=== PATIENT | male | born 1940 | race Caucasian/White ===

== ENCOUNTER 2020-09-29 15:48 | Day surgery (SDC) | payer MEDICARE, SELFPAY ==
[2020-09-29 16:05] VITALS: BP 157/89; PULSE 91; RESP 16; TEMP 36.7; O2SAT 95; BMI 28.5
--- NOTE | 2020-09-29 16:13 | HMH.GSHP ---
HPI HPI: Patient is an 79-year-old male with prior history of reflux. He was in his usual state of health until approximately 11:30 AM this morning he was eating meat and felt like it became lodged. He has subsequently been unable to swallow his secretions. He presented to his primary care provider, Dr. Jake Quintero, in [facility]. Given the clinical diagnosis of esophageal obstruction secondary to food bolus impaction surgery was contacted at [facility] and the patient was transported for EGD. [facility] History I have reviewed the patient's past medical history: Yes Medical History: Reports:: Hypertension *Have you ever received a pneumonia vaccine?: Yes *Have you received a flu vaccine this season?: Yes Other Surgeries: Yes: Hernia Repair - *Social History Smoking Status: Never smoker *Occupational Status:: other *Travel in the last 8 weeks: None Family Hx:: Non-contributory Review of Systems - Review of Systems Review of systems:: pertinent systems reviewed and negative unless documented below Meds Home Medications Medication Instructions Recorded Confirmed Type Omeprazole [Omeprazole 20mg 20 mg PO DAILY 09/29/20 09/29/20 History Capsule] Pravastatin Sodium [Pravachol 20mg 20 mg PO HS 09/29/20 09/29/20 History Tablet] lisinopriL [Lisinopril] 20 mg PO DAILY 09/29/20 09/29/20 History Allergies Allergy/AdvReac Type Severity Reaction Status Date / Time No Known Allergies Allergy Verified 09/29/20 16:02 Exam - *Routine HEENT Exam Head: Present: normocephalic Eye: Present: EOMI, PERRL ENT: Present: mucous membranes moist - *Routine Neck Exam Present: supple. Absent: lymphadenopathy - *Routine Respiratory Exam Present: CTA bilaterally - *Routine Cardiovascular Exam Present: RRR - *Routine Abdominal Exam Present: soft, normoactive bowel sounds. Absent: tenderness - *Routine Extremities Exam Absent: cyanosis, clubbing, edema - *Routine Skin Exam Present: warm. Absent: rash - *Routine Neurological Exam Present: alert, oriented X3 Assessment and Plan - Assessment and plan all Dx Assessment and Plan for all problems:: Plan for urgent EGD for food impaction
[2020-09-29 17:25] VITALS: BP 118/71; PULSE 79; RESP 16; TEMP 36.4; O2SAT 92
--- NOTE | 2020-09-29 17:30 | HMH.SCOPE ---
- Procedure: Date: 09/29/20 Patient Date of :: 1940 Procedure Performed:: Esophagogastroduodenoscopy with retrieval of food bolus and relief of esophageal obstruction Indications:: Patient is an 79-year-old male with prior history of reflux. He was in his usual state of health until approximately 11:30 AM this morning he was eating meat and felt like it became lodged. He has subsequently been unable to swallow his secretions. He presented to his primary care provider, Dr. Jake Quintero, in [facility]. Given the clinical diagnosis of esophageal obstruction secondary to food bolus impaction surgery was contacted at [facility] and the patient was transported for EGD. Performing Provider:: Eloy Javed MD Referring Provider:: Jake Quintero MD Sedation:: MAC sedation Procedure:: Patient was taken to endoscopy procedure room. He was positioned in the lateral decubitus position. Adequate intravenous sedation was achieved with anesthesia titration of propofol. Olympus endoscope was inserted via the oropharynx. In the posterior pharynx, proximal esophagus, large food bolus was encountered. This was only at approximately 15 to 20 cm from the incisors. Attempt was made to grasp this with the Caesar grasping forceps. Only a small portion of this could be retrieved. Endoscope was withdrawn and reinserted numerous times using both the Caesar grasping forcep and Jauregui net with retrieval of small amounts of the food bolus as it was in the proximal esophagus. Ultimately several decent sized pieces were removed. Then the endoscope was reinserted and Jauregui net was able to grasp a very large food bolus. The endoscope was then reinserted and able to be advanced through the remainder of the esophagus. Gastroesophageal junction was encountered at approximately 40 cm from the incisors. Stomach was cannulated and insufflated. Retroflexion revealed likely a tiny hiatal hernia. Pylorus was identified and the endoscope was advanced into the duodenal bulb. Endoscope was then withdrawn as the stomach was desufflated. Findings:: Esophageal food impaction/bolus at approximately 15 to 20 cm from the incisors Recommendations:: Recommend clear liquid diet for at least 24 hours, until the morning of 10/01/2020. Then may partake in a soft diet. I will see him in the office in a couple of weeks. Likely will plan for modified barium swallow given the nature of this food impaction in the proximal esophagus. Complications:: None immediately apparent Estimated blood obtained (mL): 5
[2020-09-29 17:33] LABS: Coronavirus 19 IgG Antibody Positive (Negative)
[2020-09-29 17:35] VITALS: BP 122/71; PULSE 75; RESP 16; O2SAT 97
[2020-09-29 17:39] LABS: Coronavirus 19 IgM Antibody Positive (Negative)
[2020-09-29 17:45] VITALS: BP 138/79; PULSE 75; RESP 16; O2SAT 99
--- NOTE | 2020-09-29 17:52 | P.PN_ITS ---
[facility] Anesthesia Checklist - Structural Data Admitted From: Home Planned Operative Procedure/s: removal esoph foreign body Consent for Planned Operative Procedure(s) Verified: Yes - Airway Assessment C-Spine Mobility Assessed: Yes TMJ Mobility Assessed: Yes Dentition: Dentures-good fit - Neurological Assessment Level of Consciousness: Awake, Alert, Appropriate - Anesthesia Plan Anesthesia Risk discussed: Yes Anesthesia Plan: Verified ASA Class: II Anesthesia Type: MAC [facility] History I have reviewed the patient's past medical history: Yes Medical History: Reports:: Hyperlipidemia, Hypertension Denies:: Cancer, Diabetes Mellitus Type 1, Diabetes Mellitus Type 2, Internal Pacemaker, Seizures *Have you ever received a pneumonia vaccine?: Yes *Have you received a flu vaccine this season?: Yes Anesthesia experience/problems:: none Other Surgeries: Yes: Hernia Repair. No: Pacemaker Amputation: No Fractures: No - *Social History Last grade of school completed: High school graduate Smoking Status: Never smoker Alcohol Intake: never Substance Use Type: denies use *Occupational Status:: other Housing: house Household Members: none *Travel in the last 8 weeks: None Family Hx:: Non-contributory
[2020-09-29 17:55] VITALS: BP 128/68; PULSE 77; RESP 16; O2SAT 97
== END 2020-09-29 17:58 | disposition home or self-care (01) ==
PROVIDERS: PCP Family Medicine; Visit Provider Surgery
PROC: 0DJ08ZZ Inspection of Upper Intestinal Tract, Via Natural or Artificial Opening Endoscopic (ICD-10-PCS; CPT 43235; principal; 2020-09-29 16:00)
DX: T18.128A Food in esophagus causing other injury, initial encounter; K21.9 Gastro-esophageal reflux disease without esophagitis; I10 Essential (primary) hypertension; E78.5 Hyperlipidemia, unspecified; Z79.899 Other long term (current) drug therapy
CPT/HCPCS: 43247; 86328

== ENCOUNTER → 2020-11-04 12:39 | Outpatient (CLI) | payer MEDICARE, SELFPAY ==
--- NOTE | 2020-11-04 12:39 | FL_ITS ---
PROCEDURE: FL BARIUM SWALLOW MODIFIED CLINICAL INDICATION: difficult swallowing Dysphagia COMPARISON: No exams were available for comparison TECHNIQUE: Patient administered varying consistencies of barium contrast, while viewed in lateral position under real-time fluoroscopy with cine recording. FLUOROSCOPY TIME:1 minutes 25 seconds The study was performed in conjunction with speech pathologist. Please see that report & recommendations. FINDINGS: Patient was given varying consistencies of barium. No aspiration or penetration evident.. IMPRESSION: Unremarkable modified barium swallow. Please see speech pathologist report and recommendations. Dictated by: Hamlet Barry MD 11/04/2020 16:41 Hamlet Barry MD in [place] 11/04/2020 16:41
--- NOTE | 2020-11-04 13:56 | HMH.SLMBS2 ---
Speech & Language Evaluation Speech/Language Mod Barium Swallow Start: 11/04/20 13:45 Freq: once Status: Complete Protocol: Document 11/04/20 13:45 JOSE (Rec: 11/04/20 13:56 JOSE [id number]) General Information General Current Food Consistancy Regular,Thin Liquids Dentition Good Dentition Oxygen Status Room Air Facial Symmetry Symmetrical Patient Orientation Person,Place,Time,Situation Ability to Follow Directions Excellent Communication Ability No Impairment MBS Recommendations Diet Dietary Recommendations Regular,Thin Liquids Referrals/Other Recommended Referrals GI Consult Mod Barium Swallow Impressions Summary and Impressions Oral Phase Impression No Impairment (WFL) Oral Phase Summary Mr. Lozano was given the following consistencies: thins via straw and open cup, pudding, regular, pill with thin wash, and mixed. No impairments noted in the oral phase of swallowing. Pharyngeal Phase Impression Minimal Impairment Pharyngeal Phase Summary Flash penetration was noted with large volumes of thin liquids. When advised to take smaller sips, no impairments noted. Speech/Language MBS Assessment/Goals/Plan Assessment Date of Evaluation: 11/04/20 Evaluation Type Initial Certification Assessment/Problems Dysphagia Does Patient Qualify for Service No Plan Pt/Guardian verbally ack understanding Yes of dx/prognosis/goals G -code Required No Education Pt/Caregiver able to recall information Able to recall/restate Mod Barium Swallow Setup Exam Setup Radiologist Hamlet Barry Level of Consciousness Awake,Alert,Appropriate, Follows Commands Position (degrees) 90 Mod Barium Swallow-Lat View Textures Lateral View Food Presentation Thin Liquid via Cup,Thin Liquid via Straw,Barium Tablet ,Regular Food,Pudding,Mixed Oral Phase Labial Closure No Impairment (WFL) Bolus Formation Pooling L/R No Impairment (WFL) Bolus Formation under Tongue No Impairment (WFL) Bolus Formation Scattered Loss No Impairment (WFL) Mastication Rotary Chew No Impairment (WFL) Mastication Munching No Impairment (WFL) Mastication Lateralization No Impairment (WFL) A/P Lingual Propulsion Spills No Impairment (WFL) Lingual Movement No Impairment (WFL) Residue Clearing No I
== END ==
PROVIDERS: PCP Family Medicine; Visit Provider Surgery
DX: R13.10 Dysphagia, unspecified (principal)
CPT/HCPCS: 70371; 92611

== ENCOUNTER → 2020-12-06 07:09 | Outpatient (CLI) | payer MEDICARE, SELFPAY | PROVIDERS: Visit Provider Internal Medicine Gastroenterology | DX: Z01.812 Encounter for preprocedural laboratory examination (principal); Z20.822 Contact with and (suspected) exposure to COVID-19; Z12.11 Encounter for screening for malignant neoplasm of colon | CPT/HCPCS: U0003 ==

== ENCOUNTER 2020-12-08 12:26 | Day surgery (SDC) | payer MEDICARE, SELFPAY ==
[2020-12-01 15:48] VITALS: BMI 28.5
[2020-12-08 13:11] VITALS: BP 148/84; PULSE 71; RESP 18; TEMP 36.7; O2SAT 93
[2020-12-08 14:02] VITALS: O2SAT 97
--- NOTE | 2020-12-08 14:18 | P.PN_ITS ---
[facility] Anesthesia Checklist - Patient Identification Patient Identification: Arm Band - Structural Data Admitted From: Home Planned Operative Procedure/s: egd Consent for Planned Operative Procedure(s) Verified: Yes Verified Documents: Surgical Consent, History and Physical - NPO Status Verified Time NPO: 00:00 - Additional verifications Anesthesia Reactions: No - Airway Assessment C-Spine Mobility Assessed: Yes (mp2) TMJ Mobility Assessed: Yes Dentition: Dentures-good fit - Neurological Assessment Level of Consciousness: Awake, Alert - Anesthesia Plan Anesthesia Risk discussed: Yes Anesthesia Plan: Verified ASA Class: II Anesthesia Type: MAC [facility] History I have reviewed the patient's past medical history: Yes Medical History: Reports:: Asthma, Hyperlipidemia, Hypertension Denies:: Cancer, Diabetes Mellitus Type 1, Diabetes Mellitus Type 2, Internal Pacemaker, MRSA, Seizures *Have you ever received a pneumonia vaccine?: Yes *Have you received a flu vaccine this season?: Yes Anesthesia experience/problems:: nac Other Surgeries: Yes: EGD, Hernia Repair. No: Pacemaker Amputation: No Fractures: No - *Social History Smoking Status: Never smoker Alcohol Intake: never Substance Use Type: denies use *Occupational Status:: other Housing: house Household Members: none *Travel in the last 8 weeks: None Family Hx:: Non-contributory
[2020-12-08 14:24] VITALS: BP 163/80; PULSE 61; RESP 12; TEMP 36.2; O2SAT 95
--- NOTE | 2020-12-08 14:24 | P.PCN_ITS ---
[facility] Procedure Note Procedure Note:: Upper Endoscopy Procedure Report: Esophagogastroduodenoscopy with cold biopsies and TTS balloon dilation Endoscopost: Jayme Cruz II, MD Referring Physician: Artur Quintero MD Date of Procedure: December 08, 2020 Equipment: Olympus GIF 190 standard upper endoscope Sedation: MAC sedation Indications: Mr. Lozano is an 80-year-old gentleman with dysphagia. He did have a food impaction about a month ago and came to the emergency department at [facility]. The food was dislodged and removed (Dr. Eloy Javed). He reports no heartburn, reflux, bloating or belching. He is on omeprazole 20 mg by mouth daily. Procedure: Prior to the procedure, a history and physical exam was performed, and patient's medications and allergies were reviewed. The risks, benefits and alternatives of the sedation and procedure were discussed with the patient. All questions were answered and informed consent was obtained. The patient was brought to the procedure room. Patient identification and proposed procedure were verified by the physician and the nurse. The patient was placed in a left lateral decubitus position and the scope was passed under direct vision. Throughout the procedure, the patient's blood pressure, pulse, and oxygen saturations were monitored continuously. The upper GI endoscopy was accomplished without difficulty. The patient tolerated the procedure well. Findings: The scope was passed directly into the upper esophagus and advanced to the third portion of the duodenum. The post bulbar duodenum and duodenal bulb were normal with normal mucosa and conniventes. The scope was withdrawn through a normal duodenal bulb and pylorus into the stomach. There was bile reflux with linear reactive gastropathy of the antrum and body of the stomach. The remainder of the fundus of the stomach was grossly normal. Upon retroflexion there was a very small sliding 1 to 2 cm hiatal hernia. 2 biopsies were taken in the antrum and along the lesser curvature for histology to rule out gastritis and/or H pylori. The scope was then withdrawn into the esophagus. There was a distal Schatzki's ring that was originally 14 to 15 mm and dilated up to 20 mm with a TTS hydrostatic balloon. There was some mild esophageal dysmotility. The remainder of the esophageal mucosa was normal. Impression: 1. Schatzki's ring status post dilation to 20 mm 2. Nonerosive GERD with mild esophageal dysmotility and very small 1 to 2 cm hiatal hernia 3. Bile reflux with mild linear reactive gastropathy Plan: I will recommend that the patient increase omeprazole to 40 mg p.o. daily for 3 months. I will follow-up the biopsies. I will discussed the findings with patient and family.
[2020-12-08 14:34] VITALS: BP 144/73; PULSE 62; RESP 12; O2SAT 94
[2020-12-08 14:44] VITALS: BP 138/78; PULSE 68; RESP 16; O2SAT 96
[2020-12-08 14:54] VITALS: BP 128/88; PULSE 68; RESP 16; TEMP 36.2; O2SAT 96
== END 2020-12-08 14:57 | disposition home or self-care (01) ==
LOC: OUTP 12:27
PROVIDERS: PCP Family Medicine; Visit Provider Internal Medicine Gastroenterology
PROC: 0DJ08ZZ Inspection of Upper Intestinal Tract, Via Natural or Artificial Opening Endoscopic (ICD-10-PCS; CPT 43235; principal; 2020-12-08 13:30)
DX: K22.2 Esophageal obstruction (principal); K22.4 Dyskinesia of esophagus; K21.9 Gastro-esophageal reflux disease without esophagitis; K31.9 Disease of stomach and duodenum, unspecified; K44.9 Diaphragmatic hernia without obstruction or gangrene; J45.909 Unspecified asthma, uncomplicated; E78.5 Hyperlipidemia, unspecified; I10 Essential (primary) hypertension
CPT/HCPCS: 43239; 43249; 88305; C1726

== ENCOUNTER → 2022-04-19 12:17 | Outpatient (CLI) | payer MEDICARE, SELFPAY | PROVIDERS: PCP Family Medicine; Visit Provider Ophthalmology | DX: U07.1 COVID-19 (principal) | CPT/HCPCS: C9803; U0003; U0005 ==

== ENCOUNTER 2022-05-18 07:54 | Day surgery (SDC) | payer MEDICARE, SELFPAY ==
[2022-05-13 14:32] VITALS: BMI 27.8
[2022-05-18] VITALS (8 sets, daily range): BP systolic 121–145; BP diastolic 62–75; PULSE 61–84; RESP 16–18; TEMP 36.3–36.6; O2SAT 96–99
== END 2022-05-18 10:48 | disposition home or self-care (01) ==
LOC: OR 08:00
PROVIDERS: PCP Family Medicine; Visit Provider Ophthalmology
DX: H25.813 Combined forms of age-related cataract, bilateral (principal); Z79.899 Other long term (current) drug therapy
CPT/HCPCS: 66982; V2632

== ENCOUNTER 2022-06-01 07:57 | Day surgery (SDC) | payer MEDICARE, SELFPAY ==
[2022-06-01] VITALS (8 sets, daily range): BP systolic 129–147; BP diastolic 62–78; PULSE 53–61; RESP 16–18; TEMP 36.1–36.6; O2SAT 96–100; BMI 27.8
== END 2022-06-01 09:48 | disposition home or self-care (01) ==
PROVIDERS: PCP Family Medicine; Visit Provider Ophthalmology
DX: H25.813 Combined forms of age-related cataract, bilateral (principal)
CPT/HCPCS: 66982; V2632

== ENCOUNTER 2022-09-25 13:39 | Emergency (ER) | payer MEDICARE, SELFPAY ==
[2022-09-25 13:50] VITALS: BP 99/54; PULSE 84; RESP 18; TEMP 36.7; O2SAT 95; BMI 28.5
--- NOTE | 2022-09-25 14:02 | XR_ITS ---
PROCEDURE INFORMATION: Exam: XR Left Hand Exam date and time: 09/25/2022 2:10 PM Age: 81 years old Clinical indication: Pain; Finger(s); Left; Additional info: Left middle finger injury TECHNIQUE: Imaging protocol: Radiologic exam of the left hand. Views: 3 or more views. COMPARISON: No relevant prior studies available. FINDINGS: Bones/joints: Nondisplaced 3rd proximal middle phalangeal fracture. No dislocation. Soft tissues: Normal. IMPRESSION: Third middle phalangeal fracture.
--- NOTE | 2022-09-25 14:13 | EXP.UTC ---
Discharge Plan Disposition Patient Disposition: Home, Self-Care Condition: Good Prescriptions Prescriptions: No Action lisinopril 20 MG tablet 20 mg PO DAILY omeprazole 20 MG capsule,delayed release(DR/EC) 20 mg PO DAILY pravastatin 20 MG tablet 20 mg PO HS tamsulosin 0.4 mg Capsule 0.4 mg PO DAILY montelukast 10 mg Tablet 10 mg PO DAILY finasteride 5 mg Tablet 5 mg PO DAILY Referrals Follow up/Referrals: Artur Quintero [Primary Care Provider] - See instructions Activity Restrictions/Add. Instructions Additional Instructions/Restrictions: leave smiley tape on rest Ice with cold pack for 20 minutes remove may repeat for comfort every hour splint for support and swelling no less in the shower. Be sure not too tight but not to lose either Elevate with hand above your heart as much as possible to help reduce swelling and therefore pain Ibuprofen every 6 hours as needed for pain or inflammation. If needs something more you can take Tylenol every 4 hours as needed as long as her primary care has told he was okayed for you to take both. Follow-up immediately if new or worsening symptoms or no noticeable improvement over the next 3-5 days. call ortho on tuesday for appointment with dr brian ashley or andreea Clinical Impressions Clinical Impression: Fracture of finger of left hand Instructions Patient Instructions: DI for Finger Fracture Discharge ED Provider: Le ([facility] [facility] [place] General Stated complaint: LT hand middle finger pain Mode of Arrival: Ambulatory Source of Information: Patient Limitations: No Limitations Time Seen by Provider: 09/25/22 14:14 Description of Symptoms (Recalled from Triage Doc. by RN): PATIENT STATES HE WAS LOADING A CHAINSAW IN THE BACK OF A TRUCK TODAY AND BENT HIS LEFT MIDDLE FINGER SIDEWAYS AND IT STAYED THAT WAY HEENT Symptoms (Recalled from RN notes): No Resp Symptoms (Recalled from RN notes): No Skin Symptoms (Recalled from RN notes): No MS Symptoms (Recalled from RN notes): Yes Functional Status (Recalled from RN notes): WNL History of Present Illness Provider Complaint: 81 yr old male presents for left hand pain. pt states he was loading a chain saw when he hit his 3 finger now having pain Related Data Home Medications Medication Instructions Recorded Confirmed lisinopril 20 mg tablet 20 mg PO DAILY High blood pressure 09/29/20 05/18/22 omeprazole 20 mg capsule,delayed 20 mg PO DAILY GERD 09/29/20 05/18/22 release pravastatin 20 mg tablet 20 mg PO HS Cholesterol 09/29/20 05/18/22 finasteride 5 mg tablet 5 mg PO DAILY PROSTATE 05/18/22 05/18/22 montelukast 10 mg tablet 10 mg PO DAILY ALLERGIES 05/18/22 05/18/22 tamsulosin 0.4 mg capsule 0.4 mg PO DAILY PROSTATE 05/18/22 05/18/22 Allergies Allergy/AdvReac Type Severity Reaction Status Date / Time No Known Allergies Allergy Verified 04/19/22 08:49 Worker's Comp Is this a Worker's Comp case?: No [facility] Disclaimer: The information contained in this section may have been updated after the patient was seen, as this information can be updated by other users. Medical History , [employer]) Allergies Arthritis Deviated septum Family history of prostate problems History of cataract Hyperlipidemia Hypertension Surgical History , [employer]) History of hernia surgery Family History , [employer]) Heart attack Father Social History , [employer]) Smoking Status: Former smoker second hand exposure: No alcohol intake: never substance use type: denies use current occupational status: retired and other Travel in the last 8 weeks: None household members: none housing: house current occupational exposures/hazards: No caffeine: Yes ROS Obtained: Yes All systems r
[2022-09-25 14:51] VITALS: BP 99/54; PULSE 84; RESP 18; TEMP 36.7; O2SAT 95
== END 2022-09-25 14:56 | disposition home or self-care (01) ==
PROVIDERS: Emergency Provider Nurse Practitioner Family; PCP Family Medicine
DX: S62.653A Nondisplaced fracture of middle phalanx of left middle finger, initial encounter for closed fracture; W29.8XXA Contact with other powered hand tools and household machinery, initial encounter
CPT/HCPCS: 73130; 99212; 99213; G0463

== ENCOUNTER → 2022-10-12 12:26 | Outpatient (CLI) | payer MEDICARE, SELFPAY ==
--- NOTE | 2022-10-12 12:42 | XR_ITS ---
FINAL REPORT CLINICAL HISTORY: fracture COMPARISON: September 25, 2022 FINDINGS: 3 views of the left hand were obtained. There are multiple small metallic foreign body is in the distal 4th digit in lateral 2nd digit. There is a mildly displaced comminuted fracture through the base of the 3rd middle phalanx. IMPRESSION: Redemonstration of 3rd middle phalanx fracture with multiple small metallic foreign bodies. Reviewed, Interpreted and Dictated by Jasvir Sheffield MD Transcribed by Magan Peterson Authenticated and [facility]
== END ==
PROVIDERS: PCP Family Medicine; Visit Provider Orthopaedic Surgery
DX: S62.602A Fracture of unspecified phalanx of right middle finger, initial encounter for closed fracture (principal)
CPT/HCPCS: 73130

== ENCOUNTER → 2023-05-10 07:34 | Outpatient (CLI) | payer MEDICARE, SELFPAY ==
--- NOTE | 2023-05-10 07:40 | US_ITS ---
FINAL REPORT CLINICAL HISTORY: DISTENTION PAIN COMPARISON: None FINDINGS: Sonographic images of the abdomen were obtained. The liver has an unremarkable appearance with normal echogenicity. Gallstones are present in the gallbladder. There is no evidence of biliary ductal dilatation. The common hepatic duct measures 4 mm, which is within normal limits. The pancreas is obscured by overlying bowel gas. The spleen size is normal. The right kidney measures 11.2 in length. The left kidney measures 9.8 in length. There is normal renal echogenicity. There is no evidence of hydronephrosis. The aorta has an unremarkable appearance. Limited images of the inferior vena cava are unremarkable. IMPRESSION: Gallstones are present in the gallbladder. Reviewed, Interpreted and Dictated by Eloy Shafer III, MD Transcribed by Mary Huitron Authenticated and [facility]
== END ==
PROVIDERS: PCP Family Medicine; Visit Provider Family Medicine
DX: R14.0 Abdominal distension (gaseous) (principal); R10.9 Unspecified abdominal pain
CPT/HCPCS: 76700

== ENCOUNTER → 2023-06-07 12:49 | Outpatient (CLI) | payer MEDICARE, SELFPAY ==
--- NOTE | 2023-06-07 12:53 | CT_ITS ---
FINAL REPORT TECHNIQUE: Axial images through the abdomen and pelvis were performed without contrast. This study was performed with techniques to keep radiation doses as low as reasonably achievable, (ALARA). Individualized dose reduction techniques using automated exposure control or adjustment of mA and/or kV according to the patient's size were employed. CLINICAL HISTORY: ABD PAIN,BLOATING COMPARISON: None FINDINGS: Abdomen: The lung bases are clear. Massive pneumoperitoneum is present, without a definite site of origin. There is stranding in the mesentery, oblique inflammatory. The liver parenchyma is homogeneous. The gallbladder is present with gallstones. The spleen, pancreas, adrenals and kidneys are unremarkable. Pelvis: A moderate amount of free fluid is present in the pelvis. This has been attenuation of 20 Hounsfield units. The urinary bladder is unremarkable. The appendix is not visualized. There is no pelvic mass or inflammation. IMPRESSION: Massive pneumoperitoneum, with moderate free fluid present in the pelvis. These results were called to Dr. Artur Quintero and given to his nurse, Pebbles Sanderson at 2:30 PM on 06/07/2023. Reviewed, Interpreted and Dictated by Jasvir Sheffield MD Transcribed by Mary Huitron Authenticated and [facility]
== END ==
PROVIDERS: PCP Family Medicine; Visit Provider Family Medicine
DX: R10.9 Unspecified abdominal pain (principal); R14.0 Abdominal distension (gaseous)
CPT/HCPCS: 74176

== ENCOUNTER 2023-06-10 08:15 | Emergency (ER) | payer MEDICARE, SELFPAY ==
[2023-06-10 08:17] VITALS: BP 131/86; PULSE 85; RESP 18; TEMP 36.6; O2SAT 96; BMI 27.9
--- NOTE | 2023-06-10 08:43 | PC.NURSE ---
Dr. Hendrix at bedside
--- NOTE | 2023-06-10 09:14 | PC.NURSE ---
DR KEEN SPEAKING WITH DR FENTON
[2023-06-10 09:15] LABS: Basophils % 0.1 % (0.1-2.0); Eosinophils # 0.1 K/mm3 (0.0-0.4); Eosinophils % 1.6 % (0.1-12.0); Hematocrit 43.9 % (42.0-52.0); Hemoglobin 14.6 g/dL (14.1-18.0); Lymphocytes # 0.8 K/mm3 (0.7-4.5); Lymphocytes % 15.5 % (10-50); Mean Corpuscular HGB Conc 33.3 g/dL (31.8-35.4); Mean Corpuscular Hemoglobin 33.1 pg (27.0-31.2); Mean Corpuscular Volume 99.4 fl (80-94); Mean Platelet Volume 8.2 fl (7.4-10.4); Monocytes # 0.4 K/mm3 (0.1-1.0); Monocytes % 7.2 % (1.7-9.3); Neutrophils % 75.6 % (37.0-80.0); Platelet Count 194 K/mm3 (142-424); Red Blood Count 4.41 M/mm3 (4.60-6.20); Red Cell Distribution Width 13.6 % (11.5-17.5); White Blood Count 5.3 K/mm3 (4.8-10.8)
[2023-06-10 09:22] LABS: Alanine Aminotransferase 24 U/L (12-78); Albumin Level 3.7 g/dl (3.5-5.0); Albumin/Globulin Ratio 1.3 (1.1-1.8); Alkaline Phosphatase 125 U/L (38-126); Aspartate Amino Transferase 31 U/L (17-59); Bilirubin,Total 0.5 mg/dl (0.2-1.3); Blood Urea Nitrogen 13 mg/dl (9-20); Calcium 8.6 mg/dl (8.4-10.2); Carbon Dioxide 27 mmol/L (22.0-30.0); Chloride 104 mmol/L (98-107); Creatinine Clearance Estimated 69 mL/min (50-200); Estimated Glomerular Filt Rate 107 ml/min (>60); GFR (African American) 130 ML/MIN (>60); Globulin 2.8 g/dL (1.3-3.2); Glucose 122 mg/dl (74-100); Lipase 54 U/L (23-300); Sodium 138 mmol/L (136-145); Total Protein,Serum 6.5 g/dl (6.3-8.2)
[2023-06-10 09:27] LABS: C-Reactive Protein 2.5 mg/L (0-4)
[2023-06-10 09:36] LABS: Lactic Acid 0.9 mmol/L (0.7-2.1)
[2023-06-10 09:47] VITALS: BP 126/81; PULSE 85; RESP 17; TEMP 36.6; O2SAT 96
--- NOTE | 2023-06-10 09:50 | HMH.EDGENADL ---
Discharge Plan Disposition Patient Disposition: Home, Self-Care Prescriptions Prescriptions: No Action lisinopril 20 MG tablet 20 mg PO DAILY omeprazole 20 MG capsule,delayed release(DR/EC) 20 mg PO DAILY pravastatin 20 MG tablet 20 mg PO HS tamsulosin 0.4 mg Capsule 0.4 mg PO DAILY montelukast 10 mg Tablet 10 mg PO DAILY finasteride 5 mg Tablet 5 mg PO DAILY Referrals Follow up/Referrals: Artur Quintero [Primary Care Provider] - See instructions Lopez Perez MD [Staff Physician] - See instructions Activity Restrictions/Add. Instructions Additional Instructions/Restrictions: Please walk directly to Dr. Perez's clinic as discussed. Clinical Impressions Clinical Impression: Pneumoperitoneum, Intra-abdominal fluid Discharge ED Provider: Kiesha Hendrix General Adult HPI General Chief complaint: Recheck/Abnormal Lab/Rx Stated complaint: Physician referral, stomach issue Time Seen by Provider: 06/10/23 08:43 Mode of Arrival: Ambulatory Source of Information: Patient Limitations: No Limitations Description of Symptoms (Recalled from ER Triage Doc. by RN): Patient states he had a scan on Tuesday and his family doctor called and told him he had a perforated organ and to come to the er to be evaluated. Patient denies pain or nausea at this time. History of Present Illness HPI narrative: Patient is an 82-year-old male presenting to the emergency department with pneumoperitoneum and intra-abdominal fluid collection on an outpatient CT scan that was performed 2 days ago. Patient states that he is began having some abdominal discomfort in November. States he has pain every few weeks but has not had any pain significantly as of late. Denies any pain or any abdominal discomfort or any other symptoms including fevers chills nausea vomiting or feeling ill at all states he feels very good at the moment. Had an outpatient CT scan that was done on Tuesday his primary care doctor told him to come directly to the emergency department which is why he is here today. Related Data Home Medications Medication Instructions Recorded Confirmed lisinopril 20 mg tablet 20 mg PO DAILY High blood pressure 09/29/20 06/10/23 omeprazole 20 mg capsule,delayed 20 mg PO DAILY GERD 09/29/20 06/10/23 release pravastatin 20 mg tablet 20 mg PO HS Cholesterol 09/29/20 06/10/23 finasteride 5 mg tablet 5 mg PO DAILY PROSTATE 05/18/22 06/10/23 montelukast 10 mg tablet 10 mg PO DAILY ALLERGIES 05/18/22 06/10/23 tamsulosin 0.4 mg capsule 0.4 mg PO DAILY PROSTATE 05/18/22 06/10/23 Allergies Allergy/AdvReac Type Severity Reaction Status Date / Time No Known Allergies Allergy Verified 10/12/22 13:57 [facility] Disclaimer: The information contained in this section may have been updated after the patient was seen, as this information can be updated by other users. Medical History Allergies Arthritis Deviated septum Family history of prostate problems History of cataract Hyperlipidemia Hypertension Surgical History History of hernia surgery Family History Father Heart attack Social History Smoking Status: Never smoker second hand exposure: No alcohol intake: never substance use type: denies use current occupational status: retired and other Travel in the last 8 weeks: None household members: spouse housing: house current occupational exposures/hazards: Yes caffeine: No ROS Obtained: Yes All systems reviewed & no additional complaints except as documented Physical Exam General General appearance: alert Respiratory Respiratory exam: Present normal lung sounds bilaterally Cardiovascular Cardiovascular exam: Present regular rate Abdominal Exam Abdominal exam: P
[2023-06-10 11:58] LABS: Erythrocyte Sedimentation Rate 6 mm/hr (0-20)
== END 2023-06-10 09:54 | disposition home or self-care (01) ==
PROVIDERS: Emergency Provider Student in an Organized Health Care Education/Training Program; PCP Family Medicine
DX: K66.8 Other specified disorders of peritoneum (principal); R18.8 Other ascites; I10 Essential (primary) hypertension; E78.5 Hyperlipidemia, unspecified
CPT/HCPCS: 80053; 83605; 83690; 85025; 85651; 86140; 99283

== ENCOUNTER → 2023-07-01 07:51 | Outpatient (CLI) | payer MEDICARE, SELFPAY ==
--- NOTE | 2023-07-01 07:51 | FL_ITS ---
FINAL REPORT CLINICAL HISTORY: ASYMPTOMATIC FREE AIR FLUORO TIME - 5:57 MIN 225.60mGy FINDINGS: UPPER GI WITH SBFT HISTORY: Abdominal distention and discomfort. Asymptomatic pneumoperitoneum. PROCEDURE: The patient ingested Gastrografin. Spot and overhead films were obtained. Additional Gastrografin was administered for a SBFT. Number of images: 50 Fluoro time: 5 minutes 57 seconds Radiation exposure in Reference air Kerma: 225.60 mGy. FINDINGS: Preliminary clerk film demonstrates diffuse gaseous distention of small bowel. In addition, there is persistent known pneumoperitoneum. No esophageal stricture is identified. There is an unusual rotation to the stomach. The stomach empties appropriately. 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 No small bowel obstruction is identified. Upon completion of the exam, contrast is seen to the rectum. No obvious extravasation of contrast was seen. IMPRESSION: Persistent known pneumoperitoneum. Large duodenal diverticulum. No small bowel obstruction. No obvious extravasation of contrast. Films reviewed , interpreted and dictated by Dr. Shafer. Transcribed by Phill Lim PA-C. Reviewed, Interpreted and Dictated by Eloy Shafer III, MD Transcribed by DONELL Hargrove Authenticated and . [facility]
== END ==
LOC: RAD 07:51
PROVIDERS: PCP Family Medicine; Visit Provider Surgery
DX: K66.8 Other specified disorders of peritoneum (principal)
CPT/HCPCS: 74246; 74248

== ENCOUNTER 2024-02-13 09:08 | Emergency (ER) | payer MEDICARE, SELFPAY ==
[2024-02-13 09:18] VITALS: BP 139/73; PULSE 93; RESP 20; TEMP 36.6; O2SAT 96; BMI 26.1
--- NOTE | 2024-02-13 09:21 | PC.NURSE ---
DR. Salinas at BS for pt eval
[2024-02-13 09:31] VITALS: BP 117/82; PULSE 71; O2SAT 95
--- NOTE | 2024-02-13 09:32 | XR_ITS ---
FINAL REPORT CLINICAL HISTORY: pain L hip, limited ROM FINDINGS: Left femur TWO VIEW FINDINGS: Two views show no evidence of an acute, displaced fracture or dislocation of the visualized bony architecture. Mild degenerative joint disease is present. IMPRESSION: Degenerative changes. No acute bony abnormality. Authenticated and ERN
--- NOTE | 2024-02-13 09:32 | XR_ITS ---
FINAL REPORT CLINICAL HISTORY: pain L hip, limited ROM FINDINGS: Left hip THREE VIEW FINDINGS: Three views show no evidence of an acute, displaced fracture or dislocation of the visualized bony architecture. Mild degenerative joint disease is present. IMPRESSION: Degenerative changes. No acute bony abnormality . Should symptoms persist, CT or MRI may be considered. Authenticated and ERN
--- NOTE | 2024-02-13 09:32 | XR_ITS ---
FINAL REPORT CLINICAL HISTORY: pain L hip, limited ROM FINDINGS: LEFT HIP THREE VIEW FINDINGS: Three views show no evidence of an acute, displaced fracture or dislocation of the visualized bony architecture. Mild degenerative joint disease is present. IMPRESSION: Degenerative changes. No acute bony abnormality . Should symptoms persist, CT or MRI may be considered. Authenticated and ERN
[2024-02-13] MEDS: KETOROLAC 30MG/ML VIAL 30 MG IM (09:46)
[2024-02-13] MEDS: ACETAMINOPHEN 500MG TAB 1000 MG PO (09:46)
[2024-02-13] MEDS: LIDOCAINE 5% TRANSDERMAL PATCH 1 EACH TP (09:47)
[2024-02-13] MEDS: METHOCARBAMOL 500MG TABLET 500 MG PO (09:47)
[2024-02-13 09:53] VITALS: BP 117/82; PULSE 78; O2SAT 97
--- NOTE | 2024-02-13 09:57 | PC.NURSE ---
pt out of room with Rad for x-ray
--- NOTE | 2024-02-13 10:08 | HMH.EDGENADL ---
Discharge Plan Disposition Patient Disposition: Home, Self-Care Condition: Good Prescriptions Prescriptions: New lidocaine [Lidoderm] 5 % adhesive patch,medicated 1 patch topical DAILY Qty: 15 0RF Rx Instructions: leave on most painful area for up to 12 hrs methocarbamol 500 mg tablet 500 mg PO Q8H PRN (Reason: pain) Qty: 20 0RF No Action omeprazole 40 mg capsule,delayed release(DR/EC) 40 mg PO DAILY Qty: 30 2RF lisinopril 20 MG tablet 20 mg PO DAILY omeprazole 20 MG capsule,delayed release(DR/EC) 20 mg PO DAILY pravastatin 20 MG tablet 20 mg PO HS tamsulosin 0.4 mg Capsule 0.4 mg PO DAILY montelukast 10 mg Tablet 10 mg PO DAILY finasteride 5 mg Tablet 5 mg PO DAILY Referrals Follow up/Referrals: Greg Workman DO [Staff Physician] - See instructions Artur Quintero [Primary Care Provider] - See instructions Activity Restrictions/Add. Instructions Additional Instructions/Restrictions: You were evaluated in the emergency department today. Please follow-up outpatient with orthopedics, Dr. Workman, if your pain persists. Please call his office to schedule an appointment. Follow-up closely with the surgeon who performed your procedure. Return to the emergency department for new or worsening symptoms. Clinical Impressions Clinical Impression: Acute pain of left hip Instructions Patient Instructions: DI for Acute Pain -- Adult Discharge ED Provider: Ana Salinas General Adult HPI General Chief complaint: PAIN Stated complaint: Left hip pain no accident Time Seen by Provider: 02/13/24 09:15 Mode of Arrival: Ambulatory Source of Information: Patient Limitations: No Limitations Description of Symptoms (Recalled from ER Triage Doc. by RN): pt to ed c/o left hip pain. pt states he had a prodedure last tuesday that required him to lay on his left side for an extended period of time and since then he has had pain. pt reports he is able to ambulate, but any twisting of his hip is painful. History of Present Illness HPI narrative: This patient is an 83-year-old male with a history of recent prostate biopsy 02/07/2024 presented to emergency department with concern for left hip pain. Patient reports that during the procedure, he had to lay on his left side for an extended period of time in an uncomfortable position, and sometimes had pain with twisting his left hip as well as with an range of motion of his left hip. No falls or injuries. He still ambulatory and able to bear weight. No skin color changes, bruising, numbness, tingling, or other concerns. He states he is doing fine as far as the biopsy goes, as his bleeding has resolved, he has had no abdominal pain, nausea, urinary symptoms, or changes in bowel movements. Related Data Home Medications Medication Instructions Recorded Confirmed lisinopril 20 mg tablet 20 mg PO DAILY High blood pressure 09/29/20 07/06/23 omeprazole 20 mg capsule,delayed 20 mg PO DAILY GERD 09/29/20 07/06/23 release pravastatin 20 mg tablet 20 mg PO HS Cholesterol 09/29/20 07/06/23 finasteride 5 mg tablet 5 mg PO DAILY PROSTATE 05/18/22 07/06/23 montelukast 10 mg tablet 10 mg PO DAILY ALLERGIES 05/18/22 07/06/23 tamsulosin 0.4 mg capsule 0.4 mg PO DAILY PROSTATE 05/18/22 07/06/23 Previous Rx's Medication Instructions Recorded omeprazole 40 mg capsule,delayed 40 mg PO DAILY #30 caps 06/10/23 release lidocaine 5 % topical patch 1 patch topical DAILY #15 ea 02/13/24 (Lidoderm) methocarbamol 500 mg tablet 500 mg PO Q8H PRN pain #20 tabs 02/13/24 Allergies Allergy/AdvReac Type Severity Reaction Status Date / Time No Known Allergies Allergy Verified 07/06/23 09:00 [facility] Disclaimer: The information contained in this section may have been updated after the patient was seen, as this information can be updated by other users. Medical History Family history of prostate problems Arthritis Allergies Deviated septum History of cataract Hyperlipidemia Hypertension Surgical History History of colonoscopy History of hernia surgery Family History Father Heart attack Social History Smoking Status: Former smoker tobacco type: pipe second hand exposure: No alcohol intake: never substance use type: denies use current occupational status: retired and other Travel in the last 8 weeks: None household members: spouse housing: house current occupational exposures/hazards: Yes caffeine: No ROS Obtained: Yes All systems reviewed & no additional complaints except as documented Physical Exam General General appearance: alert and in no apparent distress Head Head exam: atraumatic and normocephalic Eye Eye exam: Present normal appearance, PERRL and EOMI ENT ENT exam: Present normal exam, normal oropharynx, mucous membranes moist and normal external ear exam Neck Neck exam: Present normal inspection, full ROM and trachea midline; Absent tenderness Chest Chest inspection: Present normal inspection and symmetric chest wall rise; Absent tenderness Respiratory Respiratory exam: Present normal lung sounds bilaterally; Absent respiratory distress, wheezes, stridor or accessory muscle use Cardiovascular Cardiovascular exam: Present regular rate and normal rhythm Abdominal Exam Abdominal exam: Present soft; Absent distention, tenderness or guarding Extremities Exam Extremities exam: Present normal capillary refill and other (All compartments soft. Neurovascularly intact distally.); Absent full ROM (Limited ROM of L hip in end range 2/2 pain), tenderness ( tenderness to palpation over the lateral left hip joint and the left upper gluteal region. ), edema or calf tenderness Back Exam Back exam: Present normal inspection and full ROM; Absent tenderness Neurological Exam Neurological exam: Present alert, oriented X3, CN II-XII intact and normal gait; Absent motor sensory deficit Psychiatric Psychiatric exam: Present normal affect and normal mood Skin Skin exam: Present warm and dry Medical Decision Making Medical Records Medical records reviewed: Yes I reviewed the patient's medical records. Remi Inquiry Pt receiving controlled substance: No Vital Signs: 02/13/24 09:18 02/13/24 09:31 02/13/24 09:53 Temperature 97.8 F Temperature Source Oral Pulse Rate 71 78 Pulse Rate [Left Radial] 93 H Respiratory Rate 20 Blood Pressure 117/82 117/82 Blood Pressure [Right Arm] 139/73 Blood Pressure Mean 93 Blood Pressure Mean [Right Arm] 95 02 Sat by Pulse Oximetry 96 95 97 Oxygen Delivery Method Room Air Room Air Room Air 02/13/24 12:01 Temperature 97.8 F Temperature Source Oral Pulse Rate 74 Pulse Rate [Left Radial] Respiratory Rate 20 Blood Pressure 180/74 H Blood Pressure [Right Arm] Blood Pressure Mean Blood Pressure Mean [Right Arm] 02 Sat by Pulse Oximetry Oxygen Delivery Method Room Air Lab Data Lab results reviewed: Yes I reviewed the patient's lab results. Orders (Tests/Meds): ED MEDICATIONS Discontinued Medications Generic Name Dose Route Start Last Admin Trade Name Missael PRN Reason Stop Dose Admin Acetaminophen 1,000 mg 02/13/24 09:32 02/13/24 09:46 Acetaminophen 500mg Tab PO 02/13/24 09:33 1,000 mg ONCE ONE Administration Ketorolac Tromethamine 30 mg 02/13/24 09:32 02/13/24 09:46 Ketorolac 30mg/Ml Vial IM 02/13/24 09:33 30 mg ONCE ONE Administration Lidocaine 1 each 02/13/24 09:32 02/13/24 09:47 Lidocaine 5% Transdermal Patch TP 02/13/24 09:33 1 each ONCE ONE Administration Methocarbamol 500 mg 02/13/24 09:32 02/13/24 09:47 Methocarbamol 500mg Tablet PO 02/13/24 09:33 500 mg ONCE ONE Administration ORDERS Category Date Time Status XR femur LT 2V Stat Exams 02/13/24 09:32 Taken XR hip LT 2-3V w/pelvis Stat Exams 02/13/24 09:32 Completed XR knee LT 3V Stat Exams 02/13/24 09:32 Completed Medical Decision Narrative: In summary, this patient is a 83-year-old male presenting to the Emergency Department for evaluation of left hip pain. Differential diagnoses considered include but are not limited to musculoskeletal strain/sprain, occult fracture, sciatica, lumbar radiculopathy, tendinitis. Ruling out the most morbid conditions drove assessment. On exam, the patient is resting comfortably in bed in no acute distress. He is very well-appearing. He has what appears to be musculoskeletal pain, as it is reproducible with movement an palpation. No concern for septic joint based on exam, as he does have preserved range of motion and is ambulatory. He is also neurovascularly intact. Workup included x-rays of the left hip, pelvis, femur, and knee. He was given IM Toradol, oral Tylenol, oral Robaxin, and a topical Lidoderm patch for symptomatic improvement of pain. I independently interpreted x-rays prior to the radiologist read and noted no obvious acute bony abnormality. Please see their read for final interpretation. On reassessment, patient had good improvement after administration of medications. He is still ambulatory without difficulty. At this time, I feel that we have ruled out life-threatening pathology and the patient is appropriate for discharge home with close outpatient follow-up. I feel he likely has musculoskeletal strain/sprain. He was given strict return precautions. He was discharged with prescriptions for Robaxin and Lidoderm patch. Critical Care Critical Care Time Critical Care Time: No
--- NOTE | 2024-02-13 10:14 | PC.NURSE ---
pt back in room
[2024-02-13 12:01] VITALS: BP 180/74; PULSE 74; RESP 20; TEMP 36.6; O2SAT 97
== END 2024-02-13 12:03 | disposition home or self-care (01) ==
PROVIDERS: Emergency Provider Emergency Medicine; PCP Family Medicine
DX: M25.552 Pain in left hip (principal)
CPT/HCPCS: 73502; 73552; 73562; 96372; 99284; J1885

== ENCOUNTER 2024-05-05 16:04 | Inpatient (IN) | payer MEDICARE, SELFPAY ==
[2024-05-05] VITALS (9 sets, daily range): BP systolic 100–134; BP diastolic 66–93; PULSE 104–152; RESP 14–23; TEMP 36.6–37.2; O2SAT 92–98; BMI 24.8; BMI 21.7
--- NOTE | 2024-05-05 16:11 | ECG_ITS ---
APPROVED REPORT Exam: Resting ECG HR:142 bpm ECG Measurements Heart Rate 142 AXES QRSd 89 QRS 48 QT 272 T 35 QTc 354 Conclusion A-fib with RVR Electronically signed by : KYLE ERNANDEZ, 05/05/2024 22:50:16
--- NOTE | 2024-05-05 16:36 | XR_ITS ---
PROCEDURE INFORMATION: Exam: XR Chest Exam date and time: 05/05/2024 5:41 PM Age: 83 years old Clinical indication: Cough and shortness of breath; Additional info: SOA, cough TECHNIQUE: Imaging protocol: Radiologic exam of the chest. Views: 1 view. Total images: 1 COMPARISON: CR XR CHEST PORTABLE 05/05/2024 5:41 PM FINDINGS: Lungs: No overt pulmonary vascular congestion. Left greater than right basilar atelectasis. Pleural spaces: Bilateral pleural effusions, left greater than right. No pneumothorax. Heart/Mediastinum: Moderate cardiomegaly with known pericardial effusion by recent CT. Vasculature: Atherosclerotic aortic arch. Dilated azygos vein. Bones/joints: Stable osseous structures. IMPRESSION: 1. Moderate cardiomegaly with known pericardial effusion by recent CT. 2. Bilateral pleural effusions and bibasilar atelectasis, left greater than right. 3. No overt pulmonary vascular congestion. 4. Dilated azygos vein.
--- NOTE | 2024-05-05 16:42 | ED_ITS ---
Discharge Plan Disposition Patient Disposition: Admitted Condition: Good Chief Complaint: Shortness of Breath/Dyspnea Clinical Impressions Clinical Impression: Congestive heart failure (CHF), CHF exacerbation, Acute hypoxemic respiratory failure, Atrial fibrillation with RVR, Acute hyponatremia, Acute pericardial effusion, Pleural effusion Discharge ED Provider: Lee Calloway HPI General Chief Complaint: Shortness of Breath/Dyspnea Stated Complaint: SOA Time Seen by Provider: 05/05/24 16:17 Mode of Arrival: Ambulatory Source of Information: Patient Limitations: No Limitations Description of Symptoms (Recalled from ER Triage Doc. by RN): Patient reports starting Xtandi 2 months ago and then starting having increased shortness of breath, congetion, and back aches. Patient states he thinks that it is a reaction to Xtandi and stopped taking it 2 days ago with no relief of his symptoms. Reports to the ER stating that his breathing has gotten worse in the past days that he has noticed finding it hard to breath unless he is sitting straight up. History of Present Illness HPI narrative: Please note that above description of symptoms, in this electronic medical record under categorization of recalled from ER triage doctor by RN are reflective of an initial nursing assessment, however, is not reflective of my full history and physical exam that was personally taken and clarified. Consequentially, this preceding description of symptoms, which may include the patient's categorized chief complaint in the EMR, do not reflect my personal clinical impression, and the ultimate description of history of present illness and patient stated complaints should be deferred to this section of the note. Unless stated otherwise or congruent with this section of the note, additional signs, symptoms, or incongruence should be interpreted as inaccurate with my clinical impression. Related Data Home Medications ?Medication ?Instructions ?Recorded ?Confirmed lisinopril 20 mg tablet 20 mg PO DAILY High blood pressure 09/29/20 07/06/23 omeprazole 20 mg capsule,delayed 20 mg PO DAILY GERD 09/29/20 07/06/23 release pravastatin 20 mg tablet 20 mg PO HS Cholesterol 09/29/20 07/06/23 finasteride 5 mg tablet 5 mg PO DAILY PROSTATE 05/18/22 07/06/23 montelukast 10 mg tablet 10 mg PO DAILY ALLERGIES 05/18/22 07/06/23 tamsulosin 0.4 mg capsule 0.4 mg PO DAILY PROSTATE 05/18/22 07/06/23 Previous Rx's ?Medication ?Instructions ?Recorded omeprazole 40 mg capsule,delayed 40 mg PO DAILY #30 caps 06/10/23 release lidocaine 5 % topical patch 1 patch topical DAILY #15 ea 02/13/24 (Lidoderm) methocarbamol 500 mg tablet 500 mg PO Q8H PRN pain #20 tabs 02/13/24 Allergies Allergy/AdvReac Type Severity Reaction Status Date / Time No Known Allergies Allergy Verified 07/06/23 09:00 [facility] Disclaimer: The information contained in this section may have been updated after the patient was seen, as this information can be updated by other users. Medical History Family history of prostate problems Arthritis Allergies Deviated septum History of cataract Hyperlipidemia Hypertension Surgical History History of colonoscopy History of hernia surgery Family History Father Heart attack Social History Smoking Status: Unknown if ever smoked second hand exposure: No alcohol intake: never substance use type: denies use current occupational status: retired and other Travel in the last 8 weeks: None household members: spouse housing: house current occupational exposures/hazards: Yes caffeine: No Other Medical History Have you received the Flu Vaccine for this season: Yes Have you received the Pneumonia Vaccine: No ROS Obtained: Yes All systems reviewed & no additional complaints except as documented Physical Exam General General appearance: alert and in no apparent distress Neck Neck exam: Present trachea midline Chest Chest inspection: Present normal inspection and symmetric chest wall rise Respiratory Respiratory exam: Present wheezes (Posteriorly, inferiorly on inspiration); Absent respiratory distress, stridor, accessory muscle use or prolonged expiratory phase Cardiovascular Cardiovascular exam: Present tachycardia, irregular rhythm and other (Pulses equal and symmetric in upper and lower extremities) Extremities Exam Extremities exam: Present edema (1+ pitting) Neurological Exam Neurological exam: Present alert, oriented X3, CN II-XII intact and normal gait; Absent motor sensory deficit Skin Skin exam: Present warm and dry; Absent cyanosis, diaphoresis or pallor HEART Score HEART Score HEART Score assessment performed?: Yes History (anamnesis): Moderately suspicious ECG: Non-specific disturbance Age: >65 years Risk factors: 3 or more risk factors Troponin: </= normal limit HEART Score: 6 Procedures Limited Ultrasound Indication:: Limited cardiac ultrasound Indication: Shortness of breath Identified cardiac views: -Cardiac parasternal long axis -Cardiac parasternal short axis Findings: -Cardiac activity present -Gross wall motion abnormal, posterior LV hyperdynamic -Pericardial effusion present, less than 0.5 cm -Right heart strain absent -EPSS 15, estimated EF around 40 Impression: -Overall hypodynamic heart with focal hyperdynamic motion posterior LV. Small pericardial effusion, evidence of CHF Images were saved to permanent archive The study was technically adequate CPT: 37697 This study was performed by me, and I personally interpreted all images/videos. Based on my clinical judgement, these images were adequate and did not necessitate further imaging Critical Care Critical Care Time Critical Care Time: Yes (Cardiovascular) Attestation: On 05/05/24, the high probability of a clinically significant, sudden or life threatening deterioration of the following system(s) required my full and direct attention, intervention and personal management. The time I documented below is in addition to time spent performing reported procedures but includes the following listed in this critical care notation. Total Time Total Critical Care Time: 45 Medical Decision Making Medical Records Medical records reviewed: Yes I reviewed the patient's medical records. Remi Inquiry Pt receiving controlled substance: No Remi was queried for this patient: No Vital Signs Vital Signs: 05/05/24 16:06 05/05/24 16:31 05/05/24 17:00 Temperature 97.9 F Temperature Source Oral Pulse Rate 139 H Pulse Rate [Radial] 152 H Respiratory Rate 22 20 Blood Pressure 110/79 113/87 Blood Pressure [Right Arm] 134/93 H Blood Pressure Mean 89 95 Blood Pressure Mean [Right Arm] 106 Blood Pressure Source [Right Arm] Automatic Cuff Blood Pressure Position [Right Arm] Sitting 02 Sat by Pulse Oximetry 96 93 L Oxygen Delivery Method Room Air Oxygen Flow Rate (LPM) 05/05/24 17:30 05/05/24 18:00 Temperature Temperature Source Pulse Rate 116 H 146 H Pulse Rate [Radial] Respiratory Rate 22 23 Blood Pressure 111/74 124/75 Blood Pressure [Right Arm] Blood Pressure Mean 85 Blood Pressure Mean [Right Arm] Blood Pressure Source [Right Arm] Blood Pressure Position [Right Arm] 02 Sat by Pulse Oximetry 97 98 Oxygen Delivery Method Nasal Cannula Oxygen Flow Rate (LPM) 2 Lab Data Labs: Lab Results 05/05/24 16:17: WBC 6.6, RBC 4.51 L, Hgb 14.2, Hct 43.6, MCV 96.9 H, MCH 31.6 H, MCHC 32.6, RDW 13.7, Plt Count 250, MPV 8.6, Neut % (Auto) 77.9, Lymph % (Auto) 11.5, [place] % (Auto) 8.7, Eos % (Auto) 0.9, Baso % (Auto) 0.9, Neut # (Auto) 5.2, Lymph # (Auto) 0.8, [place] # (Auto) 0.6, Eos # (Auto) 0.1, Baso # (Auto) 0.1, PT 12.7 H, INR 1.15 H, APTT 31.6 H, D-Dimer 1.79 H, Sodium 126 L, Potassium 4.2, C hloride 89 L, Carbon Dioxide 35 H, Anion Gap 6.2, BUN 26 H, Creatinine 0.70, Estimated Creat Clear 60, Estimated GFR 107, Est GFR ( Amer) 130, Glucose 108 H, Calcium 8.9, Magnesium 1.8, Total Bilirubin 1.5 H, AST 79 H, ALT 62, A lkaline Phosphatase 202 H, Troponin I 0.02, NT-Pro-B Natriuret Pep 3710 H, Total Protein 7.2, Albumin 3.9, Globulin 3.3 H, Albumin/Globulin Ratio 1.2, Procalcitonin 0.146, TSH 1.44, Thyroxine (T4) 10.5 05/05/24 16:38: VBG pH 7.44 H, VBG pCO2 46.1, VBG pO2 33.9, VBG HCO3 30.7 H, VBG Total CO2 32.2 H, VBG O2 Saturation 64.0, VBG Base Excess 6.6 H, VBG Lactic Acid 1.8 05/05/24 16:17 05/05/24 16:17 Response Orders (Tests/Meds): ED MEDICATIONS Generic Name Dose Route Start Last Admin Trade Name Freq PRN Reason Stop Dose Admin Enoxaparin Sodium 80 mg 05/05/24 18:15 Enoxaparin 100mg/Ml Syringe 1 mg/kg (80 mg) 06/04/24 18:14 SQ Q12H JENIFFER Furosemide 40 mg 05/06/24 09:00 Furosemide 40mg/4ml Vial IV 06/05/24 08:59 BIDL JENIFFER Metoprolol Tartrate 25 mg 05/05/24 21:00 Metoprolol Tartrate 50mg Tablet PO 06/04/24 20:59 BID JENIFFER Discontinued Medications Generic Name Dose Route Start Last Admin Trade Name Freq PRN Reason Stop Dose Admin Diltiazem HCl 20 mg 05/05/24 16:44 05/05/24 16:56 Diltiazem 25mg/5ml Vial IV 05/05/24 16:45 20 mg ONCE ONE Administration Furosemide 60 mg 05/05/24 17:37 05/05/24 17:54 Furosemide 40mg/4ml Vial IV 05/05/24 17:38 60 mg ONCE ONE Administration Iopamidol 70 ml 05/05/24 17:41 05/05/24 17:44 Iopamidol-370 (76%);100ml Bottle IV 05/05/24 17:42 70 ml ONCE ONE Administration Sodium Chloride 50 ml 05/05/24 17:41 05/05/24 17:44 0.9 % Sodium Chloride 50 Ml Vial IV 05/05/24 17:42 50 ml ONCE ONE Administration Sodium Chloride 10 ml 05/05/24 17:41 05/05/24 17:44 Sodium Chloride 0.9% 10ml Syr (Rad Only) IV 05/05/24 17:42 10 ml ONCE ONE Administration ORDERS Category Date Time Status CT angio chest PE protocol Stat Cat Scan 05/05/24 17:19 Taken POCUS Point of Care (ER Only) Stat Exams 05/05/24 17:51 Ordered XR chest portable Stat Exams 05/05/24 16:36 Taken Basic Metabolic Panel Routine Lab 05/05/24 22:00 Ordered Complete Blood Count Auto Diff AMLAB Lab 05/06/24 06:00 Ordered Complete Blood Count Auto Diff Stat Lab 05/05/24 16:17 Completed Comprehensive Metabolic Panel AMLAB Lab 05/06/24 06:00 Ordered Comprehensive Metabolic Panel Stat Lab 05/05/24 16:17 Completed D-Dimer Stat Lab 05/05/24 16:17 Completed HIV (1&2) Antibody Rapid Stat Lab 05/05/24 16:17 Received Hep C Ab with Reflex to RNA Stat Lab 05/05/24 16:17 Received Lipid Panel AMLAB Lab 05/06/24 06:00 Ordered Magnesium AMLAB Lab 05/06/24 06:00 Ordered Magnesium Stat Lab 05/05/24 16:17 Completed NT Pro Brain Natriuretic Pep. Stat Lab 05/05/24 16:17 Completed PT INR [Prothrombin Time INR] Stat Lab 05/05/24 16:17 Completed PTT [Activated Partial Thrombo Time] Stat Lab 05/05/24 16:17 Completed Procalcitonin Stat Lab 05/05/24 16:17 Completed T4 (Thyroxine) Stat Lab 05/05/24 16:17 Completed TSH [Thyroid Stimulating Hormone] Stat Lab 05/05/24 16:17 Completed Troponin I Q3H Lab 05/05/24 19:45 Ordered Troponin I Q3H Lab 05/05/24 22:45 Ordered Troponin I Stat Lab 05/05/24 16:17 Completed Venous Blood Gas Stat RT 05/05/24 16:38 Completed CA echo doppler complete Routine Y 05/05/24 18:06 Ordered MDM Narrative Medical Decision Narrative: This is an 83-year-old male history of prostate cancer currently on Xtandi, hypertension, hyperlipidemia, GERD, atrial fibrillation not on anticoagulation by choice presenting with shortness of breath. Patient states that ever since he started new prostate cancer medication approximately 2 months prior to this, patient has been progressively short of breath. States that he has also had worsening lower extremity edema. The reason he came in today was because he has been sleeping worse at night over the past couple of days. Last night, 05/04 into 05/05, patient states that he could not sleep almost at all because every time he laid flat, he felt like he was choking and cannot catch his breath. Has had associated cough throughout the day, mostly dry, but intermittently producing clear sputum. No chest pain, nausea, vomiting, notable weight gain or weight loss, night sweats, abdominal pain, or any other concerns.. History was obtained via conversation with patient and family. On arrival, patient hemodynamically stable, alert, oriented x4, appropriate, GCS 15, moving all extremities spontaneously, pupils equal and reactive to light. Full physical exam performed and significant for well-appearing male who is in no acute distress. He is tachycardic with irregular rhythm about 130 bpm.No murmurs gallops or rubs. Patient does have inspiratory wheezes in inferior/posterior lung handy. No increased work of breathing or accessory muscle usage. Saturating appropriately on room air. Lower extremities with 1+ pitting edema. Pulses equal and symmetric in upper and lower extremities. Appears well overall. Differential includes metabolic abnormality, endocrinologic abnormality such as thyroid derangement, CHF, ACS, [place], pneumothorax, pneumonia, PE, among others. Patient was given 20 mg diltiazem IV for symptomatic management and correction of underlying abnormalities. Patient placed on continuous cardiac monitoring and continuous pulse ox with initial blood pressure 134/93, heart rate 152, saturation 93% on room air. This was shortly after ambulating to the bed. Shortly thereafter, patient resting comfortably in bed with repeat blood pressure 110/79, heart rate 139, oxygen saturation 93%. Independent interpretation of EKG shows atrial fibrillation with RVR. No acute ischemic change. QRS 89, QTc 354. [place] normal. 20 mg IV diltiazem was given. Workup independently interpreted and significant for nonactionable CBC. Chemistry with mild hypokalemia 126, normal kidney function. LFTs elevated, likely congestive hepatopathy. Troponin negative, BNP 3700. No baseline with which to compare. Patient's thyroid studies and procalcitonin normal. Coags nonactionable. Dimer elevated at 1.8. Independent interpretation of imaging demonstrates cardiomegaly and pulmonary venous congestion. Independent interpretation of CT angiogram of the chest with no evidence of dissection or PE, but patient does have pericardial effusion, bilateral pleural effusions. See radiology read for full review of final results. Heart score 6. Bedside [id number] ultrasound with EPSS about 15, estimated ejection fraction right around 40. Small pericardial effusion less than 1/2 cm. Globally decreased function with wall motion abnormality and hypodynamic posterior LV. Patient was given 60 mg IV Lasix, hospital medicine was consulted. On reevaluation, patient states that diltiazem that was given caused patient to feel significantly more short of breath, patient intermittently having saturations 85-88, placed on 2 L nasal cannula. because patient high risk for clinical decompensation, deemed appropriate for inpatient admission. Results were relayed to patient who voiced understanding and patient was agreeable to inpatient admission and management. Patient was admitted to the hospital for further definitive management for new onset heart failure, hypoxemic respiratory failure. Credit Analysis Manager disclaimer Much of this encounter note is an electronic rice field worker spoken language to printed text. Electronic rice field worker of the spoken language may permit errors. Although I have reviewed the note, some errors may still exist.
[2024-05-05 16:45] LABS: Lactate Venous 1.8 mmol/L (0.4-2.0); VBG Base Excess 6.6 mmol/L (-2.4-2.3); VBG HCO3 30.7 mmol/L (23-30); VBG PCO2 46.1 mmol/L (35-51); VBG PH 7.44 mmol/L (7.31-7.41); VBG PO2 33.9 mmol/L (28-40); VBG Total CO2 32.2 mmol/L (23-27)
[2024-05-05 16:46] LABS: Basophils # 0.1 K/mm3 (0-0.2); Basophils % 0.9 % (0.1-2.0); Eosinophils # 0.1 K/mm3 (0.0-0.4); Eosinophils % 0.9 % (0.1-12.0); Hematocrit 43.6 % (42.0-52.0); Hemoglobin 14.2 g/dL (14.1-18.0); Lymphocytes # 0.8 K/mm3 (0.7-4.5); Lymphocytes % 11.5 % (10-50); Mean Corpuscular HGB Conc 32.6 g/dL (31.8-35.4); Mean Corpuscular Hemoglobin 31.6 pg (27.0-31.2); Mean Corpuscular Volume 96.9 fl (80-94); Mean Platelet Volume 8.6 fl (7.4-10.4); Monocytes # 0.6 K/mm3 (0.1-1.0); Monocytes % 8.7 % (1.7-9.3); Neutrophils # 5.2 K/mm3 (1.8-7.8); Neutrophils % 77.9 % (37.0-80.0); Platelet Count 250 K/mm3 (142-424); Red Blood Count 4.51 M/mm3 (4.60-6.20); Red Cell Distribution Width 13.7 % (11.5-17.5); White Blood Count 6.6 K/mm3 (4.8-10.8)
[2024-05-05 16:50] LABS: Creatinine Clearance Estimated 60 mL/min (50-200)
[2024-05-05 16:53] LABS: Activated Partial Thrombo Time 31.6 seconds (22.8-30.6); INR 1.15 (0.9-1.1); Prothrombin Time 12.7 seconds (10.1-12.5)
[2024-05-05] MEDS: dilTIAZem 25MG/5ML VIAL 20 MG IV (16:56)
[2024-05-05 17:01] LABS: NT Pro Brain Natriuretic Pep. 3710 pg/mL (0-450)
[2024-05-05 17:04] LABS: Troponin I 0.02 ng/ml (0.00-0.034)
[2024-05-05 17:08] LABS: T4 (Thyroxine) 10.5 ug/dl (5.53-11.0)
[2024-05-05 17:09] LABS: Alanine Aminotransferase 62 U/L (12-78); Albumin Level 3.9 g/dl (3.5-5.0); Albumin/Globulin Ratio 1.2 (1.1-1.8); Alkaline Phosphatase 202 U/L (38-126); Anion Gap 6.2 mEq/L (5-15); Aspartate Amino Transferase 79 U/L (17-59); Bilirubin,Total 1.5 mg/dl (0.2-1.3); Blood Urea Nitrogen 26 mg/dl (9-20); Calcium 8.9 mg/dl (8.4-10.2); Carbon Dioxide 35 mmol/L (22.0-30.0); Chloride 89 mmol/L (98-107); D-Dimer 1.79 ug/mL (0.0-0.5); Estimated Glomerular Filt Rate 107 ml/min (>60); GFR (African American) 130 ML/MIN (>60); Globulin 3.3 g/dL (1.3-3.2); Glucose 108 mg/dl (74-100); Magnesium 1.8 mg/dl (1.6-2.3); Potassium 4.2 mmoL/L (3.5-5.1); Sodium 126 mmol/L (136-145); Total Protein,Serum 7.2 g/dl (6.3-8.2)
--- NOTE | 2024-05-05 17:19 | CT_ITS ---
PROCEDURE INFORMATION: Exam: CTA Chest With Contrast Exam date and time: 05/05/2024 5:44 PM Age: 83 years old Clinical indication: Abnormal findings; Abnormal diagnostic tests; Elevated d-dimer; Shortness of breath; Additional info: Dimer, a fib rvr TECHNIQUE: Imaging protocol: Computed tomographic angiography of the chest with contrast. Exam focused on the arteries. 3D rendering (Not supervised by radiologist): MIP and/or 3D reconstructed images were created by the technologist. Total images: 881 Radiation optimization: All CT scans at this facility use at least one of these dose optimization techniques: automated exposure control; mA and/or kV adjustment per patient size (includes targeted exams where dose is matched to clinical indication); or iterative reconstruction. Contrast material: ISO 370; Contrast volume: 80 ml; Contrast route: INTRAVENOUS (IV); COMPARISON: CR XR CHEST PORTABLE 05/05/2024 5:41 PM FINDINGS: Pulmonary arteries: Adequate contrast opacification of the pulmonary arteries. The main pulmonary artery is normal in caliber. No acute pulmonary emboli. Aorta: Mildly atherosclerotic thoracic aorta without aneurysm or dissection. Veins: Contrast reflux into the hepatic veins. Thyroid: Heterogeneous nonenlarged thyroid gland. No discrete nodule or mass. Lungs: The trachea and main bronchi are patent. Nodularity along the wall the trachea likely reflects adherent mucus. Biapical scarring. Scattered mild upper lobe centrilobular emphysema. Lingular atelectasis. Diffuse bronchial wall thickening. Moderate left greater than right lower lobe atelectasis. Calcified pulmonary granuloma. Pleural spaces: Moderate bilateral pleural effusions, left greater than right. Heart: Moderate cardiomegaly with 4 chamber dilatation. Moderate circumferential pericardial effusion. Coronary arteries: No significant coronary artery calcifications. Lymph nodes: Mildly prominent scattered mediastinal lymph nodes. Enlarged subcarinal lymph node. Calcified left hilar lymph nodes. Kidneys: Subcentimeter upper pole right renal cortical hypodensity, too small to characterize but likely a cyst. No strict follow-up required. Intestine: Mild gaseous bowel distension without overt dilatation. Bones/joints: Osseous demineralization. 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 Mild multilevel consecutive vertebral body compression deformities with remote appearance. Soft tissues: Unremarkable. IMPRESSION: 1. No acute pulmonary emboli. 2. Moderate pericardial effusion. 3. [id number] cardiomegaly. 4. Moderate bilateral pleural effusions, left greater than right 5. Lingular and left greater than right lower lobe atelectasis. 6. Scattered mild upper lobe centrilobular emphysema 7. Bronchial wall thickening with narrowed bronchial lumens likely reflecting peribronchial cuffing/edema. COMMENTS: Consistent with the [employer]'s Incidental Findings Committee white paper (J Am Corry Radiol 2018): Any incidental renal lesion less than 1 cm or classified as too small to characterize, or any incidental cystic renal lesion characterized as simple-appearing, is likely benign. No follow-up imaging is recommended for these lesions per consensus recommendations based on imaging criteria.
[2024-05-05 17:22] LABS: Thyroid Stimulating Hormone 1.44 uIU/mL (0.465-4.68)
--- NOTE | 2024-05-05 17:23 | PC.NURSE ---
applied 2L O2 via NC as pt's sats were dropping to 88-89%.
[2024-05-05 17:30] LABS: Procalcitonin 0.146 ng/mL (0.0-2.0)
[2024-05-05] MEDS: IOPAMIDOL-370 (76%);100ML BOTTLE 70 ML IV (17:44)
[2024-05-05] MEDS: SODIUM CHLORIDE 0.9% 10ML SYR (RAD ONLY) 10 ML IV (17:44)
[2024-05-05] MEDS: 0.9 % SODIUM CHLORIDE 50 ML VIAL IV (17:44)
[2024-05-05] MEDS: FUROSEMIDE 40MG/4ML VIAL 60 MG IV (17:54)
--- NOTE | 2024-05-05 18:21 | PC.NURSE ---
Report given to BOGDAN Solis on Med Surg.
[2024-05-05] MEDS: ENOXAPARIN 100MG/ML SYRINGE 80 MG SQ (18:59)
--- NOTE | 2024-05-05 19:08 | EXP.HP ---
History of Present Illness *Admission Date: 05/05/24 *Reason for visit:: Short of breath *History of present illness: 83 old male history of prostate cancer, BPH, and A-fib who presented to the ER for worsening shortness of breath and swelling in his legs. Mr. Lozano reports that he was started on Xtandi 2 months ago for prostate cancer. Since starting it he has not felt well. He has been having some back pain and some increased shortness of breath. He is also noted decreased exercise/activity tolerance. States he stopped taking it 2 days ago due to his symptoms and was hoping for some relief which she has not received as of yet. Denies any fever, nausea, vomiting, chest pain. Also having some increased swelling in his legs. Workup in the ER concerning for volume overload with pleural and pericardial effusions. Elevated BNP. Sodium low. Patient has history of A-fib but no known history of heart failure. Findings suggestive of acute heart failure. Medicine consulted for admission and further management. On arrival to the floor, patient is accompanied by his daughter. He is independently ambulatory. Stable on room air. States he needs to go to the bathroom. Having good response to dose of Lasix administered in the ER. [facility] Disclaimer: The information contained in this section may have been updated after the patient was seen, as this information can be updated by other users. Medical History Family history of prostate problems Arthritis Allergies Deviated septum History of cataract Hyperlipidemia Hypertension Surgical History History of colonoscopy History of hernia surgery Family History Heart attack Father Social History (Updated 05/05/24 @ 19:14 by Ashlee Guzman RN) Smoking Status: Unknown if ever smoked second hand exposure: No alcohol intake: never substance use type: denies use current occupational status: retired and other Travel in the last 8 weeks: None household members: spouse housing: house current occupational exposures/hazards: Yes caffeine: No Other Medical History Have you received the Flu Vaccine for this season: Yes Have you received the Pneumonia Vaccine: No Review of Systems Review of Systems Review of systems (narrative): 14 point review of systems performed, pertinent positives and negatives as per HPI Meds Home Medications and Allergies Home Medications ?Medication ?Instructions ?Recorded ?Confirmed ?Type pravastatin 20 mg tablet 20 mg PO HS Cholesterol 09/29/20 05/05/24 History montelukast 10 mg tablet 10 mg PO DAILY ALLERGIES 05/18/22 05/05/24 History tamsulosin 0.4 mg capsule 0.4 mg PO DAILY PROSTATE 05/18/22 05/05/24 History enzalutamide 40 mg capsule (Xtandi) 40 mg PO DAILY 05/05/24 05/05/24 History New Prescriptions to Start Prescriptions: Allergies Allergy/AdvReac Type Severity Reaction Status Date / Time No Known Allergies Allergy Verified 07/06/23 09:00 Exam Data for Last 24 hours Vital signs and Labs for Last 24 Hours: Temp Pulse Resp BP Pulse Ox O2 Del Method O2 Flow Rate 99.0 F 149 H 17 131/88 94 L Room Air 2 05/05/24 18:57 05/05/24 18:57 05/05/24 18:57 05/05/24 18:57 05/05/24 18:57 05/05/24 18:57 05/05/24 18:32 Laboratory Results - last 24 hr 05/05/24 16:17: WBC 6.6, RBC 4.51 L, Hgb 14.2, Hct 43.6, MCV 96.9 H, MCH 31.6 H, MCHC 32.6, RDW 13.7, Plt Count 250, MPV 8.6, Neut % (Auto) 77.9, Lymph % (Auto) 11.5, [place] % (Auto) 8.7, Eos % (Auto) 0.9, Baso % (Auto) 0.9, Neut # (Auto) 5.2, Lymph # (Auto) 0.8, [place] # (Auto) 0.6, Eos # (Auto) 0.1, Baso # (Auto) 0.1, PT 12.7 H, INR 1.15 H, APTT 31.6 H, D-Dimer 1.79 H, Sodium 126 L, Potassium 4.2, Chloride 89 L, Carbon Dioxide 35 H, Anion Gap 6.2, BUN 26 H, Creatinine 0.70, Estimated Creat Clear 60, Estimated GFR 107, Est GFR ( Amer) 130, Glucose 108 H, Calcium 8.9, Magnesium 1.8, Total Bilirubin 1.5 H, AST 79 H, ALT 62, Alkaline Phosphatase 202 H, Troponin I 0.02, NT-Pro-B Natriuret Pep 3710 H, Total Protein 7.2, Albumin 3.9, Globulin 3.3 H, Albumin/Globulin Ratio 1.2, Procalcitonin 0.146, TSH 1.44, Thyroxine (T4) 10.5 05/05/24 16:38: VBG pH 7.44 H, VBG pCO2 46.1, VBG pO2 33.9, VBG HCO3 30.7 H, VBG Total CO2 32.2 H, VBG O2 Saturation 64.0, VBG Base Excess 6.6 H, VBG Lactic Acid 1.8 I & O for Last 24 hours: Intake & Output 05/02/24 05/03/24 05/04/24 05/05/24 23:59 23:59 23:59 23:59 Weight 68.629 kg Constitutional Constitutional: no acute distress, average body habitus and cooperative *Routine HEENT Exam Head: Present normocephalic Eye: Present EOMI and PERRL ENT: Present mucous membranes moist *Routine Neck Exam Neck: Present supple; Absent lymphadenopathy Routine Chest/Breast/Axilla Exam Chest wall: Absent tenderness *Routine Respiratory Exam Respiratory: Present CTA bilaterally and crackles (Bases bilaterally, left worse than right); Absent rhonchi or wheezes *Routine Cardiovascular Exam Cardiovascular: Present tachycardia and irregularly irregular *Routine Abdominal Exam Abdominal: Present soft and normoactive bowel sounds; Absent tenderness *Routine Rectal Exam Rectal:: deferred *Routine Genitalia Exam Genitalia:: deferred *Routine Extremities Exam Extremities: Present edema (1+ to thighs); Absent cyanosis or clubbing *Routine Skin Exam Skin: Present intact and warm; Absent rash *Routine Neurological Exam Neurological: Present alert, oriented X3 and moving all extremities; Absent altered mental status Assessment and Plan *Assessment and plan (1) CHF exacerbation: Status: Acute Category: Medical Code(s): I50.9 - Heart failure, unspecified (2) Acute hyponatremia: Status: Acute Category: Medical Code(s): E87.1 - Hypo-osmolality and hyponatremia (3) Atrial fibrillation with RVR: Status: Acute Category: Medical Code(s): I48.91 - Unspecified atrial fibrillation (4) Pleural effusion: Status: Acute Category: Medical Code(s): J90 - Pleural effusion, not elsewhere classified (5) Acute pericardial effusion: Status: Acute Category: Medical Code(s): I30.9 - Acute pericarditis, unspecified (6) Prostate cancer: Status: Acute Category: Medical Code(s): C61 - Malignant neoplasm of prostate Plan 83-year-old male with increased shortness of breath. Workup in the ER concerning for CHF and hyponatremia. Discussed case with ER physician, request admission for diuresis, further workup of CHF, and treatment of hyponatremia. I agreed to admit for further management. Received Lasix in the ER. Will administer therapeutic Lovenox and initiate metoprolol to address A-fib. Necessitating inpatient management. Monitoring on telemetry. Problems addressed as follows: CHF exacerbation, undetermined, acute A-fib with RVR -Clinical presentation consistent with acute CHF exacerbation. BNP of 3700, kathleen volume overload with pleural and pericardial effusions. -Initiated on Lasix 60 mg once in the ER. Will continue 40 mg IV twice daily starting in the morning. -Slight elevation in liver enzymes with bilirubin 1.5, AST 79, ALT 62, alk phos 202. Suspect congestive hepatopathy from CHF. -Echocardiogram ordered pending., Monitor on telemetry. -Close monitoring of electrolytes during diuresis, repeat BMP ordered for this evening. Potassium 4.2, magnesium 1.8, calcium 8.9. Replace as needed. -Patient with A-fib with RVR, A-fib longstanding per his report. Not on any rate controlling medications. Concerned this could be underlying his heart failure. Will address rate control with metoprolol tartrate 25 mg twice daily. Titrate for goal rate less than 90. -Initiate Lovenox 1 mg/kg twice daily for anticoagulation -Will consult cardiology on Tuesday -TSH normal at 1.44, INR normal at 1.15 -Initial Trope within normal range 0.02. Repeat ordered and pending BPH: Continue tamsulosin 0.4 mg nightly History of prostate cancer: Hold Xtandi at this time concern for side effects from medication exacerbating current condition. Hyponatremia: Sodium 126, chloride 89. Suspect hypervolemic hyponatremia. Monitor for improvement with diuresis. Repeat CMP, CBC, magnesium ordered for the morning. -Corrected rate from 8 to 10 mEq/day. Full code Cardiac diet Lovenox 1 mg/kg twice daily
[2024-05-05 20:09] LABS: HIV (1&2) Antibody Rapid NONREACTIVE (NONREACTIVE)
[2024-05-05] MEDS: TAMSULOSIN 0.4MG CAPSULE 0.4 MG PO (20:16)
[2024-05-05] MEDS: METOPROLOL TARTRATE 50MG TABLET 25 MG PO (20:17)
[2024-05-05 21:00] LABS: Troponin I 0.02 ng/ml (0.00-0.034)
[2024-05-05] MEDS: ACETAMINOPHEN 500MG TAB 1000 MG PO (21:32)
[2024-05-05 23:26] LABS: Chloride 90 mmol/L (98-107); Sodium 127 mmol/L (136-145)
[2024-05-05 23:27] LABS: Potassium 3.6 mmoL/L (3.5-5.1)
[2024-05-05 23:29] LABS: Blood Urea Nitrogen 26 mg/dl (9-20); Creatinine Clearance Estimated 52 mL/min (50-200); Estimated Glomerular Filt Rate 92 ml/min (>60); GFR (African American) 111 ML/MIN (>60)
[2024-05-05 23:30] LABS: Anion Gap 8.6 mEq/L (5-15); Calcium 8.3 mg/dl (8.4-10.2); Carbon Dioxide 32 mmol/L (22.0-30.0); Glucose 136 mg/dl (74-100)
[2024-05-05 23:41] LABS: Troponin I 0.02 ng/ml (0.00-0.034)
[2024-05-06] VITALS (9 sets, daily range): BP systolic 93–134; BP diastolic 52–79; PULSE 78–144; RESP 13–20; TEMP 36.6–36.9; O2SAT 91–95; BMI 24.3
[2024-05-06] MEDS: MAGNESIUM SULFATE IN WATER 2 GM/50 ML PIGGYBACK IV (00:20)
--- NOTE | 2024-05-06 05:35 | PC.NURSE ---
Alert and oriented. Tolerating room air, O2 sat >90%. Remains in afib on tele, HR controlled at this time. Patient complained of chronic back pain 1 time this shift, treated per mar. Patient has not rested very much this shift. Stands at bedside to use urinal, output charted. Received magnesium due to electrolyte protocol being placed. Patient has been continent, wears pull up. No skin issues noted. 2+ pitting edema noted to BLE. Lung sounds coarse crackles noted. Bed alarm on, call light in reach.
[2024-05-06] MEDS: ENOXAPARIN 100MG/ML SYRINGE 80 MG SQ (06:23)
[2024-05-06 08:35] LABS: Basophils % 0.4 % (0.1-2.0); Eosinophils # 0.1 K/mm3 (0.0-0.4); Eosinophils % 1.6 % (0.1-12.0); Hematocrit 37.7 % (42.0-52.0); Hemoglobin 12.8 g/dL (14.1-18.0); Lymphocytes # 0.5 K/mm3 (0.7-4.5); Lymphocytes % 11.2 % (10-50); Mean Corpuscular HGB Conc 33.9 g/dL (31.8-35.4); Mean Corpuscular Hemoglobin 31.6 pg (27.0-31.2); Mean Corpuscular Volume 93.3 fl (80-94); Mean Platelet Volume 8.6 fl (7.4-10.4); Monocytes # 0.5 K/mm3 (0.1-1.0); Monocytes % 10.9 % (1.7-9.3); Neutrophils # 3.6 K/mm3 (1.8-7.8); Platelet Count 257 K/mm3 (142-424); Red Blood Count 4.04 M/mm3 (4.60-6.20); Red Cell Distribution Width 13.9 % (11.5-17.5); White Blood Count 4.7 K/mm3 (4.8-10.8)
[2024-05-06 08:37] LABS: Albumin Level 3.2 g/dl (3.5-5.0); Chloride 91 mmol/L (98-107); Potassium 3.8 mmoL/L (3.5-5.1); Sodium 130 mmol/L (136-145)
[2024-05-06 08:39] LABS: Blood Urea Nitrogen 25 mg/dl (9-20)
[2024-05-06 08:40] LABS: Alanine Aminotransferase 50 U/L (12-78); Albumin/Globulin Ratio 1.1 (1.1-1.8); Alkaline Phosphatase 172 U/L (38-126); Anion Gap 5.8 mEq/L (5-15); Aspartate Amino Transferase 54 U/L (17-59); Bilirubin,Total 1.2 mg/dl (0.2-1.3); Calcium 8.5 mg/dl (8.4-10.2); Carbon Dioxide 37 mmol/L (22.0-30.0); Cholesterol 79 mg/dl (140-200); Creatinine Clearance Estimated 59 mL/min (50-200); Estimated Glomerular Filt Rate 107 ml/min (>60); GFR (African American) 130 ML/MIN (>60); Glucose 141 mg/dl (74-100); Magnesium 2.2 mg/dl (1.6-2.3); Total Protein,Serum 6.2 g/dl (6.3-8.2); Triglycerides 59 mg/dl (30-150); VLDL Cholesterol 12 mg/dL (0-40)
[2024-05-06 08:41] LABS: Chol/HDL Ratio 4.9 (1-3.5); HDL Cholesterol 16 mg/dl (40-60)
--- NOTE | 2024-05-06 08:49 | P.PN_ITS ---
Subjective *Date: 05/06/24 *Time: 14:57 Interval history: States he is feeling better today. Denies any chest pain. No nausea or vomiting. Ambulating to bathroom. Voiding well. Down 1.4 L since admission. Afebrile overnight. Improving dyspnea. Medical Exam Vital signs and Labs for Last 24 Hours: Vital Signs Temp Pulse Pulse Resp BP BP Pulse Ox 05/06/24 06:58 05/06/24 06:00 97 H 17 134/78 94 L 05/06/24 04:57 05/06/24 04:00 100 H 05/06/24 04:00 05/06/24 04:00 98.4 F 96 H 13 106/71 L 94 L 05/06/24 03:00 05/06/24 02:00 83 20 101/60 L 95 05/06/24 01:00 05/06/24 00:00 92 H 05/06/24 00:00 98.5 F 98 H 18 102/79 L 91 L 05/05/24 22:36 05/05/24 22:00 108 H 14 118/66 94 L 05/05/24 20:52 05/05/24 20:00 145 H 05/05/24 20:00 05/05/24 20:00 125 H 16 100/74 L 92 L 05/05/24 19:00 05/05/24 18:57 99.0 F 149 H 17 131/88 94 L 05/05/24 18:32 98.0 F 104 H 20 124/75 05/05/24 18:00 146 H 23 124/75 98 05/05/24 17:30 116 H 22 111/74 97 05/05/24 17:00 113/87 05/05/24 16:31 139 H 20 110/79 93 L 05/05/24 16:06 97.9 F 152 H 22 134/93 H 96 O2 Del Method O2 Flow Rate 05/06/24 06:58 Room Air 05/06/24 06:00 Room Air 05/06/24 04:57 Room Air 05/06/24 04:00 05/06/24 04:00 Room Air 05/06/24 04:00 Room Air 05/06/24 03:00 Room Air 05/06/24 02:00 Room Air 05/06/24 01:00 Room Air 05/06/24 00:00 05/06/24 00:00 Room Air 05/05/24 22:36 Room Air 05/05/24 22:00 Room Air 05/05/24 20:52 Room Air 05/05/24 20:00 05/05/24 20:00 Room Air 05/05/24 20:00 Room Air 05/05/24 19:00 Room Air 05/05/24 18:57 Room Air 05/05/24 18:32 Nasal Cannula 2 05/05/24 18:00 Nasal Cannula 2 05/05/24 17:30 05/05/24 17:00 05/05/24 16:31 05/05/24 16:06 Room Air Intake and Output 05/05/24 05/06/24 05/06/24 23:59 07:59 15:59 Intake Total 180 / 180 Output Total 225 / 475 1375 / 1375 Balance -225 / -295 -1195 / -1195 Intake: Intake, Oral Amount 180 / 180 Output: Output, Urine Amount 225 / 475 1375 / 1375 Other: Weight 68.629 kg 76.884 kg Patient Weight 05/06/24 23:59 Weight 76.884 kg Laboratory Results - last 24 hr 05/05/24 16:17: WBC 6.6, RBC 4.51 L, Hgb 14.2, Hct 43.6, MCV 96.9 H, MCH 31.6 H, MCHC 32.6, RDW 13.7, Plt Count 250, MPV 8.6, Neut % (Auto) 77.9, Lymph % (Auto) 11.5, [place] % (Auto) 8.7, Eos % (Auto) 0.9, Baso % (Auto) 0.9, Neut # (Auto) 5.2, Lymph # (Auto) 0.8, [place] # (Auto) 0.6, Eos # (Auto) 0.1, Baso # (Auto) 0.1, PT 12.7 H, INR 1.15 H, APTT 31.6 H, D-Dimer 1.79 H, Sodium 126 L, Potassium 4.2, Chloride 89 L, Carbon Dioxide 35 H, Anion Gap 6.2, BUN 26 H, Creatinine 0.70, Estimated Creat Clear 60, Estimated GFR 107, Est GFR ( Amer) 130, Glucose 108 H, Calcium 8.9, Magnesium 1.8, Total Bilirubin 1.5 H, AST 79 H, ALT 62, Alkaline Phosphatase 202 H, Troponin I 0.02, NT-Pro-B Natriuret Pep 3710 H, Total Protein 7.2, Albumin 3.9, Globulin 3.3 H, Albumin/Globulin Ratio 1.2, Procalcitonin 0.146, TSH 1.44, Thyroxine (T4) 10.5, HIV 1&2 Antibody Rapid Nonreactive 05/05/24 16:38: VBG pH 7.44 H, VBG pCO2 46.1, VBG pO2 33.9, VBG HCO3 30.7 H, VBG Total CO2 32.2 H, VBG O2 Saturation 64.0, VBG Base Excess 6.6 H, VBG Lactic Acid 1.8 05/05/24 20:10: Troponin I 0.02 05/05/24 23:05: Sodium 127 L, Potassium 3.6, Chloride 90 L, Carbon Dioxide 32 H, Anion Gap 8.6, BUN 26 H, Creatinine 0.80, Estimated Creat Clear 52, Estimated GFR 92, Est GFR ( Amer) 111, Glucose 136 H D, Calcium 8.3 L, Troponin I 0.02 05/06/24 08:17: WBC 4.7 L D, RBC 4.04 L, Hgb 12.8 L, Hct 37.7 L, MCV 93.3, MCH 31.6 H, MCHC 33.9, RDW 13.9, Plt Count 257, MPV 8.6, Neut % (Auto) 76.0, Lymph % (Auto) 11.2, [place] % (Auto) 10.9 H, Eos % (Auto) 1.6, Baso % (Auto) 0.4, Neut # (Auto) 3.6, Lymph # (Auto) 0.5 L, [place] # (Auto) 0.5, Eos # (Auto) 0.1, Baso # (Auto) 0.0, Sodium 130 L, Potassium 3.8, Chloride 91 L, Carbon Dioxide 37 H, Anion Gap 5.8, BUN 25 H, Creatinine 0.70, Estimated Creat Clear 59, Estimated GFR 107, Est GFR ( Amer) 130, Glucose 141 H, Calcium 8.5, Magnesium 2.2 D, Total Bilirubin 1.2, AST 54 D, ALT 50, Alkaline Phosphatase 172 H, Total Protein 6.2 L, Albumin 3.2 L D, Globulin 3.0, Albumin/Globulin Ratio 1.1, Triglycerides 59, Cholesterol 79 L, VLDL Cholesterol 12, HDL Cholesterol 16 L, Cholesterol/HDL Ratio 4.9 H I & O for Labs for Last 24 Hours: Intake & Output 05/03/24 05/04/24 05/05/24 05/06/24 23:59 23:59 23:59 23:59 Intake Total 180 / 180 Output Total 225 / 475 1375 / 1375 Balance -225 / -295 -1195 / -1195 Weight 68.629 kg 76.884 kg Constitutional: Present no acute distress, average body habitus, chronically ill appearing and cooperative Head: Present atraumatic and normocephalic ENT: Present normal exam Neck: Present normal inspection Respiratory: Present crackles (Fine in the bases, improved from yesterday) and normal respiratory effort; Absent rhonchi or wheezes Cardiac: Present Regular Rate Comment:: Irregularly irregular GI: Present soft and normal bowel sounds; Absent distention or tenderness Extremities: Present normal inspection, full ROM and edema (Improving, 2+ at ankles) Skin: Present intact; Absent erythema Neuro: Present Grossly Intact and moves all extremities Assessment and Plan *Assessment and plan (1) CHF exacerbation: Status: Acute Category: Medical Code(s): I50.9 - Heart failure, unspecified (2) Acute hyponatremia: Status: Acute Category: Medical Code(s): E87.1 - Hypo-osmolality and hyponatremia (3) Atrial fibrillation with RVR: Status: Acute Category: Medical Code(s): I48.91 - Unspecified atrial fibrillation (4) Pleural effusion: Status: Acute Category: Medical Code(s): J90 - Pleural effusion, not elsewhere classified (5) Acute pericardial effusion: Status: Acute Category: Medical Code(s): I30.9 - Acute pericarditis, unspecified (6) Prostate cancer: Status: Acute Category: Medical Code(s): C61 - Malignant neoplasm of prostate Plan 83-year-old male with increased shortness of breath. Workup in the ER concerning for CHF and hyponatremia. Discussed case with ER physician, request admission for diuresis, further workup of CHF, and treatment of hyponatremia. I agreed to admit for further management. Received Lasix in the ER. Will administer therapeutic Lovenox and initiate metoprolol to address A-fib. Ne cessitating inpatient management. Showing improvement clinically this morning. Needing further evaluation and diuresis in the morning. Monitoring on telemetry. Problems addressed as follows: CHF exacerbation, undetermined, acute A-fib with RVR -Clinical presentation consistent with acute CHF exacerbation. BNP of 3700, kathleen volume overload with pleural and pericardial effusions. -Initiated on Lasix 40 mg IV twice daily -Echocardiogram ordered pending., Monitor on telemetry. -Close monitoring of electrolytes during diuresis -Patient with A-fib with RVR, A-fib longstanding per his report. Not on any rate controlling medications. Concerned this could be underlying his heart failure - rate improved with metoprolol. Increase metoprolol tartrate to 50 mg twice daily. -Continue Lovenox 1 mg/kg twice daily for anticoagulation -Cardiology consulted, will evaluate patient in the morning -Serial troponins 0.02 BPH: Continue tamsulosin 0.4 mg nightly History of prostate cancer: Hold Xtandi at this time concern for side effects from medication exacerbating current condition. Hyponatremia: - Sodium 126, chloride 89 on admission. Improving with sodium 130, chloride 91 on labs this morning. Potassium 3.8, magnesium 2.2. Repeat CMP, CBC, magnesium ordered for the morning. -Correction rate from 8 to 10 mEq/day. Full code Cardiac diet Lovenox 1 mg/kg twice daily
[2024-05-06 08:53] LABS: Direct LDL Cholesterol 44.18 mg/dL (100-129)
--- NOTE | 2024-05-06 09:01 | HMH.PHAINT1 ---
Pharmacy Intervention Comments: MEDICATION RECONCILIATION COMPLETED ON PATIENT USING EXTERNAL FILL HISTORY FROM PHARMACY. -SAUL PEREZ, CESARD
[2024-05-06] MEDS: METOPROLOL TARTRATE 25MG TABLET 25 MG PO (09:26)
[2024-05-06] MEDS: FUROSEMIDE 40MG/4ML VIAL 40 MG IV ×2 (09:26→15:44)
--- NOTE | 2024-05-06 17:38 | PC.NURSE ---
PT IS RESTING IN BED. ALERT AND ORIENTED X4. EATING AND DRINKING WELL. AMBULATES TO THE BATHROOM. AFIB ON TELEMETRY. LUNG SOUNDS DIMINISHED WITH BILATERAL CRACKLES (BASES). ABDOMEN SOFT/NON TENDER WITH ACTIVE BOWEL SOUNDS. EDEMA NOTED TO BLE. WILL CONTINUE TO MONITOR.
[2024-05-06] MEDS: ENOXAPARIN 80MG/0.8ML SYRINGE 75 MG SQ (18:12)
[2024-05-06] MEDS: METOPROLOL TARTRATE 25MG TABLET 50 MG PO (18:13)
[2024-05-06] MEDS: MONTELUKAST SODIUM 10MG TAB 10 MG PO (18:13)
[2024-05-06] MEDS: ACETAMINOPHEN 500MG TAB 1000 MG PO (20:08)
[2024-05-06] MEDS: TAMSULOSIN 0.4MG CAPSULE 0.4 MG PO (20:08)
[2024-05-07] VITALS (21 sets, daily range): BP systolic 82–121; BP diastolic 50–75; PULSE 51–124; RESP 16–20; TEMP 36.4–37.2; O2SAT 93–99; BMI 24.3; BMI 24.2
--- NOTE | 2024-05-07 05:07 | PC.NURSE ---
Patient is alert and oriented x4. Patient was observed to have eyes closed, respirations even and unlabored on room air, and no apparent distress throughout the night. Patient has been self-turning in bed. Vital signs have remained stable with soft blood pressures (MAP > 65) and a controlled heart rate below 100 bpm this shift. Patient has been running afib on telemetry. Patient has not had any complaints of shortness of breath, dizziness, or chest pain. Upon auscultation, patient had scattered fine crackles in his lung bases and diminished lung sounds throughout. Heart rhythm sounded irregular and bowel sounds were active. Patient had trace edema in his lower extremities. Patient has received his scheduled medications per SEP. He did complain of back and neck pain once this shift; Tylenol 1000 mg was given per SEP, and patient reported relief after receiving. A cup of ice was requested at bedtime. At this time, patient is resting on his right side in bed. Cane for ambulation assistance is at bedside. Patient does not have any further complaints. No acute changes noted thus far. Call light within reach.
[2024-05-07] MEDS: ENOXAPARIN 80MG/0.8ML SYRINGE 75 MG SQ ×2 (05:42→17:53)
[2024-05-07 06:53] LABS: Albumin Level 3.1 g/dl (3.5-5.0); Chloride 92 mmol/L (98-107); Potassium 3.5 mmoL/L (3.5-5.1); Sodium 130 mmol/L (136-145)
[2024-05-07 06:55] LABS: Blood Urea Nitrogen 26 mg/dl (9-20); Creatinine Clearance Estimated 59 mL/min (50-200); Estimated Glomerular Filt Rate 92 ml/min (>60); GFR (African American) 111 ML/MIN (>60)
[2024-05-07 06:56] LABS: Alanine Aminotransferase 61 U/L (12-78); Albumin/Globulin Ratio 1.1 (1.1-1.8); Alkaline Phosphatase 187 U/L (38-126); Anion Gap 6.5 mEq/L (5-15); Aspartate Amino Transferase 67 U/L (17-59); Basophils % 0.7 % (0.1-2.0); Bilirubin,Total 1.1 mg/dl (0.2-1.3); Calcium 8.2 mg/dl (8.4-10.2); Carbon Dioxide 35 mmol/L (22.0-30.0); Eosinophils # 0.1 K/mm3 (0.0-0.4); Eosinophils % 2.9 % (0.1-12.0); Globulin 2.7 g/dL (1.3-3.2); Glucose 93 mg/dl (74-100); Hematocrit 33.9 % (42.0-52.0); Hemoglobin 12.4 g/dL (14.1-18.0); Lymphocytes # 0.8 K/mm3 (0.7-4.5); Lymphocytes % 17.6 % (10-50); Mean Corpuscular HGB Conc 36.6 g/dL (31.8-35.4); Mean Corpuscular Hemoglobin 35.2 pg (27.0-31.2); Mean Corpuscular Volume 96.2 fl (80-94); Mean Platelet Volume 8.3 fl (7.4-10.4); Monocytes # 0.6 K/mm3 (0.1-1.0); Monocytes % 14.3 % (1.7-9.3); Neutrophils # 2.8 K/mm3 (1.8-7.8); Neutrophils % 64.4 % (37.0-80.0); Platelet Count 242 K/mm3 (142-424); Red Blood Count 3.52 M/mm3 (4.60-6.20); Red Cell Distribution Width 13.9 % (11.5-17.5); Total Protein,Serum 5.8 g/dl (6.3-8.2); White Blood Count 4.4 K/mm3 (4.8-10.8)
[2024-05-07] MEDS: FUROSEMIDE 40MG/4ML VIAL 40 MG IV ×2 (08:16→16:25)
[2024-05-07] MEDS: METOPROLOL TARTRATE 50MG TABLET 50 MG PO ×2 (08:16→20:15)
--- NOTE | 2024-05-07 11:29 | P.CONCA_ITS ---
History of Present Illness History of Present Illness Consult date: 05/07/24 Requesting physician: Heath Webb Consult reason: shortness of breath Chief complaint: SOA History of present illness: This is an 83-year-old white gentleman who presented to the emergency department with complaints of shortness of breath. Patient has a past medical history of prostate cancer and atrial fibrillation. He states that he has been having shortness of breath and swelling in his legs for approximately 1 week. The patient states that he started Xtandi for his prostate cancer 2 months ago and has noticed that he has not really felt well since starting that medication. He states that initially started with back pain and increased shortness of breath but over the last week his shortness of breath significantly worsened. He has noticed a decrease in his activity with significant increase in his lower extremity edema. He reports that he has had the edema in his legs for approximately a year or more but it significantly worsened over the last week and especially the last 2 days. He states that his shortness of breath was severe and it was improving with rest but not completely resolving. He denied any chest pain or pressure. He denied any fever, chills, nausea, vomiting or diarrhea. He did have associated orthopnea with his shortness of breath. In the emergency department the patient was found to have bilateral pleural effusions and at least a moderate pericardial effusion. His BNP was elevated and his sodium was low. The patient was found to be in atrial fibrillation as well. The patient states that he was recently diagnosed with atrial fibrillation but opted to have no treatment for this with his primary care provider. [facility] Disclaimer: The information contained in this section may have been updated after the patient was seen, as this information can be updated by other users. Medical History (Updated 05/07/24 @ 11:34 by Selene Mcdonnell APRN) Family history of prostate problems Arthritis Allergies Deviated septum History of cataract Hyperlipidemia Hypertension Surgical History History of colonoscopy History of hernia surgery Family History Heart attack Father Social History (Updated 05/05/24 @ 19:14 by Ashlee Guzman RN) Smoking Status: Unknown if ever smoked second hand exposure: No alcohol intake: never substance use type: denies use current occupational status: retired and other Travel in the last 8 weeks: None household members: spouse housing: house current occupational exposures/hazards: Yes caffeine: No Review of Systems Review of Systems Review of systems:: pertinent systems reviewed and negative unless documented below Constitutional Constitutional: Reports system reviewed and no additional complaints, except as documented, Reports fatigue and Reports lethargy Eyes Eyes: Reports system reviewed and no additional complaints, except as documented ENT Ears, Nose, Mouth, and Throat: Reports system reviewed and no additional complaints, except as documented *Cardiovascular Cardiovascular: Reports system reviewed and no additional complaints, except as documented, Reports dyspnea, Reports dyspnea on exertion, Reports leg edema and Reports orthopnea *Respiratory Respiratory: Reports system reviewed and no additional complaints, except as documented, Reports dyspnea and Reports dyspnea on exertion *Gastrointestinal Gastrointestinal: Reports system reviewed and no additional complaints, except as documented *Genitourinary Genitourinary: Reports system reviewed and no additional complaints, except as documented *Musculoskeletal Musculoskeletal: Reports system reviewed and no additional complaints, except as documented and Reports back pain Integumentary/Breasts Skin/Breast: Reports system reviewed and no additional complaints, except as documented *Neurologic Neurologic: Reports system reviewed and no additional complaints, except as documented Psychiatric Psychiatric: Reports system reviewed and no additional complaints, except as documented Endocrine Endocrine: Reports system reviewed and no additional complaints, except as documented and Reports fatigue Hematologic/Lymphatic Hematologic/Lymphatic: Reports system reviewed and no additional complaints, except as documented Allergic/Immunologic Allergic/Immunologic: Reports system reviewed and no additional complaints, except as documented Exam Data for Last 24 hours Vital signs and Labs for Last 24 Hours: Temp Pulse Resp BP Pulse Ox O2 Del Method O2 Flow Rate 97.6 F 124 H 20 121/75 97 Room Air 2 05/07/24 07:54 05/07/24 08:00 05/07/24 07:54 05/07/24 07:54 05/07/24 07:54 05/07/24 11:00 05/05/24 18:32 Laboratory Results - last 24 hr 05/07/24 05:53: WBC 4.4 L, RBC 3.52 L, Hgb 12.4 L, Hct 33.9 L, MCV 96.2 H, MCH 35.2 H, MCHC 36.6 H, RDW 13.9, Plt Count 242, MPV 8.3, Neut % (Auto) 64.4, Lymph % (Auto) 17.6, Gillespie % (Auto) 14.3 H, Eos % (Auto) 2.9, Baso % (Auto) 0.7, Neut # (Auto) 2.8, Lymph # (Auto) 0.8, Gillespie # (Auto) 0.6, Eos # (Auto) 0.1, Baso # (Auto) 0.0, Sodium 130 L, Potassium 3.5, Chloride 92 L, Carbon Dioxide 35 H, Anion Gap 6.5, BUN 26 H, Creatinine 0.80, Estimated Creat Clear 59, Estimated GFR 92, Est GFR ( Amer) 111, Glucose 93 D, Calcium 8.2 L, Magnesium 2.0, Total Bilirubin 1.1, AST 67 H, ALT 61, Alkaline Phosphatase 187 H, Total Protein 5.8 L, Albumin 3.1 L, Globulin 2.7, Albumin/Globulin Ratio 1.1 I & O for Last 24 hours: Intake & Output 05/04/24 05/05/24 05/06/24 05/07/24 23:59 23:59 23:59 23:59 Intake Total 1230 / 1430 600 / 600 Output Total 225 / 475 1725 / 1725 1500 / 1500 Balance -225 / -295 -495 / -295 -900 / -900 Weight 151 lb 4.8 oz 169 lb 8 oz 169 lb 5.04 oz Constitutional Constitutional: no acute distress and average body habitus *Routine HEENT Exam Head: Present normocephalic and atraumatic ENT: Present mucous membranes moist *Routine Neck Exam Neck: Present supple, full ROM and normal carotid upstroke; Absent JVD, carotid bruit or lymphadenopathy *Routine Respiratory Exam Respiratory: Present CTA bilaterally, normal respiratory effort, able to speak in complete sentences and symmetric chest movement *Routine Cardiovascular Exam Cardiovascular: Present Normal S1, Normal S2 and irregularly irregular; Absent murmur or gallop *Routine Abdominal Exam Abdominal: Present soft and normoactive bowel sounds; Absent tenderness, distended or organomegaly *Routine Extremities Exam Extremities: Present edema, full ROM, pulses intact and normal capillary refill; Absent cyanosis or clubbing *Routine Skin Exam Skin: Present intact and warm; Absent erythema *Routine Neurological Exam Neurological: Present alert, oriented X3 and CN II-XII intact; Absent sensory deficit or motor deficit Routine Psychiatric Exam Psychiatric: Present normal affect Meds Home Medications and Allergies Home Medications ?Medication ?Instructions ?Recorded ?Confirmed ?Type pravastatin 20 mg tablet 20 mg PO HS Cholesterol 09/29/20 05/05/24 History montelukast 10 mg tablet 10 mg PO PM 05/18/22 05/06/24 History tamsulosin 0.4 mg capsule 0.4 mg PO HS 05/18/22 05/06/24 History enzalutamide 40 mg capsule (Xtandi) 160 mg PO DAILY 05/05/24 05/06/24 History hydrocodone 5 mg-acetaminophen 325 1 tab PO TIDP PRN Severe Pain 05/06/24 05/06/24 History mg tablet (Scale Score 7-10) New Prescriptions to Start Prescriptions: Allergies Allergy/AdvReac Type Severity Reaction Status Date / Time No Known Allergies Allergy Verified 07/06/23 09:00 Assessment and Plan *Assessment and plan (1) Atrial fibrillation with RVR: Status: Acute Category: Medical Code(s): I48.91 - Unspecified atrial fibrillation (2) Acute pericardial effusion: Status: Acute Category: Medical Code(s): I30.9 - Acute pericarditis, unspecified (3) Hypertension: Status: Acute Qualifiers: Hypertension type: primary hypertension Qualified Code(s): I10 - Essential (primary) hypertension Category: Medical Code(s): I10 - Essential (primary) hypertension (4) Hyperlipidemia: Status: Acute Qualifiers: Hyperlipidemia type: mixed hyperlipidemia Qualified Code(s): E78.2 - Mixed hyperlipidemia Category: Medical Code(s): E78.5 - Hyperlipidemia, unspecified (5) Prostate cancer: Status: Acute Category: Medical Code(s): C61 - Malignant neoplasm of prostate (6) Acute hyponatremia: Status: Acute Category: Medical Code(s): E87.1 - Hypo-osmolality and hyponatremia Plan Plan: 1. Patient was admitted to the hospital with an acute congestive heart failure and atrial fibrillation with RVR. He is now rate controlled. The patient reports that he was told when he was diagnosed with prostate cancer that he also has atrial fibrillation. He was evaluated by his primary care provider and is taking metoprolol for rate control. But he opted for no anticoagulation because his blood pressure already runs on the low side. I have had a long discussion with the patient about anticoagulation and it does not lower blood pressure. We discussed the risks and benefits of anticoagulation and we will continue Lovenox at this time for anticoagulation and then switch the patient over to an oral NOAC prior to discharge home. The patient verbalized understanding. 2. The patient does have an elevated BNP and a moderate pericardial effusion on CTA of the chest as well as moderate bilateral pleural effusions. The patient is being diuresed with IV Lasix. He did have a negative fluid balance overnight last night. Will continue with IV Lasix at this time. 3. Will obtain an echocardiogram to evaluate his LV function. 4. His blood pressure is well-controlled. 5. His LDL goal is less than 100. His LDL is 44. He is on a statin. 6. The patient has new onset cardiomyopathy and HFrEF. We do recommend proceeding with left cardiac catheterization today to evaluate for coronary artery disease to make sure this is not ischemically mediated. 7. The patient has been educated the risk and benefits of proceeding with left cardiac catheterization. The patient verbalizes understanding and is agreeable in proceeding with the procedure. 8. The patient will be n.p.o. in preparation for left cardiac catheterization. 9. The patient was hyponatremic on admission with a sodium of 126. It is up to 130. 10. Start Entresto 24/26 mg p.o. twice daily and spironolactone 25 mg p.o. daily for HFrEF. 11. Consider Jardiance once the patient is euvolemic. 12 Further recommendations were made pending the patient's response to treatment and the results of his echocardiogram today. Thank you for the opportunity to help participate in the care of this patient. All recommendations and orders are per Dr. Bettencourt.
--- NOTE | 2024-05-07 12:37 | IR_ITS ---
APPROVED REPORT Patient Location: Inpatient Staff Nurse [facility] Resource Team: GENARO Escobar RT (R) PROCEDURES Selective coronary angiogram INDICATION Unstable angina, Atrial fibrillation Informed consent was obtained prior to the procedure. COMPLICATIONS None Estimated Blood Loss: Less than 10 mls TECHNIQUE One percent lidocaine used to anesthetize the right anterior aspect of the wrist. The right radial artery was accessed via the Seldinger technique. A 6 Icelandic sheath was placed in the right radial artery. 2.5 mg of Verapamil, 800 mcg of nitroglycerin, 1mg Lidocaine and 5000 U Heparin were given through the arterial sheath. The papa catheter was also used to perform selective coronary angiogram. At the end of the procedure the sheath was removed good hemostasis was achieved using Traclet band, patient was transferred to the postop holding area in stable condition. ANGIOGRAPHIC RESULTS The left main artery Normal The left anterior descending artery Proximally normal with a mid vessel concentric smooth 30 to 40% stenosis The circumflex artery Normal The right coronary artery Normal The SNYDER ventriculogram reveals Not performed The left ventricular end-diastolic pressure Not measured IMPRESSION Mild nonflow limiting coronary disease above the mid LAD PLAN 1. Nonischemic workup for atrial fibrillation 2. Risk factor modification 3. Anticoagulation and rate control Electronically signed by : Leon Zhou MD 05/07/2024 14:05:42
[2024-05-07] MEDS: SACUBITRIL/VALSARTAN 24-26MG TABLET 1 EACH PO ×2 (12:48→20:14)
[2024-05-07] MEDS: SPIRONOLACTONE 25MG TABLET 25 MG PO (12:48)
--- NOTE | 2024-05-07 13:09 | EXP.ACUTE.PN ---
Subjective *Date: 05/07/24 *Time: 21:50 Interval history: Did well overnight. Continuing to make good urine. No chest pain or shortness of breath. No nausea or vomiting. Heart rate improved on morning Vitals 86. Stable on room air Medical Exam Vital signs and Labs for Last 24 Hours: Vital Signs Temp Pulse Pulse Resp BP Pulse Ox O2 Del Method 05/07/24 12:00 110 H 18 103/57 L 96 Room Air 05/07/24 12:00 90 05/07/24 11:00 Room Air 05/07/24 09:00 Room Air 05/07/24 08:00 110 H 05/07/24 08:00 124 H Room Air 05/07/24 07:54 97.6 F 124 H 20 121/75 97 Room Air 05/07/24 06:40 Room Air 05/07/24 05:00 Room Air 05/07/24 04:00 73 05/07/24 04:00 98.1 F 86 17 100/51 L 95 Room Air 05/07/24 03:00 Room Air 05/07/24 01:00 Room Air 05/07/24 00:00 76 05/07/24 00:00 98.2 F 74 16 102/61 L 95 Room Air 05/06/24 23:00 Room Air 05/06/24 21:00 Room Air 05/06/24 20:00 91 H 16 95 Room Air 05/06/24 20:00 91 H 05/06/24 20:00 98.2 F 78 16 93/52 L 95 Room Air 05/06/24 18:28 Room Air 05/06/24 16:56 Room Air 05/06/24 16:00 97.9 F 144 H 16 101/63 L 95 Room Air 05/06/24 15:00 Room Air Intake and Output 05/06/24 05/07/24 05/07/24 23:59 07:59 15:59 Intake Total 250 / 1430 200 / 600 400 / 600 Output Total 350 / 1725 700 / 1800 1100 / 1800 Balance -100 / -295 -500 / -1200 -700 / -1200 Intake: Intake, Oral Amount 250 / 1430 200 / 600 400 / 600 Output: Output, Urine Amount 350 / 1725 700 / 1800 1100 / 1800 Other: Number of Unmeasured Voids 0 0 Weight 76.884 kg 76.8 kg Patient Weight 05/07/24 23:59 Weight 76.8 kg Laboratory Results - last 24 hr 05/07/24 05:53: WBC 4.4 L, RBC 3.52 L, Hgb 12.4 L, Hct 33.9 L, MCV 96.2 H, MCH 35.2 H, MCHC 36.6 H, RDW 13.9, Plt Count 242, MPV 8.3, Neut % (Auto) 64.4, Lymph % (Auto) 17.6, Rawlins % (Auto) 14.3 H, Eos % (Auto) 2.9, Baso % (Auto) 0.7, Neut # (Auto) 2.8, Lymph # (Auto) 0.8, Rawlins # (Auto) 0.6, Eos # (Auto) 0.1, Baso # (Auto) 0.0, Sodium 130 L, Potassium 3.5, Chloride 92 L, Carbon Dioxide 35 H, Anion Gap 6.5, BUN 26 H, Creatinine 0.80, Estimated Creat Clear 59, Estimated GFR 92, Est GFR ( Amer) 111, Glucose 93 D, Calcium 8.2 L, Magnesium 2.0, Total Bilirubin 1.1, AST 67 H, ALT 61, Alkaline Phosphatase 187 H, Total Protein 5.8 L, Albumin 3.1 L, Globulin 2.7, Albumin/Globulin Ratio 1.1 I & O for Labs for Last 24 Hours: Intake & Output 05/04/24 05/05/24 05/06/24 05/07/24 23:59 23:59 23:59 23:59 Intake Total 1230 / 1430 600 / 600 Output Total 225 / 475 1725 / 1725 1800 / 1800 Balance -225 / -295 -495 / -295 -1200 / -1200 Weight 68.629 kg 76.884 kg 76.8 kg Constitutional: Present no acute distress, average body habitus, chronically ill appearing and cooperative Head: Present atraumatic and normocephalic ENT: Present normal exam Neck: Present normal inspection Respiratory: Present crackles (Fine in the bases, improved from yesterday) and normal respiratory effort; Absent rhonchi or wheezes Cardiac: Present Regular Rate Comment:: Irregularly irregular GI: Present soft and normal bowel sounds; Absent distention or tenderness Extremities: Present normal inspection, full ROM and edema (Improving, 1+ at ankles) Skin: Present intact; Absent erythema Neuro: Present Grossly Intact and moves all extremities Assessment and Plan *Assessment and plan (1) CHF exacerbation: Status: Acute Qualifiers: Heart failure type: systolic Qualified Code(s): I50.23 - Acute on chronic systolic (congestive) heart failure Category: Medical Code(s): I50.9 - Heart failure, unspecified (2) Acute hyponatremia: Status: Acute Category: Medical Code(s): E87.1 - Hypo-osmolality and hyponatremia (3) Atrial fibrillation with RVR: Status: Acute Category: Medical Code(s): I48.91 - Unspecified atrial fibrillation (4) Pleural effusion: Status: Acute Category: Medical Code(s): J90 - Pleural effusion, not elsewhere classified (5) Acute pericardial effusion: Status: Acute Category: Medical Code(s): I30.9 - Acute pericarditis, unspecified (6) Prostate cancer: Status: Acute Category: Medical Code(s): C61 - Malignant neoplasm of prostate Plan 83-year-old male with increased shortness of breath. Workup in the ER concerning for CHF and hyponatremia. Discussed case with ER physician, request admission for diuresis, further workup of CHF, and treatment of hyponatremia. I agreed to admit for further management. Received Lasix in the ER. Will administer therapeutic Lovenox and initiate metoprolol to address A-fib. Necessitating inpatient management. Showing improvement clinically this morning. Needing further evaluation and diuresis in the morning. Monitoring on telemetry. Cardiology evaluating today. Will go for left heart cath. Problems addressed as follows: CHF exacerbation, undetermined, acute A-fib with RVR - Seen by cardiology today. Plan to take him for left heart cath. - Discussed case with cardiology, recommend transitioning to NOAC after heart cath and prior to discharge home. Continue IV Lasix at this time. - Recommend initiating Entresto 24/26 mg twice daily and spironolactone 25 mg daily for heart failure with reduced ejection fraction. - Echo obtained, new diagnosis of cardiomyopathy and heart failure with reduced ejection fraction. Formal read still pending. -Close monitoring of electrolytes with diuresis. Sodium 130, potassium 3.5, magnesium 2.0. Creatinine 0.8 with BUN 26. -Continue metoprolol tartrate to 50 mg twice daily. -Continue Lovenox 1 mg/kg twice daily for anticoagulation -Repeat CBC, CMP, magnesium ordered for the morning BPH: Continue tamsulosin 0.4 mg nightly History of prostate cancer: Hold Xtandi at this time concern for side effects from medication exacerbating current condition. Hyponatremia: - Sodium 126, chloride 89 on admission. Improving with sodium 130, chloride 92 on labs this morning. Potassium 3.5 magnesium 2.0. -Correction rate from 8 to 10 mEq/day. Full code Cardiac diet Lovenox 1 mg/kg twice daily
[2024-05-07] MEDS: diphenhydrAMINE 50MG/ML VIAL 50 MG IV ×2 (13:50→14:03)
[2024-05-07] MEDS: HEPARIN 1,000 UNITS/ML 10ML VIAL (CATH LAB) 10000 UNIT IV (14:03)
[2024-05-07] MEDS: LIDOCAINE 1% 10ML MDV 20 ML IJ (14:03)
[2024-05-07] MEDS: VERAPAMIL 2.5MG/ML 2ML VIAL 2.5 MG IV (14:04)
[2024-05-07] MEDS: FENTANYL 100MCG/2ML VIAL 50 MCG IV (14:04)
[2024-05-07] MEDS: MIDAZOLAM HCL 1MG/1ML 5ML VIAL 1 MG IV (14:04)
[2024-05-07] MEDS: NITROGLYCERIN 800MCG/8ML SYR (CATH LAB) 800 MCG IA (14:05)
[2024-05-07] MEDS: IOPAMIDOL-370 (76%);100ML BOTTLE 50 ML IV (14:27)
--- NOTE | 2024-05-07 15:20 | PC.NURSE ---
patient went down to the geochemical laboratory technician earlier this shift. HR still remains elevated, and is currently on RA. BPs have been slightly hypotensive but the patient states that is his baseline. he is currently lying in bed and is tolerating ice chips. vitals have been WDL since arriving back to the floor from the geochemical laboratory technician. call light within reach, family at bedside.
[2024-05-07] MEDS: MONTELUKAST SODIUM 10MG TAB 10 MG PO (17:54)
--- NOTE | 2024-05-07 18:06 | CA_ITS ---
APPROVED REPORT EXAM: Comprehensive 2D, Doppler, and color-flow Echocardiogram Welt Sole Layer: Kelly Early CRT Ht: 5 ft 10 in Wt: 173lbs BSA: 1.96 BP: 124/75 mmHg Indications: Congestive Heart Failure, Shortness of Breath, Atrial Fibrillation, Peripheral Edema, Hyperlipidemia, Hypertension/HDD, prostate cancer 2D Dimensions LA Volume 118.30 mL LA Volume Index 58.90 mL/m2 (M/F) 16-34 M-Mode Dimensions RVDd 3.19 cm (0.9-2.6) LA Diam 5.58 cm (1.9-4.0) LVDd 5.23 cm (3.5-5.7) LVDs 4.04 cm (3.5-5.7) IVSd 1.70 cm (0.6-1.1) PWd 0.72 cm (0.6-1.1) EF (Teich) 45.40% FS 22.80% EDV (Teich) 131.20 mL ESV (Teich) 71.70 mL LV Diastology E Decel Time 150 (160-240 msec) E/A Ratio 2.06 MED A' 7.70 cm/s LAT A' 2.30 cm/s Aortic Valve AI PHT 633.00 ms AO Peak GR. 7.40 mmHg Mitral Valve MV E Max Wei. 123.0 (40-130 cm/s) MV A Velocity 60.0 (40-130 cm/s) E/A Ratio 2.06 MV PHT 44.0 ms Pulmonary Valve PV Peak Velocity 158.0 (50-150 cm/s) Tricuspid Valve TR P. Velocity 245.00 cm/s RAP Estimate 10.00 mmHg RVSP 34.10 mmHg Left Ventricle The left ventricle is normal size. Left ventricular systolic function is moderate to severely decreased. There is normal left ventricular wall thickness. There is moderate to severe global hypokinesis present. Grade 1 diastolic dysfunction is present. LVEF is 30%. Right Ventricle Right ventricle is mildly dilated. Right ventricle is mildly hypokinetic. There is a mobile echodensity noted in the RA cavity. This may represent the eustachian valve, but thrombus cannot be entirely ruled out. Correlation with findings from recent CTA chest is suggested. Atria Left atrium is severely dilated. Right atrium is severely dilated. There is no Doppler evidence of interatrial shunt. Aortic Valve The aortic valve is mildly thickened. There is no aortic valvular stenosis. Mild aortic regurgitation. Mitral Valve The mitral valve leaflets are mildly thickened. No evidence of mitral valve stenosis. Mild mitral regurgitation. Tricuspid Valve The tricuspid valve leaflets are thin and pliable. Mild tricuspid regurgitation. RVSP is 25-30 mmHg. Pulmonic Valve The pulmonary valve is normal in structure. Trace pulmonic regurgitation. Great Vessels The aortic root is normal in size. The ascending aorta is not well-visualized. The IVC is not well-visualized. Pericardium Small, circumferential pericardial effusion is present. The largest pocket is noted posteriorly and measures 0.8 cm in diastole. No clear echo indications of tamponade. Other Information Study Quality: Fair Conclusion Moderate to severe reduction in LV systolic function (LVEF 30%). Mild RV dilation with mild reduction in RV function. Severe biatrial dilation. Mild AI, mild MR, mild TR. Small, circumferential pericardial effusion is present. The largest pocket is noted posteriorly and measures 0.8 cm in diastole. No clear echo indications of tamponade. Mobile echodensity noted in the RA cavity. This may represent the eustachian valve, but thrombus cannot be entirely ruled out. Correlation with findings from recent CTA chest is suggested. In the setting of presence of circumferential pericardial effusion, serial TTE evaluations are suggested. Electronically signed by : Chasity Bettencourt MD 05/08/2024 11:09:28
[2024-05-07] MEDS: TAMSULOSIN 0.4MG CAPSULE 0.4 MG PO (20:14)
[2024-05-07] MEDS: ACETAMINOPHEN 500MG TAB 1000 MG PO (22:23)
[2024-05-08] VITALS (8 sets, daily range): BP systolic 72–103; BP diastolic 37–78; PULSE 50–120; RESP 16–18; TEMP 36.4–36.7; O2SAT 92–97; BMI 23.6
--- NOTE | 2024-05-08 04:36 | PC.NURSE ---
83 yo male pt is A/O X 4. He has been on RA throughout shift and has denied chest pain or SOA. Pt was up to the chair early in the shift and tolerated well. He has used urinal through the night. Right radial heart cath site dressing C/D/I. He was medicated early in the shift with Tylenol for report of back pain which was effective. He has rested well throughout shift.
[2024-05-08] MEDS: ACETAMINOPHEN 500MG TAB 1000 MG PO (04:47)
[2024-05-08 05:09] LABS: HCV Ab Non Reactive (Non Reactive)
[2024-05-08] MEDS: ENOXAPARIN 80MG/0.8ML SYRINGE 75 MG SQ (06:11)
[2024-05-08 06:54] LABS: Basophils % 0.4 % (0.1-2.0); Eosinophils # 0.1 K/mm3 (0.0-0.4); Eosinophils % 1.5 % (0.1-12.0); Hematocrit 38.8 % (42.0-52.0); Hemoglobin 14.5 g/dL (14.1-18.0); Lymphocytes # 1.2 K/mm3 (0.7-4.5); Lymphocytes % 21.7 % (10-50); Mean Corpuscular HGB Conc 37.3 g/dL (31.8-35.4); Mean Corpuscular Hemoglobin 37.2 pg (27.0-31.2); Mean Corpuscular Volume 99.6 fl (80-94); Mean Platelet Volume 8.1 fl (7.4-10.4); Monocytes # 0.6 K/mm3 (0.1-1.0); Monocytes % 10.9 % (1.7-9.3); Neutrophils # 3.6 K/mm3 (1.8-7.8); Neutrophils % 65.5 % (37.0-80.0); Platelet Count 315 K/mm3 (142-424); Red Cell Distribution Width 13.7 % (11.5-17.5); White Blood Count 5.4 K/mm3 (4.8-10.8)
[2024-05-08 06:55] LABS: Albumin Level 3.4 g/dl (3.5-5.0); Chloride 93 mmol/L (98-107); Sodium 134 mmol/L (136-145)
[2024-05-08 06:56] LABS: Potassium 3.8 mmoL/L (3.5-5.1)
[2024-05-08 06:58] LABS: Alanine Aminotransferase 67 U/L (12-78); Albumin/Globulin Ratio 1.1 (1.1-1.8); Alkaline Phosphatase 179 U/L (38-126); Anion Gap 10.8 mEq/L (5-15); Aspartate Amino Transferase 60 U/L (17-59); Blood Urea Nitrogen 25 mg/dl (9-20); Carbon Dioxide 34 mmol/L (22.0-30.0); Creatinine Clearance Estimated 57 mL/min (50-200); Estimated Glomerular Filt Rate 80 ml/min (>60); GFR (African American) 97 ML/MIN (>60); Globulin 3.1 g/dL (1.3-3.2); Total Protein,Serum 6.5 g/dl (6.3-8.2)
[2024-05-08 06:59] LABS: Calcium 8.4 mg/dl (8.4-10.2); Glucose 100 mg/dl (74-100)
[2024-05-08 07:45] LABS: Magnesium 1.9 mg/dl (1.6-2.3)
[2024-05-08] MEDS: SACUBITRIL/VALSARTAN 24-26MG TABLET 1 EACH PO (09:42)
[2024-05-08] MEDS: SPIRONOLACTONE 25MG TABLET 25 MG PO (09:42)
[2024-05-08] MEDS: METOPROLOL TARTRATE 50MG TABLET 50 MG PO (09:42)
[2024-05-08] MEDS: FUROSEMIDE 40MG/4ML VIAL 40 MG IV (09:42)
--- NOTE | 2024-05-08 10:25 | EXP.CARD.PN ---
Subjective Subjective Date: 05/08/24 Time: 08:30 Principal diagnosis: HFrEF, afib Interval history: This is a 89-year-old gentleman who was admitted to the hospital with shortness of breath. He was found to have acute HFrEF and has been diuresed with IV Lasix. The patient had a -3 L fluid balance overnight. The patient states that he is feeling great today. He denies any chest pain or pressure. He denies any shortness of breath or edema. He denies any fever, chills, nausea, vomiting, diarrhea, PND orthopnea. The patient states that he is ready to be discharged home today. LHC shows: The left main artery Normal The left anterior descending artery Proximally normal with a mid vessel concentric smooth 30 to 40% stenosis The circumflex artery Normal The right coronary artery Normal The SNYDER ventriculogram reveals Not performed The left ventricular end-diastolic pressure Not measured IMPRESSION Mild nonflow limiting coronary disease above the mid LAD PLAN 1. Nonischemic workup for atrial fibrillation 2. Risk factor modification 3. Anticoagulation and rate control Exam Data for Last 24 hours Vital signs and Labs for Last 24 Hours: Temp Pulse Resp BP Pulse Ox O2 Del Method O2 Flow Rate 98.1 F 83 17 94/57 L 96 Room Air 2 05/08/24 08:00 05/08/24 08:00 05/08/24 08:00 05/08/24 08:00 05/08/24 08:00 05/08/24 08:00 05/05/24 18:32 Laboratory Results - last 24 hr 05/05/24 16:17: Hepatitis C Antibody Non reactive 05/08/24 06:10: WBC 5.4, RBC 3.90 L, Hgb 14.5, Hct 38.8 L, MCV 99.6 H, MCH 37.2 H, MCHC 37.3 H, RDW 13.7, Plt Count 315 D, MPV 8.1, Neut % (Auto) 65.5, Lymph % (Auto) 21.7, [place] % (Auto) 10.9 H, Eos % (Auto) 1.5, Baso % (Auto) 0.4, Neut # (Auto) 3.6, Lymph # (Auto) 1.2, [place] # (Auto) 0.6, Eos # (Auto) 0.1, Baso # (Auto) 0.0, Sodium 134 L, Potassium 3.8, Chloride 93 L, Carbon Dioxide 34 H, Anion Gap 10.8, BUN 25 H, Creatinine 0.90, Estimated Creat Clear 57, Estimated GFR 80, Est GFR ( Amer) 97, Glucose 100, Calcium 8.4, Magnesium 1.9, Total Bilirubin 1.0, AST 60 H, ALT 67, Alkaline Phosphatase 179 H, Total Protein 6.5, Albumin 3.4 L, Globulin 3.1, Albumin/Globulin Ratio 1.1 I & O for Last 24 hours: Intake & Output 05/05/24 05/06/24 05/07/24 05/08/24 23:59 23:59 23:59 23:59 Intake Total 1230 / 1430 1320 / 1320 480 / 480 Output Total 225 / 475 1725 / 1725 3850 / 4350 975 / 975 Balance -225 / -295 -495 / -295 -2530 / -3030 -495 / -495 Weight 151 lb 4.8 oz 169 lb 8 oz 169 lb 5.04 oz 164 lb 11.2 oz Constitutional Constitutional: no acute distress and average body habitus *Routine HEENT Exam Head: Present normocephalic and atraumatic ENT: Present mucous membranes moist *Routine Neck Exam Neck: Present supple, full ROM and normal carotid upstroke; Absent JVD, carotid bruit or lymphadenopathy *Routine Respiratory Exam Respiratory: Present CTA bilaterally, normal respiratory effort, able to speak in complete sentences and symmetric chest movement *Routine Cardiovascular Exam Cardiovascular: Present Normal S1, Normal S2 and irregularly irregular; Absent murmur or gallop *Routine Abdominal Exam Abdominal: Present soft and normoactive bowel sounds; Absent tenderness, distended or organomegaly *Routine Extremities Exam Extremities: Present edema, full ROM, pulses intact and normal capillary refill; Absent cyanosis or clubbing *Routine Skin Exam Skin: Present intact and warm; Absent erythema *Routine Neurological Exam Neurological: Present alert, oriented X3 and CN II-XII intact; Absent sensory deficit or motor deficit Routine Psychiatric Exam Psychiatric: Present normal affect Progress Note: A&P Assessment and plan (1) Acute HFrEF (heart failure with reduced ejection fraction): Status: Acute (2) Atrial fibrillation: Status: Acute (3) Acute hyponatremia: Status: Acute (4) Pleural effusion: Status: Acute (5) Acute pericardial effusion: Status: Acute (6) Prostate cancer: Status: Acute (7) Hyperlipidemia: Status: Acute (8) Hypertension: Status: Acute (9) Coronary artery disease: Status: Acute Assessment and Plan Assessment and Plan for All Diagnoses:: Plan: 1. Patient was admitted to the hospital with a acute HFrEF and an ejection fraction of 45%. He underwent left cardiac catheterization yesterday which showed mild nonocclusive coronary artery disease. The patient has been diuresed with IV Lasix due to new onset HFrEF and cardiomyopathy. The patient has diuresed well. Will stop IV Lasix and switch him over to Lasix 40 mg p.o. daily. 2. Continue spironolactone 25 mg p.o. daily for HFrEF and diuresis as well. 3. Continue Entresto and metoprolol for HFrEF. 4. Start Jardiance 10 mg p.o. daily for HFrEF. 5. The patient remains in atrial fibrillation today. He is currently rate controlled. Stop Lovenox and start Eliquis 5 mg p.o. twice daily for long-term anticoagulation. 6. His preliminary echocardiogram shows an ejection fraction of 45%. The patient does have pericardial effusion but is not causing tamponade. 7. His blood pressure is well-controlled. 8. His LDL goal is less than 55. His LDL is 44. He is on a statin. 9. The patient was hyponatremic on admission with a sodium of 126. It is up to 134. 10. No further recommendations at this time from a cardiac standpoint. The patient can be discharged home today from a cardiac standpoint with follow-up in cardiology clinic in 1 week on an outpatient basis. 11. The patient can be discharged on the following cardiac medications: Eliquis 5 mg p.o. twice daily, Jardiance 10 mg daily, Lasix 40 mg p.o. daily, metoprolol 50 mg p.o. twice daily, Entresto 24/26 mg p.o. twice daily, spironolactone 25 mg daily. Thank you for the opportunity to help participate in the care of this patient. All recommendations and orders are per Dr. Bettencourt.
--- NOTE | 2024-05-08 11:15 | PC.NURSE ---
Patient called out after getting out of shower and stated feeling dizzy. Vital signs obtained and manual BP 74/37, HR 65, RR 16, o2 95 on room air. Patient's legs raised to help with venous return and patient states feeling a little better than when he got out of the shower. MD notified, continue to monitor BP to ensure it returns to baseline.
[2024-05-08] MEDS: EMPAGLIFLOZIN 10MG TABLET 10 MG PO (11:27)
[2024-05-08] MEDS: APIXABAN 5MG TABLET 5 MG PO (11:27)
--- NOTE | 2024-05-08 16:18 | EXP.DC.SUM ---
General Admission date:: 05/05/24 HPI HPI HPI: 83 old male history of prostate cancer, BPH, and A-fib who presented to the ER for worsening shortness of breath and swelling in his legs. Mr. Lozano reports that he was started on Xtandi 2 months ago for prostate cancer. Since starting it he has not felt well. He has been having some back pain and some increased shortness of breath. He is also noted decreased exercise/activity tolerance. States he stopped taking it 2 days ago due to his symptoms and was hoping for some relief which she has not received as of yet. Denies any fever, nausea, vomiting, chest pain. Also having some increased swelling in his legs. Workup in the ER concerning for volume overload with pleural and pericardial effusions. Elevated BNP. Sodium low. Patient has history of A-fib but no known history of heart failure. Findings suggestive of acute heart failure. Medicine consulted for admission and further management. On arrival to the floor, patient is accompanied by his daughter. He is independently ambulatory. Stable on room air. States he needs to go to the bathroom. Having good response to dose of Lasix administered in the ER. Hospital Course Hospital Course Hospital Course: 83-year-old male with increased shortness of breath. Workup in the ER concerning for CHF and hyponatremia. Discussed case with ER physician, request admission for diuresis, further workup of CHF, and treatment of hyponatremia. I agreed to admit for further management. Received Lasix in the ER. Will administer therapeutic Lovenox and initiate metoprolol to address A-fib. Necessitating inpatient management. Showing improvement clinically this morning. Needing further evaluation and diuresis in the morning. Monitoring on telemetry. Cardiology evaluating today. Will go for left heart cath. Problems addressed as follows: #HFrEF exacerbation #A-fib with RVR - ECHO showed LVEF 30% with small pericardial effusion without tamponade. - S/p LHC which showed mild CAD. No stents. - Patient volume status improved with IV Lasix. - RVR improved after starting metoprolol tartrate 50mg BID. Eliquis 5mg BID for Afib. - Cardiology consulted, started on GDMT for HFrEF. - Patient's pressures were intially soft SBP in 70's like from diuresis and GDMT. - Held spironolactone, with improvement in SBP and dizziness resolved. - Discharged with Eliquis 5 mg p.o. twice daily, Jardiance 10 mg daily, Lasix 40 mg p.o. daily, metoprolol 50 mg p.o. twice daily, Entresto 24/26 mg p.o. twice daily. Will continue to hold spironolactone until patient follow-up with cardiology this week. - Patient will follow-up with PCP and cardiology this week. Hyponatremia: - Initial Sodium 126. Improved with sodium 134 with diuresis as above. Exam Data for Last 24 hours Vital signs and Labs for Last 24 Hours: Temp Pulse Resp BP Pulse Ox O2 Del Method O2 Flow Rate 97.9 F 50 L 17 94/50 L 97 Room Air 2 05/08/24 11:33 05/08/24 15:40 05/08/24 15:40 05/08/24 15:40 05/08/24 15:40 05/08/24 15:40 05/05/24 18:32 Laboratory Results - last 24 hr 05/05/24 16:17: Hepatitis C Antibody Non reactive 05/08/24 06:10: WBC 5.4, RBC 3.90 L, Hgb 14.5, Hct 38.8 L, MCV 99.6 H, MCH 37.2 H, MCHC 37.3 H, RDW 13.7, Plt Count 315 D, MPV 8.1, Neut % (Auto) 65.5, Lymph % (Auto) 21.7, [place] % (Auto) 10.9 H, Eos % (Auto) 1.5, Baso % (Auto) 0.4, Neut # (Auto) 3.6, Lymph # (Auto) 1.2, [place] # (Auto) 0.6, Eos # (Auto) 0.1, Baso # (Auto) 0.0, Sodium 134 L, Potassium 3.8, Chloride 93 L, Carbon Dioxide 34 H, Anion Gap 10.8, BUN 25 H, Creatinine 0.90, Estimated Creat Clear 57, Estimated GFR 80, Est GFR ( Amer) 97, Glucose 100, Calcium 8.4, Magnesium 1.9, Total Bilirubin 1.0, AST 60 H, ALT 67, Alkaline Phosphatase 179 H, Total Protein 6.5, Albumin 3.4 L, Globulin 3.1, Albumin/Globulin Ratio 1.1 I & O for Last 24 hours: Intake & Output 05/05/24 05/06/24 05/07/24 05/08/24 23:59 23:59 23:59 23:59 Intake Total 1230 / 1430 1320 / 1320 840 / 840 Output Total 225 / 475 1725 / 1725 3850 / 4350 1125 / 1125 Balance -225 / -295 -495 / -295 -2530 / -3030 -285 / -285 Weight 68.629 kg 76.884 kg 76.8 kg 74.707 kg Constitutional Constitutional: no acute distress and average body habitus *Routine HEENT Exam Head: Present normocephalic and atraumatic ENT: Present mucous membranes moist *Routine Neck Exam Neck: Present supple, full ROM and normal carotid upstroke; Absent JVD, carotid bruit or lymphadenopathy *Routine Respiratory Exam Respiratory: Present CTA bilaterally, normal respiratory effort, able to speak in complete sentences and symmetric chest movement *Routine Cardiovascular Exam Cardiovascular: Present Normal S1, Normal S2 and irregularly irregular; Absent murmur or gallop *Routine Abdominal Exam Abdominal: Present soft and normoactive bowel sounds; Absent tenderness, distended or organomegaly *Routine Extremities Exam Extremities: Present edema, full ROM, pulses intact and normal capillary refill; Absent cyanosis or clubbing *Routine Skin Exam Skin: Present intact and warm; Absent erythema *Routine Neurological Exam Neurological: Present alert, oriented X3 and CN II-XII intact; Absent sensory deficit or motor deficit Routine Psychiatric Exam Psychiatric: Present normal affect Results Data Completed and Pending Labs on day of discharge: Labs from last 24 hours 05/08/24 05/05/24 06:10 16:17 WBC 5.4 RBC 3.90 L Hgb 14.5 Hct 38.8 L MCV 99.6 H MCH 37.2 H MCHC 37.3 H RDW 13.7 Plt Count 315 D MPV 8.1 Neut % (Auto) 65.5 Lymph % (Auto) 21.7 [place] % (Auto) 10.9 H Eos % (Auto) 1.5 Baso % (Auto) 0.4 Neut # (Auto) 3.6 Lymph # (Auto) 1.2 [place] # (Auto) 0.6 Eos # (Auto) 0.1 Baso # (Auto) 0.0 Sodium 134 L Potassium 3.8 Chloride 93 L Carbon Dioxide 34 H Anion Gap 10.8 BUN 25 H Creatinine 0.90 Estimated Creat Clear 57 Estimated GFR 80 Est GFR ( Amer) 97 Glucose 100 Calcium 8.4 Magnesium 1.9 Total Bilirubin 1.0 AST 60 H ALT 67 Alkaline Phosphatase 179 H Total Protein 6.5 Albumin 3.4 L Globulin 3.1 Albumin/Globulin Ratio 1.1 Hepatitis C Antibody Non reactive DS: Diagnosis Discharge Diagnosis (1) Acute HFrEF (heart failure with reduced ejection fraction): Status: Acute Code(s): I50.21 - Acute systolic (congestive) heart failure (2) Atrial fibrillation: Status: Acute Code(s): I48.91 - Unspecified atrial fibrillation (3) Acute hyponatremia: Status: Acute Code(s): E87.1 - Hypo-osmolality and hyponatremia (4) Pleural effusion: Status: Acute Code(s): J90 - Pleural effusion, not elsewhere classified (5) Acute pericardial effusion: Status: Acute Code(s): I30.9 - Acute pericarditis, unspecified (6) Prostate cancer: Status: Acute Code(s): C61 - Malignant neoplasm of prostate (7) Hyperlipidemia: Status: Acute Code(s): E78.5 - Hyperlipidemia, unspecified Qualifiers: Hyperlipidemia type: mixed hyperlipidemia Qualified Code(s): E78.2 - Mixed hyperlipidemia (8) Hypertension: Status: Acute Code(s): I10 - Essential (primary) hypertension Qualifiers: Hypertension type: primary hypertension Qualified Code(s): I10 - Essential (primary) hypertension (9) Coronary artery disease: Status: Acute Code(s): I25.10 - Atherosclerotic heart disease of [place] coronary artery without angina pectoris Meds Home Medications and Allergies Home Medications ?Medication ?Instructions ?Recorded ?Confirmed ?Type pravastatin 20 mg tablet 20 mg PO HS Cholesterol 09/29/20 05/15/24 History montelukast 10 mg tablet 10 mg PO PM 05/18/22 05/15/24 History tamsulosin 0.4 mg capsule 0.4 mg PO HS 05/18/22 05/15/24 History enzalutamide 40 mg capsule (Xtandi) 160 mg PO DAILY 05/05/24 05/15/24 History hydrocodone 5 mg-acetaminophen 325 1 tab PO TIDP PRN Severe Pain 05/06/24 05/15/24 History mg tablet (Scale Score 7-10) apixaban 5 mg tablet (Eliquis) 5 mg PO BID 30 days #60 tabs 05/08/24 05/15/24 Rx empagliflozin 10 mg tablet 10 mg PO DAILY 30 days #30 tabs 05/08/24 05/15/24 Rx (Jardiance) furosemide 40 mg tablet 40 mg PO DAILY 30 days #30 tabs 05/08/24 05/15/24 Rx metoprolol tartrate 50 mg tablet 50 mg PO BID 30 days #60 tabs 05/08/24 05/15/24 Rx sacubitril 24 mg-valsartan 26 mg 1 tab PO BID 30 days #60 tabs 05/08/24 05/15/24 Rx tablet (Entresto) New Prescriptions to Start Prescriptions: apixaban [Eliquis] Gurpreet,Edilson empagliflozin [Jardiance] Gurpreet,Edilson furosemide Gurpreet,Edilson metoprolol tartrate Gurpreet,Edilson sacubitril-valsartan [Entresto] Gurpreet,Edilson Allergies Allergy/AdvReac Type Severity Reaction Status Date / Time No Known Allergies Allergy Verified 07/06/23 09:00 Discharge Plan Disposition Patient Disposition: Home, Self-Care Condition: Good Discharge Order Discharge Orders: Discharge Order (Routine); Ordered 05/08/24 Ordered By: Edilson Vázquez Follow up Plan Follow up with: Selene Mcdonnell APRN [Nurse Practitioner] - 05/11/24 (Within 1 week please call and make appointment) Artur Quintero [Primary Care Provider] - 05/11/24 10:00 am Prescriptions/Medication Reconciliation: New furosemide 40 mg Tablet 40 mg PO DAILY 30 Days Qty: 30 0RF metoprolol tartrate 50 mg Tablet 50 mg PO BID 30 Days Qty: 60 0RF Eliquis 5 mg Tablet 5 mg PO BID 30 Days Qty: 60 0RF Jardiance 10 mg Tablet 10 mg PO DAILY 30 Days Qty: 30 0RF Entresto 24-26 mg Tablet 1 tab PO BID 30 Days Qty: 60 0RF Continued pravastatin 20 MG tablet 20 mg PO HS Xtandi 40 mg capsule 160 mg PO DAILY hydrocodone-acetaminophen 5-325 mg tablet 1 tab PO TIDP PRN (Reason: Severe Pain (Scale Score 7-10)) Patient Comments: TAKE 1 TABLET BY MOUTH THREE TIMES DAILY NEEDED FOR SEVERE PAIN tamsulosin 0.4 mg Capsule 0.4 mg PO HS montelukast 10 mg Tablet 10 mg PO PM Problem Reconciliation Problems Reviewed?: Yes Patient Discharge Instructions ACTIVITY: Continue current activity DIET: low salt diet and cardiac Patient Instructions: The DASH Diet, Heart-Healthy Diet, DI for Heart Failure Print Language: Romansh Providers Primary Care Provider: Artur Quintero Admgianfranco Provider: Heath Webb Attending Provider: Heath Webb
--- NOTE | 2024-05-09 09:57 | CARE MANAGER ---
Contacted patient related to hospital discharge. Patient states he is weak and tired, but better. He has all his new medications and is aware of both follow up appointments. Denies questions or concerns. BOGDAN Harrell
== END 2024-05-08 16:58 | disposition home or self-care (01) | DRG 286 ==
LOC: ER 16:36 → 2ND 18:32
PROVIDERS: Internal Medicine; Admitting Provider Internal Medicine Adolescent Medicine; Emergency Provider Emergency Medicine; PCP Family Medicine; Visit Provider Internal Medicine Adolescent Medicine
PROC: B2111ZZ Fluoroscopy of Multiple Coronary Arteries using Low Osmolar Contrast (ICD-10-PCS; principal; 2024-05-07 14:20)
DX: I25.110 Atherosclerotic heart disease of native coronary artery with unstable angina pectoris (principal); I50.21 Acute systolic (congestive) heart failure; E87.1 Hypo-osmolality and hyponatremia; I30.9 Acute pericarditis, unspecified; I48.91 Unspecified atrial fibrillation; C61 Malignant neoplasm of prostate; Z79.899 Other long term (current) drug therapy; I11.0 Hypertensive heart disease with heart failure
CPT/HCPCS: 36415; 71045; 71275; 80048; 80053; 80061; 82803; 83735; 83880; 84145; 84436; 84443; 84484; 85025; 85378; 85610; 85730; 86803; 87389; 93005; 93306; 93454; 99152; 99291; C1725; C1769; J1200; J1644; J1650; J1940; J2250; J3010; J3475; Q9967

== ENCOUNTER 2024-05-15 14:56 | Inpatient (IN) | payer MEDICARE, SELFPAY ==
[2024-05-15] VITALS (13 sets, daily range): BP systolic 80–118; BP diastolic 49–72; PULSE 86–153; RESP 16–23; TEMP 36.7–37; O2SAT 93–96; BMI 23.1; BMI 24.4
--- NOTE | 2024-05-15 15:04 | ED_ITS ---
Discharge Plan Disposition Patient Disposition: Admitted Condition: Critical Clinical Impressions Clinical Impression: Atrial fibrillation with rapid ventricular response, Acute hypotension, Cardiogenic shock Discharge ED Provider: Lee Calloway HPI <DONELL Regalado - Last Filed: 05/15/24 16:22> General Chief Complaint: Weakness Stated Complaint: low bp weakness Time Seen by Provider: 05/15/24 15:04 History of Present Illness HPI narrative: Patient presents for evaluation of low blood pressure and weakness. Patient was recently admitted May 05 for new diagnosis of A-fib RVR. He was ultimately discharged on the with a new medication regimen. Patient reports that he has been progressively weak and lightheaded and has been checking his blood pressure at home and this morning it was in the 60s systolic. He denies any chest pain shortness of breath fever chills hemoptysis hematochezia melena nausea vomiting diarrhea. Related Data Home Medications ?Medication ?Instructions ?Recorded ?Confirmed pravastatin 20 mg tablet 20 mg PO HS Cholesterol 09/29/20 05/15/24 montelukast 10 mg tablet 10 mg PO PM 05/18/22 05/15/24 tamsulosin 0.4 mg capsule 0.4 mg PO HS 05/18/22 05/15/24 enzalutamide 40 mg capsule (Xtandi) 160 mg PO DAILY 05/05/24 05/15/24 hydrocodone 5 mg-acetaminophen 325 1 tab PO TIDP PRN Severe Pain 05/06/24 05/15/24 mg tablet (Scale Score 7-10) Previous Rx's ?Medication ?Instructions ?Recorded apixaban 5 mg tablet (Eliquis) 5 mg PO BID 30 days #60 tabs 05/08/24 empagliflozin 10 mg tablet 10 mg PO DAILY 30 days #30 tabs 05/08/24 (Jardiance) furosemide 40 mg tablet 40 mg PO DAILY 30 days #30 tabs 05/08/24 metoprolol tartrate 50 mg tablet 50 mg PO BID 30 days #60 tabs 05/08/24 sacubitril 24 mg-valsartan 26 mg 1 tab PO BID 30 days #60 tabs 05/08/24 tablet (Entresto) Allergies Allergy/AdvReac Type Severity Reaction Status Date / Time No Known Allergies Allergy Verified 07/06/23 09:00 PFSH <DONELL Regalado - Last Filed: 05/15/24 16:22> [facility] Disclaimer: The information contained in this section may have been updated after the patient was seen, as this information can be updated by other users. Medical History (Updated 05/15/24 @ 19:06 by Lee Calloway MD) Coronary artery disease Atrial fibrillation Acute HFrEF (heart failure with reduced ejection fraction) Family history of prostate problems Arthritis Allergies Deviated septum History of cataract Hyperlipidemia Hypertension Surgical History History of colonoscopy History of hernia surgery Family History Heart attack Father Social History Smoking Status: Never smoker second hand exposure: No alcohol intake: never substance use type: denies use current occupational status: retired and other Travel in the last 8 weeks: None household members: spouse housing: house current occupational exposures/hazards: Yes caffeine: No Other Medical History Have you received the Flu Vaccine for this season: No Have you received the Pneumonia Vaccine: No <DONELL Regalado - Last Filed: 05/15/24 16:22> ROS Obtained: Yes Systems reviewed as appropriate & no additional complaints except as documented Physical Exam <DONELL Regalado - Last Filed: 05/15/24 16:22> General General appearance: alert and in no apparent distress Neck Neck exam: Present lymphadenopathy Respiratory Respiratory exam: Present normal lung sounds bilaterally Cardiovascular Cardiovascular exam: Present tachycardia and irregular rhythm Neurological Exam Neurological exam: Present alert and oriented X3 HEART Score <DONELL Regalado - Last Filed: 05/15/24 16:22> HEART Score HEART Score assessment performed?: Yes History (anamnesis): Slightly suspicious ECG: Non-specific disturbance Age: >65 years Risk factors: Atherosclerosis history Troponin: </= normal limit HEART Score: 5 <Lee Calloway MD - Last Filed: 05/15/24 19:06> HEART Score HEART Score: 5 Critical Care <DONELL Regalado - Last Filed: 05/15/24 16:22> Critical Care Time Critical Care Time: Yes Attestation: On 05/15/24, the high probability of a clinically significant, sudden or life threatening deterioration of the following system: Cardiovascular; required my full and direct attention, intervention and personal management. The time I documented below is in addition to time spent performing reported procedures but includes the following listed in this critical care notation. Total Time Total Critical Care Time: 30 <Lee Calloway MD - Last Filed: 05/15/24 19:06> Critical Care Time Critical Care Time: Yes (cardiac) Total Time Total Critical Care Time: 45 Medical Decision Making <DONELL Regalado - Last Filed: 05/15/24 16:22> Medical Records Medical records reviewed: Yes I reviewed the patient's medical records. Remi Inquiry Pt receiving controlled substance: No Vital Signs Vital Signs: 05/15/24 14:57 05/15/24 15:14 05/15/24 15:29 Temperature 98.2 F Temperature Source Oral Pulse Rate 136 H Pulse Rate [Orthostatic Lying Right Radial] 123 H Pulse Rate [Orthostatic Sitting Right Radial] 126 H Pulse Rate [Orthostatic Standing Right Radial] 153 H Pulse Rate [Right Radial] 112 H Respiratory Rate 20 20 Blood Pressure 80/63 L Blood Pressure [Orthostatic Lying Right Arm] 100/62 L Blood Pressure [Orthostatic Sitting Right Arm] 83/53 L Blood Pressure [Orthostatic Standing Right Arm] 86/51 L Blood Pressure [Right Arm] 99/61 L Blood Pressure Mean [Right Arm] 73 02 Sat by Pulse Oximetry 94 L 94 L Oxygen Delivery Method Room Air Room Air 05/15/24 15:40 05/15/24 15:47 05/15/24 16:00 Temperature Temperature Source Pulse Rate 99 H 121 H 132 H Pulse Rate [Orthostatic Lying Right Radial] Pulse Rate [Orthostatic Sitting Right Radial] Pulse Rate [Orthostatic Standing Right Radial] Pulse Rate [Right Radial] Respiratory Rate 23 22 21 Blood Pressure 81/49 L 91/56 L 98/59 L Blood Pressure [Orthostatic Lying Right Arm] Blood Pressure [Orthostatic Sitting Right Arm] Blood Pressure [Orthostatic Standing Right Arm] Blood Pressure [Right Arm] Blood Pressure Mean [Right Arm] 02 Sat by Pulse Oximetry 95 95 93 L Oxygen Delivery Method Room Air Room Air Room Air 05/15/24 16:20 05/15/24 16:40 05/15/24 17:00 Temperature Temperature Source Pulse Rate 89 86 94 H Pulse Rate [Orthostatic Lying Right Radial] Pulse Rate [Orthostatic Sitting Right Radial] Pulse Rate [Orthostatic Standing Right Radial] Pulse Rate [Right Radial] Respiratory Rate 22 20 17 Blood Pressure 104/57 L 114/72 118/64 Blood Pressure [Orthostatic Lying Right Arm] Blood Pressure [Orthostatic Sitting Right Arm] Blood Pressure [Orthostatic Standing Right Arm] Blood Pressure [Right Arm] Blood Pressure Mean [Right Arm] 02 Sat by Pulse Oximetry 96 95 94 L Oxygen Delivery Method Room Air 05/15/24 17:22 Temperature Temperature Source Pulse Rate 88 Pulse Rate [Orthostatic Lying Right Radial] Pulse Rate [Orthostatic Sitting Right Radial] Pulse Rate [Orthostatic Standing Right Radial] Pulse Rate [Right Radial] Respiratory Rate 19 Blood Pressure 86/59 L Blood Pressure [Orthostatic Lying Right Arm] Blood Pressure [Orthostatic Sitting Right Arm] Blood Pressure [Orthostatic Standing Right Arm] Blood Pressure [Right Arm] Blood Pressure Mean [Right Arm] 02 Sat by Pulse Oximetry 94 L Oxygen Delivery Method Room Air Lab Data Lab results reviewed: Yes I reviewed the patient's lab results. Labs: Lab Results 05/15/24 15:29: WBC 9.1, RBC 4.13 L, Hgb 13.4 L, Hct 38.7 L, MCV 93.7, MCH 32.4 H, MCHC 34.6, RDW 13.9, Plt Count 450 H, MPV 8.0, Neut % (Auto) 81.6 H, Lymph % (Auto) 10.7, Mellette % (Auto) 7.0, Eos % (Auto) 0.3, Baso % (Auto) 0.3, Neut # (Auto) 7.4, Lymph # (Auto) 1.0, Mellette # (Auto) 0.6, Eos # (Auto) 0.0, Baso # (Auto) 0.0, Sodium 131 L, Potassium 4.1, Chloride 95 L, Carbon Dioxide 29, Anion Gap 11.1, BUN 24 H, Creatinine 0.90, Estimated Creat Clear 56, Estimated GFR 80, Est GFR ( Amer) 97, Glucose 96, Calcium 8.4, Magnesium 1.6, Total Bilirubin 1.0, AST 25, ALT 29, Alkaline Phosphatase 111, Troponin I < 0.01, N T-Pro-B Natriuret Pep 4710 H, Total Protein 6.3, Albumin 3.4 L, Globulin 2.9, Albumin/Globulin Ratio 1.2, TSH 2.09, Free T4 Index 4.0 L, Thyroxine (T4) 8.5, T 3 Uptake 47 H 05/15/24 15:39: PT 13.8 H, INR 1.26 H 05/15/24 15:29 05/15/24 15:29 Response Orders (Tests/Meds): ED MEDICATIONS Generic Name Dose Route Start Last Admin Trade Name Missael PRN Reason Stop Dose Admin Apixaban 5 mg 05/15/24 21:00 Apixaban 5mg Tablet PO 06/14/24 20:59 BID JENIFFER Digoxin 125 mcg 05/16/24 09:00 Digoxin 0.125mg Tablet PO 06/15/24 08:59 DAILY JENIFFER Empagliflozin 10 mg 05/16/24 09:00 Empagliflozin 10mg Tablet PO 06/15/24 08:59 DAILY JENIFFER Furosemide 40 mg 05/16/24 09:00 Furosemide 40 Mg Tablet PO 06/15/24 08:59 DAILY JENIFFER Montelukast Sodium 10 mg 05/15/24 18:00 05/15/24 18:06 Montelukast Sodium 10mg Tab PO 06/14/24 17:59 10 mg PM JENIFFER Administration Pravastatin Sodium 20 mg 05/15/24 21:00 Pravastatin 20mg Tab PO 06/14/24 20:59 HS JENIFFER Tamsulosin HCl 0.4 mg 05/15/24 21:00 Tamsulosin 0.4mg Capsule PO 06/14/24 20:59 HS JENIFFER Discontinued Medications Generic Name Dose Route Start Last Admin Trade Name Johnieq PRN Reason Stop Dose Admin Digoxin 500 mcg 05/15/24 16:10 05/15/24 16:32 Digoxin 0.25mg/Ml 2ml Ampul IV 05/15/24 16:11 500 mcg ONCE ONE Administration Sodium Chloride 1,000 mls @ 999 mls/hr 05/15/24 15:10 05/15/24 15:43 Sod Chlor 0.9% 1000ml Bag IV 05/15/24 16:10 999 mls/hr .Q1H1M ONE Administration Magnesium Sulfate 2 gm in 50 mls @ 50 mls/hr 05/15/24 15:10 05/15/24 15:43 Magnesium Sulfate 2gm/50ml Premix IV 05/15/24 16:09 50 mls/hr ONCE ONE Administration ORDERS Category Date Time Status Cardiology Consult [Consult to Cardiology] [CONS] Cons 05/15/24 17:14 Active Routine Chest XR -- portable [XR chest portable] Stat Exams 05/15/24 15:10 Completed BNP [NT Pro Brain Natriuretic Pep.] Stat Lab 05/15/24 15:29 Completed CBC w/Auto Diff [Complete Blood Count Auto Diff] Stat Lab 05/15/24 15:29 Completed CMP [Comprehensive Metabolic Panel] Stat Lab 05/15/24 15:29 Completed Complete Blood Count Auto Diff AMLAB Lab 05/16/24 06:00 Ordered Comprehensive Metabolic Panel AMLAB Lab 05/16/24 06:00 Ordered INR [Prothrombin Time INR] Stat Lab 05/15/24 15:39 Completed Magnesium AMLAB Lab 05/16/24 06:00 Ordered Magnesium Stat Lab 05/15/24 15:29 Completed Thyroid Panel Stat Lab 05/15/24 15:29 Completed Trop I [Troponin I] Stat Lab 05/15/24 15:29 Completed Troponin I Q3H Lab 05/15/24 18:19 Received Troponin I Q3H Lab 05/15/24 21:15 Ordered MDM Narrative Medical Decision Narrative: In summary patient is a 83-year-old male who presents to the emergency department for evaluation of low blood pressure. Patient is in a rapidly irregular rate and rhythm with a systolic blood pressure of 90 on arrival but afebrile. Physical exam is unremarkable and nonfocal including normal breath sounds no palpable chest pain rapidly irregularly irregular heart rate on the bedside EKGs appears to be A-fib RVR no dependent edema noted no increased work of breathing satting at 94% on room air. Differential diagnosis includes A-fib RVR versus therapeutic misadventure with overdiuresis versus ACS, patient has no chest pain or symptoms of same etc. Initial workup will be conducted with hematologic labs twelve-lead EKG plain film chest x-ray. Initial interventions include gentle hydration given his history of heart failure and the EF of 30% for now. Initial workup reviewed by me shows that his GFR and creatinine are normal hemoglobin is 13 INR is 1.2 NT proBNP is 4710 which is actually up from 05/05/2024 which was 3710 and my informal interpretation of his plain film chest x-ray shows slightly more prominent pulmonary vasculature versus edema from previous prior to radiology read. Upon repeat evaluation patient is orthostatic with heart rate jumping from 120-150 from lying to standing and blood pressure dropping from 90s to the 80s systolic along with more symptomatic hypotension upon standing. Given that I had interactive discussion with Dr. Zhou of cardiology about patient management and he will be given 0.5 of dig IV push, with plan for possible cardioversion tomorrow if he does not convert. Given that I had interactive discussion with hospital medicine about patient management and he will be admitted for further evaluation and care I would still and there. <Lee Calloway MD - Last Filed: 05/15/24 19:06> Vital Signs Vital Signs: 05/15/24 14:57 05/15/24 15:14 05/15/24 15:29 Temperature 98.2 F Temperature Source Oral Pulse Rate 136 H Pulse Rate [Orthostatic Lying Right Radial] 123 H Pulse Rate [Orthostatic Sitting Right Radial] 126 H Pulse Rate [Orthostatic Standing Right Radial] 153 H Pulse Rate [Right Radial] 112 H Respiratory Rate 20 20 Blood Pressure 80/63 L Blood Pressure [Orthostatic Lying Right Arm] 100/62 L Blood Pressure [Orthostatic Sitting Right Arm] 83/53 L Blood Pressure [Orthostatic Standing Right Arm] 86/51 L Blood Pressure [Right Arm] 99/61 L Blood Pressure Mean [Right Arm] 73 02 Sat by Pulse Oximetry 94 L 94 L Oxygen Delivery Method Room Air Room Air 05/15/24 15:40 05/15/24 15:47 05/15/24 16:00 Temperature Temperature Source Pulse Rate 99 H 121 H 132 H Pulse Rate [Orthostatic Lying Right Radial] Pulse Rate [Orthostatic Sitting Right Radial] Pulse Rate [Orthostatic Standing Right Radial] Pulse Rate [Right Radial] Respiratory Rate 23 22 21 Blood Pressure 81/49 L 91/56 L 98/59 L Blood Pressure [Orthostatic Lying Right Arm] Blood Pressure [Orthostatic Sitting Right Arm] Blood Pressure [Orthostatic Standing Right Arm] Blood Pressure [Right Arm] Blood Pressure Mean [Right Arm] 02 Sat by Pulse Oximetry 95 95 93 L Oxygen Delivery Method Room Air Room Air Room Air 05/15/24 16:20 05/15/24 16:40 05/15/24 17:00 Temperature Temperature Source Pulse Rate 89 86 94 H Pulse Rate [Orthostatic Lying Right Radial] Pulse Rate [Orthostatic Sitting Right Radial] Pulse Rate [Orthostatic Standing Right Radial] Pulse Rate [Right Radial] Respiratory Rate 22 20 17 Blood Pressure 104/57 L 114/72 118/64 Blood Pressure [Orthostatic Lying Right Arm] Blood Pressure [Orthostatic Sitting Right Arm] Blood Pressure [Orthostatic Standing Right Arm] Blood Pressure [Right Arm] Blood Pressure Mean [Right Arm] 02 Sat by Pulse Oximetry 96 95 94 L Oxygen Delivery Method Room Air 05/15/24 17:22 Temperature Temperature Source Pulse Rate 88 Pulse Rate [Orthostatic Lying Right Radial] Pulse Rate [Orthostatic Sitting Right Radial] Pulse Rate [Orthostatic Standing Right Radial] Pulse Rate [Right Radial] Respiratory Rate 19 Blood Pressure 86/59 L Blood Pressure [Orthostatic Lying Right Arm] Blood Pressure [Orthostatic Sitting Right Arm] Blood Pressure [Orthostatic Standing Right Arm] Blood Pressure [Right Arm] Blood Pressure Mean [Right Arm] 02 Sat by Pulse Oximetry 94 L Oxygen Delivery Method Room Air Lab Data Labs: Lab Results 05/15/24 15:29: WBC 9.1, RBC 4.13 L, Hgb 13.4 L, Hct 38.7 L, MCV 93.7, MCH 32.4 H, MCHC 34.6, RDW 13.9, Plt Count 450 H, MPV 8.0, Neut % (Auto) 81.6 H, Lymph % (Auto) 10.7, Mellette % (Auto) 7.0, Eos % (Auto) 0.3, Baso % (Auto) 0.3, Neut # (Auto) 7.4, Lymph # (Auto) 1.0, Mellette # (Auto) 0.6, Eos # (Auto) 0.0, Baso # (Auto) 0.0, Sodium 131 L, Potassium 4.1, Chloride 95 L, Carbon Dioxide 29, Anion Gap 11.1, BUN 24 H, Creatinine 0.90, Estimated Creat Clear 56, Estimated GFR 80, Est GFR ( Amer) 97, Glucose 96, Calcium 8.4, Magnesium 1.6, Total Bilirubin 1.0, AST 25, ALT 29, Alkaline Phosphatase 111, Troponin I < 0.01, N T-Pro-B Natriuret Pep 4710 H, Total Protein 6.3, Albumin 3.4 L, Globulin 2.9, Albumin/Globulin Ratio 1.2, TSH 2.09, Free T4 Index 4.0 L, Thyroxine (T4) 8.5, T 3 Uptake 47 H 05/15/24 15:39: PT 13.8 H, INR 1.26 H Response Orders (Tests/Meds): ED MEDICATIONS Generic Name Dose Route Start Last Admin Trade Name Johnieq PRN Reason Stop Dose Admin Apixaban 5 mg 05/15/24 21:00 Apixaban 5mg Tablet PO 06/14/24 20:59 BID JENIFFER Digoxin 125 mcg 05/16/24 09:00 Digoxin 0.125mg Tablet PO 06/15/24 08:59 DAILY JENIFFER Empagliflozin 10 mg 05/16/24 09:00 Empagliflozin 10mg Tablet PO 06/15/24 08:59 DAILY JENIFFER Furosemide 40 mg 05/16/24 09:00 Furosemide 40 Mg Tablet PO 06/15/24 08:59 DAILY JENIFFER Montelukast Sodium 10 mg 05/15/24 18:00 05/15/24 18:06 Montelukast Sodium 10mg Tab PO 06/14/24 17:59 10 mg PM JENIFFER Administration Pravastatin Sodium 20 mg 05/15/24 21:00 Pravastatin 20mg Tab PO 06/14/24 20:59 HS JENIFFER Tamsulosin HCl 0.4 mg 05/15/24 21:00 Tamsulosin 0.4mg Capsule PO 06/14/24 20:59 HS JENIFFER Discontinued Medications Generic Name Dose Route Start Last Admin Trade Name Missael PRN Reason Stop Dose Admin Digoxin 500 mcg 05/15/24 16:10 05/15/24 16:32 Digoxin 0.25mg/Ml 2ml Ampul IV 05/15/24 16:11 500 mcg ONCE ONE Administration Sodium Chloride 1,000 mls @ 999 mls/hr 05/15/24 15:10 05/15/24 15:43 Sod Chlor 0.9% 1000ml Bag IV 05/15/24 16:10 999 mls/hr .Q1H1M ONE Administration Magnesium Sulfate 2 gm in 50 mls @ 50 mls/hr 05/15/24 15:10 05/15/24 15:43 Magnesium Sulfate 2gm/50ml Premix IV 05/15/24 16:09 50 mls/hr ONCE ONE Administration ORDERS Category Date Time Status Cardiology Consult [Consult to Cardiology] [CONS] Cons 05/15/24 17:14 Active Routine Chest XR -- portable [XR chest portable] Stat Exams 05/15/24 15:10 Completed BNP [NT Pro Brain Natriuretic Pep.] Stat Lab 05/15/24 15:29 Completed CBC w/Auto Diff [Complete Blood Count Auto Diff] Stat Lab 05/15/24 15:29 Completed CMP [Comprehensive Metabolic Panel] Stat Lab 05/15/24 15:29 Completed Complete Blood Count Auto Diff AMLAB Lab 05/16/24 06:00 Ordered Comprehensive Metabolic Panel AMLAB Lab 05/16/24 06:00 Ordered INR [Prothrombin Time INR] Stat Lab 05/15/24 15:39 Completed Magnesium AMLAB Lab 05/16/24 06:00 Ordered Magnesium Stat Lab 05/15/24 15:29 Completed Thyroid Panel Stat Lab 05/15/24 15:29 Completed Trop I [Troponin I] Stat Lab 05/15/24 15:29 Completed Troponin I Q3H Lab 05/15/24 18:19 Received Troponin I Q3H Lab 05/15/24 21:15 Ordered ECG Data Tracing #1: Attestation: I reviewed this ECG and interpreted as documented below: (Atrial fibrillation RVR 106 bpm. QRS 84, QTc 364. Normal axis. Intermittent PACs) MDM Narrative Medical Decision Narrative: In summary patient is a 83-year-old male who presents to the emergency department for evaluation of low blood pressure. Patient is in a rapidly irregular rate and rhythm with a systolic blood pressure of 90 on arrival but afebrile. Physical exam is unremarkable and nonfocal including normal breath sounds no palpable chest pain rapidly irregularly irregular heart rate on the bedside EKGs appears to be A-fib RVR no dependent edema noted no increased work of breathing satting at 94% on room air. Differential diagnosis includes A-fib RVR versus therapeutic misadventure with overdiuresis versus ACS, patient has no chest pain or symptoms of same etc. Initial workup will be conducted with hematologic labs twelve-lead EKG plain film chest x-ray. Initial interventions include gentle hydration given his history of heart failure and the EF of 30% for now. Initial workup reviewed by me shows that his GFR and creatinine are normal hemoglobin is 13 INR is 1.2 NT proBNP is 4710 which is actually up from 05/05/2024 which was 3710 and my informal interpretation of his plain film chest x-ray shows slightly more prominent pulmonary vasculature versus edema from previous prior to radiology read. Upon repeat evaluation patient is orthostatic with heart rate jumping from 120-150 from lying to standing and blood pressure dropping from 90s to the 80s systolic along with more symptomatic hypotension upon standing. Given that I had interactive discussion with Dr. Zhou of cardiology about patient management and he will be given 0.5 of dig IV push, with plan for possible cardioversion tomorrow if he does not convert. Given that I had interactive discussion with hospital medicine about patient management and he will be admitted for further evaluation and care I would still and there. I was consulted by the SUSSY, and we discussed the complexity of the problems being addressed. I approved the treatment and management plan for this patient's care in the Emergency Department, thus performing a substantive portion of the medical decision making. Lee Calloway MD
--- NOTE | 2024-05-15 15:07 | ECG_ITS ---
APPROVED REPORT Exam: Resting ECG HR:106 bpm ECG Measurements Heart Rate 106 AXES QRSd 84 QRS 59 QT 302 T -3 QTc 364 Conclusion A-fib with RVR No acute ischemic change Intermittent PACs Electronically signed by : KYLE ERNANDEZ, 05/15/2024 20:53:30
--- NOTE | 2024-05-15 15:10 | XR_ITS ---
PROCEDURE INFORMATION: Exam: XR Chest Exam date and time: 05/15/2024 3:14 PM Age: 83 years old Clinical indication: Cardiovascular condition or disease; Atrial fibrillation; Additional info: Weakness, a-fib rvr TECHNIQUE: Imaging protocol: Radiologic exam of the chest. Views: 1 view. COMPARISON: CT ANGIO CHEST PE PROTOCOL 05/05/2024 5:44 PM FINDINGS: Lungs: Opacity in the left base may represent atelectasis or pneumonia.. Pleural spaces: There may be mild left pleural effusion . Heart/Mediastinum: Cardiomegaly Bones/joints: Degenerative changes in the acromioclavicular joints and glenohumeral joints IMPRESSION: 1. Opacity in the left base may represent atelectasis or pneumonia.. 2. There may be mild left pleural effusion .
--- NOTE | 2024-05-15 15:30 | PC.NURSE ---
labs collected and sent to lab
--- NOTE | 2024-05-15 15:30 | PC.NURSE ---
XR AT BEDSIDE
[2024-05-15 15:42] LABS: Basophils % 0.3 % (0.1-2.0); Eosinophils % 0.3 % (0.1-12.0); Hematocrit 38.7 % (42.0-52.0); Hemoglobin 13.4 g/dL (14.1-18.0); Lymphocytes % 10.7 % (10-50); Mean Corpuscular HGB Conc 34.6 g/dL (31.8-35.4); Mean Corpuscular Hemoglobin 32.4 pg (27.0-31.2); Mean Corpuscular Volume 93.7 fl (80-94); Monocytes # 0.6 K/mm3 (0.1-1.0); Neutrophils # 7.4 K/mm3 (1.8-7.8); Neutrophils % 81.6 % (37.0-80.0); Platelet Count 450 K/mm3 (142-424); Red Blood Count 4.13 M/mm3 (4.60-6.20); Red Cell Distribution Width 13.9 % (11.5-17.5); White Blood Count 9.1 K/mm3 (4.8-10.8)
[2024-05-15] MEDS: 0.9 % SODIUM CHLORIDE 1000ML 1,000 ML 999 ML IV (15:43)
[2024-05-15] MEDS: MAGNESIUM SULFATE IN WATER 2 GM/50 ML PIGGYBACK IV (15:43)
[2024-05-15 15:53] LABS: Alanine Aminotransferase 29 U/L (12-78); Albumin Level 3.4 g/dl (3.5-5.0); Albumin/Globulin Ratio 1.2 (1.1-1.8); Alkaline Phosphatase 111 U/L (38-126); Anion Gap 11.1 mEq/L (5-15); Aspartate Amino Transferase 25 U/L (17-59); Blood Urea Nitrogen 24 mg/dl (9-20); Calcium 8.4 mg/dl (8.4-10.2); Carbon Dioxide 29 mmol/L (22.0-30.0); Chloride 95 mmol/L (98-107); Creatinine Clearance Estimated 56 mL/min (50-200); Estimated Glomerular Filt Rate 80 ml/min (>60); GFR (African American) 97 ML/MIN (>60); Globulin 2.9 g/dL (1.3-3.2); Glucose 96 mg/dl (74-100); Magnesium 1.6 mg/dl (1.6-2.3); Potassium 4.1 mmoL/L (3.5-5.1); Sodium 131 mmol/L (136-145); Total Protein,Serum 6.3 g/dl (6.3-8.2)
[2024-05-15 16:05] LABS: NT Pro Brain Natriuretic Pep. 4710 pg/mL (0-450)
[2024-05-15 16:06] LABS: Troponin I < 0.01 ng/ml (0.00-0.034)
[2024-05-15 16:07] LABS: INR 1.26 (0.9-1.1); Prothrombin Time 13.8 seconds (10.1-12.5)
--- NOTE | 2024-05-15 16:27 | PC.NURSE ---
RACK LOADER NOTIFIED OF ADMISSION
[2024-05-15] MEDS: DIGOXIN 0.25MG/ML 2ML AMPUL 500 MCG IV (16:32)
--- NOTE | 2024-05-15 16:34 | P.HP_ITS ---
History of Present Illness *Admission Date: 05/15/24 *Reason for visit:: weakness *History of present illness: Mr. Lozano is an 83-year-old male who presented earlier this month for swelling in his legs and weakness. Was diagnosed with A-fib with RVR and heart failure. Started on goal-directed therapy. Had been at home doing well but still somewhat symptomatic. States he has not felt energetic for about a month. On presentation to the ER, found to have low blood pressure and weakness. EKG shows A-fib with RVR with heart rate in the 120s to 130s. Patient reports his blood pressure this morning was low in the 60s systolic. Feeling fatigued. Denies any chest pain, shortness of breath, nausea, vomiting, fever. Workup with chest x-ray and labs. No significant abnormalities other than sodium of 131. Patient started on digoxin and medicine consulted for admission. Patient feeling better by the time of my evaluation. Is received approximately 400cc of IV fluid. Sitting upright and eating for the first time today. Denies any nausea. [facility] Disclaimer: The information contained in this section may have been updated after the patient was seen, as this information can be updated by other users. Medical History Coronary artery disease Atrial fibrillation Acute HFrEF (heart failure with reduced ejection fraction) Family history of prostate problems Arthritis Allergies Deviated septum History of cataract Hyperlipidemia Hypertension Surgical History History of colonoscopy History of hernia surgery Family History Father Heart attack Social History Smoking Status: Never smoker second hand exposure: No alcohol intake: never substance use type: denies use current occupational status: retired and other Travel in the last 8 weeks: None household members: spouse housing: house current occupational exposures/hazards: Yes caffeine: No Other Medical History Have you received the Flu Vaccine for this season: No Have you received the Pneumonia Vaccine: No Review of Systems Review of Systems Review of systems (narrative): 14 point review of systems performed, pertinent positives and negatives as per HPI Meds Home Medications and Allergies Home Medications ?Medication ?Instructions ?Recorded ?Confirmed ?Type pravastatin 20 mg tablet 20 mg PO HS Cholesterol 09/29/20 05/15/24 History montelukast 10 mg tablet 10 mg PO PM 05/18/22 05/15/24 History tamsulosin 0.4 mg capsule 0.4 mg PO HS 05/18/22 05/15/24 History enzalutamide 40 mg capsule (Xtandi) 160 mg PO DAILY 05/05/24 05/15/24 History hydrocodone 5 mg-acetaminophen 325 1 tab PO TIDP PRN Severe Pain 05/06/24 05/15/24 History mg tablet (Scale Score 7-10) apixaban 5 mg tablet (Eliquis) 5 mg PO BID 30 days #60 tabs 05/08/24 05/15/24 Rx empagliflozin 10 mg tablet 10 mg PO DAILY 30 days #30 tabs 05/08/24 05/15/24 Rx (Jardiance) furosemide 40 mg tablet 40 mg PO DAILY 30 days #30 tabs 05/08/24 05/15/24 Rx metoprolol tartrate 50 mg tablet 50 mg PO BID 30 days #60 tabs 05/08/24 05/15/24 Rx sacubitril 24 mg-valsartan 26 mg 1 tab PO BID 30 days #60 tabs 05/08/24 05/15/24 Rx tablet (Entresto) New Prescriptions to Start Prescriptions: Allergies Allergy/AdvReac Type Severity Reaction Status Date / Time No Known Allergies Allergy Verified 07/06/23 09:00 Exam Data for Last 24 hours Vital signs and Labs for Last 24 Hours: Temp Pulse Resp BP Pulse Ox O2 Del Method 98.2 F 132 H 21 98/59 L 93 L Room Air 05/15/24 14:57 05/15/24 16:00 05/15/24 16:00 05/15/24 16:00 05/15/24 16:00 05/15/24 16:00 Laboratory Results - last 24 hr 05/15/24 15:29: WBC 9.1, RBC 4.13 L, Hgb 13.4 L, Hct 38.7 L, MCV 93.7, MCH 32.4 H, MCHC 34.6, RDW 13.9, Plt Count 450 H, MPV 8.0, Neut % (Auto) 81.6 H, Lymph % (Auto) 10.7, [place] % (Auto) 7.0, Eos % (Auto) 0.3, Baso % (Auto) 0.3, Neut # (Auto) 7.4, Lymph # (Auto) 1.0, [place] # (Auto) 0.6, Eos # (Auto) 0.0, Baso # (Auto) 0.0, Sodium 131 L, Potassium 4.1, Chloride 95 L, Carbon Dioxide 29, Anion Gap 11.1, BUN 24 H, Creatinine 0.90, Estimated Creat Clear 56, Estimated GFR 80, Est GFR ( Amer) 97, Glucose 96, Calcium 8.4, Magnesium 1.6, Total Bilirubin 1.0, AST 25, ALT 29, Alkaline Phosphatase 111, Troponin I < 0.01, NT-Pro-B Natriuret Pep 4710 H, Total Protein 6.3, Albumin 3.4 L, Globulin 2.9, Albumin/Globulin Ratio 1.2 05/15/24 15:39: PT 13.8 H, INR 1.26 H I & O for Last 24 hours: Intake & Output 05/12/24 05/13/24 05/14/24 05/15/24 23:59 23:59 23:59 23:59 Weight 73.028 kg Constitutional Constitutional: no acute distress, average body habitus and cooperative *Routine HEENT Exam Head: Present normocephalic Eye: Present EOMI and PERRL ENT: Present mucous membranes moist *Routine Neck Exam Neck: Present supple; Absent lymphadenopathy Routine Chest/Breast/Axilla Exam Chest wall: Absent tenderness *Routine Respiratory Exam Respiratory: Present CTA bilaterally and crackles (minimal, right base); Absent rhonchi or wheezes *Routine Cardiovascular Exam Cardiovascular: Present tachycardia and irregularly irregular *Routine Abdominal Exam Abdominal: Present soft and normoactive bowel sounds; Absent tenderness *Routine Rectal Exam Rectal:: deferred *Routine Genitalia Exam Genitalia:: deferred *Routine Extremities Exam Extremities: Absent cyanosis, clubbing or edema *Routine Skin Exam Skin: Present intact and warm; Absent rash *Routine Neurological Exam Neurological: Present alert, oriented X3 and moving all extremities; Absent altered mental status Assessment and Plan *Assessment and plan (1) Atrial fibrillation with RVR: Status: Acute Category: Medical Code(s): I48.91 - Unspecified atrial fibrillation (2) CHF exacerbation: Status: Acute Qualifiers: Heart failure type: systolic Qualified Code(s): I50.23 - Acute on chronic systolic (congestive) heart failure Category: Medical Code(s): I50.9 - Heart failure, unspecified (3) Acute hypotension: Status: Acute Category: Medical Code(s): I95.9 - Hypotension, unspecified (4) Acute hyponatremia: Status: Acute Category: Medical Code(s): E87.1 - Hypo-osmolality and hyponatremia (5) Acute pericardial effusion: Status: Acute Category: Medical Code(s): I30.9 - Acute pericarditis, unspecified (6) Prostate cancer: Status: Acute Category: Medical Code(s): C61 - Malignant neoplasm of prostate Plan 83-year-old male with increased shortness of breath. Workup in the ER concerning for CHF and hyponatremia. Discussed case with ER physician, request admission for adjustment to heart rate medication and further treatment of weakness. I agreed to admit for further management. Cardiology consulted. Holding Entresto and metoprolol. Started on digoxin in the ER. Monitor on telemetry overnight. Problems addressed as follows: HFrEF A-fib with RVR -Symptomatic on admission. Weak. Recently admitted for similar etiology and st arted on goal-directed medications. -Hold metoprolol and Entresto. Cardiology consulted, will see patient in the morning. -Continue Eliquis 5 mg twice daily. Initiate digoxin 500mcg once in the ER. Continue 125 mcg daily. -Reviewed reports from last admission. Found to have reduced ejection fraction of 40% on echo. -Sodium low at 131, kidney function normal with BUN 24, creatinine 0.9. -Repeat CBC, CMP, magnesium ordered for the morning. -Repeat CBC, CMP, magnesium ordered for the morning -Chest x-ray personally reviewed with increased pulmonary congestion in lower lung handy. No effusions appreciable on my review BPH: Continue tamsulosin 0.4 mg nightly History of prostate cancer: Hold Xtandi at this time concern for side effects from medication exacerbating current condition. Hyponatremia: - Sodium 131, chloride 95 on admission. Potassium 4.1 -Correction rate from 8 to 10 mEq/day. Full code Cardiac diet Eliquis 5 mg twice daily
--- NOTE | 2024-05-15 16:43 | PC.NURSE ---
fluids held per hospitalist
[2024-05-15 16:54] LABS: Triiodothryronine (T3) Uptake 47 % (23.5-40.5)
[2024-05-15 16:55] LABS: T4 (Thyroxine) 8.5 ug/dl (5.53-11.0)
[2024-05-15 17:08] LABS: Thyroid Stimulating Hormone 2.09 uIU/mL (0.465-4.68)
--- NOTE | 2024-05-15 17:12 | PC.NURSE ---
report given to yayo MCFADDEN on med/surg
[2024-05-15] MEDS: MONTELUKAST SODIUM 10MG TAB 10 MG PO (18:06)
--- NOTE | 2024-05-15 18:24 | PC.NURSE ---
patient arrived by wheelchair from ed at 1743.
[2024-05-15 19:09] LABS: Troponin I < 0.01 ng/ml (0.00-0.034)
[2024-05-15] MEDS: APIXABAN 5MG TABLET 5 MG PO (20:39)
[2024-05-15] MEDS: TAMSULOSIN 0.4MG CAPSULE 0.4 MG PO (20:39)
[2024-05-15] MEDS: PRAVASTATIN 20MG TAB 20 MG PO (20:39)
[2024-05-15] MEDS: ACETAMINOPHEN 500MG TAB 1000 MG PO (20:45)
[2024-05-15 21:51] LABS: Troponin I < 0.01 ng/ml (0.00-0.034)
[2024-05-16] VITALS (17 sets, daily range): BP systolic 82–124; BP diastolic 49–72; PULSE 79–158; RESP 16–23; TEMP 36.5–38.2; O2SAT 92–98; BMI 23.9
--- NOTE | 2024-05-16 04:16 | PC.NURSE ---
83 yo male pt has been A/O X 4. He was medicated with tylenol for complaints of back pain earlier in the night. He was unable to get comfortable in bed and slept part of the night in the chair. He has denied, SOA, chest pain or palpitations in fact stating I feel better now than I have in a long time . Pt has remained in a fib per telemetry.
[2024-05-16] MEDS: OXYCODONE 5MG IMMEDIATE RELEASE TABLET 5 MG PO (04:51)
--- NOTE | 2024-05-16 06:17 | PC.NURSE ---
Pts HR ranging 140-150s. Pt remains asymptomatic. Dr Hamilton notified
[2024-05-16 07:13] LABS: Basophils % 0.1 % (0.1-2.0); Eosinophils % 0.1 % (0.1-12.0); Hematocrit 40.5 % (42.0-52.0); Hemoglobin 13.5 g/dL (14.1-18.0); Lymphocytes # 0.7 K/mm3 (0.7-4.5); Lymphocytes % 6.4 % (10-50); Mean Corpuscular HGB Conc 33.4 g/dL (31.8-35.4); Mean Corpuscular Hemoglobin 31.9 pg (27.0-31.2); Mean Corpuscular Volume 95.6 fl (80-94); Mean Platelet Volume 8.4 fl (7.4-10.4); Monocytes # 0.9 K/mm3 (0.1-1.0); Neutrophils # 9.5 K/mm3 (1.8-7.8); Neutrophils % 85.3 % (37.0-80.0); Platelet Count 403 K/mm3 (142-424); Red Blood Count 4.24 M/mm3 (4.60-6.20); Red Cell Distribution Width 13.9 % (11.5-17.5); White Blood Count 11.2 K/mm3 (4.8-10.8)
[2024-05-16 07:15] LABS: MANUAL DIFFERENTIAL MANUAL DIFFERENTIAL (MANUAL DIFF)
[2024-05-16 07:19] LABS: Albumin Level 3.1 g/dl (3.5-5.0); Chloride 93 mmol/L (98-107); Sodium 129 mmol/L (136-145)
[2024-05-16 07:20] LABS: Potassium 3.9 mmoL/L (3.5-5.1)
[2024-05-16 07:22] LABS: Alanine Aminotransferase 20 U/L (12-78); Albumin/Globulin Ratio 1.1 (1.1-1.8); Alkaline Phosphatase 110 U/L (38-126); Anion Gap 10.9 mEq/L (5-15); Aspartate Amino Transferase 22 U/L (17-59); Bilirubin,Total 1.1 mg/dl (0.2-1.3); Blood Urea Nitrogen 17 mg/dl (9-20); Calcium 8.4 mg/dl (8.4-10.2); Carbon Dioxide 29 mmol/L (22.0-30.0); Creatinine Clearance Estimated 58 mL/min (50-200); Estimated Glomerular Filt Rate 92 ml/min (>60); GFR (African American) 111 ML/MIN (>60); Globulin 2.8 g/dL (1.3-3.2); Glucose 82 mg/dl (74-100); Total Protein,Serum 5.9 g/dl (6.3-8.2)
[2024-05-16 07:23] LABS: Magnesium 1.8 mg/dl (1.6-2.3)
[2024-05-16] MEDS: APIXABAN 5MG TABLET 5 MG PO ×2 (08:05→20:20)
[2024-05-16] MEDS: DIGOXIN 0.125MG TABLET 125 MCG PO (08:05)
[2024-05-16] MEDS: FUROSEMIDE 40 MG TABLET PO (08:05)
[2024-05-16] MEDS: EMPAGLIFLOZIN 10MG TABLET 10 MG PO (08:06)
[2024-05-16] MEDS: ACETAMINOPHEN 500MG TAB 1000 MG PO ×2 (08:06→18:44)
--- NOTE | 2024-05-16 08:16 | HMH.PHAINT1 ---
Pharmacy Intervention Comments: Home medications verified using list from pharmacy and discharge summary from 05/08/24.
--- NOTE | 2024-05-16 09:09 | CA_ITS ---
APPROVED REPORT EXAM: Limited 2D Echocardiogram Shipfitter Helper: Kelly Early CRT Ht: 5 ft 10 in Wt: 167lbs BSA: 1.93 BP: 98/59 mmHg Indications: Atrial Fibrillation, Pericardial Effusion, Peripheral Edema, Hyperlipidemia, Hypertension/HDD effusion 0.8cm on echo 05-07-24 M-Mode Dimensions RVDd 2.90 cm (0.9-2.6) LVDd 4.51 cm (3.5-5.7) LVDs 3.03 cm (3.5-5.7) IVSd 1.52 cm (0.6-1.1) PWd 1.15 cm (0.6-1.1) EF (Teich) 61.40% FS 32.80% EDV (Teich) 92.90 mL ESV (Teich) 35.90 mL Other Information Study Quality: Fair Conclusion This is a limited TTE to evaluate for pericardial effusion. Limited windows were obtained. There is a small sized, circumferential pericardial effusion present. The largest pocket measures 0.4 cm in diastole and is noted anteriorly. No clear echo indications of tamponade or chamber collapse, however the IVC is not well-visualized. There is also large pleural effusion present. Compared to prior study from 05/07/2024, the pericardial effusion appears slightly improved. Electronically signed by : Chasity Bettencourt MD 05/16/2024 11:34:51
[2024-05-16 09:15] LABS: Lymphocytes % 8 % (10-50); Monocytes % 5 % (2-9); Neutrophils % 87 % (42-76); Platelet Estimate Normal; RBC Morphology Normal; Total Cells Counted 100
--- NOTE | 2024-05-16 09:56 | CA_ITS ---
APPROVED REPORT EXAM: Comprehensive 2D, Doppler, and color-flow Echocardiogram Plastic Sheeting Cutter: Graciela Cloud RVT Ht: 5 ft 10 in Wt: 167lbs BSA: 1.93 BP: 98/59 mmHg Indications: A-FIB WITH CARDIOVERSION,CHF,HTN,EDEMA,SOA,HLD,PERICARDIAL EFFUSION Procedure After obtaining informed consent, patient underwent transesophageal echo in the OP Surgery Suite. Type of Sedation : MAC Sedation start time: 12:00 Case end Time: 12:15 Transesophageal probe was inserted and advanced into esophagus without difficulty by Dr. Varun Bettencourt. The RAKAN was performed without complications. Throughout the procedure, the blood pressure, pulse oximetry, cardiac rhythm, and rate were monitored. The patient tolerated the procedure without adverse effects. Recovery from conscious sedation was uneventful and vital signs were stable. Left Ventricle The left ventricle is normal size. Left ventricular systolic function is mild to moderately decreased. There is increased LV wall thickness. There is mild to moderate global hypokinesis present. LVEF is 40%. Right Ventricle The right ventricle is mildly dilated. Right ventricle is mildly hypokinetic. Atria The left atrium is dilated. Spontaneous contrast (smoke) is noted in the left atrium. No thrombus is visualized in the left atrium or appendage. The right atrium is dilated. Prominent hypermobile eustachian valve is noted in the right atrial cavity. The interatrial septum is intact with no evidence for an atrial septal defect. Aortic Valve The aortic valve is mildly thickened. The aortic valve is trileaflet. Mild aortic regurgitation. There is no aortic valvular stenosis. Mitral Valve The mitral valve is normal in structure. No evidence of mitral valve stenosis. Trace mitral regurgitation. The tricuspid valve leaflets are thin and pliable. Tricuspid Valve Mild tricuspid regurgitation. Pulmonic Valve The pulmonary valve is normal in structure. Trace pulmonic regurgitation. Great Vessels The aortic root is normal in size. The ascending aorta is normal in size. Pericardium Small sized, circumferential pericardial effusion is present. The largest pocket measures 0.4 cm in diastole. No echo indications of tamponade. Other Information Study Quality: Fair Conclusion Mild to moderate reduction in LV systolic function (LVEF 40%). Mild RV dilation with mild reduction in RV function. Mild AI, mild TR. Prominent hypermobile eustachian valve is noted in the right atrial cavity (the previously visualized RA echodensity on TTE likely corresponds to the mobile eustachian valve - i.e. normal finding). Left atrial spontaneous contrast (smoke), but no evidence of LA or ALBERTA thrombus. Small sized, circumferential pericardial effusion is present. The largest pocket measures 0.4 cm in diastole. No echo indications of tamponade. The size of the pericardial effusion is overall unchanged compared to prior recent TTE. Once RAKAN demonstrated no evidence of thrombus, the patient underwent DCCV (total 3 shocks: 150J x 1 then 200J x 2). Eventually, after the 3rd attempt, he converted to normal sinus rhythm with prominent first degree AV block. He was transferred to the postop recovery suite in stable condition in normal sinus rhythm. Electronically signed by : Chasity Bettencourt MD 05/16/2024 12:48:49
--- NOTE | 2024-05-16 10:38 | EXP.CARD.CON ---
History of Present Illness History of Present Illness Consult date: 05/16/24 Requesting physician: Frankie Briceño Consult reason: atrial fibrillation and hypotension Chief complaint: weakness, hypotension History of present illness: This is an 83-year-old white male with past medical history of mild nonflow limiting coronary artery disease, recent new diagnosis of A-fib on Eliquis, new diagnosis of heart failure with reduced ejection fraction of 40% who presented to emergency department last night with complaints of fatigue, generalized weakness and hypotension. Patient was admitted to the hospital earlier this month for lower extremity edema, weakness and new onset A-fib RVR. At that time echocardiogram revealed an ejection fraction of 40%. Patient was diuresed and started on guideline directed medical therapy for heart failure with reduced ejection fraction. Patient achieved rate control with metoprolol 50 mg p.o. twice daily. Patient reports since being discharged home he has had increased weakness and fatigue with low blood pressure. Reports blood pressure got as low as 60 systolic early yesterday morning. Upon presentation to emergency department patient denied any chest pain, shortness of breath, nausea, vomiting or fever. EKG showed A-fib RVR at a rate of 106. Systolic blood pressure was less than 100. Chest x-ray shows an opacity in the left base which may represent atelectasis or pneumonia with a mild left pleural effusion noted. Labs are as follow: WBC 11.2, hemoglobin 13.5, sodium 129, creatinine 0.8, and troponin negative. Metoprolol was stopped and patient was loaded with digoxin last night in the emergency department. This morning patient reports he is feeling better and his only complaint is his back hurts from the bed. He continues to deny chest pain or shortness of breath. Patient remains in A-fib RVR at a rate of 120-150. Repeat limited echo is pending. [facility] Disclaimer: The information contained in this section may have been updated after the patient was seen, as this information can be updated by other users. Medical History Coronary artery disease Atrial fibrillation Acute HFrEF (heart failure with reduced ejection fraction) Family history of prostate problems Arthritis Allergies Deviated septum History of cataract Hyperlipidemia Hypertension Surgical History History of colonoscopy History of hernia surgery Family History Father Heart attack Social History Smoking Status: Never smoker second hand exposure: No alcohol intake: never substance use type: denies use current occupational status: retired and other Travel in the last 8 weeks: None household members: spouse housing: house current occupational exposures/hazards: Yes caffeine: No Review of Systems Review of Systems Review of systems:: pertinent systems reviewed and negative unless documented below Constitutional Constitutional: Reports weakness *Cardiovascular Cardiovascular: Denies chest pain and Denies dyspnea *Respiratory Respiratory: Denies dyspnea *Neurologic Neurologic: Reports weakness Exam Data for Last 24 hours Vital signs and Labs for Last 24 Hours: Temp Pulse Resp BP Pulse Ox O2 Del Method 100.8 F H 150 H 18 105/54 L 95 Room Air 05/16/24 07:48 05/16/24 08:05 05/16/24 07:48 05/16/24 07:48 05/16/24 07:48 05/16/24 07:48 Laboratory Results - last 24 hr 05/15/24 15:29: WBC 9.1, RBC 4.13 L, Hgb 13.4 L, Hct 38.7 L, MCV 93.7, MCH 32.4 H, MCHC 34.6, RDW 13.9, Plt Count 450 H, MPV 8.0, Neut % (Auto) 81.6 H, Lymph % (Auto) 10.7, [place] % (Auto) 7.0, Eos % (Auto) 0.3, Baso % (Auto) 0.3, Neut # (Auto) 7.4, Lymph # (Auto) 1.0, [place] # (Auto) 0.6, Eos # (Auto) 0.0, Baso # (Auto) 0.0, Sodium 131 L, Potassium 4.1, Chloride 95 L, Carbon Dioxide 29, Anion Gap 11.1, BUN 24 H, Creatinine 0.90, Estimated Creat Clear 56, Estimated GFR 80, Est GFR ( Amer) 97, Glucose 96, Calcium 8.4, Magnesium 1.6, Total Bilirubin 1.0, AST 25, ALT 29, Alkaline Phosphatase 111, Troponin I < 0.01, NT-Pro-B Natriuret Pep 4710 H, Total Protein 6.3, Albumin 3.4 L, Globulin 2.9, Albumin/Globulin Ratio 1.2, TSH 2.09, Free T4 Index 4.0 L, Thyroxine (T4) 8.5, T3 Uptake 47 H 05/15/24 15:39: PT 13.8 H, INR 1.26 H 05/15/24 18:19: Troponin I < 0.01 05/15/24 21:19: Troponin I < 0.01 05/16/24 05:26: WBC 11.2 H, RBC 4.24 L, Hgb 13.5 L, Hct 40.5 L, MCV 95.6 H, MCH 31.9 H, MCHC 33.4, RDW 13.9, Plt Count 403, MPV 8.4, Neut % (Auto) 85.3 H, Lymph % (Auto) 6.4 L, [place] % (Auto) 8.0, Eos % (Auto) 0.1, Baso % (Auto) 0.1, Neut # (Auto) 9.5 H, Lymph # (Auto) 0.7, [place] # (Auto) 0.9, Eos # (Auto) 0.0, Baso # (Auto) 0.0, Total Counted 100, Neutrophils % (Manual) 87 H, Lymphocytes % (Manual) 8 L, Monocytes % (Manual) 5, Platelet Estimate Normal, RBC Morphology Normal, Sodium 129 L, Potassium 3.9, Chloride 93 L, Carbon Dioxide 29, Anion Gap 10.9, BUN 17 D, Creatinine 0.80, Estimated Creat Clear 58, Estimated GFR 92, Est GFR ( Amer) 111, Glucose 82, Calcium 8.4, Magnesium 1.8 D, Total Bilirubin 1.1, AST 22, ALT 20 D, Alkaline Phosphatase 110, Total Protein 5.9 L, Albumin 3.1 L, Globulin 2.8, Albumin/Globulin Ratio 1.1 I & O for Last 24 hours: Intake & Output 05/13/24 05/14/24 05/15/24 05/16/24 23:59 23:59 23:59 23:59 Output Total 150 / 150 550 / 550 Balance -150 / -150 -550 / -550 Weight 170 lb 5 oz 167 lb Constitutional Constitutional: no acute distress *Routine Respiratory Exam Respiratory: Present CTA bilaterally and symmetric chest movement *Routine Cardiovascular Exam Cardiovascular: Present Normal S1, Normal S2, tachycardia and irregular rhythm Comments: A-fib RVR noted *Routine Abdominal Exam Abdominal: Present soft and normoactive bowel sounds; Absent tenderness *Routine Extremities Exam Extremities: Present full ROM and normal capillary refill; Absent edema *Routine Skin Exam Skin: Present intact, dry and warm Detailed Neck Exam: Thyroids Thyroid: Absent bruit Meds Home Medications and Allergies Home Medications ?Medication ?Instructions ?Recorded ?Confirmed ?Type pravastatin 20 mg tablet 20 mg PO HS 09/29/20 05/15/24 History montelukast 10 mg tablet 10 mg PO PM 05/18/22 05/15/24 History tamsulosin 0.4 mg capsule 0.4 mg PO HS 05/18/22 05/15/24 History enzalutamide 40 mg capsule (Xtandi) 160 mg PO DAILY 05/05/24 05/15/24 History hydrocodone 5 mg-acetaminophen 325 1 tab PO TIDP PRN Severe Pain 05/06/24 05/15/24 History mg tablet (Scale Score 7-10) apixaban 5 mg tablet (Eliquis) 5 mg PO BID 30 days #60 tabs 05/08/24 05/15/24 Rx empagliflozin 10 mg tablet 10 mg PO DAILY 30 days #30 tabs 05/08/24 05/15/24 Rx (Jardiance) furosemide 40 mg tablet 40 mg PO DAILY 30 days #30 tabs 05/08/24 05/15/24 Rx metoprolol tartrate 50 mg tablet 50 mg PO BID 30 days #60 tabs 05/08/24 05/15/24 Rx sacubitril 24 mg-valsartan 26 mg 1 tab PO BID 30 days #60 tabs 05/08/24 05/15/24 Rx tablet (Entresto) New Prescriptions to Start Prescriptions: Allergies Allergy/AdvReac Type Severity Reaction Status Date / Time No Known Allergies Allergy Verified 07/06/23 09:00 Assessment and Plan *Assessment and plan (1) Atrial fibrillation with rapid ventricular response: Status: Acute Category: Medical Code(s): I48.91 - Unspecified atrial fibrillation (2) Acute hypotension: Status: Acute Category: Medical Code(s): I95.9 - Hypotension, unspecified (3) Coronary artery disease: Status: Acute Category: Medical Code(s): I25.10 - Atherosclerotic heart disease of [place] coronary artery without angina pectoris (4) Acute HFrEF (heart failure with reduced ejection fraction): Status: Acute Category: Medical Code(s): I50.21 - Acute systolic (congestive) heart failure (5) Pericardial effusion: Status: Acute Category: Medical Code(s): I31.39 - Other pericardial effusion (noninflammatory) (6) Hyponatremia: Status: Acute Category: Medical Code(s): E87.1 - Hypo-osmolality and hyponatremia Plan Fatigue and weakness Hypotension A-fib RVR converted to NSR s/p Cardioversion Patient is status post RAKAN/Cardioversion Converted to SR Currently SR rate of 140s, prolonged OK interval noted Stop dig, Start amio drip for rate control Continue Eliquis Chronic HFrEF Pericardial effusion Echo from 05/07/2024: EF 40%, mild RV dilation with mild reduction in RV function, severe biatrial dilation, mild AI mild MR mild TR, small circumferential pericardial effusion present with no evidence of tamponade No overt signs of acute heart failure present. Patient maintaining oxygen saturation greater than 95% on room air, denies shortness of breath, denies lower extremity edema or orthopnea. Repeat limited shows EF remains 40, pericardial effusion is unchanged Patient has been on GDMT with Entresto, Jardiance, metoprolol and Aldactone Entresto and Aldactone on hold currently due to hypotension Continue Jardiance 10 mg daily and Lasix 40 mg p.o. daily Coronary artery disease Mild nonflow limiting coronary artery disease to the mid LAD noted on left heart catheterization 05/07/2024 Continue pravastatin 20 mg p.o. daily. On Eliquis Hyponatremia Chronic hyponatremia present, 129 today CV summary 05/16/2024: Patient is status post RAKAN cardioversion. Patient converted to normal sinus rhythm. Of note, patient has long OK interval which may appear to look like A-fib. Post cardioversion EKG shows sinus tachycardia rate of 140. Stop dig and start amiodarone for rate control. Cardiac meds Eliquis 5 mg p.o. twice daily Jardiance 10 mg p.o. daily Lasix 40 mg p.o. daily Metoprolol 50 mg p.o. twice daily-on hold Entresto 24/26 mg p.o. twice daily-on hold Aldactone 25 mg p.o. daily-on hold Amiodarone drip Pravastatin 20 mg p.o. daily
--- NOTE | 2024-05-16 11:35 | ECG_ITS ---
APPROVED REPORT Exam: Resting ECG HR:138 bpm ECG Measurements Heart Rate 138 AXES QRSd 81 QRS 21 QT 263 T 0 QTc 344 Conclusion ATRIAL FIBRILLATION WITH RAPID VENTRICULAR RESPONSE WITH ABERRANT CONDUCTION OR VENTRICULAR PREMATURE COMPLEXES NONSPECIFIC ST & T-WAVE ABNORMALITY ABNORMAL RHYTHM ECG UNCONFIRMED REPORT Electronically signed by : Kaden Daigle MD 05/18/2024 09:35:43
--- NOTE | 2024-05-16 11:36 | EXP.ANES.CKL ---
[facility] Disclaimer: The information contained in this section may have been updated after the patient was seen, as this information can be updated by other users. Medical History Coronary artery disease Atrial fibrillation Acute HFrEF (heart failure with reduced ejection fraction) Family history of prostate problems Arthritis Allergies Deviated septum History of cataract Hyperlipidemia Hypertension Surgical History History of colonoscopy History of hernia surgery Family History Father Heart attack Social History Smoking Status: Never smoker second hand exposure: No alcohol intake: never substance use type: denies use current occupational status: retired and other Travel in the last 8 weeks: None household members: spouse housing: house current occupational exposures/hazards: Yes caffeine: No [facility] Anesthesia Checklist Patient Identification Patient Identification: Arm Band, Family and Verbal (Name & ) Structural Data Admitted From: Inpatient (-[id number]) Planned Operative Procedure/s: RAKAN w/Cardioversion Consent for Planned Operative Procedure(s) Verified: Yes Verified Documents: Surgical Consent and History and Physical NPO Status Verified Time NPO: 23:00 Chart Verification Results Verified: CBC, BMP, PT, PTT, INR, ECG and Chest Xray Additional verifications Patient : No Anesthesia Reactions: No Hx Blood Transfusions: No Blood Transfusion Reaction: No Cardiovascular Assessment Pulse Rhythm: Irregular and Irregularly Irregular Peripheral Edema: No Airway Assessment Mallampati Score:: Class II C-Spine Mobility Assessed: Yes (FROM demonstrated) TMJ Mobility Assessed: Yes Dentition: Edentulous Anesthesia Plan Anesthesia Plan: Verified ASA Class: III Anesthesia Type: MAC
--- NOTE | 2024-05-16 12:19 | SUR.OPER ---
1204--shocked at 150J (afib) 1205--shocked @ 200J (afib) 1205--shocked @ 200J (remains in afib) verbal order from MD Woo to get an EKG in post op and to start amio
--- NOTE | 2024-05-16 12:26 | ECG_ITS ---
APPROVED REPORT Exam: Resting ECG HR:117 bpm ECG Measurements Heart Rate 117 AXES QRSd 87 QRS 25 QT 279 T 60 QTc 349 Conclusion ATRIAL FIBRILLATION WITH RAPID VENTRICULAR RESPONSE NONSPECIFIC T-WAVE ABNORMALITY ABNORMAL RHYTHM ECG UNCONFIRMED REPORT Electronically signed by : Kaden Daigle MD 05/18/2024 09:35:32
--- NOTE | 2024-05-16 13:12 | ECG_ITS ---
APPROVED REPORT Exam: Resting ECG HR:141 bpm ECG Measurements Heart Rate 141 AXES QRSd 84 QRS 46 QT 262 T 267 QTc 344 Conclusion SUPRAVENTRICULAR TACHYCARDIA NONSPECIFIC ST & T-WAVE ABNORMALITY ABNORMAL ECG UNCONFIRMED REPORT Electronically signed by : Kaden Daigle MD 05/18/2024 09:35:27
[2024-05-16] MEDS: AMIODARONE HCL 150 MG in DEXTROSE 5 % IN WATER 100 ML 618 MG IV (13:46)
[2024-05-16] MEDS: AMIODARONE HCL 900 MG in DEXTROSE 5 % IN WATER 500 ML 34.53 MG IV (13:59)
--- NOTE | 2024-05-16 14:09 | PC.NURSE ---
Report received from Edilson. Pt moved to StepDown. Amiodarone bolus administered. Amiodarone gtt is currently infusing @ 1 mg/min. HR is in the upper 80s. Pt tolerating well. No complaints stated. BP is 106/63. 96% RA.
--- NOTE | 2024-05-16 14:35 | ECG_ITS ---
APPROVED REPORT Exam: Resting ECG HR:89 bpm ECG Measurements Heart Rate 89 AXES SD 272 P 58 QRSd 86 QRS 65 QT 334 T 5 QTc 381 Conclusion SINUS RHYTHM WITH FIRST DEGREE AV BLOCK NONSPECIFIC T-WAVE ABNORMALITY ABNORMAL ECG UNCONFIRMED REPORT Electronically signed by : Kaden Daigle MD 05/18/2024 09:34:46
[2024-05-16] MEDS: MONTELUKAST SODIUM 10MG TAB 10 MG PO (17:30)
--- NOTE | 2024-05-16 18:08 | PC.NURSE ---
Pt currently NSR on telemetry. Remains on amiodarone gtt. No complaints stated. He is eating dinner at this time. VSS. Pt voiding via urinal. No BM this evening. Call light within reach.
--- NOTE | 2024-05-16 18:16 | P.PN_ITS ---
Subjective *Date: 05/16/24 *Time: 18:20 Interval history: Overnight patient had fever to 100.8. Unclear why. Also remained tachycardic. Feeling better this morning. Denies many symptoms if any from his tachycardia. Stable on room air. Cardiology assisting with care. Medical Exam Vital signs and Labs for Last 24 Hours: Vital Signs Temp Pulse Pulse Resp BP Pulse Ox O2 Del Method 05/16/24 17:00 Room Air 05/16/24 16:15 93 H 19 101/57 L 96 Room Air 05/16/24 16:00 Room Air 05/16/24 15:15 101 H 19 124/65 96 Room Air 05/16/24 15:00 Room Air 05/16/24 14:15 87 20 106/63 L 98 Room Air 05/16/24 13:45 146 H 20 95/72 L 96 Room Air 05/16/24 13:10 148 H 18 108/62 L 96 Room Air 05/16/24 13:00 Room Air 05/16/24 12:55 150 H 18 106/58 L 98 Room Air 05/16/24 12:12 98.5 F 115 H 16 98/62 L 92 L Room Air 05/16/24 12:00 140 H 05/16/24 08:05 150 H 05/16/24 08:00 150 H Room Air 05/16/24 08:00 150 H 05/16/24 07:48 100.8 F H 158 H 18 105/54 L 95 Room Air 05/16/24 04:57 Room Air 05/16/24 04:00 124 H 05/16/24 04:00 99.0 F 126 H 18 102/65 L 94 L Room Air 05/16/24 03:00 Room Air 05/16/24 01:00 Room Air 05/16/24 00:00 99 H 05/16/24 00:00 97.7 F 118 H 16 82/52 L 93 L Room Air 05/15/24 23:00 Room Air 05/15/24 21:00 Room Air 05/15/24 20:00 110 H 05/15/24 20:00 98.5 F 114 H 16 110/71 95 Room Air 05/15/24 19:49 Room Air 05/15/24 18:42 Room Air 05/15/24 18:18 98.6 F 94 H 19 114/63 94 L Room Air Intake and Output 05/16/24 05/16/24 05/16/24 07:59 15:59 23:59 Output Total 550 / 700 150 / 700 Balance -550 / -700 -150 / -700 Output: Output, Urine Amount 550 / 700 150 / 700 Other: Weight 75.75 kg Patient Weight 05/16/24 23:59 Weight 75.75 kg Laboratory Results - last 24 hr 05/15/24 18:19: Troponin I < 0.01 05/15/24 21:19: Troponin I < 0.01 05/16/24 05:26: WBC 11.2 H, RBC 4.24 L, Hgb 13.5 L, Hct 40.5 L, MCV 95.6 H, MCH 31.9 H, MCHC 33.4, RDW 13.9, Plt Count 403, MPV 8.4, Neut % (Auto) 85.3 H, Lymph % (Auto) 6.4 L, [place] % (Auto) 8.0, Eos % (Auto) 0.1, Baso % (Auto) 0.1, Neut # (Auto) 9.5 H, Lymph # (Auto) 0.7, [place] # (Auto) 0.9, Eos # (Auto) 0.0, Baso # (Auto) 0.0, Total Counted 100, Neutrophils % (Manual) 87 H, Lymphocytes % (Manual) 8 L, Monocytes % (Manual) 5, Platelet Estimate Normal, RBC Morphology Normal, Sodium 129 L, Potassium 3.9, Chloride 93 L, Carbon Dioxide 29, Anion Gap 10.9, BUN 17 D, Creatinine 0.80, Estimated Creat Clear 58, Estimated GFR 92, Est GFR ( Amer) 111, Glucose 82, Calcium 8.4, Magnesium 1.8 D, Total Bilirubin 1.1, AST 22, ALT 20 D, Alkaline Phosphatase 110, Total Protein 5.9 L, Albumin 3.1 L, Globulin 2.8, Albumin/Globulin Ratio 1.1 I & O for Labs for Last 24 Hours: Intake & Output 05/13/24 05/14/24 05/15/24 05/16/24 23:59 23:59 23:59 23:59 Output Total 150 / 150 700 / 700 Balance -150 / -150 -700 / -700 Weight 77.252 kg 75.75 kg Constitutional: Present no acute distress, average body habitus, chronically ill appearing and cooperative Head: Present atraumatic and normocephalic ENT: Present normal exam Neck: Present normal inspection Respiratory: Present crackles (Fine in the bases, improved from yesterday) and normal respiratory effort; Absent rhonchi or wheezes Cardiac: Present Regular Rate and Tachycardia Comment:: Irregularly irregular GI: Present soft and normal bowel sounds; Absent distention or tenderness Extremities: Present normal inspection and full ROM; Absent edema Skin: Present intact; Absent erythema Neuro: Present Grossly Intact and moves all extremities Assessment and Plan *Assessment and plan (1) Atrial fibrillation with RVR: Status: Acute Category: Medical Code(s): I48.91 - Unspecified atrial fibrillation (2) CHF exacerbation: Status: Acute Qualifiers: Heart failure type: systolic Qualified Code(s): I50.23 - Acute on chronic systolic (congestive) heart failure Category: Medical Code(s): I50.9 - Heart failure, unspecified (3) Acute hypotension: Status: Acute Category: Medical Code(s): I95.9 - Hypotension, unspecified (4) Acute hyponatremia: Status: Acute Category: Medical Code(s): E87.1 - Hypo-osmolality and hyponatremia (5) Acute pericardial effusion: Status: Acute Category: Medical Code(s): I30.9 - Acute pericarditis, unspecified (6) Prostate cancer: Status: Acute Category: Medical Code(s): C61 - Malignant neoplasm of prostate (7) Hyponatremia: Status: Acute Category: Medical Code(s): E87.1 - Hypo-osmolality and hyponatremia Plan 83-year-old male with increased shortness of breath. Workup in the ER concerning for CHF and hyponatremia. Discussed case with ER physician, request admission for adjustment to heart rate medication and further treatment of weakness. I agreed to admit for further management. Cardiology consulted. Holding Entresto and metoprolol. Started on digoxin in the ER. Discontinue digoxin today after cardioversion. Continue monitoring on telemetry. Elevated to stepdown level of care due to amiodarone drip. Continues to require inpatient management. Problems addressed as follows: HFrEF A-fib with RVR -Discussed case with cardiology, patient taken for RAKAN cardioversion today. Found to be in sinus rhythm with tachycardia in the 140s with prolonged IN interval. Recommended stopping digoxin and starting amiodarone drip for rate control. Continue his Eliquis. -Hold metoprolol and Entresto. -Continue Eliquis 5 mg twice daily. -Reviewed reports from last admission. Found to have reduced ejection fraction of 40% on echo. -Repeat CBC, CMP, magnesium ordered for the morning. -Continue Lasix 40 mg p.o. daily BPH: Continue tamsulosin 0.4 mg nightly Fever: Unexplained. Continue Tylenol as needed. No signs of infection. White count normal at 11. No focal symptoms. Consider workup if develops repeat fever, hypotension, focal symptoms. History of prostate cancer: Hold Xtandi at this time concern for side effects from medication exacerbating current condition. Hyponatremia: -Sodium 129 this morning, potassium 3.9, magnesium 1.8. -Correction rate from 8 to 10 mEq/day. Full code Cardiac diet Eliquis 5 mg twice daily
[2024-05-16] MEDS: TAMSULOSIN 0.4MG CAPSULE 0.4 MG PO (20:20)
[2024-05-16] MEDS: PRAVASTATIN 20MG TAB 20 MG PO (20:20)
[2024-05-17] VITALS (8 sets, daily range): BP systolic 93–116; BP diastolic 53–66; PULSE 67–98; RESP 16–21; TEMP 36.7–37.8; O2SAT 94–98; BMI 23.6
[2024-05-17] MEDS: OXYCODONE 5MG IMMEDIATE RELEASE TABLET 5 MG PO ×2 (02:06→09:13)
[2024-05-17] MEDS: AMIODARONE 200MG TABLET 400 MG PO (08:46)
[2024-05-17] MEDS: FUROSEMIDE 40 MG TABLET PO (08:47)
[2024-05-17] MEDS: APIXABAN 5MG TABLET 5 MG PO (08:47)
[2024-05-17] MEDS: EMPAGLIFLOZIN 10MG TABLET 10 MG PO (08:47)
[2024-05-17 09:00] LABS: Basophils % 0.2 % (0.1-2.0); Eosinophils % 0.2 % (0.1-12.0); Hematocrit 42.4 % (42.0-52.0); Hemoglobin 13.7 g/dL (14.1-18.0); Lymphocytes # 0.6 K/mm3 (0.7-4.5); Lymphocytes % 5.3 % (10-50); Mean Corpuscular HGB Conc 32.3 g/dL (31.8-35.4); Mean Corpuscular Hemoglobin 31.6 pg (27.0-31.2); Mean Corpuscular Volume 97.8 fl (80-94); Mean Platelet Volume 7.8 fl (7.4-10.4); Monocytes # 0.6 K/mm3 (0.1-1.0); Monocytes % 5.6 % (1.7-9.3); Neutrophils % 88.7 % (37.0-80.0); Platelet Count 396 K/mm3 (142-424); Red Blood Count 4.34 M/mm3 (4.60-6.20); Red Cell Distribution Width 13.9 % (11.5-17.5); White Blood Count 11.3 K/mm3 (4.8-10.8)
[2024-05-17 09:03] LABS: MANUAL DIFFERENTIAL MANUAL DIFFERENTIAL (MANUAL DIFF)
--- NOTE | 2024-05-17 09:19 | EXP.CARD.PN ---
Subjective Subjective Date: 05/17/24 Time: 08:30 Principal diagnosis: Afib rvr Interval history: Patient is s/p cardioversion, in NSR rate 84. BP 111/60. Reports feels great and wants to go home. Exam Data for Last 24 hours Vital signs and Labs for Last 24 Hours: Temp Pulse Resp BP Pulse Ox O2 Del Method O2 Flow Rate 99.2 F 84 17 111/60 96 Room Air 1 05/17/24 08:00 05/17/24 08:00 05/17/24 08:00 05/17/24 08:00 05/17/24 08:00 05/17/24 08:00 05/17/24 06:00 Laboratory Results - last 24 hr 05/17/24 08:46: WBC 11.3 H, RBC 4.34 L, Hgb 13.7 L, Hct 42.4, MCV 97.8 H, MCH 31.6 H, MCHC 32.3, RDW 13.9, Plt Count 396, MPV 7.8, Neut % (Auto) 88.7 H, Lymph % (Auto) 5.3 L, [place] % (Auto) 5.6, Eos % (Auto) 0.2, Baso % (Auto) 0.2, Neut # (Auto) 10.0 H, Lymph # (Auto) 0.6 L, [place] # (Auto) 0.6, Eos # (Auto) 0.0, Baso # (Auto) 0.0 I & O for Last 24 hours: Intake & Output 05/14/24 05/15/24 05/16/24 05/17/24 23:59 23:59 23:59 23:59 Intake Total 307.756 / 547.756 240 / 240 Output Total 150 / 150 850 / 850 300 / 300 Balance -150 / -150 -542.244 / -302.244 -60 / -60 Weight 170 lb 5 oz 167 lb 164 lb 14.492 oz Constitutional Constitutional: no acute distress *Routine Respiratory Exam Respiratory: Present CTA bilaterally and symmetric chest movement *Routine Cardiovascular Exam Cardiovascular: Present RRR, Normal S1 and Normal S2 *Routine Abdominal Exam Abdominal: Present soft and normoactive bowel sounds; Absent tenderness *Routine Extremities Exam Extremities: Present full ROM and normal capillary refill; Absent edema *Routine Skin Exam Skin: Present intact, dry and warm Detailed Neck Exam: Thyroids Thyroid: Absent bruit Progress Note: A&P Assessment and plan (1) Atrial fibrillation with RVR: Status: Acute (2) CHF exacerbation: Status: Acute (3) Acute hypotension: Status: Acute (4) Acute hyponatremia: Status: Acute (5) Acute pericardial effusion: Status: Acute (6) Prostate cancer: Status: Acute (7) Hyponatremia: Status: Acute Assessment and Plan Assessment and Plan for All Diagnoses:: Fatigue and weakness Hypotension A-fib RVR converted to NSR s/p Cardioversion Patient is status post RAKAN/Cardioversion Converted to SR- currently sr rate of 84 Continue amio 400mg po BID x 10 days then will decrease Continue Eliquis Chronic HFrEF Pericardial effusion Echo from 05/07/2024: EF 40%, mild RV dilation with mild reduction in RV function, severe biatrial dilation, mild AI mild MR mild TR, small circumferential pericardial effusion present with no evidence of tamponade No overt signs of acute heart failure present. Patient maintaining oxygen saturation greater than 95% on room air, denies shortness of breath, denies lower extremity edema or orthopnea. Repeat limited shows EF remains 40, pericardial effusion is unchanged Patient has been on GDMT with Entresto, Jardiance, metoprolol and Aldactone at home BP remains soft, will switch Entresto to Lisinopril 2.5mg po daily Continue Jardiance 10 mg daily, Aldactone 25 mg p.o. daily and Lasix 40 mg p.o. daily Beta-mike stopped due to hypotension and fatigue Coronary artery disease Mild nonflow limiting coronary artery disease to the mid LAD noted on left heart catheterization 05/07/2024 Continue pravastatin 20 mg p.o. daily. On Eliquis Hyponatremia Chronic hyponatremia present, 130 today CV summary 05/17/2024: Patient is status post RAKAN cardioversion. Patient converted to normal sinus rhythm. Patient is CV stable for discharge home. Please continue below listed medications and have patient follow-up in cardiology clinic for reevaluation in 1 to 2 weeks. Cardiac meds Eliquis 5 mg p.o. twice daily Jardiance 10 mg p.o. daily Lasix 40 mg p.o. daily Lisinopril 2.5 mg p.o. daily Aldactone 25 mg p.o. daily-on hold Amiodarone 400 mg p.o. twice daily x 10 days Pravastatin 20 mg p.o. daily
[2024-05-17 09:28] LABS: Albumin Level 3.2 g/dl (3.5-5.0); Chloride 95 mmol/L (98-107); Potassium 4.2 mmoL/L (3.5-5.1); Sodium 130 mmol/L (136-145)
[2024-05-17 09:31] LABS: Alanine Aminotransferase 24 U/L (12-78); Albumin/Globulin Ratio 1.1 (1.1-1.8); Alkaline Phosphatase 114 U/L (38-126); Anion Gap 8.2 mEq/L (5-15); Aspartate Amino Transferase 22 U/L (17-59); Bilirubin,Total 1.4 mg/dl (0.2-1.3); Blood Urea Nitrogen 17 mg/dl (9-20); Carbon Dioxide 31 mmol/L (22.0-30.0); Creatinine Clearance Estimated 57 mL/min (50-200); Estimated Glomerular Filt Rate 92 ml/min (>60); GFR (African American) 111 ML/MIN (>60); Globulin 2.9 g/dL (1.3-3.2); Glucose 102 mg/dl (74-100); Total Protein,Serum 6.1 g/dl (6.3-8.2)
[2024-05-17 09:32] LABS: Magnesium 1.8 mg/dl (1.6-2.3)
[2024-05-17 10:24] LABS: Lymphocytes % 9 % (10-50); Monocytes % 1 % (2-9); Neutrophils % 90 % (42-76); Platelet Estimate Normal; RBC Morphology Normal; Total Cells Counted 100
--- NOTE | 2024-05-17 10:33 | P.DS_ITS ---
General Admission date:: 05/15/24 Discharge date: 05/17/24 HPI HPI HPI: Mr. Lozano is an 83-year-old male who presented earlier this month for swelling in his legs and weakness. Was diagnosed with A-fib with RVR and heart failure. Started on goal-directed therapy. Had been at home doing well but still somewhat symptomatic. States he has not felt energetic for about a month. On presentation to the ER, found to have low blood pressure and weakness. EKG shows A-fib with RVR with heart rate in the 120s to 130s. Patient reports his blood pressure this morning was low in the 60s systolic. Feeling fatigued. Denies any chest pain, shortness of breath, nausea, vomiting, fever. Workup with chest x-ray and labs. No significant abnormalities other than sodium of 131. Patient started on digoxin and medicine consulted for admission. Patient feeling better by the time of my evaluation. Is received approximately 400cc of IV fluid. Sitting upright and eating for the first time today. Denies any nausea. Hospital Course Hospital Course Hospital Course: 83-year-old male with increased shortness of breath. Workup in the ER concerning for CHF and hyponatremia. Discussed case with ER physician, request admission for adjustment to heart rate medication and further treatment of weakness. I agreed to admit for further management. Cardiology consulted. Holding Entresto and metoprolol. Started on digoxin in the ER. Did not have improvement in heart rate or blood pressure. Ultimately decision made to cardiovert patient. Cardiology assisted with care. Overall doing well after cardioversion, on amiodarone. Stable to discharge home with close outpatient follow-up for further management. Problems addressed as follows: HFrEF A-fib with RVR -Patient admitted for exacerbation of heart failure and A-fib with RVR. Attempts made to mange heart rate controlling medication. Unfortunately, c ontinues to be in A-fib with no improvement in heart rate control and soft blood pressures. Initially started on digoxin. Was taken for cardioversion and RAKAN after discussion with cardiology on day before discharge. Tolerated procedure well and remained in sinus rhythm after conversion. Started on amiodarone with IV bolus, drip, and transition to oral regimen. Will continue amiodarone for 100 mg twice daily for at least the next 10 days until he follows up with cardiology, further weaning will be made at that time. At this point we will hold metoprolol and Entresto. Further management as an outpatient. Continue Eliquis 5 mg twice daily. Continue Lasix 40 mg daily. BPH: Continue tamsulosin 0.4 mg nightly Fever: Unexplained. Occurs after he takes his Xtandi for prostate cancer. Likely side effect from this medication as there is no focal source of infection. Patient states he has fever/hot flashes at home after taking this medication. Continue Tylenol as needed. No signs of infection. White count normal. No focal symptoms. History of prostate cancer: Continue Xtandi Hyponatremia: Stable. Asymptomatic. Sodium remained in the high 120s to low 130s range. Cardiac meds at discharge: Eliquis 5 mg p.o. twice daily Jardiance 10 mg p.o. daily Lasix 40 mg p.o. daily Lisinopril 2.5 mg p.o. daily Aldactone 25 mg p.o. daily-on hold Amiodarone 400 mg p.o. twice daily x 10 days Pravastatin 20 mg p.o. daily Total time spent on discharge 32 minutes in counseling, documentation, chart review, and direct care with patient. Exam Data for Last 24 hours Vital signs and Labs for Last 24 Hours: Temp Pulse Resp BP Pulse Ox O2 Del Method O2 Flow Rate 99.2 F 67 20 109/62 L 97 Room Air 1 05/17/24 08:00 05/17/24 10:00 05/17/24 10:00 05/17/24 10:00 05/17/24 10:00 05/17/24 10:00 05/17/24 06:00 Laboratory Results - last 24 hr 05/17/24 08:46: WBC 11.3 H, RBC 4.34 L, Hgb 13.7 L, Hct 42.4, MCV 97.8 H, MCH 31.6 H, MCHC 32.3, RDW 13.9, Plt Count 396, MPV 7.8, Neut % (Auto) 88.7 H, Lymph % (Auto) 5.3 L, [place] % (Auto) 5.6, Eos % (Auto) 0.2, Baso % (Auto) 0.2, Neut # (Auto) 10.0 H, Lymph # (Auto) 0.6 L, [place] # (Auto) 0.6, Eos # (Auto) 0.0, Baso # (Auto) 0.0, Total Counted 100, Neutrophils % (Manual) 90 H, Lymphocytes % (Manual) 9 L, Monocytes % (Manual) 1 L, Platelet Estimate Normal, RBC Morphology Normal, Sodium 130 L, Potassium 4.2, Chloride 95 L, Carbon Dioxide 31 H, Anion Gap 8.2, BUN 17, Creatinine 0.80, Estimated Creat Clear 57, Estimated GFR 92, Est GFR ( Amer) 111, Glucose 102 H, Calcium 8.0 L, Magnesium 1.8, Total Bilirubin 1.4 H, AST 22, ALT 24, Alkaline Phosphatase 114, Total Protein 6.1 L, Albumin 3.2 L, Globulin 2.9, Albumin/Globulin Ratio 1.1 I & O for Last 24 hours: Intake & Output 05/14/24 05/15/24 05/16/24 05/17/24 23:59 23:59 23:59 23:59 Intake Total 307.756 / 547.756 240 / 240 Output Total 150 / 150 850 / 850 450 / 450 Balance -150 / -150 -542.244 / -302.244 -210 / -210 Weight 77.252 kg 75.75 kg 74.8 kg Constitutional Constitutional: no acute distress, average body habitus and cooperative *Routine HEENT Exam Head: Present normocephalic and atraumatic Eye: Present EOMI and PERRL ENT: Present mucous membranes moist *Routine Neck Exam Neck: Present supple, full ROM and normal carotid upstroke; Absent JVD, carotid bruit or lymphadenopathy *Routine Respiratory Exam Respiratory: Present CTA bilaterally, normal respiratory effort, able to speak in complete sentences and symmetric chest movement; Absent rhonchi, wheezes or crackles *Routine Cardiovascular Exam Cardiovascular: Present RRR, Normal S1 and Normal S2; Absent murmur or gallop *Routine Abdominal Exam Abdominal: Present soft and normoactive bowel sounds; Absent tenderness, distended or organomegaly *Routine Rectal Exam Patient deferred: visual exam *Routine Exam Patient deferred: penile exam *Routine Extremities Exam Extremities: Present edema (trace BLE), full ROM, pulses intact and normal capillary refill; Absent cyanosis or clubbing *Routine Skin Exam Skin: Present intact and warm; Absent erythema *Routine Neurological Exam Neurological: Present alert, oriented X3 and CN II-XII intact; Absent sensory deficit or motor deficit Routine Psychiatric Exam Psychiatric: Present normal affect Results Data Completed and Pending Labs on day of discharge: Labs from last 24 hours 05/17/24 08:46 WBC 11.3 H RBC 4.34 L Hgb 13.7 L Hct 42.4 MCV 97.8 H MCH 31.6 H MCHC 32.3 RDW 13.9 Plt Count 396 MPV 7.8 Neut % (Auto) 88.7 H Lymph % (Auto) 5.3 L [place] % (Auto) 5.6 Eos % (Auto) 0.2 Baso % (Auto) 0.2 Neut # (Auto) 10.0 H Lymph # (Auto) 0.6 L [place] # (Auto) 0.6 Eos # (Auto) 0.0 Baso # (Auto) 0.0 Total Counted 100 Neutrophils % (Manual) 90 H Lymphocytes % (Manual) 9 L Monocytes % (Manual) 1 L Platelet Estimate Normal RBC Morphology Normal Sodium 130 L Potassium 4.2 Chloride 95 L Carbon Dioxide 31 H Anion Gap 8.2 BUN 17 Creatinine 0.80 Estimated Creat Clear 57 Estimated GFR 92 Est GFR ( Amer) 111 Glucose 102 H Calcium 8.0 L Magnesium 1.8 Total Bilirubin 1.4 H AST 22 ALT 24 Alkaline Phosphatase 114 Total Protein 6.1 L Albumin 3.2 L Globulin 2.9 Albumin/Globulin Ratio 1.1 DS: Diagnosis Discharge Diagnosis (1) Atrial fibrillation with RVR: Status: Acute Code(s): I48.91 - Unspecified atrial fibrillation (2) CHF exacerbation: Status: Acute Code(s): I50.9 - Heart failure, unspecified Qualifiers: Heart failure type: systolic Qualified Code(s): I50.23 - Acute on chronic systolic (congestive) heart failure (3) Acute hypotension: Status: Acute Code(s): I95.9 - Hypotension, unspecified (4) Acute hyponatremia: Status: Acute Code(s): E87.1 - Hypo-osmolality and hyponatremia (5) Acute pericardial effusion: Status: Acute Code(s): I30.9 - Acute pericarditis, unspecified (6) Prostate cancer: Status: Acute Code(s): C61 - Malignant neoplasm of prostate (7) Hyponatremia: Status: Acute Code(s): E87.1 - Hypo-osmolality and hyponatremia Meds Home Medications and Allergies Home Medications ?Medication ?Instructions ?Recorded ?Confirmed ?Type pravastatin 20 mg tablet 20 mg PO HS 09/29/20 05/15/24 History montelukast 10 mg tablet 10 mg PO PM 05/18/22 05/15/24 History tamsulosin 0.4 mg capsule 0.4 mg PO HS 05/18/22 05/15/24 History enzalutamide 40 mg capsule (Xtandi) 160 mg PO DAILY 05/05/24 05/15/24 History hydrocodone 5 mg-acetaminophen 325 1 tab PO TIDP PRN Severe Pain 05/06/24 05/15/24 History mg tablet (Scale Score 7-10) apixaban 5 mg tablet (Eliquis) 5 mg PO BID 30 days #60 tabs 05/08/24 05/15/24 Rx empagliflozin 10 mg tablet 10 mg PO DAILY 30 days #30 tabs 05/08/24 05/15/24 Rx (Jardiance) furosemide 40 mg tablet 40 mg PO DAILY 30 days #30 tabs 05/08/24 05/15/24 Rx amiodarone 200 mg tablet 400 mg (2 x 200 mg) PO BID 30 days 05/17/24 Rx #120 tabs lisinopril 2.5 mg tablet 2.5 mg PO DAILY 30 days #30 tabs 05/17/24 Rx spironolactone 25 mg tablet 25 mg PO DAILY #30 tabs 05/17/24 Rx (Aldactone) New Prescriptions to Start Prescriptions: amiodarone Heath Webb lisinopril Heath Webb spironolactone [Aldactone] Heath Webb Allergies Allergy/AdvReac Type Severity Reaction Status Date / Time No Known Allergies Allergy Verified 07/06/23 09:00 Discharge Plan Disposition Patient Disposition: Home, Self-Care Condition: Fair Discharge Order Discharge Orders: Discharge Order (Routine); Ordered 05/17/24 Ordered By: Heath Webb Follow up Plan Follow up with: Varun Bettencourt MD [Staff Physician] - 05/23/24 1:45 pm Prescriptions/Medication Reconciliation: New amiodarone 200 mg Tablet 400 mg PO BID 30 Days Qty: 120 0RF lisinopril 2.5 mg Tablet 2.5 mg PO DAILY 30 Days Qty: 30 0RF spironolactone [Aldactone] 25 mg tablet 25 mg PO DAILY Qty: 30 0RF Continued pravastatin 20 MG tablet 20 mg PO HS Xtandi 40 mg capsule 160 mg PO DAILY hydrocodone-acetaminophen 5-325 mg tablet 1 tab PO TIDP PRN (Reason: Severe Pain (Scale Score 7-10)) Patient Comments: TAKE 1 TABLET BY MOUTH THREE TIMES DAILY NEEDED FOR SEVERE PAIN furosemide 40 mg Tablet 40 mg PO DAILY 30 Days Qty: 30 0RF Eliquis 5 mg Tablet 5 mg PO BID 30 Days Qty: 60 0RF Jardiance 10 mg Tablet 10 mg PO DAILY 30 Days Qty: 30 0RF tamsulosin 0.4 mg Capsule 0.4 mg PO HS montelukast 10 mg Tablet 10 mg PO PM Discontinued metoprolol tartrate 50 mg Tablet 50 mg PO BID 30 Days Qty: 60 0RF Entresto 24-26 mg Tablet 1 tab PO BID 30 Days Qty: 60 0RF Problem Reconciliation Problems Reviewed?: Yes Patient Discharge Instructions ACTIVITY: Continue current activity DIET: continue same diet Patient Instructions: DI for Heart Failure, DI for Atrial Fibrillation, DI for Hypotension Print Language: Mohawk Providers Primary Care Provider: Artur Quintero Admit Provider: Heath Webb Attending Provider: Heath Webb
[2024-05-17] MEDS: ACETAMINOPHEN 500MG TAB 1000 MG PO (12:27)
--- NOTE | 2024-05-21 16:19 | SW/DCPLANNER ---
Hospital follow up phone call: patient stated that he is feeling better at this time. I was able to inform patient of his appointment time w/ Cardiology this week. Patient also stated that he was able to orange picker his new medications. Patient did not have any further questions/needs at this time.
== END 2024-05-17 13:50 | disposition home or self-care (01) | DRG 308 ==
LOC: ER 16:22 → 2ND 16:47
PROVIDERS: Internal Medicine; Physician Assistant; Admitting Provider Internal Medicine Adolescent Medicine; Emergency Provider Emergency Medicine; PCP Family Medicine; Visit Provider Internal Medicine Adolescent Medicine
PROC: 5A2204Z Restoration of Cardiac Rhythm, Single (ICD-10-PCS; principal; 2024-05-16 11:00)
DX: I48.91 Unspecified atrial fibrillation (principal); I50.23 Acute on chronic systolic (congestive) heart failure; E87.1 Hypo-osmolality and hyponatremia; I31.39 Other pericardial effusion (noninflammatory); I11.0 Hypertensive heart disease with heart failure; I95.9 Hypotension, unspecified; C61 Malignant neoplasm of prostate; I25.10 Atherosclerotic heart disease of native coronary artery without angina pectoris
CPT/HCPCS: 36415; 71045; 80053; 83735; 83880; 84436; 84443; 84479; 84484; 85007; 85025; 85610; 92960; 93005; 93270; 93308; 93312; 93319; 99291; G0378; J0282; J1160; J3475; J7030; J7060

== ENCOUNTER 2024-06-19 10:29 | Outpatient (CLI) | payer MEDICARE, SELFPAY ==
[2024-06-19 11:17] LABS: Basophils % 0.8 % (0.1-2.0); Eosinophils # 0.1 K/mm3 (0.0-0.4); Eosinophils % 2.6 % (0.1-12.0); Hematocrit 36.6 % (42.0-52.0); Hemoglobin 13.3 g/dL (14.1-18.0); Lymphocytes # 0.6 K/mm3 (0.7-4.5); Lymphocytes % 16.7 % (10-50); Mean Corpuscular HGB Conc 36.4 g/dL (31.8-35.4); Mean Corpuscular Hemoglobin 34.3 pg (27.0-31.2); Mean Corpuscular Volume 94.1 fl (80-94); Mean Platelet Volume 8.1 fl (7.4-10.4); Monocytes # 0.4 K/mm3 (0.1-1.0); Monocytes % 9.4 % (1.7-9.3); Neutrophils # 2.6 K/mm3 (1.8-7.8); Neutrophils % 70.5 % (37.0-80.0); Platelet Count 205 K/mm3 (142-424); Red Blood Count 3.89 M/mm3 (4.60-6.20); Red Cell Distribution Width 16.7 % (11.5-17.5); White Blood Count 3.7 K/mm3 (4.8-10.8)
[2024-06-19 11:45] LABS: Alanine Aminotransferase 30 U/L (12-78); Albumin Level 3.4 g/dl (3.5-5.0); Alkaline Phosphatase 100 U/L (38-126); Anion Gap 13.3 mEq/L (5-15); Aspartate Amino Transferase 32 U/L (17-59); Bilirubin,Direct 0.4 mg/dl (0.0-0.4); Bilirubin,Indirect 0.9 mg/dL (0.0-0.9); Bilirubin,Total 1.3 mg/dl (0.2-1.3); Blood Urea Nitrogen 27 mg/dl (9-20); Calcium 8.7 mg/dl (8.4-10.2); Carbon Dioxide 28 mmol/L (22.0-30.0); Chloride 99 mmol/L (98-107); Chol/HDL Ratio 1.6 (1-3.5); Cholesterol 94 mg/dl (140-200); Estimated Glomerular Filt Rate 71 ml/min (>60); GFR (African American) 86 ML/MIN (>60); Glucose 76 mg/dl (74-100); HDL Cholesterol 60 mg/dl (40-60); Magnesium 1.6 mg/dl (1.6-2.3); Potassium 4.3 mmoL/L (3.5-5.1); Sodium 136 mmol/L (136-145); Total Protein,Serum 5.6 g/dl (6.3-8.2); Triglycerides 40 mg/dl (30-150); VLDL Cholesterol 8 mg/dL (0-40)
[2024-06-19 12:05] LABS: Direct LDL Cholesterol < 30.00 mg/dL (100-129)
[2024-06-19 12:15] LABS: Thyroid Stimulating Hormone 4.85 uIU/mL (0.465-4.68)
== END 2024-06-19 23:59 | disposition home or self-care (01) ==
LOC: LAB 10:30
PROVIDERS: PCP Family Medicine; Visit Provider Nurse Practitioner
DX: I10 Essential (primary) hypertension (principal); I25.10 Atherosclerotic heart disease of native coronary artery without angina pectoris; E78.2 Mixed hyperlipidemia; I50.9 Heart failure, unspecified
CPT/HCPCS: 36415; 80048; 80061; 80076; 83735; 84439; 84443; 85025

== ENCOUNTER 2024-07-05 18:20 | Emergency (ER) | payer MEDICARE, SELFPAY ==
[2024-07-05] VITALS (7 sets, daily range): BP systolic 91–101; BP diastolic 39–54; PULSE 55–59; RESP 14–20; TEMP 36.6; O2SAT 98–100; BMI 25.4
--- NOTE | 2024-07-05 19:17 | CT_ITS ---
PROCEDURE INFORMATION: Exam: CT Head Without Contrast Exam date and time: 07/05/2024 7:31 PM Age: 83 years old Clinical indication: Injury or trauma; Fall; Blunt trauma (contusions or hematomas); Additional info: Fall, eliquis TECHNIQUE: Imaging protocol: Computed tomography of the head without contrast. Radiation optimization: All CT scans at this facility use at least one of these dose optimization techniques: automated exposure control; mA and/or kV adjustment per patient size (includes targeted exams where dose is matched to clinical indication); or iterative reconstruction. COMPARISON: CT HEAD/BRAIN WO CON 07/05/2024 7:31 PM FINDINGS: Brain: No intracranial hemorrhage. Generalized atrophic changes of the ventricles and subarachnoid spaces. Chronic small-vessel ischemic changes noted. No mass, mass effect or midline shift. Intracranial atherosclerotic changes are noted. Cerebral ventricles: See Brain finding. Paranasal sinuses: Visualized sinuses are unremarkable. No fluid levels. Mastoid air cells: Visualized mastoid air cells are well aerated. Bones: Unremarkable. No acute fracture. Soft tissues: Unremarkable. IMPRESSION: No acute intracranial abnormality. Chronic changes as above.
--- NOTE | 2024-07-05 19:17 | CT_ITS ---
PROCEDURE INFORMATION: Exam: CT Maxillofacial Without Contrast Exam date and time: 07/05/2024 7:33 PM Age: 83 years old Clinical indication: Injury or trauma; Fall; Blunt trauma (contusions or hematomas); Orbit/periorbital; Right; Additional info: Fall, eliquis TECHNIQUE: Imaging protocol: Computed tomography of the face without contrast. Radiation optimization: All CT scans at this facility use at least one of these dose optimization techniques: automated exposure control; mA and/or kV adjustment per patient size (includes targeted exams where dose is matched to clinical indication); or iterative reconstruction. COMPARISON: CT HEAD/BRAIN WO CON 07/05/2024 7:31 PM FINDINGS: Paranasal sinuses: No air-fluid levels. Orbital cavities: Orbits are normal. Globes are unremarkable. Bones: No acute fracture. Soft tissues: Unremarkable. IMPRESSION: No acute findings.
--- NOTE | 2024-07-05 19:19 | ED_ITS ---
Discharge Plan Disposition Patient Disposition: Left Against Medical Advice Prescriptions Prescriptions: New K-Phos No 2 305-700 mg tablet 1 tab PO BID 7 Days Qty: 14 0RF No Action multivitamin [Multiple Vitamins] Tablet 1 tab PO DAILY pantoprazole 40 mg tablet,delayed release (DR/EC) 40 mg PO ONCE Patient Comments: TAKE 1 TABLET BY MOUTH ONCE DAILY metoprolol succinate [Toprol XL] 50 mg tablet extended release 24 hr 50 mg PO DAILY Qty: 30 3RF Xtandi 40 mg capsule 40 mg PO DAILY (DME) maribeth [facility] [place] See Rx Instructions .Route Qty: 1 0RF Rx Instructions: As directed spironolactone [Aldactone] 25 mg tablet 12.5 mg PO DAILY Qty: 30 0RF amiodarone 200 mg tablet 200 mg PO DAILY 30 Days Qty: 30 5RF pravastatin 20 MG tablet 20 mg PO HS furosemide 40 mg Tablet 40 mg PO DAILY 30 Days Qty: 30 0RF Eliquis 5 mg Tablet 5 mg PO BID 30 Days Qty: 60 0RF Jardiance 10 mg Tablet 10 mg PO DAILY 30 Days Qty: 30 0RF tamsulosin 0.4 mg Capsule 0.4 mg PO HS montelukast 10 mg Tablet 10 mg PO PM lisinopril 2.5 mg Tablet 2.5 mg PO DAILY 30 Days Qty: 30 0RF Referrals Follow up/Referrals: Jayme Cruz II, MD [Staff Physician] - See instructions Artur Quintero [Primary Care Provider] - See instructions Activity Restrictions/Add. Instructions Additional Instructions/Restrictions: You are significantly dehydrated with evidence of acute kidney injury and significant electrolyte abnormalities including very low phosphorus and magnesium as well as abnormalities in your liver function test. You signed out AGAINST MEDICAL ADVICE. Please return if you change your mind. Please drink plenty of fluids you have been prescribed phosphorus supplementation you may also drink milk I also recommend he take magnesium supplementation and return with any significant worsening of your symptoms. Clinical Impressions Clinical Impression: Diarrhea, Generalized weakness, Fall, Traumatic ecchymosis of face, Anticoagulated, Hypomagnesemia, Hypophosphatemia, Abnormal transaminases Instructions Patient Instructions: DI for Diarrhea and Traveler's Diarrhea -- Adult, DI for Diarrhea and Traveler's Diarrhea -- Child, DI for Nausea -- Adult, DI for Nausea -- Child Print Language Print Language: Pashto Discharge ED Provider: Kiesha Hendrix General Adult HPI General Chief complaint: Nausea/Vomiting/Diarrhea Stated complaint: Weakness , Diarhea Time Seen by Provider: 07/05/24 19:09 Mode of Arrival: Wheelchair Source of Information: Patient and Relative Limitations: No Limitations Description of Symptoms (Recalled from ER Triage Doc. by RN): DIARRHEA X2 DAYS. WEAKNESS,FALL History of Present Illness HPI narrative: Patient is an 83-year-old male brought in today for weakness and concerns for dehydration after several days of diarrhea. He actually states he has been having loose stool for the last 2 months but its gotten significantly worse over the last several days. Also about 9 days ago he fell and sustained a head injury. Had significant bruising over the right side of his face and was on Eliquis for atrial fibrillation but did not seek care. His son found him the following day and when son tried to pick him up he had a loss of consciousness/syncopal episode. Patient denies any chest pain shortness of breath pain anywhere. Denies any fevers or chills. His ex- brought him in to the Emergency Department today because they were concerned about his dehydration. Related Data Home Medications ?Medication ?Instructions ?Recorded ?Confirmed pravastatin 20 mg tablet 20 mg PO HS 09/29/20 07/02/24 montelukast 10 mg tablet 10 mg PO PM 05/18/22 07/02/24 tamsulosin 0.4 mg capsule 0.4 mg PO HS 05/18/22 07/02/24 multivitamin (Multiple Vitamins 1 tab PO DAILY 06/19/24 07/02/24 tablet) pantoprazole 40 mg tablet,delayed 40 mg PO ONCE 06/19/24 07/02/24 release enzalutamide 40 mg capsule (Xtandi) 40 mg PO DAILY 07/02/24 07/02/24 Previous Rx's ?Medication ?Instructions ?Recorded apixaban 5 mg tablet (Eliquis) 5 mg PO BID 30 days #60 tabs 05/08/24 empagliflozin 10 mg tablet 10 mg PO DAILY 30 days #30 tabs 05/08/24 (Jardiance) furosemide 40 mg tablet 40 mg PO DAILY 30 days #30 tabs 05/08/24 lisinopril 2.5 mg tablet 2.5 mg PO DAILY 30 days #30 tabs 05/17/24 metoprolol succinate 50 mg 50 mg PO DAILY #30 tabs 06/19/24 tablet,extended release 24 hr (Toprol XL) amiodarone 200 mg tablet 200 mg PO DAILY 30 days #30 tabs 07/02/24 spironolactone 25 mg tablet 12.5 mg (1/2 x 25 mg) PO DAILY #30 07/02/24 (Aldactone) tabs walker #1 ea 07/02/24 potassium and sodium monobasic 1 tab PO BID 7 days #14 tabs 07/05/24 phosphate 305 mg-700 mg tablet (K-Phos No 2) Allergies Allergy/AdvReac Type Severity Reaction Status Date / Time No Known Allergies Allergy Verified 07/02/24 10:07 [facility] Disclaimer: The information contained in this section may have been updated after the patient was seen, as this information can be updated by other users. Medical History Acute pain of left hip Duodenal diverticulum No obvious extravasation. No definitive evidence of inflammatory changes and/around diverticulum. Intra-abdominal fluid Pneumoperitoneum Fracture of finger of left hand Coronary artery disease Atrial fibrillation Acute HFrEF (heart failure with reduced ejection fraction) Family history of prostate problems Arthritis Allergies Deviated septum History of cataract Hyperlipidemia Hypertension Surgical History History of colonoscopy History of hernia surgery Family History Father Heart attack Social History Smoking Status: Never smoker second hand exposure: No alcohol intake: never substance use type: denies use current occupational status: retired and other Travel in the last 8 weeks: None household members: spouse housing: house current occupational exposures/hazards: Yes caffeine: No Have you lived/traveled outside [place] in past 30 days?: No Contact w/someone who lives/traveled outside [place] past 30 days?: No Exposure to someone with infectious disease in past 14 days?: No Do you have a fever (greater than 100.4 F or 38 C)?: No Have you tested positive for COVID-19: No Exposed to someone with COVID-19 in past 14 days?: No Do you have a sore throat?: No Do you have a cough?: No Do you have any weakness?: Yes Do you have any diarrhea?: Yes Are you experiencing any unusual bleeding?: No Do you have any muscle aches/pain?: No Do you have any abdominal pain?: No Are you experiencing loss of taste or smell?: No Other Medical History Have you received the Flu Vaccine for this season: No Have you received the Pneumonia Vaccine: No ROS Obtained: Yes All systems reviewed & no additional complaints except as documented Physical Exam General General appearance: alert and in no apparent distress ENT ENT exam: Present other (Significant ecchymosis periorbitally on the right no significant step-offs or deformities) Respiratory Respiratory exam: Present normal lung sounds bilaterally; Absent respiratory distress Cardiovascular Cardiovascular exam: Present regular rate and normal rhythm Abdominal Exam Abdominal exam: Present soft; Absent distention or tenderness Neurological Exam Neurological exam: Present alert; Absent oriented X3 Medical Decision Making Medical Records Screening: Per USPSTF and CDC recommendations, given the prevalence of disease in our region, it is our hospital?s policy to screen for HIV and viral Hepatitis for all patients aged 18 and over and those with ongoing risk factors. Remi Inquiry Pt receiving controlled substance: No Vital Signs: 07/05/24 19:10 07/05/24 19:15 Temperature 98 F Temperature Source Oral Pulse Rate 59 L Pulse Rate [Right] 58 L Respiratory Rate 20 Blood Pressure [Right Arm] 101/54 L Blood Pressure Mean [Right Arm] 69 02 Sat by Pulse Oximetry 99 99 Oxygen Delivery Method Room Air Lab Data Lab results reviewed: Yes I reviewed the patient's lab results. Lab Results 07/05/24 19:10: WBC 6.2, RBC 3.92 L, Hgb 12.5 L, Hct 37.1 L, MCV 94.7 H, MCH 31.9 H, MCHC 33.7, RDW 17.7 H, Plt Count 263, MPV 8.6, Neut % (Auto) 74.9, Lymph % (Auto) 14.7, [place] % (Auto) 6.8, Eos % (Auto) 3.1, Baso % (Auto) 0.6, Neut # (Auto) 4.6, Lymph # (Auto) 0.9, [place] # (Auto) 0.4, Eos # (Auto) 0.2, Baso # (Auto) 0.0, Sodium 135 L, Potassium 3.7, Chloride 104, Carbon Dioxide 26, Anion Gap 8.7, BUN 75 H, Creatinine 1.80 H, Estimated Creat Clear 35, Estimated GFR 36 L, Est GFR ( Amer) 44 L, Glucose 91, Calcium 8.8, Phosphorus 1.2 L, M agnesium 1.4 L, Total Bilirubin 1.0, AST 110 H, ALT 89 H, Alkaline Phosphatase 93, Total Protein 6.5, Albumin 3.6, Globulin 2.9, Albumin/Globulin Ratio 1.2 07/05/24 19:10 07/05/24 19:10 Orders (Tests/Meds): ED MEDICATIONS Generic Name Dose Route Start Last Admin Trade Name Freq PRN Reason Stop Dose Admin Magnesium Sulfate 2 gm in 50 mls @ 50 mls/hr 07/05/24 19:48 07/05/24 19:57 Magnesium Sulfate 2gm/50ml Premix IV 07/05/24 20:47 50 mls/hr ONCE ONE Administration Discontinued Medications Generic Name Dose Route Start Last Admin Trade Name Freq PRN Reason Stop Dose Admin Sodium Chloride 1,000 mls @ 999 mls/hr 07/05/24 19:15 07/05/24 19:25 Sod Chlor 0.9% 1000ml Bag IV 07/05/24 20:15 999 mls/hr .Q1H1M JENIFFER Administration Potassium Phosphate 15 mmol/ 255 mls @ 63.75 mls/hr 07/05/24 20:00 07/05/24 20:05 Sodium Chloride IV 07/05/24 23:59 Not Given ONCE ONE Potassium Phosphate 250 mg 07/05/24 20:15 07/05/24 20:29 K-Phos Neutral 250mg Tablet PO 07/05/24 20:16 Not Given ONCE ONE ORDERS Category Date Time Status CT facial bones wo con Stat Cat Scan 07/05/24 19:[address] head/brain wo con Stat Cat Scan 07/05/24 19:17 Completed CBC w/Auto Diff [Complete Blood Count Auto Diff] Stat Lab 07/05/24 19:10 Completed CMP [Comprehensive Metabolic Panel] Stat Lab 07/05/24 19:10 Completed Diarrhea 23 Panel, PCR Stat Lab 07/05/24 19:16 Ordered Magnesium Stat Lab 07/05/24 19:10 Completed Phosphorous Stat Lab 07/05/24 19:10 Completed Medical Decision Narrative: 83-year-old with above history and physical we will obtain electrolytes give IV fluids and check for significant signs of dehydration. Abdominal exam is benign I do not suspect colitis or any type of surgical pathology. However given the fact that he has had symptoms for several months that have worsened recently will obtain a stool study if he is able to give us a stool specimen. Lastly being on anticoagulants and having an injury recently significant ecchymosis of his face we will obtain a CT of the scan of the patient's head and facial bones for further evaluation and management. I suspect if he would have any significantly life-threatening that would have manifested itself clinically at this point. Lastly he had a syncopal episode a little over a week ago that led to that fall also with his generalized weakness we will obtain an EKG. CT scans performed which I personally interpreted which showed no acute traumatic abnormalities. Radiology read is consistent with this. Reassessment clinically patient still very weak he has profound hypophosphatemia hypomagnesemia evidence of significant dehydration with acute kidney injury. I recommended that he be admitted but patient adamantly denied it and refused this. His ex- is at the bedside tried to talk him into this as well. He is awake alert has a capacity to make medical decisions and understood that he could have permanent disability and but wanted to go home. We did not have any IV phosphorus in the hospital at this time and patient was unwilling to stay anyway therefore I gave him prescription of phosphorus to take at home orally and advised that he take magnesium supplementation during plenty of fluids and return with any significant worsening of his symptoms. He understood and he signed out AMA. Critical Care Critical Care Time Critical Care Time: Yes Attestation: On 07/05/24, the high probability of a clinically significant, sudden or life threatening deterioration of the following system(s) required my full and direct attention, intervention and personal management. The time I documented below is in addition to time spent performing reported procedures but includes the following listed in this critical care notation. Total Time Total Critical Care Time: 35
[2024-07-05 19:25] LABS: Albumin Level 3.6 g/dl (3.5-5.0); Basophils % 0.6 % (0.1-2.0); Chloride 104 mmol/L (98-107); Eosinophils # 0.2 K/mm3 (0.0-0.4); Eosinophils % 3.1 % (0.1-12.0); Hematocrit 37.1 % (42.0-52.0); Hemoglobin 12.5 g/dL (14.1-18.0); Lymphocytes # 0.9 K/mm3 (0.7-4.5); Lymphocytes % 14.7 % (10-50); Mean Corpuscular HGB Conc 33.7 g/dL (31.8-35.4); Mean Corpuscular Hemoglobin 31.9 pg (27.0-31.2); Mean Corpuscular Volume 94.7 fl (80-94); Mean Platelet Volume 8.6 fl (7.4-10.4); Monocytes # 0.4 K/mm3 (0.1-1.0); Monocytes % 6.8 % (1.7-9.3); Neutrophils # 4.6 K/mm3 (1.8-7.8); Neutrophils % 74.9 % (37.0-80.0); Platelet Count 263 K/mm3 (142-424); Potassium 3.7 mmoL/L (3.5-5.1); Red Blood Count 3.92 M/mm3 (4.60-6.20); Red Cell Distribution Width 17.7 % (11.5-17.5); Sodium 135 mmol/L (136-145); White Blood Count 6.2 K/mm3 (4.8-10.8)
[2024-07-05] MEDS: 0.9 % SODIUM CHLORIDE 1000ML 1,000 ML 999 ML IV (19:25)
--- NOTE | 2024-07-05 19:25 | ECG_ITS ---
APPROVED REPORT Exam: Resting ECG HR:56 bpm ECG Measurements Heart Rate 56 AXES AZ 245 P 61 QRSd 100 QRS 69 QT 317 T -40 QTc 307 Conclusion SINUS BRADYCARDIA WITH FIRST DEGREE AV BLOCK NONSPECIFIC T-WAVE ABNORMALITY ABNORMAL ECG UNCONFIRMED REPORT Electronically signed by : Heath Hendrix, 07/05/2024 23:03:13
[2024-07-05 19:28] LABS: Alanine Aminotransferase 89 U/L (12-78); Albumin/Globulin Ratio 1.2 (1.1-1.8); Alkaline Phosphatase 93 U/L (38-126); Anion Gap 8.7 mEq/L (5-15); Aspartate Amino Transferase 110 U/L (17-59); Blood Urea Nitrogen 75 mg/dl (9-20); Calcium 8.8 mg/dl (8.4-10.2); Carbon Dioxide 26 mmol/L (22.0-30.0); Creatinine Clearance Estimated 35 mL/min (50-200); Estimated Glomerular Filt Rate 36 ml/min (>60); GFR (African American) 44 ML/MIN (>60); Globulin 2.9 g/dL (1.3-3.2); Glucose 91 mg/dl (74-100); Total Protein,Serum 6.5 g/dl (6.3-8.2)
[2024-07-05 19:29] LABS: Magnesium 1.4 mg/dl (1.6-2.3)
--- NOTE | 2024-07-05 19:31 | PC.NURSE ---
lab called critical on phosphorus-1.2
[2024-07-05 19:32] LABS: Phosphorous 1.2 mg/dl (2.5-4.5)
[2024-07-05] MEDS: MAGNESIUM SULFATE IN WATER 2 GM/50 ML PIGGYBACK IV (19:57)
--- NOTE | 2024-07-05 20:42 | PC.NURSE ---
Patient agreeable to finish the rest of his magnesium infusion.
== END 2024-07-05 21:06 | disposition left against medical advice (07) ==
PROVIDERS: Emergency Provider Student in an Organized Health Care Education/Training Program; PCP Family Medicine
DX: R74.8 Abnormal levels of other serum enzymes (principal); E83.39 Other disorders of phosphorus metabolism; E83.42 Hypomagnesemia; S00.83XA Contusion of other part of head, initial encounter; R53.1 Weakness; R19.7 Diarrhea, unspecified; R55 Syncope and collapse; Z79.01 Long term (current) use of anticoagulants; W19.XXXA Unspecified fall, initial encounter; Y93.9 Activity, unspecified; Y92.009 Unspecified place in unspecified non-institutional (private) residence as the place of occurrence of the external cause
CPT/HCPCS: 70450; 70486; 80053; 83735; 84100; 85025; 93005; 96361; 96365; 96366; 99291; J3475; J7030

== ENCOUNTER 2024-07-09 12:32 | Emergency (ER) | payer MEDICARE, SELFPAY ==
[2024-07-09] VITALS (20 sets, daily range): BP systolic 46–101; BP diastolic 32–72; PULSE 59–80; RESP 18–20; TEMP 36.6–36.8; O2SAT 71–100; BMI 21.2
--- NOTE | 2024-07-09 12:53 | ECG_ITS ---
APPROVED REPORT Exam: Resting ECG HR:63 bpm ECG Measurements Heart Rate 63 AXES AZ 266 P 83 QRSd 110 QRS 75 QT 461 T 14 QTc 468 Conclusion Sinus rhythm First-degree AV block Lateral ST deviation and T wave abnormality without elevations Electronically signed by : KYLE ERNANDEZ, 07/09/2024 16:12:04
--- NOTE | 2024-07-09 12:55 | [facility].EDGENADL ---
Discharge Plan Disposition Patient Disposition: Xfer Short-Term Hosp Condition: Critical Prescriptions Prescriptions: No Action multivitamin [Multiple Vitamins] Tablet 1 tab PO DAILY pantoprazole 40 mg tablet,delayed release (DR/EC) 40 mg PO ONCE Patient Comments: TAKE 1 TABLET BY MOUTH ONCE DAILY metoprolol succinate [Toprol XL] 50 mg tablet extended release 24 hr 50 mg PO DAILY Qty: 30 3RF Xtandi 40 mg capsule 40 mg PO DAILY (DME) maribeth Misc See Rx Instructions .Route Qty: 1 0RF Rx Instructions: As directed spironolactone [Aldactone] 25 mg tablet 12.5 mg PO DAILY Qty: 30 0RF amiodarone 200 mg tablet 200 mg PO DAILY 30 Days Qty: 30 5RF pravastatin 20 MG tablet 20 mg PO HS furosemide 40 mg Tablet 40 mg PO DAILY 30 Days Qty: 30 0RF Eliquis 5 mg Tablet 5 mg PO BID 30 Days Qty: 60 0RF Jardiance 10 mg Tablet 10 mg PO DAILY 30 Days Qty: 30 0RF K-Phos No 2 305-700 mg tablet 1 tab PO BID 7 Days Qty: 14 0RF tamsulosin 0.4 mg Capsule 0.4 mg PO HS montelukast 10 mg Tablet 10 mg PO PM lisinopril 2.5 mg Tablet 2.5 mg PO DAILY 30 Days Qty: 30 0RF Referrals Follow up/Referrals: Artur Quintero [Primary Care Provider] - See instructions Activity Restrictions/Add. Instructions Additional Instructions/Restrictions: To [facility] care of Dr. Mccloud Clinical Impressions Clinical Impression: Uremia, Toxic metabolic encephalopathy, Hypovolemic shock Acute renal failure Qualifiers: Acute renal failure type: unspecified Qualified Code(s): N17.9 - Acute kidney failure, unspecified Stand Alone Forms Stand Alone Forms: Transfer Record - ED Print Language Print Language: [place] Discharge ED Provider: Lee Calloway General Adult HPI <DONELL Regalado - Last Filed: 07/09/24 16:48> General Chief complaint: Weakness Stated complaint: dehydration, hallucinations, a-fib Time Seen by Provider: 07/09/24 12:43 History of Present Illness HPI narrative: Patient presents for evaluation of acute confusion. Patient was seen here on 07/05/2024 and found to be in acute renal failure with a diagnosis of several days of diarrhea, increasing weakness falls. Patient was diagnosed with atrial fibrillation with rapid ventricular response and I believe May for which she was started on Eliquis and multiple blood pressure and rate controlling medications including metoprolol lisinopril amiodarone, has also been on Jardiance and Lasix as well as spironolactone. Patient ultimately decided to leave AGAINST MEDICAL ADVICE even though admission was recommended. Today he returns after having increasing confusion hallucinations restlessness. Patient himself denies any complaints including chest pain shortness of breath fever chills hemoptysis hematochezia melena nausea vomit diarrhea but he is only oriented to person and place not circumstance or year making him an unreliable historian. Related Data Home Medications ?Medication ?Instructions ?Recorded ?Confirmed pravastatin 20 mg tablet 20 mg PO HS 09/29/20 07/02/24 montelukast 10 mg tablet 10 mg PO PM 05/18/22 07/02/24 tamsulosin 0.4 mg capsule 0.4 mg PO HS 05/18/22 07/02/24 multivitamin (Multiple Vitamins 1 tab PO DAILY 06/19/24 07/02/24 tablet) pantoprazole 40 mg tablet,delayed 40 mg PO ONCE 06/19/24 07/02/24 release enzalutamide 40 mg capsule (Xtandi) 40 mg PO DAILY 07/02/24 07/02/24 Previous Rx's ?Medication ?Instructions ?Recorded apixaban 5 mg tablet (Eliquis) 5 mg PO BID 30 days #60 tabs 05/08/24 empagliflozin 10 mg tablet 10 mg PO DAILY 30 days #30 tabs 05/08/24 (Jardiance) furosemide 40 mg tablet 40 mg PO DAILY 30 days #30 tabs 05/08/24 lisinopril 2.5 mg tablet 2.5 mg PO DAILY 30 days #30 tabs 05/17/24 metoprolol succinate 50 mg 50 mg PO DAILY #30 tabs 06/19/24 tablet,extended release 24 hr (Toprol XL) amiodarone 200 mg tablet 200 mg PO DAILY 30 days #30 tabs 07/02/24 spironolactone 25 mg tablet 12.5 mg (1/2 x 25 mg) PO DAILY #30 07/02/24 (Aldactone) tabs walker #1 ea 07/02/24 potassium and sodium monobasic 1 tab PO BID 7 days #14 tabs 07/05/24 phosphate 305 mg-700 mg tablet (K-Phos No 2) Allergies Allergy/AdvReac Type Severity Reaction Status Date / Time No Known Allergies Allergy Verified 07/02/24 10:07 [facility] <DONELL Regalado - Last Filed: 07/09/24 16:48> [facility] Disclaimer: The information contained in this section may have been updated after the patient was seen, as this information can be updated by other users. Medical History Acute pain of left hip Duodenal diverticulum No obvious extravasation. No definitive evidence of inflammatory changes and/around diverticulum. Intra-abdominal fluid Pneumoperitoneum Fracture of finger of left hand Coronary artery disease Atrial fibrillation Acute HFrEF (heart failure with reduced ejection fraction) Family history of prostate problems Arthritis Allergies Deviated septum History of cataract Hyperlipidemia Hypertension Surgical History History of colonoscopy History of hernia surgery Family History Father Heart attack Social History Smoking Status: Former smoker tobacco type: pipe second hand exposure: No alcohol intake: never substance use type: denies use current occupational status: retired and other Travel in the last 8 weeks: None household members: spouse housing: house current occupational exposures/hazards: Yes caffeine: No Have you lived/traveled outside [place] in past 30 days?: No Contact w/someone who lives/traveled outside US past 30 days?: No Exposure to someone with infectious disease in past 14 days?: No Do you have a fever (greater than 100.4 F or 38 C)?: No Have you tested positive for COVID-19: No Exposed to someone with COVID-19 in past 14 days?: No Do you have a sore throat?: No Do you have a cough?: No Do you have any weakness?: No Do you have any diarrhea?: No Are you experiencing any unusual bleeding?: No Do you have any muscle aches/pain?: No Do you have any abdominal pain?: No Are you experiencing loss of taste or smell?: No Other Medical History Have you received the Flu Vaccine for this season: No Have you received the Pneumonia Vaccine: No <DONELL Regalaod - Last Filed: 07/09/24 16:48> ROS Obtained: Yes Systems reviewed as appropriate & no additional complaints except as documented Physical Exam <DONELL Regalado - Last Filed: 07/09/24 16:48> General General appearance: alert and in no apparent distress Respiratory Respiratory exam: Present normal lung sounds bilaterally Cardiovascular Cardiovascular exam: Present regular rate Neurological Exam Neurological exam: Present alert and CN II-XII intact; Absent oriented X3 Medical Decision Making <DONELL Regalado - Last Filed: 07/09/24 16:48> Medical Records Screening: Per USPSTF and CDC recommendations, given the prevalence of disease in our region, it is our hospital?s policy to screen for HIV and viral Hepatitis for all patients aged 18 and over and those with ongoing risk factors. Remi Inquiry Pt receiving controlled substance: No Vital Signs: 07/09/24 12:33 07/09/24 12:43 07/09/24 12:50 Temperature 97.8 F Temperature Source Oral Pulse Rate 64 Pulse Rate [Left Radial] 63 Respiratory Rate 18 Blood Pressure 80/34 L 80/41 L Blood Pressure [Right Arm] 80/34 L Blood Pressure Mean 55 Blood Pressure Mean [Right Arm] 49 Blood Pressure Source 02 Sat by Pulse Oximetry 95 71 L Oxygen Delivery Method Room Air 07/09/24 12:53 07/09/24 12:58 07/09/24 13:00 Temperature Temperature Source Pulse Rate 63 60 Pulse Rate [Left Radial] Respiratory Rate Blood Pressure 77/32 L 89/34 L 80/39 L Blood Pressure [Right Arm] Blood Pressure Mean 38 Blood Pressure Mean [Right Arm] Blood Pressure Source 02 Sat by Pulse Oximetry 95 99 Oxygen Delivery Method 07/09/24 13:15 07/09/24 13:33 07/09/24 13:39 Temperature Temperature Source Pulse Rate 62 61 Pulse Rate [Left Radial] Respiratory Rate Blood Pressure 95/46 L 46/32 L 83/44 L Blood Pressure [Right Arm] Blood Pressure Mean 57 Blood Pressure Mean [Right Arm] Blood Pressure Source 02 Sat by Pulse Oximetry 100 98 Oxygen Delivery Method 07/09/24 13:45 07/09/24 14:00 07/09/24 14:15 Temperature Temperature Source Pulse Rate 59 L 61 62 Pulse Rate [Left Radial] Respiratory Rate Blood Pressure 89/41 L 79/37 L 85/45 L Blood Pressure [Right Arm] Blood Pressure Mean Blood Pressure Mean [Right Arm] Blood Pressure Source 02 Sat by Pulse Oximetry 93 L 91 L 98 Oxygen Delivery Method 07/09/24 14:37 07/09/24 14:46 07/09/24 15:00 Temperature Temperature Source Pulse Rate 75 62 60 Pulse Rate [Left Radial] Respiratory Rate Blood Pressure 86/43 L 79/36 L 81/38 L Blood Pressure [Right Arm] Blood Pressure Mean Blood Pressure Mean [Right Arm] Blood Pressure Source 02 Sat by Pulse Oximetry 90 L 92 L 94 L Oxygen Delivery Method Room Air 07/09/24 15:15 07/09/24 15:30 07/09/24 15:45 Temperature Temperature Source Pulse Rate 62 61 60 Pulse Rate [Left Radial] Respiratory Rate Blood Pressure 89/37 L 86/38 L 89/72 L Blood Pressure [Right Arm] Blood Pressure Mean Blood Pressure Mean [Right Arm] Blood Pressure Source 02 Sat by Pulse Oximetry 98 98 97 Oxygen Delivery Method Room Air 07/09/24 15:51 07/09/24 16:00 Temperature 98.2 F Temperature Source Oral Pulse Rate 61 80 Pulse Rate [Left Radial] Respiratory Rate 20 Blood Pressure 101/48 L 100/48 L Blood Pressure [Right Arm] Blood Pressure Mean Blood Pressure Mean [Right Arm] Blood Pressure Source Automatic Cuff 02 Sat by Pulse Oximetry 98 Oxygen Delivery Method Room Air Lab Data Lab Results 07/09/24 13:23: WBC 5.1, RBC 3.77 L, Hgb 12.1 L, Hct 36.2 L, MCV 96.1 H, MCH 32.1 H, MCHC 33.4, RDW 18.2 H, Plt Count 261, MPV 8.4, Neut % (Auto) 81.1 H, Lymph % (Auto) 10.8, Howard % (Auto) 7.1, Eos % (Auto) 0.5, Baso % (Auto) 0.4, Neut # (Auto) 4.1, Lymph # (Auto) 0.6 L, Howard # (Auto) 0.4, Eos # (Auto) 0.0, Baso # (Auto) 0.0, Sodium 131 L, Potassium 3.1 L, Chloride 108 H, Carbon Dioxide 14 L, Anion Gap 12.1, BUN 111 H*, Creatinine 3.30 H, Estimated Creat Clear 16, Estimated GFR 18 L*, Est GFR ( Amer) 22 L, Glucose 95, Calcium 8.6, Phosphorus 2.6, Magnesium 1.7, Total Bilirubin 0.9, AST 77 H, ALT 65, Alkaline Phosphatase 102, Troponin I 0.10 H, NT-Pro-B Natriuret Pep 3430 H, Total Protein 5.9 L, Albumin 3.4 L, Globulin 2.5, Albumin/Globulin Ratio 1.4, Chlamy pneumoniae PCR Not detected, Adenovirus (PCR) Not detected, B. pertussis DNA (PCR) Not detected, Coronavirus OC43 (PCR) Not detected, Coronavirus HKU1 (PCR) Not detected, Coronavirus 229E (PCR) Not detected, SARS-CoV-2 (PCR) Not detected, Coronavirus NL63 (PCR) Not detected, Human Metapneumovir PCR Not detected, Influenza A (H1) PCR Not detected, Influ A (H1N1/09) PCR Not detected, Influenza A (H3) PCR Not detected, Influenza Type A (PCR) Not detected, Influenza Type B (PCR) Not detected, M. pneumoniae (PCR) Not detected, Parainfluenza 1 (PCR) Not detected, Parainfluenza 2 (PCR) Not detected, Parainfluenza 3 (PCR) Not detected, Parainfluenza 4 (PCR) Not detected, RSV (PCR) Not detected, Entero/Rhino (PCR) Not detected 07/09/24 14:36: Urine Color Dark yellow, Urine Appearance Slightly cloudy, Urine pH 5.5, Ur Specific [place] 1.025, Urine Protein Trace, Urine Glucose (UA) Negative, Urine Ketones Trace, Urine Blood Negative, Urine Nitrate Negative, Urine Bilirubin 1+ A, Urine Urobilinogen 0.2, Ur Leukocyte Esterase Trace, Urine RBC None, Urine WBC 20-50, Ur Squamous Epith Cells 3-5, Urine Bacteria 3+, Hyaline Casts Tntc 07/09/24 14:38: VBG pH 7.29 L, VBG pCO2 32.0 L, VBG pO2 82.1 H, VBG HCO3 15.1 L, VBG Total CO2 16.1 L, VBG O2 Saturation 91.3 H, VBG Base Excess -11.5 L, VBG Lactic Acid 2.2 H 07/09/24 13:23 07/09/24 13:23 Orders (Tests/Meds): ED MEDICATIONS Discontinued Medications Generic Name Dose Route Start Last Admin Trade Name Missael PRN Reason Stop Dose Admin Sodium Chloride 1,000 mls @ 999 mls/hr 07/09/24 12:56 07/09/24 13:08 Sod Chlor 0.9% 1000ml Bag IV 07/09/24 13:56 999 mls/hr .Q1H1M ONE Administration Norepinephrine/Dextrose 8 mg in 250 mls @ 3.75 mls/hr 07/09/24 14:30 07/09/24 15:00 Levophed 8mg/250ml-D5w Premix IV 08/08/24 14:29 2 mcg/min .Q24H JENIFFER 3.75 mls/hr Administration Protocol 2 MCG/MIN ORDERS Category Date Time Status POCUS Point of Care (ER Only) Stat Exams 07/09/24 12:58 Taken BNP [NT Pro Brain Natriuretic Pep.] Stat Lab 07/09/24 13:23 Completed CBC w/Auto Diff [Complete Blood Count Auto Diff] Stat Lab 07/09/24 13:23 Completed CMP [Comprehensive Metabolic Panel] Stat Lab 07/09/24 13:23 Completed Full Resp Panel w/COVID ([facility]) Routine Lab 07/09/24 13:23 Completed Magnesium Stat Lab 07/09/24 13:23 Completed Phosphorous Stat Lab 07/09/24 13:23 Completed Trop I [Troponin I] Stat Lab 07/09/24 13:23 Completed UA [Urinalysis and Microscopic] Stat Lab 07/09/24 14:36 Completed Urine Culture Stat Micro 07/09/24 14:36 Received VBG [Venous Blood Gas] Stat RT 07/09/24 14:38 Completed Medical Decision Narrative: In summary patient is a 83-year-old male who presents to the emergency department for evaluation of acute confusion. Patient is initially hypotensive with a systolic blood pressure of 80 diastolic of 34 pulse rate of 63 breathing 18 times a minute satting at 95% on room air upon arrival, afebrile at 97.8. Physical exam is remarkable for ecchymosis around the right orbit which was known from prior from his fall approximately 2 weeks ago, patient is oriented to person and place but not the year or circumstance. Glascow coma score is 13, NIH stroke score 0. Breath sounds are clear and equal bilaterally to the bases without adventitious sounds, abdominal exam is benign with no rebound no guarding or rigidity and normal bowel sounds.. Differential diagnosis includes toxic metabolic encephalopathy versus worsening renal failure versus uremia versus infection and intracranial injury was considered but previously ruled out on 07/05 by imaging versus other viral or bacterial infection versus therapeutic misadventure etc. Initial workup will be conducted with hematologic labs urinalysis and POCUS. Initial interventions include crystalloid bolus and Tylenol for now. Initial workup reviewed by me shows worsening renal function with his creatinine now 3.3 with a BUN of 111 and a GFR of 18, sodium is 131 potassium 3.1 chlorides 108 CO2 was 14 with a gap of 12 initial troponin is 0.10, NT proBNP is 3430. POCUS does not reveal any pericardial effusion or wall motion abnormalities. Upon reevaluation patient did not respond to fluid challenge and likely represents therapeutic misadventure as patient had recent diagnosis of A-fib RVR and is on multiple antihypertensives and rate controlling medications along with both Lasix and spironolactone according to his MAR. Patient ultimately started on Levophed for pressure support. Given this I had an interactive discussion with the patient's daughter as patient is technically not oriented nor capable of making reasonable decisions, and she is agreeable to transfer. Given that I had interactive discussion with Dr. Mccloud outpatient management at [facility] who has graciously accepted the patient for further evaluation and care. <Lee Calloway MD - Last Filed: 07/10/24 15:09> Medical Records Medical records reviewed: Yes I reviewed the patient's medical records. Vital Signs: 07/09/24 12:33 07/09/24 12:43 07/09/24 12:50 Temperature 97.8 F Temperature Source Oral Pulse Rate 64 Pulse Rate [Left Radial] 63 Respiratory Rate 18 Blood Pressure 80/34 L 80/41 L Blood Pressure [Right Arm] 80/34 L Blood Pressure Mean 55 Blood Pressure Mean [Right Arm] 49 Blood Pressure Source 02 Sat by Pulse Oximetry 95 71 L Oxygen Delivery Method Room Air 07/09/24 12:53 07/09/24 12:58 07/09/24 13:00 Temperature Temperature Source Pulse Rate 63 60 Pulse Rate [Left Radial] Respiratory Rate Blood Pressure 77/32 L 89/34 L 80/39 L Blood Pressure [Right Arm] Blood Pressure Mean 38 Blood Pressure Mean [Right Arm] Blood Pressure Source 02 Sat by Pulse Oximetry 95 99 Oxygen Delivery Method 07/09/24 13:15 07/09/24 13:33 07/09/24 13:39 Temperature Temperature Source Pulse Rate 62 61 Pulse Rate [Left Radial] Respiratory Rate Blood Pressure 95/46 L 46/32 L 83/44 L Blood Pressure [Right Arm] Blood Pressure Mean 57 Blood Pressure Mean [Right Arm] Blood Pressure Source 02 Sat by Pulse Oximetry 100 98 Oxygen Delivery Method 07/09/24 13:45 07/09/24 14:00 07/09/24 14:15 Temperature Temperature Source Pulse Rate 59 L 61 62 Pulse Rate [Left Radial] Respiratory Rate Blood Pressure 89/41 L 79/37 L 85/45 L Blood Pressure [Right Arm] Blood Pressure Mean Blood Pressure Mean [Right Arm] Blood Pressure Source 02 Sat by Pulse Oximetry 93 L 91 L 98 Oxygen Delivery Method 07/09/24 14:37 07/09/24 14:46 07/09/24 15:00 Temperature Temperature Source Pulse Rate 75 62 60 Pulse Rate [Left Radial] Respiratory Rate Blood Pressure 86/43 L 79/36 L 81/38 L Blood Pressure [Right Arm] Blood Pressure Mean Blood Pressure Mean [Right Arm] Blood Pressure Source 02 Sat by Pulse Oximetry 90 L 92 L 94 L Oxygen Delivery Method Room Air 07/09/24 15:15 07/09/24 15:30 07/09/24 15:45 Temperature Temperature Source Pulse Rate 62 61 60 Pulse Rate [Left Radial] Respiratory Rate Blood Pressure 89/37 L 86/38 L 89/72 L Blood Pressure [Right Arm] Blood Pressure Mean Blood Pressure Mean [Right Arm] Blood Pressure Source 02 Sat by Pulse Oximetry 98 98 97 Oxygen Delivery Method Room Air 07/09/24 15:51 07/09/24 16:00 Temperature 98.2 F Temperature Source Oral Pulse Rate 61 80 Pulse Rate [Left Radial] Respiratory Rate 20 Blood Pressure 101/48 L 100/48 L Blood Pressure [Right Arm] Blood Pressure Mean Blood Pressure Mean [Right Arm] Blood Pressure Source Automatic Cuff 02 Sat by Pulse Oximetry 98 Oxygen Delivery Method Room Air Lab Data Lab Results 07/09/24 13:23: WBC 5.1, RBC 3.77 L, Hgb 12.1 L, Hct 36.2 L, MCV 96.1 H, MCH 32.1 H, MCHC 33.4, RDW 18.2 H, Plt Count 261, MPV 8.4, Neut % (Auto) 81.1 H, Lymph % (Auto) 10.8, Howard % (Auto) 7.1, Eos % (Auto) 0.5, Baso % (Auto) 0.4, Neut # (Auto) 4.1, Lymph # (Auto) 0.6 L, Howard # (Auto) 0.4, Eos # (Auto) 0.0, Baso # (Auto) 0.0, Sodium 131 L, Potassium 3.1 L, Chloride 108 H, Carbon Dioxide 14 L, Anion Gap 12.1, BUN 111 H*, Creatinine 3.30 H, Estimated Creat Clear 16, Estimated GFR 18 L*, Est GFR ( Amer) 22 L, Glucose 95, Calcium 8.6, Phosphorus 2.6, Magnesium 1.7, Total Bilirubin 0.9, AST 77 H, ALT 65, Alkaline Phosphatase 102, Troponin I 0.10 H, NT-Pro-B Natriuret Pep 3430 H, Total Protein 5.9 L, Albumin 3.4 L, Globulin 2.5, Albumin/Globulin Ratio 1.4, Chlamy pneumoniae PCR Not detected, Adenovirus (PCR) Not detected, B. pertussis DNA (PCR) Not detected, Coronavirus OC43 (PCR) Not detected, Coronavirus HKU1 (PCR) Not detected, Coronavirus 229E (PCR) Not detected, SARS-CoV-2 (PCR) Not detected, Coronavirus NL63 (PCR) Not detected, Human Metapneumovir PCR Not detected, Influenza A (H1) PCR Not detected, Influ A (H1N1/09) PCR Not detected, Influenza A (H3) PCR Not detected, Influenza Type A (PCR) Not detected, Influenza Type B (PCR) Not detected, M. pneumoniae (PCR) Not detected, Parainfluenza 1 (PCR) Not detected, Parainfluenza 2 (PCR) Not detected, Parainfluenza 3 (PCR) Not detected, Parainfluenza 4 (PCR) Not detected, RSV (PCR) Not detected, Entero/Rhino (PCR) Not detected 07/09/24 14:36: Urine Color Dark yellow, Urine Appearance Slightly cloudy, Urine pH 5.5, Ur Specific [place] 1.025, Urine Protein Trace, Urine Glucose (UA) Negative, Urine Ketones Trace, Urine Blood Negative, Urine Nitrate Negative, Urine Bilirubin 1+ A, Urine Urobilinogen 0.2, Ur Leukocyte Esterase Trace, Urine RBC None, Urine WBC 20-50, Ur Squamous Epith Cells 3-5, Urine Bacteria 3+, Hyaline Casts Tntc 07/09/24 14:38: VBG pH 7.29 L, VBG pCO2 32.0 L, VBG pO2 82.1 H, VBG HCO3 15.1 L, VBG Total CO2 16.1 L, VBG O2 Saturation 91.3 H, VBG Base Excess -11.5 L, VBG Lactic Acid 2.2 H Orders (Tests/Meds): ED MEDICATIONS Discontinued Medications Generic Name Dose Route Start Last Admin Trade Name Freq PRN Reason Stop Dose Admin Sodium Chloride 1,000 mls @ 999 mls/hr 07/09/24 12:56 07/09/24 13:08 Sod Chlor 0.9% 1000ml Bag IV 07/09/24 13:56 999 mls/hr .Q1H1M ONE Administration Norepinephrine/Dextrose 8 mg in 250 mls @ 3.75 mls/hr 07/09/24 14:30 07/09/24 15:00 Levophed 8mg/250ml-D5w Premix IV 08/08/24 14:29 2 mcg/min .Q24H JENIFFER 3.75 mls/hr Administration Protocol 2 MCG/MIN ORDERS Category Date Time Status POCUS Point of Care (ER Only) Stat Exams 07/09/24 12:58 Taken BNP [NT Pro Brain Natriuretic Pep.] Stat Lab 07/09/24 13:23 Completed CBC w/Auto Diff [Complete Blood Count Auto Diff] Stat Lab 07/09/24 13:23 Completed CMP [Comprehensive Metabolic Panel] Stat Lab 07/09/24 13:23 Completed Full Resp Panel w/COVID ([facility]) Routine Lab 07/09/24 13:23 Completed Magnesium Stat Lab 07/09/24 13:23 Completed Phosphorous Stat Lab 07/09/24 13:23 Completed Trop I [Troponin I] Stat Lab 07/09/24 13:23 Completed UA [Urinalysis and Microscopic] Stat Lab 07/09/24 14:36 Completed Urine Culture Stat Micro 07/09/24 14:36 Received VBG [Venous Blood Gas] Stat RT 07/09/24 14:38 Completed ECG Data Tracing #1: I reviewed this ECG and interpreted as documented below: (Sinus rhythm first-degree AV block 63 bpm. WA 266, QRS 110, QTc 468 and prolonged. No acute ischemic change) Medical Decision Narrative: In summary patient is a 83-year-old male who presents to the emergency department for evaluation of acute confusion. Patient is initially hypotensive with a systolic blood pressure of 80 diastolic of 34 pulse rate of 63 breathing 18 times a minute satting at 95% on room air upon arrival, afebrile at 97.8. Physical exam is remarkable for ecchymosis around the right orbit which was known from prior from his fall approximately 2 weeks ago, patient is oriented to person and place but not the year or circumstance. Glascow coma score is 13, NIH stroke score 0. Breath sounds are clear and equal bilaterally to the bases without adventitious sounds, abdominal exam is benign with no rebound no guarding or rigidity and normal bowel sounds.. Differential diagnosis includes toxic metabolic encephalopathy versus worsening renal failure versus uremia versus infection and intracranial injury was considered but previously ruled out on 07/05 by imaging versus other viral or bacterial infection versus therapeutic misadventure etc. Initial workup will be conducted with hematologic labs urinalysis and POCUS. Initial interventions include crystalloid bolus and Tylenol for now. Initial workup reviewed by me shows worsening renal function with his creatinine now 3.3 with a BUN of 111 and a GFR of 18, sodium is 131 potassium 3.1 chlorides 108 CO2 was 14 with a gap of 12 initial troponin is 0.10, NT proBNP is 3430. POCUS does not reveal any pericardial effusion or wall motion abnormalities. Upon reevaluation patient did not respond to fluid challenge and likely represents therapeutic misadventure as patient had recent diagnosis of A-fib RVR and is on multiple antihypertensives and rate controlling medications along with both Lasix and spironolactone according to his MAR. Patient ultimately started on Levophed for pressure support. Given this I had an interactive discussion with the patient's daughter as patient is technically not oriented nor capable of making reasonable decisions, and she is agreeable to transfer. Given that I had interactive discussion with Dr. Mccloud outpatient management at [facility] who has graciously accepted the patient for further evaluation and care. I was consulted by the SUSSY, and we discussed the complexity of the problems being addressed. I approved the treatment and management plan for this patient's care in the Emergency Department, thus performing a substantive portion of the medical decision making. Lee Calloway MD Procedures <Lee Calloway MD - Last Filed: 07/10/24 15:09> Limited Ultrasound Indication:: Limited cardiac ultrasound Indication: Elevated BUN, hypotension Identified cardiac views: -Cardiac parasternal long axis -Cardiac parasternal short axis -Cardiac apical four-chamber Findings: -Cardiac activity present -Gross wall motion normal -Pericardial effusion absent -Right heart strain absent Impression: -Normal cardiac ultrasound without pericardial effusion, decreased cardiac output, or any other abnormalities. Images were saved to permanent archive The study was technically adequate CPT: 67578 This study was performed by me, and I personally interpreted all images/videos. Based on my clinical judgement, these images were adequate and did not necessitate further imaging Critical Care <DONELL Regalado - Last Filed: 07/09/24 16:48> Critical Care Time Critical Care Time: Yes Attestation: On 07/09/24, the high probability of a clinically significant, sudden or life threatening deterioration of the following system(cardiovascular, hemodynamic, neurologic, renal) required my full and direct attention, intervention and personal management. The time I documented below is in addition to time spent performing reported procedures but includes the following listed in this critical care notation. Total Time Total Critical Care Time: 60
[2024-07-09] MEDS: 0.9 % SODIUM CHLORIDE 1000ML 1,000 ML 999 ML IV (13:08)
[2024-07-09 13:32] LABS: Adenovirus,PCR Not Detected (NotDetected); Bordetella Pertussis Not Detected (NotDetected); Chlamydophila Pneumoniae, PCR Not Detected (NotDetected); Coronavirus 19, PCR Not Detected (NotDetected); Coronavirus 229E Not Detected (NotDetected); Coronavirus NL63 Not Detected (NotDetected); Coronavirus OC43 Not Detected (NotDetected); Coronovirus HKU1,PCR Not Detected (NotDetected); Human Metapneumovirus Not Detected (NotDetected); Influenza A, PCR Not Detected (NotDetected); Influenza AH1, 2009 Not Detected (NotDetected); Influenza AH1, PCR Not Detected (NotDetected); Influenza AH3,PCR Not Detected (NotDetected); Influenza B, PCR Not Detected (NotDetected); Mycoplasma Pneumoniae, PCR Not Detected (NotDetected); Parainfluenza 1, PCR Not Detected (NotDetected); Parainfluenza 2, PCR Not Detected (NotDetected); Parainfluenza 3, PCR Not Detected (NotDetected); Parainfluenza 4, PCR Not Detected (NotDetected); Respiratory Syncytial Virus Not Detected (NotDetected); Rhinovirus/Enterovirus Not Detected (NotDetected)
[2024-07-09 13:55] LABS: Albumin Level 3.4 g/dl (3.5-5.0); Chloride 108 mmol/L (98-107); Potassium 3.1 mmoL/L (3.5-5.1); Sodium 131 mmol/L (136-145)
[2024-07-09 13:58] LABS: Alanine Aminotransferase 65 U/L (12-78); Albumin/Globulin Ratio 1.4 (1.1-1.8); Alkaline Phosphatase 102 U/L (38-126); Anion Gap 12.1 mEq/L (5-15); Aspartate Amino Transferase 77 U/L (17-59); Bilirubin,Total 0.9 mg/dl (0.2-1.3); Calcium 8.6 mg/dl (8.4-10.2); Carbon Dioxide 14 mmol/L (22.0-30.0); Creatinine Clearance Estimated 16 mL/min (50-200); Estimated Glomerular Filt Rate 18 ml/min (>60); GFR (African American) 22 ML/MIN (>60); Globulin 2.5 g/dL (1.3-3.2); Glucose 95 mg/dl (74-100); Total Protein,Serum 5.9 g/dl (6.3-8.2)
[2024-07-09 14:03] LABS: Basophils % 0.4 % (0.1-2.0); Blood Urea Nitrogen 111 mg/dl (9-20); Eosinophils % 0.5 % (0.1-12.0); Hematocrit 36.2 % (42.0-52.0); Hemoglobin 12.1 g/dL (14.1-18.0); Lymphocytes # 0.6 K/mm3 (0.7-4.5); Lymphocytes % 10.8 % (10-50); Mean Corpuscular HGB Conc 33.4 g/dL (31.8-35.4); Mean Corpuscular Hemoglobin 32.1 pg (27.0-31.2); Mean Corpuscular Volume 96.1 fl (80-94); Mean Platelet Volume 8.4 fl (7.4-10.4); Monocytes # 0.4 K/mm3 (0.1-1.0); Monocytes % 7.1 % (1.7-9.3); Neutrophils # 4.1 K/mm3 (1.8-7.8); Neutrophils % 81.1 % (37.0-80.0); Platelet Count 261 K/mm3 (142-424); Red Blood Count 3.77 M/mm3 (4.60-6.20); Red Cell Distribution Width 18.2 % (11.5-17.5); White Blood Count 5.1 K/mm3 (4.8-10.8)
[2024-07-09 14:29] LABS: Magnesium 1.7 mg/dl (1.6-2.3); Phosphorous 2.6 mg/dl (2.5-4.5)
[2024-07-09 14:40] LABS: VBG Base Excess -11.5 mmol/L (-2.4-2.3); VBG HCO3 15.1 mmol/L (23-30); VBG Oxygen Saturation 91.3 % (50-70); VBG PH 7.29 mmol/L (7.31-7.41); VBG PO2 82.1 mmol/L (28-40); VBG Total CO2 16.1 mmol/L (23-27)
[2024-07-09 14:41] LABS: Lactate Venous 2.2 mmol/L (0.4-2.0)
[2024-07-09 14:41] LABS: NT Pro Brain Natriuretic Pep. 3430 pg/mL (0-450)
[2024-07-09 14:42] LABS: Microscopic, Urine URINE MICROSCOPIC (MICROSCOPIC)
[2024-07-09 14:43] LABS: Blood, Urine Negative (Negative); Glucose,Urine (UA) Negative (Negative); Ketones,Urine TRACE (Negative); Leukocyte Esterase,Urine TRACE (Negative); Nitrate,Urine Negative (Negative); PH,Urine 5.5 (5.0-8.5); Protein,Urine TRACE (Negative); Specific Gravity, Urine 1.025 (1.005-1.030); Urobilinogen,Urine 0.2 EU/dl (0.2)
[2024-07-09 14:58] LABS: Appearance,Urine Slightly Cloudy (Clear); Bilirubin,Urine 1+ (Negative); Color,Urine Dark Yellow (Yellow)
[2024-07-09] MEDS: NOREPINEPHRINE BITARTRATE/D5W 8 MG/250 ML PLAST..BAG 3.75 MG IV (15:00)
--- NOTE | 2024-07-09 15:06 | PC.NURSE ---
Called EMS to let them know this transfer to [facility] was ready
[2024-07-09 16:12] LABS: Bacteria,Urine 3+ /lpf; WBC,Urine 20-50 #/hpf (0-3)
[2024-07-09 16:13] LABS: Hyaline Casts,Urine TNTC #/lpf (0)
[2024-07-09 18:40] LABS: Reflex Lactic Add Lactic Reflex
== END 2024-07-09 16:01 | disposition short-term general hospital (02) ==
PROVIDERS: Physician Assistant; Emergency Provider Emergency Medicine; PCP Family Medicine
DX: N17.9 Acute kidney failure, unspecified (principal); R57.1 Hypovolemic shock; G92.8 Other toxic encephalopathy; R53.1 Weakness; R19.7 Diarrhea, unspecified; R41.0 Disorientation, unspecified; R44.3 Hallucinations, unspecified
CPT/HCPCS: 80053; 81001; 82803; 83735; 83880; 84100; 84484; 85025; 87086; 87633; 93005; 96360; 99291; J7030

== ENCOUNTER 2024-07-25 14:48 | Emergency (ER) | payer MEDICARE, SELFPAY ==
[2024-07-25 14:50] VITALS: BP 110/52; PULSE 55; RESP 20; TEMP 36.8; O2SAT 97; BMI 21.5
--- NOTE | 2024-07-25 15:16 | ECG_ITS ---
APPROVED REPORT Exam: Resting ECG HR:53 bpm ECG Measurements Heart Rate 53 AXES GA 215 P 55 QRSd 86 QRS 22 QT 480 T 46 QTc 463 Conclusion Sinus bradycardia first-degree AV block Prolonged QT Electronically signed by : KYLE ERNANDEZ, 07/25/2024 21:51:48
--- NOTE | 2024-07-25 15:50 | XR_ITS ---
PROCEDURE INFORMATION: Exam: XR Chest Exam date and time: 07/25/2024 4:13 PM Age: 83 years old Clinical indication: Shortness of breath; Additional info: SOA, swelling, crackles TECHNIQUE: Imaging protocol: Radiologic exam of the chest. Views: 1 view. COMPARISON: CR XR CHEST PORTABLE 05/15/2024 3:14 PM FINDINGS: Lungs: Previously seen left lower lobe opacities have essentially resolved. Minor linear opacities in the left lower lobe likely reflects residual atelectasis or parenchymal scarring. Small linear marking in the left lateral upper lobe is stable suggestive of parenchymal scarring. The lungs appear otherwise clear. No focal areas of consolidation. Pleural spaces: Minor blunting of the left lateral costophrenic angle may reflect trace effusion, decreased from prior exam. Negative for pneumothorax. Heart/Mediastinum: Cardiac silhouette and pulmonary vasculature are within range of normal. Mild apparent superior right paratracheal opacities stable likely reflecting mediastinal venous distension. Cardiac size and/or previously known pericardial effusion have decreased since prior exam. Bones/joints: There is no evidence of acute fracture. The thoracic spine demonstrates mild degenerative changes at multiple levels. IMPRESSION: 1. Overall improved appearance of the chest when compared with 05/15/2024 with near-complete resolution of left pleural effusion. 2. Minor residual linear markings in the left lower lobe suggest parenchymal scarring or atelectasis.
[2024-07-25 15:56] LABS: Basophils % 0.6 % (0.1-2.0); Eosinophils # 0.2 K/mm3 (0.0-0.4); Eosinophils % 4.3 % (0.1-12.0); Hematocrit 30.9 % (42.0-52.0); Hemoglobin 10.7 g/dL (14.1-18.0); Lymphocytes # 0.6 K/mm3 (0.7-4.5); Lymphocytes % 12.1 % (10-50); Mean Corpuscular HGB Conc 34.6 g/dL (31.8-35.4); Mean Corpuscular Hemoglobin 33.1 pg (27.0-31.2); Mean Corpuscular Volume 95.7 fl (80-94); Mean Platelet Volume 9.4 fl (7.4-10.4); Monocytes # 0.4 K/mm3 (0.1-1.0); Neutrophils # 3.4 K/mm3 (1.8-7.8); Neutrophils % 74.6 % (37.0-80.0); Platelet Count 265 K/mm3 (142-424); Red Blood Count 3.23 M/mm3 (4.60-6.20); Red Cell Distribution Width 21.2 % (11.5-17.5); White Blood Count 4.6 K/mm3 (4.8-10.8)
[2024-07-25 15:59] LABS: Chloride 101 mmol/L (98-107)
[2024-07-25 16:00] LABS: Albumin Level 2.6 g/dl (3.5-5.0); Sodium 136 mmol/L (136-145)
[2024-07-25 16:02] LABS: Blood Urea Nitrogen 12 mg/dl (9-20); Creatinine Clearance Estimated 52 mL/min (50-200); Estimated Glomerular Filt Rate 158 ml/min (>60); GFR (African American) 191 ML/MIN (>60)
[2024-07-25 16:03] LABS: Alanine Aminotransferase 33 U/L (12-78); Alkaline Phosphatase 84 U/L (38-126); Anion Gap 7.9 mEq/L (5-15); Aspartate Amino Transferase 33 U/L (17-59); Bilirubin,Total 0.7 mg/dl (0.2-1.3); Calcium 7.4 mg/dl (8.4-10.2); Carbon Dioxide 30 mmol/L (22.0-30.0); Globulin 2.5 g/dL (1.3-3.2); Glucose 73 mg/dl (74-100); Total Protein,Serum 5.1 g/dl (6.3-8.2)
[2024-07-25 16:04] LABS: Activated Partial Thrombo Time 26.3 seconds (22.8-30.6); INR 1.13 (0.9-1.1); Prothrombin Time 12.5 seconds (10.1-12.5)
[2024-07-25 16:10] LABS: Magnesium 0.9 mg/dl (1.6-2.3)
[2024-07-25 16:11] LABS: Potassium 2.9 mmoL/L (3.5-5.1)
[2024-07-25 16:12] LABS: NT Pro Brain Natriuretic Pep. 4330 pg/mL (0-450)
[2024-07-25 16:15] LABS: Troponin I 0.03 ng/ml (0.00-0.034)
--- NOTE | 2024-07-25 16:16 | ED_ITS ---
Discharge Plan Disposition Patient Disposition: Left Against Medical Advice Prescriptions Prescriptions: New potassium chloride 20 mEq tablet extended release 40 meq PO DAILY Qty: 30 1RF magnesium oxide 400 mg magnesium tablet 400 mg PO DAILY Qty: 30 1RF Discontinued K-Phos No 2 305-700 mg tablet 1 tab PO BID 7 Days Qty: 14 0RF No Action multivitamin [Multiple Vitamins] Tablet 1 tab PO DAILY pantoprazole 40 mg tablet,delayed release (DR/EC) 40 mg PO ONCE Patient Comments: TAKE 1 TABLET BY MOUTH ONCE DAILY metoprolol succinate [Toprol XL] 50 mg tablet extended release 24 hr 50 mg PO DAILY Qty: 30 3RF Xtandi 40 mg capsule 40 mg PO DAILY (DME) maribeth [facility] [place] See Rx Instructions .Route Qty: 1 0RF Rx Instructions: As directed spironolactone [Aldactone] 25 mg tablet 12.5 mg PO DAILY Qty: 30 0RF amiodarone 200 mg tablet 200 mg PO DAILY 30 Days Qty: 30 5RF pravastatin 20 MG tablet 20 mg PO HS furosemide 40 mg Tablet 40 mg PO DAILY 30 Days Qty: 30 0RF Eliquis 5 mg Tablet 5 mg PO BID 30 Days Qty: 60 0RF Jardiance 10 mg Tablet 10 mg PO DAILY 30 Days Qty: 30 0RF tamsulosin 0.4 mg Capsule 0.4 mg PO HS montelukast 10 mg Tablet 10 mg PO PM lisinopril 2.5 mg Tablet 2.5 mg PO DAILY 30 Days Qty: 30 0RF Referrals Follow up/Referrals: Artur Quintero [Primary Care Provider] - See instructions Activity Restrictions/Add. Instructions Additional Instructions/Restrictions: Follow-up with your family doctor for repeat labs. You will need to have your BMP (for electrolytes and kidney function), BNP (to monitor heart failure) monitored over the next few weeks to make sure that you are not getting sick again. As discussed, compression stockings before getting out of bed in the morning and do daily weigh-in's to make sure you are not gaining weight. If you are gaining 5 pounds from her baseline, take 1 extra furosemide (Lasix/diuretic) until weight begins to approach baseline again. Call your family doctor to establish care for this visit to the emergency department and schedule follow-up within 48 hours to ensure improvement. If you have any worsening of your condition or any other concerning signs or symptoms, return to the emergency department or your primary care doctor for further evaluation. Clinical Impressions Clinical Impression: CHF exacerbation, Generalized weakness, Hypomagnesemia, Acute hypokalemia Print Language Print Language: Albanian Discharge ED Provider: Lee Calloway General Adult HPI General Chief complaint: Weakness Stated complaint: confused, low potassium, low fluid levels Time Seen by Provider: 07/25/24 15:17 Mode of Arrival: Wheelchair Source of Information: Patient and Relative Limitations: No Limitations Description of Symptoms (Recalled from ER Triage Doc. by RN): pt was here recently in ER for kidney issues and transferred to [facility] to a rehab facility and was relased from there yesterday. pt family is concerned for weakness and confusion as well as they were told yesterday he had low potassium History of Present Illness HPI narrative: Please note that above description of symptoms, in this electronic medical record under categorization of recalled from ER triage doctor by RN are reflective of an initial nursing assessment, however, is not reflective of my full history and physical exam that was personally taken and clarified. Consequentially, this preceding description of symptoms, which may include the patient's categorized chief complaint in the EMR, do not reflect my personal clinical impression, and the ultimate description of history of present illness and patient stated complaints should be deferred to this section of the note. Unless stated otherwise or congruent with this section of the note, additional signs, symptoms, or incongruence should be interpreted as inaccurate with my clinical impression. Related Data Home Medications ?Medication ?Instructions ?Recorded ?Confirmed pravastatin 20 mg tablet 20 mg PO HS 09/29/20 07/02/24 montelukast 10 mg tablet 10 mg PO PM 05/18/22 07/02/24 tamsulosin 0.4 mg capsule 0.4 mg PO HS 05/18/22 07/02/24 multivitamin (Multiple Vitamins 1 tab PO DAILY 06/19/24 07/02/24 tablet) pantoprazole 40 mg tablet,delayed 40 mg PO ONCE 06/19/24 07/02/24 release enzalutamide 40 mg capsule (Xtandi) 40 mg PO DAILY 07/02/24 07/02/24 Previous Rx's ?Medication ?Instructions ?Recorded apixaban 5 mg tablet (Eliquis) 5 mg PO BID 30 days #60 tabs 05/08/24 empagliflozin 10 mg tablet 10 mg PO DAILY 30 days #30 tabs 05/08/24 (Jardiance) furosemide 40 mg tablet 40 mg PO DAILY 30 days #30 tabs 05/08/24 lisinopril 2.5 mg tablet 2.5 mg PO DAILY 30 days #30 tabs 24 metoprolol succinate 50 mg 50 mg PO DAILY #30 tabs 06/19/24 tablet,extended release 24 hr (Toprol XL) amiodarone 200 mg tablet 200 mg PO DAILY 30 days #30 tabs 07/02/24 spironolactone 25 mg tablet 12.5 mg (1/2 x 25 mg) PO DAILY #30 07/02/24 (Aldactone) tabs walker #1 ea 07/02/24 magnesium oxide 400 mg PO DAILY #30 tabs 07/25/24 potassium chloride 20 mEq 40 meq (2 x 20 mEq) PO DAILY #30 07/25/24 tablet,extended release tabs Allergies Allergy/AdvReac Type Severity Reaction Status Date / Time No Known Allergies Allergy Verified 07/02/24 10:07 [facility] Disclaimer: The information contained in this section may have been updated after the patient was seen, as this information can be updated by other users. Medical History Acute pain of left hip Duodenal diverticulum No obvious extravasation. No definitive evidence of inflammatory changes and/around diverticulum. Intra-abdominal fluid Pneumoperitoneum Fracture of finger of left hand Coronary artery disease Atrial fibrillation Acute HFrEF (heart failure with reduced ejection fraction) Family history of prostate problems Arthritis Allergies Deviated septum History of cataract Hyperlipidemia Hypertension Surgical History History of colonoscopy History of hernia surgery Family History Father Heart attack Social History Smoking Status: Never smoker second hand exposure: No alcohol intake: never substance use type: denies use current occupational status: retired and other Travel in the last 8 weeks: None household members: spouse housing: house current occupational exposures/hazards: Yes caffeine: No Have you lived/traveled outside [place] in past 30 days?: No Contact w/someone who lives/traveled outside US past 30 days?: No Exposure to someone with infectious disease in past 14 days?: No Do you have a fever (greater than 100.4 F or 38 C)?: No Have you tested positive for COVID-19: No Exposed to someone with COVID-19 in past 14 days?: No Do you have a sore throat?: No Do you have a cough?: No Do you have any weakness?: No Do you have any diarrhea?: No Are you experiencing any unusual bleeding?: No Do you have any muscle aches/pain?: No Do you have any abdominal pain?: No Are you experiencing loss of taste or smell?: No Other Medical History Have you received the Flu Vaccine for this season: No Have you received the Pneumonia Vaccine: No ROS Obtained: Yes All systems reviewed & no additional complaints except as documented Physical Exam General General appearance: alert and in no apparent distress Head Head exam: atraumatic and normocephalic Eye Eye exam: Present normal appearance, PERRL and EOMI Neck Neck exam: Present normal inspection, full ROM and trachea midline Respiratory Respiratory exam: Present other (Patient has rales in bilateral lower lung handy); Absent respiratory distress, wheezes, stridor, accessory muscle use or prolonged expiratory phase Cardiovascular Cardiovascular exam: Present regular rate, normal rhythm and other (Pulses equal symmetric in upper and lower extremities) Abdominal Exam Abdominal exam: Present soft; Absent distention, tenderness or pulsatile mass Extremities Exam Extremities exam: Present edema (2+ lower extremity pitting edema) Neurological Exam Neurological exam: Present alert, oriented X3 and CN II-XII intact; Absent motor sensory deficit Skin Skin exam: Present warm and dry; Absent diaphoresis or erythema Medical Decision Making Medical Records Medical records reviewed: Yes I reviewed the patient's medical records. Screening: Per USPSTF and CDC recommendations, given the prevalence of disease in our region, it is our hospital?s policy to screen for HIV and viral Hepatitis for all patients aged 18 and over and those with ongoing risk factors. Remi Inquiry Pt receiving controlled substance: No Remi was queried for this patient: No Vital Signs: 07/25/24 14:50 07/25/24 17:31 07/25/24 18:00 Temperature 98.2 F Temperature Source Oral Pulse Rate 64 64 Pulse Rate [Left Radial] 55 L Respiratory Rate 20 16 16 Blood Pressure 113/60 114/64 Blood Pressure [Right Arm] 110/52 L Blood Pressure Mean [Right Arm] 71 02 Sat by Pulse Oximetry 97 99 97 Oxygen Delivery Method Room Air Room Air Room Air 07/25/24 18:30 Temperature Temperature Source Pulse Rate 64 Pulse Rate [Left Radial] Respiratory Rate 16 Blood Pressure 101/50 L Blood Pressure [Right Arm] Blood Pressure Mean [Right Arm] 02 Sat by Pulse Oximetry 97 Oxygen Delivery Method Room Air Lab Data Lab Results 07/25/24 15:27: WBC 4.6 L, RBC 3.23 L, Hgb 10.7 L, Hct 30.9 L, MCV 95.7 H, MCH 33.1 H, MCHC 34.6, RDW 21.2 H, Plt Count 265, MPV 9.4, Neut % (Auto) 74.6, Lymph % (Auto) 12.1, Henderson % (Auto) 8.0, Eos % (Auto) 4.3, Baso % (Auto) 0.6, Neut # (Auto) 3.4, Lymph # (Auto) 0.6 L, Henderson # (Auto) 0.4, Eos # (Auto) 0.2, Baso # (Auto) 0.0, PT 12.5, INR 1.13 H, APTT 26.3, Sodium 136, Potassium 2.9 L*, Chloride 101, Carbon Dioxide 30, Anion Gap 7.9, BUN 12, Creatinine 0.50 L, Estimated Creat Clear 52, Estimated GFR 158, Est GFR ( Amer) 191, Glucose 73 L, Calcium 7.4 L, Magnesium 0.9 L, Total Bilirubin 0.7, AST 33, ALT 33, Alkaline Phosphatase 84, Troponin I 0.03, NT-Pro-B Natriuret Pep 4330 H, Total Protein 5.1 L, Albumin 2.6 L, Globulin 2.5, Albumin/Globulin Ratio 1.0 L 07/25/24 15:51: VBG pH 7.47 H, VBG pCO2 32.0 L, VBG pO2 97.8 H, VBG HCO3 22.9 L, VBG Total CO2 23.9, VBG O2 Saturation 96.1 H, VBG Base Excess -0.7, VBG Lactic Acid 1.5 07/25/24 16:25: Urine Color Yellow, Urine Appearance Clear, Urine pH 6.5, Ur Specific Hayden 1.015, Urine Protein Negative, Urine Glucose (UA) Trace, Urine Ketones Negative, Urine Blood Negative, Urine Nitrate Negative, Urine Bilirubin Negative, Urine Urobilinogen 0.2, Ur Leukocyte Esterase Negative, Urine RBC 3-5, Urine WBC 5-10, Ur Squamous Epith Cells 5-10, Urine Bacteria 1+, Urine Mucus 1+ 07/25/24 19:24: Troponin I 0.02 07/25/24 15:27 07/25/24 15:27 Orders (Tests/Meds): ED MEDICATIONS Discontinued Medications Generic Name Dose Route Start Last Admin Trade Name Freq PRN Reason Stop Dose Admin Furosemide 80 mg 07/25/24 17:14 07/25/24 20:51 Furosemide 40mg/4ml Vial IV 07/25/24 17:15 80 mg ONCE ONE Administration Magnesium Sulfate 2 gm in 50 mls @ 50 mls/hr 07/25/24 16:22 07/25/24 16:50 Magnesium Sulfate 2gm/50ml Premix IV 07/25/24 17:21 50 mls/hr ONCE ONE Administration Potassium Chloride/Water 100 mls @ 50 mls/hr 07/25/24 16:22 07/25/24 18:47 Potassium Chloride 20meq/100ml Ivpb IV 07/25/24 20:21 50 mls/hr Q2H JENIFFER Administration Magnesium Oxide 800 mg 07/25/24 16:22 07/25/24 16:49 Magnesium Oxide 400mg Tablet PO 07/25/24 16:23 800 mg ONCE ONE Administration Potassium Chloride 60 meq 07/25/24 16:22 07/25/24 16:50 Potassium Chloride 20meq Tab PO 07/25/24 16:23 60 meq ONCE ONE Administration ORDERS Category Date Time Status XR chest portable Stat Exams 07/25/24 15:50 Completed CBC w/Auto Diff [Complete Blood Count Auto Diff] Stat Lab 07/25/24 15:27 Completed CMP [Comprehensive Metabolic Panel] Stat Lab 07/25/24 15:27 Completed Magnesium Stat Lab 07/25/24 15:27 Completed NT Pro Brain Natriuretic Pep. Stat Lab 07/25/24 15:27 Completed PT INR [Prothrombin Time INR] Stat Lab 07/25/24 15:27 Completed PTT [Activated Partial Thrombo Time] Stat Lab 07/25/24 15:27 Completed Troponin I Q3H Lab 07/25/24 19:24 Completed Troponin I Q3H Lab 07/25/24 22:00 Ordered Troponin I Stat Lab 07/25/24 15:27 Completed Urinalysis and Microscopic Stat Lab 07/25/24 16:25 Completed Venous Blood Gas Stat RT 07/25/24 15:51 Completed HEART Score History (anamnesis): Slightly suspicious ECG: Normal Age: >65 years Risk factors: 3 or more risk factors Troponin: </= normal limit HEART Score: 4 Medical Decision Narrative: 83-year-old male history of hypertension, hyperlipidemia CAD CHF, A-fib on Eliquis presenting with concern for low potassium. Patient has been in inpatient rehab facility and got a call today that labs were showing hypokalemia. Family received this message and picked up patient brought him to the emergency department. Patient has no acute complaints. He does state that his lower extremity swelling is a little bit worse than usual, but no chest pain, shortness of breath, nausea, vomiting, weakness, or any other concerns. Patient family states that he has seemed a little weaker and short of breath, but patient is denying any other symptoms. It should be noted that patient is currently not on any diuretic medications and has a history of CHF likely contributing to current clinical picture given not at goal treatment. History was obtained via conversation with patient and family. On arrival, patient hemodynamically stable, alert, oriented x4, appropriate, GCS 15, moving all extremities spontaneously, pupils equal and reactive to light. Full physical exam performed and significant for well-appearing male no acute distress. Speaking in full sentences and interacting appropriately. Lungs with rales in bilateral lung handy inferiorly. Nontachypneic, nontachycardic. He does have bilateral 2+ significant lower extremity edema. Differential includes CHF exacerbation, ACS, ND, hypokalemia, hypomagnesemia, pneumonia, UTI, sepsis, among others.. Patient placed on continuous cardiac monitoring and continuous pulse ox with initial blood pressure 110/52, heart rate 55, O2 sat 97% on room air. Independent interpretation of EKG shows sinus bradycardia first-degree AV block with IL interval 215 QRS 86, QTc 463 likely secondary to hypomagnesemia. No acute ischemic change. Patient was given magnesium and potassium p.o. and IV for symptomatic management and correction of underlying abnormalities. Workup independently interpreted and significant for relative lymphopenia with mild leukopenia. Nonactionable coags. VBG nonactionable as well. Patient has hypokalemia 2.9, hypomagnesemia 0.9, but normal kidney function. Troponin negative, but BNP elevated at 4300. Urinalysis nonactionable. On independent interpretation of imaging, patient has no obvious volume overload or any other cardiopulmonary space disease. See radiology read for full review of final results. Heart score 4. On reevaluation, was recommended that patient is admitted. Patient adamantly declining being admitted. States that he wants to leave AMA and go home where he is comfortable, especially after the last few weeks. Is been in and out of hospitals, rehab facilities, etc. Prolonged discussion had with patient and family regarding safest way for home-going, this included furosemide, daily magnesium and potassium, daily weight hands, lower extremity compression stockings and close follow-up for repeat labs and evaluation by PCP. Both family and patient voiced their understanding. The patient left AGAINST MEDICAL ADVICE after a thorough discussion of the risks of doing so, including a discussion of potential alternative plans. These risks include but are not limited to clinical decompensation, exterminator disability and . The patient appears capable of making this decision. I have advised the patient to immediately return if there are any further problems or if they change their mind about seeking further care. Senior Web Applications Developer disclaimer Much of this encounter note is an electronic occupational medicine physician spoken language to printed text. Electronic occupational medicine physician of the spoken language may permit errors. Although I have reviewed the note, some errors may still exist. Critical Care Critical Care Time Critical Care Time: Yes (cardiac, metabolic) Attestation: On 07/25/24, the high probability of a clinically significant, sudden or life threatening deterioration of the following system(s) required my full and direct attention, intervention and personal management. The time I documented below is in addition to time spent performing reported procedures but includes the following listed in this critical care notation. Total Time Total Critical Care Time: 45
--- NOTE | 2024-07-25 16:22 | PC.NURSE ---
XR AT BEDSIDE
[2024-07-25 16:26] LABS: Lactate Venous 1.5 mmol/L (0.4-2.0); VBG Base Excess -0.7 mmol/L (-2.4-2.3); VBG HCO3 22.9 mmol/L (23-30); VBG Oxygen Saturation 96.1 % (50-70); VBG PH 7.47 mmol/L (7.31-7.41); VBG PO2 97.8 mmol/L (28-40); VBG Total CO2 23.9 mmol/L (23-27)
[2024-07-25 16:27] LABS: Microscopic, Urine URINE MICROSCOPIC (MICROSCOPIC)
[2024-07-25 16:28] LABS: Appearance,Urine CLEAR (Clear); Bilirubin,Urine Negative (Negative); Blood, Urine Negative (Negative); Color,Urine YELLOW (Yellow); Glucose,Urine (UA) TRACE (Negative); Ketones,Urine Negative (Negative); Leukocyte Esterase,Urine Negative (Negative); Nitrate,Urine Negative (Negative); PH,Urine 6.5 (5.0-8.5); Protein,Urine Negative (Negative); Specific Gravity, Urine 1.015 (1.005-1.030); Urobilinogen,Urine 0.2 EU/dl (0.2)
--- NOTE | 2024-07-25 16:35 | PC.NURSE ---
DR ERNANDEZ AT BEDSIDE TO UPDATE PT AND FAMILY
[2024-07-25 16:43] LABS: Bacteria,Urine 1+ /lpf
[2024-07-25 16:44] LABS: Mucus,Urine 1+ /lpf
[2024-07-25] MEDS: MAGNESIUM OXIDE 400MG TABLET 800 MG PO (16:49)
[2024-07-25] MEDS: KCl 20mEq/100ml 100 ML 50 MEQ IV ×2 (16:50→18:47)
[2024-07-25] MEDS: MAGNESIUM SULFATE IN WATER 2 GM/50 ML PIGGYBACK IV (16:50)
[2024-07-25] MEDS: POTASSIUM CHLORIDE 20MEQ TAB 60 MEQ PO (16:50)
[2024-07-25 17:31] VITALS: BP 113/60; PULSE 64; RESP 16; O2SAT 99
[2024-07-25 18:00] VITALS: BP 114/64; PULSE 64; RESP 16; O2SAT 97
[2024-07-25 18:30] VITALS: BP 101/50; PULSE 64; RESP 16; O2SAT 97
[2024-07-25 19:53] LABS: Troponin I 0.02 ng/ml (0.00-0.034)
[2024-07-25] MEDS: FUROSEMIDE 40MG/4ML VIAL 80 MG IV (20:51)
[2024-07-25 21:19] VITALS: BP 109/55; PULSE 57; RESP 16; TEMP 36.8; O2SAT 95
== END 2024-07-25 21:21 | disposition left against medical advice (07) ==
PROVIDERS: Emergency Provider Emergency Medicine; PCP Family Medicine
DX: E83.42 Hypomagnesemia (principal); I50.9 Heart failure, unspecified; E87.6 Hypokalemia; R53.1 Weakness; R41.82 Altered mental status, unspecified
CPT/HCPCS: 71045; 80053; 81001; 82803; 83735; 83880; 84484; 85025; 85610; 85730; 93005; 96365; 96366; 96367; 96374; 99291; J1940; J3475

== ENCOUNTER 2024-07-30 11:37 | Observation (INO) | payer MEDICARE, SELFPAY ==
[2024-07-30] VITALS (11 sets, daily range): BP systolic 100–123; BP diastolic 44–74; PULSE 74–94; RESP 14–20; TEMP 36.6–36.8; O2SAT 94–100; BMI 21.5; BMI 20.2
--- NOTE | 2024-07-30 12:11 | HMH.EDGENADL ---
Discharge Plan Disposition Chief Complaint: Weakness Prescriptions Prescriptions: No Action multivitamin [Multiple Vitamins] Tablet 1 tab PO DAILY pantoprazole 40 mg tablet,delayed release (DR/EC) 40 mg PO ONCE Patient Comments: TAKE 1 TABLET BY MOUTH ONCE DAILY metoprolol succinate [Toprol XL] 50 mg tablet extended release 24 hr 50 mg PO DAILY Qty: 30 3RF Xtandi 40 mg capsule 40 mg PO DAILY (DEREK) [place] [facility] [place] Inst[place] .Route Qty: 1 0RF Rx Instructions: As directed spironolactone [Aldactone] 25 mg tablet 12.5 mg PO DAILY Qty: 30 0RF amiodarone 200 mg tablet 200 mg PO DAILY 30 Days Qty: 30 5RF pravastatin 20 MG tablet 20 mg PO HS furosemide 40 mg Tablet 40 mg PO DAILY 30 Days Qty: 30 0RF Eliquis 5 mg Tablet 5 mg PO BID 30 Days Qty: 60 0RF Jardiance 10 mg Tablet 10 mg PO DAILY 30 Days Qty: 30 0RF potassium chloride 20 mEq tablet extended release 40 meq PO DAILY Qty: 30 1RF magnesium oxide 400 mg magnesium tablet 400 mg PO DAILY Qty: 30 1RF furosemide 40 mg tablet 40 mg PO DAILY Qty: 30 1RF tamsulosin 0.4 mg Capsule 0.4 mg PO HS montelukast 10 mg Tablet 10 mg PO PM lisinopril 2.5 mg Tablet 2.5 mg PO DAILY 30 Days Qty: 30 0RF Referrals Follow up/Referrals: Artur Quintero [Primary Care Provider] - See instructions Print Language Print Language: Armenian Discharge ED Provider: Sae Fritz General Adult HPI General Chief complaint: Weakness Stated complaint: Pain in both legs, confusion Time Seen by Provider: 07/30/24 11:40 History of Present Illness HPI narrative: Patient is a 83-year-old male with past medical history of atrial fibrillation on anticoagulation, heart failure who presents emergency department for evaluation of leg swelling. History is obtained by patient at bedside and by son. Patient a couple of months ago was sent for acute renal failure to [facility] where he was subsequently discharged to a rehab facility and discharged home. Since then he has had worsening functional decline and swelling of his bilateral lower extremities. He was evaluated by Dr. Calloway in the emergency department where workup was remarkable for electrolyte abnormalities and heart failure and he was offered admission as it was appropriate however patient had capacity and decided against this at that time. He has had progressive lower extremity swelling, he becomes intermittently confused at night and is becoming a safety hazard at his home which she lives alone. He was found walking outside with no reason, he has turned the stove on and forgot about it recently. With respect to his bilateral lower extremity swelling it has been there in some capacity for weeks however has gotten acutely worse. Due to all these concerns they present here for continued evaluation Related Data Home Medications ?Medication ?Instructions ?Recorded ?Confirmed pravastatin 20 mg tablet 20 mg PO HS 09/29/20 07/02/24 montelukast 10 mg tablet 10 mg PO PM 05/18/22 07/02/24 tamsulosin 0.4 mg capsule 0.4 mg PO HS 05/18/22 07/02/24 multivitamin (Multiple Vitamins 1 tab PO DAILY 06/19/24 07/02/24 tablet) pantoprazole 40 mg tablet,delayed 40 mg PO ONCE 06/19/24 07/02/24 release enzalutamide 40 mg capsule (Xtandi) 40 mg PO DAILY 07/02/24 07/02/24 Previous Rx's ?Medication ?Instructions ?Recorded apixaban 5 mg tablet (Eliquis) 5 mg PO BID 30 days #60 tabs 05/08/24 empagliflozin 10 mg tablet 10 mg PO DAILY 30 days #30 tabs 05/08/24 (Jardiance) furosemide 40 mg tablet 40 mg PO DAILY 30 days #30 tabs 05/08/24 lisinopril 2.5 mg tablet 2.5 mg PO DAILY 30 days #30 tabs 05/17/24 metoprolol succinate 50 mg 50 mg PO DAILY #30 tabs 06/19/24 tablet,extended release 24 hr (Toprol XL) amiodarone 200 mg tablet 200 mg PO DAILY 30 days #30 tabs 07/02/24 spironolactone 25 mg tablet 12.5 mg (1/2 x 25 mg) PO DAILY #30 07/02/24 (Aldactone) tabs walker #1 ea 07/02/24 furosemide 40 mg tablet 40 mg PO DAILY #30 tabs 07/25/24 magnesium oxide 400 mg PO DAILY #30 tabs 07/25/24 potassium chloride 20 mEq 40 meq (2 x 20 mEq) PO DAILY #30 07/25/24 tablet,extended release tabs Allergies Allergy/AdvReac Type Severity Reaction Status Date / Time No Known Allergies Allergy Verified 07/02/24 10:07 [facility] Disclaimer: The information contained in this section may have been updated after the patient was seen, as this information can be updated by other users. Medical History Acute pain of left hip Duodenal diverticulum No obvious extravasation. No definitive evidence of inflammatory changes and/around diverticulum. Intra-abdominal fluid Pneumoperitoneum Fracture of finger of left hand Coronary artery disease Atrial fibrillation Acute HFrEF (heart failure with reduced ejection fraction) Family history of prostate problems Arthritis Allergies Deviated septum History of cataract Hyperlipidemia Hypertension Surgical History History of colonoscopy History of hernia surgery Family History Father Heart attack Social History Smoking Status: Never smoker second hand exposure: No alcohol intake: never substance use type: denies use current occupational status: retired and other Travel in the last 8 weeks: None household members: spouse housing: house current occupational exposures/hazards: Yes caffeine: No Have you lived/traveled outside US in past 30 days?: No Contact w/someone who lives/traveled outside US past 30 days?: No Exposure to someone with infectious disease in past 14 days?: No Do you have a fever (greater than 100.4 F or 38 C)?: No Have you tested positive for COVID-19: No Exposed to someone with COVID-19 in past 14 days?: No Do you have a sore throat?: No Do you have a cough?: No Do you have any weakness?: No Do you have any diarrhea?: No Are you experiencing any unusual bleeding?: No Do you have any muscle aches/pain?: No Do you have any abdominal pain?: No Are you experiencing loss of taste or smell?: No Other Medical History Have you received the Flu Vaccine for this season: No Have you received the Pneumonia Vaccine: No ROS Obtained: Yes Systems reviewed as appropriate & no additional complaints except as documented Physical Exam General General appearance: alert and in no apparent distress Head Head exam: normocephalic and other (Right periorbital bruising) Eye Eye exam: Present PERRL ENT ENT exam: Present mucous membranes moist Neck Neck exam: Present normal inspection Chest Chest inspection: Present normal inspection and symmetric chest wall rise Respiratory Respiratory exam: Present normal lung sounds bilaterally; Absent respiratory distress Cardiovascular Cardiovascular exam: Present regular rate and normal rhythm Abdominal Exam Abdominal exam: Present soft; Absent tenderness Extremities Exam Extremities exam: Present other (3+ pitting edema bilateral lower extremities distal to the knee with symmetric erythema and skin cracking with some weeping.) Neurological Exam Neurological exam: Present alert and CN II-XII intact; Absent oriented X3 (Not oriented to year) Psychiatric Psychiatric exam: Present normal affect Skin Skin exam: Present warm and dry Medical Decision Making Medical Records Screening: Per USPSTF and CDC recommendations, given the prevalence of disease in our region, it is our hospital?s policy to screen for HIV and viral Hepatitis for all patients aged 18 and over and those with ongoing risk factors. Remi Inquiry Pt receiving controlled substance: No Vital Signs: 07/30/24 11:38 07/30/24 12:10 07/30/24 13:00 Temperature 98.2 F Temperature Source Oral Pulse Rate 82 75 Pulse Rate [Left Radial] 74 Respiratory Rate 20 15 Blood Pressure 115/46 L 123/70 Blood Pressure [Right Arm] 115/46 L Blood Pressure Mean [Right Arm] 69 02 Sat by Pulse Oximetry 97 94 L 98 Oxygen Delivery Method Room Air Room Air Room Air 07/30/24 13:30 07/30/24 14:00 07/30/24 15:00 Temperature Temperature Source Pulse Rate 94 H 88 81 Pulse Rate [Left Radial] Respiratory Rate 16 20 14 Blood Pressure 113/74 110/65 100/44 L Blood Pressure [Right Arm] Blood Pressure Mean [Right Arm] 02 Sat by Pulse Oximetry 97 100 99 Oxygen Delivery Method Room Air Room Air Room Air Lab Data Lab Results 07/30/24 12:30: Sodium 133 L, Potassium 4.7, Chloride 100, Carbon Dioxide 30, Anion Gap 7.7, BUN 16, Creatinine 0.70, Estimated Creat Clear 52, Estimated GFR 107, Est GFR ( Amer) 130, Glucose 88, Calcium 8.1 L, Magnesium 1.8, Total Bilirubin 0.6, AST 28, ALT 29, Alkaline Phosphatase 104, Troponin I 0.03, NT-Pro-B Natriuret Pep 1120 H, Total Protein 5.3 L, Albumin 2.8 L, Globulin 2.5, Albumin/Globulin Ratio 1.1, TSH 3.29, Free T4 2.55 H 07/30/24 12:36: WBC 4.2 L, RBC 3.14 L, Hgb 10.5 L, Hct 30.9 L, MCV 98.4 H, MCH 33.4 H, MCHC 34.0, RDW 21.2 H, Plt Count 229, MPV 9.6, Neut % (Auto) 71.8, Lymph % (Auto) 13.9, [place] % (Auto) 10.5 H, Eos % (Auto) 3.1, Baso % (Auto) 0.5, Neut # (Auto) 3.0, Lymph # (Auto) 0.6 L, [place] # (Auto) 0.4, Eos # (Auto) 0.1, Baso # (Auto) 0.0 07/30/24 13:58: Urine Color Yellow, Urine Appearance Clear, Urine pH 7.0, Ur Specific [place] 1.020, Urine Protein Negative, Urine Glucose (UA) Negative, Urine Ketones Negative, Urine Blood Negative, Urine Nitrate Negative, Urine Bilirubin Negative, Urine Urobilinogen 0.2, Ur Leukocyte Esterase Negative, Urine RBC None, Urine WBC Occasional, Ur Squamous Epith Cells 3-5, Urine Bacteria Trace 07/30/24 14:50: Troponin I 0.03 07/30/24 12:36 07/30/24 12:30 Orders (Tests/Meds): ED MEDICATIONS Discontinued Medications Generic Name Dose Route Start Last Admin Trade Name Missael PRN Reason Stop Dose Admin Furosemide 40 mg 07/30/24 14:26 07/30/24 15:06 Furosemide 40mg/4ml Vial IV 07/30/24 14:27 Not Given ONCE ONE ORDERS Category Date Time Status Consult to Case Management [CONS] Routine Cons 07/30/24 15:32 Active CXR --portable [XR chest portable] Stat Exams 07/30/24 15:19 Taken POCUS Point of Care (ER Only) Stat Exams 07/30/24 11:44 Completed BNP [NT Pro Brain Natriuretic Pep.] Stat Lab 07/30/24 12:30 Completed CBC w/Auto Diff [Complete Blood Count Auto Diff] Stat Lab 07/30/24 12:36 Completed CMP [Comprehensive Metabolic Panel] Stat Lab 07/30/24 12:30 Completed Free T4 (Free Thyroxine) Stat Lab 07/30/24 12:30 Completed Magnesium Stat Lab 07/30/24 12:30 Completed TSH [Thyroid Stimulating Hormone] Stat Lab 07/30/24 12:30 Completed Trop I [Troponin I] Stat Lab 07/30/24 12:30 Completed Troponin I Q3H Lab 07/30/24 14:50 Completed Troponin I Q3H Lab 07/30/24 18:00 Ordered UA [Urinalysis and Microscopic] Stat Lab 07/30/24 13:58 Completed Medical Decision Narrative: In summary patient is 83-year-old male past medical history described above who presents emergency department for evaluation of functional decline lower extremity swelling. Patient is hemodynamically stable nontoxic-appearing upon arrival, afebrile. His legs are frankly edematous with 3+ pitting edema. I spoke with Dr. Calloway personally about patient's evaluation 07-25-2024 where patient was recommended for admission given multiple electrolyte abnormalities and need for diuresis however he did have capacity at that time and signed out against medical vice and presents for continued care. I reviewed notes from patient's hospitalization at [facility] and patient was diagnosed with amiodarone toxicity at that time which was discontinued and patient was started on prednisone. With respect to his lower extremity swelling it is likely due to heart failure for which workup will be conducted with hematologic labs, [id number] ultrasound of the heart. Diuresis will be deferred until potassium magnesium are back given that they were low before. With respect to the lower electrolytes, global weakness workup will be conducted with hematologic labs. We did speak to changing in mentation over the last few weeks it may be due to frequent changes in his housing causing mild delirium, may be early onset dementia, urinary tract infection, electrolyte abnormalities, among others. Urinalysis will be added for this. [id number] ultrasound at bedside shows slightly decreased ejection fraction, B-lines in bilateral lung handy. Initial workup reviewed by me, hematologic labs have stable anemia, no significant leukocytosis, normal platelets. No critical electrolyte abnormality and potassium magnesium is significantly improved from prior, there is mild hypercalcemia. BMP is improved from prior. Given no significant electrolyte abnormalities Lasix is now appropriate for which 40 mg will be administered. Free T4 mildly elevated I do not think is contributing to patient's symptoms. Urinalysis interpreted by me and not consistent with infection. The case was discussed with Dr. Vázquez regarding management and patient will be admitted to his service for continued evaluation at this time. Indication: Cardiac ultrasound for swelling Identified cardiac views: Cardiac parasternal long and apical four-chamber Findings: Cardiac activity present, gross wall motion normal, no large pericardial effusion, decreased ejection fraction, B-lines in the bilateral lung handy Impression: From above Images were saved to permanent archive The study was technically adequate CPT: 99883 This study was performed by me, and I personally interpreted all images/videos. Based on my clinical judgement, these images were adequate and did not necessitate further imaging. Critical Care Critical Care Time Critical Care Time: No
--- NOTE | 2024-07-30 12:32 | PC.NURSE ---
CALLED DIETARY FOR A NON SALT TRAY FOR PT
--- NOTE | 2024-07-30 12:35 | PC.NURSE ---
PT WAS GIVEN A TRAY AT THIS TIME
[2024-07-30 12:56] LABS: Albumin Level 2.8 g/dl (3.5-5.0); Chloride 100 mmol/L (98-107); Potassium 4.7 mmoL/L (3.5-5.1); Sodium 133 mmol/L (136-145)
[2024-07-30 12:59] LABS: Alanine Aminotransferase 29 U/L (12-78); Albumin/Globulin Ratio 1.1 (1.1-1.8); Alkaline Phosphatase 104 U/L (38-126); Anion Gap 7.7 mEq/L (5-15); Aspartate Amino Transferase 28 U/L (17-59); Bilirubin,Total 0.6 mg/dl (0.2-1.3); Blood Urea Nitrogen 16 mg/dl (9-20); Calcium 8.1 mg/dl (8.4-10.2); Carbon Dioxide 30 mmol/L (22.0-30.0); Creatinine Clearance Estimated 52 mL/min (50-200); Estimated Glomerular Filt Rate 107 ml/min (>60); GFR (African American) 130 ML/MIN (>60); Globulin 2.5 g/dL (1.3-3.2); Glucose 88 mg/dl (74-100); Total Protein,Serum 5.3 g/dl (6.3-8.2)
[2024-07-30 13:00] LABS: Magnesium 1.8 mg/dl (1.6-2.3)
[2024-07-30 13:09] LABS: NT Pro Brain Natriuretic Pep. 1120 pg/mL (0-450)
[2024-07-30 13:11] LABS: Troponin I 0.03 ng/ml (0.00-0.034)
[2024-07-30 13:22] LABS: Free T4 (Free Thyroxine) 2.55 ng/dl (0.78-2.19)
[2024-07-30 13:28] LABS: Basophils % 0.5 % (0.1-2.0); Eosinophils # 0.1 K/mm3 (0.0-0.4); Eosinophils % 3.1 % (0.1-12.0); Hematocrit 30.9 % (42.0-52.0); Hemoglobin 10.5 g/dL (14.1-18.0); Lymphocytes # 0.6 K/mm3 (0.7-4.5); Lymphocytes % 13.9 % (10-50); Mean Corpuscular Hemoglobin 33.4 pg (27.0-31.2); Mean Corpuscular Volume 98.4 fl (80-94); Mean Platelet Volume 9.6 fl (7.4-10.4); Monocytes # 0.4 K/mm3 (0.1-1.0); Monocytes % 10.5 % (1.7-9.3); Neutrophils % 71.8 % (37.0-80.0); Platelet Count 229 K/mm3 (142-424); Red Blood Count 3.14 M/mm3 (4.60-6.20); Red Cell Distribution Width 21.2 % (11.5-17.5); White Blood Count 4.2 K/mm3 (4.8-10.8)
[2024-07-30 13:30] LABS: Thyroid Stimulating Hormone 3.29 uIU/mL (0.465-4.68)
[2024-07-30 14:02] LABS: Microscopic, Urine URINE MICROSCOPIC (MICROSCOPIC)
[2024-07-30 14:10] LABS: Appearance,Urine CLEAR (Clear); Bilirubin,Urine Negative (Negative); Blood, Urine Negative (Negative); Color,Urine YELLOW (Yellow); Glucose,Urine (UA) Negative (Negative); Ketones,Urine Negative (Negative); Leukocyte Esterase,Urine Negative (Negative); Nitrate,Urine Negative (Negative); Protein,Urine Negative (Negative); Urobilinogen,Urine 0.2 EU/dl (0.2)
[2024-07-30 14:18] LABS: Bacteria,Urine Trace /lpf; WBC,Urine Occasional #/hpf (0-3)
--- NOTE | 2024-07-30 15:19 | XR_ITS ---
FINAL REPORT TECHNIQUE: Single view chest CLINICAL HISTORY: ams COMPARISON: 07/25/2024 FINDINGS: A single view of the chest was obtained. The heart and mediastinum are within normal limits. There is atelectasis at the right lung base. The lungs are otherwise clear. There is no pneumothorax. IMPRESSION: Right base atelectasis. Reviewed, Interpreted and Dictated by Jasvir Sheffield MD Transcribed by Irina Vargas Authenticated and [facility]
[2024-07-30 15:26] LABS: Troponin I 0.03 ng/ml (0.00-0.034)
--- NOTE | 2024-07-30 15:38 | PC.NURSE ---
spoke with house painter for bed request
--- NOTE | 2024-07-30 17:05 | PC.NURSE ---
called report to lane matute on and answered all questions
[2024-07-30 19:04] LABS: Troponin I 0.02 ng/ml (0.00-0.034)
--- NOTE | 2024-07-30 20:58 | EXP.HP ---
History of Present Illness *Admission Date: 07/30/24 *Reason for visit:: Confusion, falls *History of present illness: Bill Lozano is a 83-year-old male with a medical history significant for HFrEF 30% April 2024, paroxysmal A-fib, CAD, BPH, prostate cancer on Xtandi who presents after son became very concerned about patient's ability to take care of himself at home. Per son, patient mentation has gradually declined over the past months to a point where son states patient is often confused, falls at home, leaves appliances on including stove at home and forgets. My interview with the patient revealed intermittent confusion but does have some coherence at times. Son states it has come to a point where he does not feel his dad is able to live by himself at home. He has been brought to the ED many times over the past month. Workup in the ED significant for BNP 1120 but otherwise relatively unremarkable CBC, CMP, UA, CXR. Patient did have significant lower extremity pitting edema 4+ but saturating appropriately on room air. Case discussed with ED provider and decision was made to admit patient for failure to thrive at home, recurrent falls, decline in cognitive function. [facility] Disclaimer: The information contained in this section may have been updated after the patient was seen, as this information can be updated by other users. Medical History Acute pain of left hip Duodenal diverticulum No obvious extravasation. No definitive evidence of inflammatory changes and/around diverticulum. Intra-abdominal fluid Pneumoperitoneum Fracture of finger of left hand Coronary artery disease Atrial fibrillation Acute HFrEF (heart failure with reduced ejection fraction) Family history of prostate problems Arthritis Allergies Deviated septum History of cataract Hyperlipidemia Hypertension Surgical History History of colonoscopy History of hernia surgery Family History Father Heart attack Social History Smoking Status: Never smoker second hand exposure: No alcohol intake: never substance use type: denies use current occupational status: retired and other Travel in the last 8 weeks: None household members: spouse housing: house current occupational exposures/hazards: Yes caffeine: No Have you lived/traveled outside US in past 30 days?: No Contact w/someone who lives/traveled outside US past 30 days?: No Exposure to someone with infectious disease in past 14 days?: No Do you have a fever (greater than 100.4 F or 38 C)?: No Have you tested positive for COVID-19: No Exposed to someone with COVID-19 in past 14 days?: No Do you have a sore throat?: No Do you have a cough?: No Do you have any weakness?: No Do you have any diarrhea?: No Are you experiencing any unusual bleeding?: No Do you have any muscle aches/pain?: No Do you have any abdominal pain?: No Are you experiencing loss of taste or smell?: No Other Medical History Have you received the Flu Vaccine for this season: Yes Have you received the Pneumonia Vaccine: No Meds Home Medications and Allergies Home Medications ?Medication ?Instructions ?Recorded ?Confirmed ?Type pravastatin 20 mg tablet 20 mg PO HS 09/29/20 07/02/24 History montelukast 10 mg tablet 10 mg PO PM 05/18/22 07/02/24 History tamsulosin 0.4 mg capsule 0.4 mg PO HS 05/18/22 07/02/24 History empagliflozin 10 mg tablet 10 mg PO DAILY 30 days #30 tabs 05/08/24 07/02/24 Rx (Jardiance) furosemide 40 mg tablet 40 mg PO DAILY 30 days #30 tabs 05/08/24 07/02/24 Rx lisinopril 2.5 mg tablet 2.5 mg PO DAILY 30 days #30 tabs 05/17/24 07/02/24 Rx metoprolol succinate 50 mg 50 mg PO DAILY #30 tabs 06/19/24 07/02/24 Rx tablet,extended release 24 hr (Toprol XL) multivitamin (Multiple Vitamins 1 tab PO DAILY 06/19/24 07/02/24 History tablet) pantoprazole 40 mg tablet,delayed 40 mg PO ONCE 06/19/24 07/02/24 History release amiodarone 200 mg tablet 200 mg PO DAILY 30 days #30 tabs 07/02/24 07/02/24 Rx enzalutamide 40 mg capsule (Xtandi) 40 mg PO DAILY 07/02/24 07/02/24 History spironolactone 25 mg tablet 12.5 mg (1/2 x 25 mg) PO DAILY #30 07/02/24 07/02/24 Rx (Aldactone) tabs walker #1 ea 07/02/24 07/02/24 Rx furosemide 40 mg tablet 40 mg PO DAILY #30 tabs 07/25/24 Rx magnesium oxide 400 mg PO DAILY #30 tabs 07/25/24 Rx potassium chloride 20 mEq 40 meq (2 x 20 mEq) PO DAILY #30 07/25/24 Rx tablet,extended release tabs apixaban 2.5 mg tablet (Eliquis) 2.5 mg PO DAILY 07/30/24 07/30/24 History furosemide 40 mg tablet 40 mg PO DAILY 07/30/24 07/30/24 History magnesium oxide 400 mg (241.3 mg 400 mg PO DAILY 07/30/24 07/30/24 History magnesium) tablet potassium chloride 20 mEq 40 meq PO DAILY 07/30/24 07/30/24 History tablet,extended release risperidone 0.25 mg tablet 0.25 mg PO HS 07/30/24 07/30/24 History New Prescriptions to Start Prescriptions: Allergies Allergy/AdvReac Type Severity Reaction Status Date / Time No Known Allergies Allergy Verified 07/02/24 10:07 Exam Data for Last 24 hours Vital signs and Labs for Last 24 Hours: Temp Pulse Resp BP Pulse Ox O2 Del Method 98.3 F 82 20 114/57 L 98 Room Air 07/30/24 18:00 07/30/24 18:00 07/30/24 18:00 07/30/24 18:00 07/30/24 18:00 07/30/24 19:00 Laboratory Results - last 24 hr 07/30/24 12:30: Sodium 133 L, Potassium 4.7, Chloride 100, Carbon Dioxide 30, Anion Gap 7.7, BUN 16, Creatinine 0.70, Estimated Creat Clear 52, Estimated GFR 107, Est GFR ( Amer) 130, Glucose 88, Calcium 8.1 L, Magnesium 1.8, Total Bilirubin 0.6, AST 28, ALT 29, Alkaline Phosphatase 104, Troponin I 0.03, NT-Pro-B Natriuret Pep 1120 H, Total Protein 5.3 L, Albumin 2.8 L, Globulin 2.5, Albumin/Globulin Ratio 1.1, TSH 3.29, Free T4 2.55 H 07/30/24 12:36: WBC 4.2 L, RBC 3.14 L, Hgb 10.5 L, Hct 30.9 L, MCV 98.4 H, MCH 33.4 H, MCHC 34.0, RDW 21.2 H, Plt Count 229, MPV 9.6, Neut % (Auto) 71.8, Lymph % (Auto) 13.9, [place] % (Auto) 10.5 H, Eos % (Auto) 3.1, Baso % (Auto) 0.5, Neut # (Auto) 3.0, Lymph # (Auto) 0.6 L, [place] # (Auto) 0.4, Eos # (Auto) 0.1, Baso # (Auto) 0.0 07/30/24 13:58: Urine Color Yellow, Urine Appearance Clear, Urine pH 7.0, Ur Specific [place] 1.020, Urine Protein Negative, Urine Glucose (UA) Negative, Urine Ketones Negative, Urine Blood Negative, Urine Nitrate Negative, Urine Bilirubin Negative, Urine Urobilinogen 0.2, Ur Leukocyte Esterase Negative, Urine RBC None, Urine WBC Occasional, Ur Squamous Epith Cells 3-5, Urine Bacteria Trace 07/30/24 14:50: Troponin I 0.03 07/30/24 18:32: Troponin I 0.02 I & O for Last 24 hours: Intake & Output 07/27/24 07/28/24 07/29/24 07/30/24 23:59 23:59 23:59 23:59 Weight 64.013 kg Constitutional Constitutional: no acute distress Comments: Pleasant but often confused. *Routine HEENT Exam Head: Present normocephalic Eye: Present EOMI and PERRL ENT: Present mucous membranes moist *Routine Neck Exam Neck: Present supple; Absent lymphadenopathy *Routine Respiratory Exam Respiratory: Present CTA bilaterally *Routine Cardiovascular Exam Cardiovascular: Present RRR *Routine Abdominal Exam Abdominal: Present soft and normoactive bowel sounds; Absent tenderness *Routine Rectal Exam Rectal:: deferred *Routine Genitalia Exam Genitalia:: deferred *Routine Extremities Exam Extremities: Present edema; Absent cyanosis or clubbing Comments: Bilateral lower extremity pitting edema 4+. *Routine Skin Exam Skin: Present warm; Absent rash *Routine Neurological Exam Neurological: Present alert and oriented X3 Assessment and Plan *Assessment and plan (1) Declining functional status: Status: Acute Category: Medical Code(s): R53.81 - Other malaise (2) Bilateral edema of lower extremity: Status: Acute Category: Medical Code(s): R60.0 - Localized edema Plan Bill Lozano is a 83-year-old male with a medical history significant for HFrEF 30% April 2024, paroxysmal A-fib, CAD, BPH, prostate cancer on Xtandi who presents after son became very concerned about patient's ability to take care of himself at home. Per son, patient mentation has gradually declined over the past months to a point where son states patient is often confused, falls at home, leaves appliances on including stove at home and forgets. My interview with the patient revealed intermittent confusion but does have some coherence at times. Son states it has come to a point where he does not feel his dad is able to live by himself at home. He has been brought to the ED many times over the past month. Workup in the ED significant for BNP 1120 but otherwise relatively unremarkable CBC, CMP, UA, CXR. Patient did have significant lower extremity pitting edema 4+ but saturating appropriately on room air. Case discussed with ED provider and decision was made to admit patient for failure to thrive at home, recurrent falls, decline in cognitive function. #Declining functional status #Recurrent falls #Cognitive decline ? May represent dementia versus mild cognitive impairment. ? CT head 07/05/2024 revealed generalized atrophy and chronic small vessel ischemic changes. No focal neurological deficits. ? Follow-up B12, folate. TSH normal, free T4 slightly elevated but subclinical. ? PT/OT consulted, pending recommendations. #HFrEF #Venous insufficiency ? Significant lower extremity pitting edema 4+. IV Lasix 40 mg given in the ED. BNP 1120. ? Unclear if patient has been taking his medications at home. ? Lower extremity edema may also represent venous insufficiency. ? If minimal response to Lasix, consider wound care consult for Unna boots. ? Son states compression stockings have been ordered. ? Cardiology consulted, pending further recommendations. #CAD ? Aspirin, statin. #BPH ? Continue home Flomax. #Prostate cancer ? Continue home Xtandi. Full code DVT prophylaxis: Lovenox 40 mg
[2024-07-30 23:00] LABS: Folate > 20.00 ng/mL
[2024-07-31 04:00] VITALS: BP 107/90; PULSE 90; RESP 16; TEMP 36.7; O2SAT 98; BMI 20.2
--- NOTE | 2024-07-31 04:10 | PC.NURSE ---
83 yo pt is alert and oriented X 2. He has denied pain or discomfort through shift. Pt able to ambulate to BR with standby assist. He needs reminded on how to use call light. Pt tolerating diet. VS have been WNL for pt
--- NOTE | 2024-07-31 06:30 | CA_ITS ---
APPROVED REPORT EXAM: Limited 2D Echocardiogram Bending Shed Worker: Mona Boyle, RCS, RVS Ht: 5 ft 10 in Wt: 141lbs BSA: 1.80 BP: 114/57 mmHg Indications: HFrEF, Bilateral leg pain, CAD, Hx-Afib, HTN, HLD Echo Enhancing Agent Comments: Limited windows due to body habitus 2D Dimensions IVSd 0.91 cm LVEF (Visual) 38.10 % PWd 1.00 cm LA Volume 111.80 mL LVDd 4.98 cm LA Volume Index [id number] mL/m2 (M/F) 16-34 LVDs 4.06 cm Left Atrium 3.95 cm M-Mode Dimensions LA Diam 4.47 cm (1.9-4.0) LV Diastology E Decel Time 233 (160-240 msec) E/A Ratio 0.69 MED A' 11.80 cm/s Aortic Valve AoV Peak Wei. 184.0 (50-130 cm/s) AO Peak GR. 13.60 mmHg AO Mean GR. 6.80 (<5 mmHg) AO VTI 36.9 (18-25 cm) Mitral Valve MV A Velocity 76.0 (40-130 cm/s) E/A Ratio 0.69 Tricuspid Valve TR P. Velocity 218.00 cm/s RAP Estimate 10.00 mmHg RVSP 28.90 mmHg Other Information Study Quality: Fair Conclusion This is a limited TTE to evaluate for LV systolic function. Limited windows are obtained. The left ventricle is normal in size. There is increased LV wall thickness. There is mild reduction global LV systolic function. LVEF is 45-50%. . Electronically signed by : Chasity Bettencourt MD 08/01/2024 01:31:13
--- NOTE | 2024-07-31 07:58 | HMH.PHAINT1 ---
Pharmacy Intervention Comments: MEDICATION RECONCILIATION COMPLETED ON PATIENT USING EXTERNAL FILL HISTORY FROM PHARMACY. -SAUL PEREZ, CESARD
[2024-07-31 08:00] VITALS: BP 110/80; PULSE 90; RESP 16; TEMP 36.7; O2SAT 98
[2024-07-31 08:19] LABS: Basophils % 0.6 % (0.1-2.0); Eosinophils # 0.4 K/mm3 (0.0-0.4); Eosinophils % 7.8 % (0.1-12.0); Hemoglobin 10.9 g/dL (14.1-18.0); Lymphocytes # 0.5 K/mm3 (0.7-4.5); Lymphocytes % 10.1 % (10-50); Mean Corpuscular Hemoglobin 32.7 pg (27.0-31.2); Mean Corpuscular Volume 99.1 fl (80-94); Mean Platelet Volume 9.5 fl (7.4-10.4); Monocytes # 0.4 K/mm3 (0.1-1.0); Monocytes % 8.3 % (1.7-9.3); Neutrophils # 3.8 K/mm3 (1.8-7.8); Neutrophils % 72.6 % (37.0-80.0); Platelet Count 250 K/mm3 (142-424); Red Blood Count 3.33 M/mm3 (4.60-6.20); Red Cell Distribution Width 20.9 % (11.5-17.5); White Blood Count 5.3 K/mm3 (4.8-10.8)
[2024-07-31 08:26] LABS: Alanine Aminotransferase 26 U/L (12-78); Albumin Level 2.7 g/dl (3.5-5.0); Albumin/Globulin Ratio 1.2 (1.1-1.8); Alkaline Phosphatase 104 U/L (38-126); Anion Gap 8.5 mEq/L (5-15); Aspartate Amino Transferase 35 U/L (17-59); Bilirubin,Total 0.7 mg/dl (0.2-1.3); Blood Urea Nitrogen 16 mg/dl (9-20); Carbon Dioxide 28 mmol/L (22.0-30.0); Chloride 99 mmol/L (98-107); Creatinine Clearance Estimated 49 mL/min (50-200); Estimated Glomerular Filt Rate 107 ml/min (>60); GFR (African American) 130 ML/MIN (>60); Globulin 2.3 g/dL (1.3-3.2); Glucose 76 mg/dl (74-100); Magnesium 1.8 mg/dl (1.6-2.3); Potassium 4.5 mmoL/L (3.5-5.1); Sodium 131 mmol/L (136-145)
[2024-07-31] MEDS: ASPIRIN EC 81MG TABLET 81 MG PO (08:58)
[2024-07-31] MEDS: ENOXAPARIN 40MG/0.4ML SYRINGE 40 MG SUBCUT (08:58)
--- NOTE | 2024-07-31 09:29 | HMH.PTEV ---
Physical Therapy Evaluation Rehab PT IP Evaluation Start: 07/30/24 21:10 Freq: ONCE Status: Active Protocol: Document 07/31/24 09:20 LATONYA (Rec: 07/31/24 09:29 LATONYA [id number]) Subjective/History History History Per H&P: Bill Lozano is a 83-year-old male with a medical history significant for HFrEF 30% April 2024, paroxysmal A-fib, CAD, BPH, prostate cancer on Xtandi who presents after son became very concerned about patient's ability to take care of himself at home. Per son, patient mentation has gradually declined over the past months to a point where son states patient is often confused, falls at home, leaves appliances on including stove at home and forgets. My interview with the patient revealed intermittent confusion but does have some coherence at times. Son states it has come to a point where he does not feel his dad is able to live by himself at home. He has been brought to the ED many times over the past month. Workup in the ED significant for BNP 1120 but otherwise relatively unremarkable CBC, CMP, UA, CXR . Patient did have significant lower extremity pitting edema 4+ but saturating appropriately on room air. Case discussed with ED provider and decision was made to admit patient for failure to thrive at home, recurrent falls, decline in cognitive function. Subjective Subjective PLOF: Pt reports he was IND with all mobility including driving. Intermittent RW use. Pt lives alone and with hx of falls. New diagnosis of cancer in past 12 No months? Rehab PT IP Eval Objective Appearance Patient Behavior Appropriate,Cooperative Patient Orientation Person,Place Difficulty following instructions none Speech Pattern Clear Ambulation Patient Able to Ambulate Yes Ambulation Observation IP General Gait Pattern Observation No Deviations/Normal Ambulation Distance (feet) 35 Ambulation Assistive Device None Ambulation Ability Contact Guard/Hand Hold Balance Ability to Arise Able, uses arms to help Sitting Balance Steady, safe Standing Balance Steady, wide stance Dynamic Sitting Balance Ability Good Dynamic Standing Balance Ability Good Transfers Bed Transfer Ability Minimal x 1 (25% assist) Sit to Stand Bed Transfer Ability Contact Guard/Hand Hold Rehab PT IP prob,goals,plan Problems Date of Evaluation: 07/31/24 PT IP Problems Bed Mobility,Transfers,Gait, Balance,Safety Rehab Potential Rehab Potential Good Equipment Needs Assistive Devices Rolling / Wheeled Walker Plan PT Intervention Plan Bed Mobility,Transfers,Gait, Balance,Safety,Therapeutic Exercise Other Intervention Plan 1-2 times PT Plan Frequency Daily Duration LOS Discharge Goals Bed Transfer Ability Independent Sit to Stand Chair Transfer Ability Independent Ambulation Assistive Device Rolling Walker Ambulation Distance (feet) 50 Discharge Plan PT Discharge Plan Initial physical therapy evaluation performed. Patient presents below baseline at this time in functional mobility, transfers, and strength. Pt may be safe to d/ c home with assistance as needed by family and PT services. PT recommending against discharging pt home alone. Supervision by family member required d/t hx of falls and need for SUP/CGA with ambulation tasks. If pt unable to secure family assistance/supervision, PT may benefit from short-term inpatient rehabilitation upon d/c from [facility]. Pt would benefit from skilled acute care PT to prevent further functional decline and maximize safety with mobility. Eval Complexity Eval Charge Codes 98842 - Moderate Complexity PHYSICIAN CERTIFICATION: I certify the specified therapy services for Bill Lozano are required, authorized, and reviewed every 30 days.
[2024-07-31 09:30] LABS: Vitamin B12 812 pg/mL (239-931)
--- NOTE | 2024-07-31 09:51 | HMH.OTEV ---
OT Inpatient Evaluation Rehab OT IP Evaluation Start: 07/30/24 21:10 Freq: ONCE Status: Active Protocol: Document 07/31/24 09:43 GILDA (Rec: 07/31/24 09:51 [facility] [id number]) Rehab OT IP Assessment Subjective History Pt oriented to self and place on arrival, but unable to provide his birthday or current year correctly. Pt appears to be slightly confused at times. Pt admitted on 07/30/23 due to confusion and falls at home. Per H&P: Bill Lozano is a 83-year-old male with a medical history significant for HFrEF 30% April 2024, paroxysmal A-fib, CAD, BPH, prostate cancer on Xtandi who presents after son became very concerned about patient's ability to take care of himself at home. Per son, patient mentation has gradually declined over the past months to a point where son states patient is often confused, falls at home, leaves appliances on including stove at home and forgets. My interview with the patient revealed intermittent confusion but does have some coherence at times. Son states it has come to a point where he does not feel his dad is able to live by himself at home. He has been brought to the ED many times over the past month. Workup in the ED significant for BNP 1120 but otherwise relatively unremarkable CBC, CMP, UA, CXR . Patient did have significant lower extremity pitting edema 4+ but saturating appropriately on room air. Case discussed with ED provider and decision was made to admit patient for failure to thrive at home, recurrent falls, decline in cognitive function. Subjective I am pretty sure it is 2013. Pt provided previous history of functional independence. However, due to patients confusion and orientation, information he provided may not be trustworthy. Pt claims to be independent with all ADLs and IADLs and lived alone . He also claims he is still driving and that he does not require any type of AE during functional transfers. Objective Patient Orientation Person,Place Right Upper Extremity Gross ROM WFL Left Upper Extremity Gross ROM WFL Bed Mobility bed mobility-scooting,bed mobility - supine/sit Assist Level Minimal x 1 (25% assist) Transfer Training Sit/Stand Transfer Assist Level Contact Guard/Hand Hold Rehab OT IP prob,goals,plan Problems Date of Evaluation: 07/31/24 OT IP Problems Bed Mobility,Transfers,Balance ,Self care,Safety Rehab Potential Rehab Potential Good Equipment Needs Assistive Devices Rolling / Wheeled Walker Plan OT intervention Plan Bed Mobility,Transfers,Balance ,Self care,Safety,Therapeutic Exercise OT Plan Frequency Daily Duration LOS Discharge Goals Bed Mobility Ability Assistance x1 Sit to Stand Chair Transfer Ability Contact Guard/Hand Hold Chair Transfer Ability Supervision/Stand by Chair Transfer Technique Sit to/from Ambulatory Chair Transfer Assistive Devices Rolling Walker Lower Body Dressing Ability Minimal Assistance Upper Body Dressing Ability Standby Assistance Bathing Ability Minimal Assistance Performing Toilet Hygiene Ability Minimal Assistance Overall Commode/Toilet Transfer Ability Standby Assistance,Contact Guard Commode/Toilet Transfer Technique Sit to/from Ambulatory Commode/Toilet Transfer Assistive Grab Bars Devices Discharge Plan OT Discharge Plan Pt will continue to be seen for OT services while at [facility]. At this time, pt would benefit most from short term rehab at [facility] for continued skilled therapy. Pt could return home with OT evaluation, if family were able to provided 24/7 assistance due to his recent falls and decreased safety. Continued skilled therapy is important in order for patient to improve strength, safety, endurance, ADL independence, and functional transfers to reach PLOF. Eval Complexity Eval Charge Codes 72607 - Moderate Complexity PHYSICIAN CERTIFICATION: I certify the specified therapy services for Bill Lozano are required, authorized, and reviewed every 30 days.
--- NOTE | 2024-07-31 13:11 | EXP.CARD.CON ---
History of Present Illness History of Present Illness Consult date: 07/31/24 Requesting physician: Heath Webb Chief complaint: confusion, AMS History of present illness: This is an 83-year-old gentleman who presented to the emergency department with confusion and altered mental status. His family reports that he is gradually declined over the last month to the point where his son states that he is often confused and falling at home. He is leaving appliances on including the stove and forgets that these appliances are on. The patient is confused during my examination. He is alert to self but confused to time and place. The patient's family does not feel like it is safe for him to live at home. The patient was admitted to the hospital and found to have a BNP elevated at 1120 and he did have bilateral lower extremity edema on exam. He denies any chest pain or pressure. He denies any shortness of breath. He denies any fever, chills, nausea, vomiting, diarrhea, PND orthopnea. The patient was admitted for failure to thrive at home and recurrent falls. The patient does have a known history of chronic HFrEF with an ejection fraction at 40%. [facility] Disclaimer: The information contained in this section may have been updated after the patient was seen, as this information can be updated by other users. Medical History (Updated 07/31/24 @ 13:16 by Selene Mcdonnell APRN) Paroxysmal atrial fibrillation HFrEF (heart failure with reduced ejection fraction) Heart failure with improved ejection fraction (HFimpEF) Acute pain of left hip Duodenal diverticulum Intra-abdominal fluid Pneumoperitoneum Fracture of finger of left hand Coronary artery disease Atrial fibrillation Acute HFrEF (heart failure with reduced ejection fraction) Family history of prostate problems Arthritis Allergies Deviated septum History of cataract Hyperlipidemia Hypertension Surgical History History of colonoscopy History of hernia surgery Family History Father Heart attack Social History Smoking Status: Never smoker second hand exposure: No alcohol intake: never substance use type: denies use current occupational status: retired and other Travel in the last 8 weeks: None household members: spouse housing: house current occupational exposures/hazards: Yes caffeine: No Have you lived/traveled outside [place] in past 30 days?: No Contact w/someone who lives/traveled outside [place] past 30 days?: No Exposure to someone with infectious disease in past 14 days?: No Do you have a fever (greater than 100.4 F or 38 C)?: No Have you tested positive for COVID-19: No Exposed to someone with COVID-19 in past 14 days?: No Do you have a sore throat?: No Do you have a cough?: No Do you have any weakness?: No Do you have any diarrhea?: No Are you experiencing any unusual bleeding?: No Do you have any muscle aches/pain?: No Do you have any abdominal pain?: No Are you experiencing loss of taste or smell?: No Review of Systems Review of Systems Review of systems:: pertinent systems reviewed and negative unless documented below Constitutional Constitutional: Reports system reviewed and no additional complaints, except as documented, Reports frequent falls and Reports lethargy Eyes Eyes: Reports system reviewed and no additional complaints, except as documented ENT Ears, Nose, Mouth, and Throat: Reports system reviewed and no additional complaints, except as documented *Cardiovascular Cardiovascular: Reports system reviewed and no additional complaints, except as documented, Denies chest pain, Denies dyspnea and Denies leg edema *Respiratory Respiratory: Reports system reviewed and no additional complaints, except as documented and Denies dyspnea *Gastrointestinal Gastrointestinal: Reports system reviewed and no additional complaints, except as documented *Genitourinary Genitourinary: Reports system reviewed and no additional complaints, except as documented *Musculoskeletal Musculoskeletal: Reports system reviewed and no additional complaints, except as documented Integumentary/Breasts Skin/Breast: Reports system reviewed and no additional complaints, except as documented *Neurologic Neurologic: Reports system reviewed and no additional complaints, except as documented, Reports confusion, Reports frequent falls, Reports lack of coordination and Reports other (confusion, AMS) Psychiatric Psychiatric: Reports system reviewed and no additional complaints, except as documented and Reports confusion Endocrine Endocrine: Reports system reviewed and no additional complaints, except as documented Hematologic/Lymphatic Hematologic/Lymphatic: Reports system reviewed and no additional complaints, except as documented Allergic/Immunologic Allergic/Immunologic: Reports system reviewed and no additional complaints, except as documented Exam Data for Last 24 hours Vital signs and Labs for Last 24 Hours: Temp Pulse Resp BP Pulse Ox O2 Del Method 98.1 F 90 16 110/80 98 Room Air 07/31/24 08:00 07/31/24 08:00 07/31/24 08:00 07/31/24 08:00 07/31/24 08:00 07/31/24 11:00 Laboratory Results - last 24 hr 07/30/24 12:30: Troponin I 0.03, NT-Pro-B Natriuret Pep 1120 H, TSH 3.29, Free T4 2.55 H 07/30/24 12:36: WBC 4.2 L, RBC 3.14 L, Hgb 10.5 L, Hct 30.9 L, MCV 98.4 H, MCH 33.4 H, MCHC 34.0, RDW 21.2 H, Plt Count 229, MPV 9.6, Neut % (Auto) 71.8, Lymph % (Auto) 13.9, [place] % (Auto) 10.5 H, Eos % (Auto) 3.1, Baso % (Auto) 0.5, Neut # (Auto) 3.0, Lymph # (Auto) 0.6 L, [place] # (Auto) 0.4, Eos # (Auto) 0.1, Baso # (Auto) 0.0 07/30/24 13:58: Urine Color Yellow, Urine Appearance Clear, Urine pH 7.0, Ur Specific [place] 1.020, Urine Protein Negative, Urine Glucose (UA) Negative, Urine Ketones Negative, Urine Blood Negative, Urine Nitrate Negative, Urine Bilirubin Negative, Urine Urobilinogen 0.2, Ur Leukocyte Esterase Negative, Urine RBC None, Urine WBC Occasional, Ur Squamous Epith Cells 3-5, Urine Bacteria Trace 07/30/24 14:50: Troponin I 0.03 07/30/24 18:32: Troponin I 0.02, Folate > 20.00 07/31/24 07:25: WBC 5.3 D, RBC 3.33 L, Hgb 10.9 L, Hct 33.0 L, MCV 99.1 H, MCH 32.7 H, MCHC 33.0, RDW 20.9 H, Plt Count 250, MPV 9.5, Neut % (Auto) 72.6, Lymph % (Auto) 10.1, [place] % (Auto) 8.3, Eos % (Auto) 7.8, Baso % (Auto) 0.6, Neut # (Auto) 3.8, Lymph # (Auto) 0.5 L, [place] # (Auto) 0.4, Eos # (Auto) 0.4, Baso # (Auto) 0.0, Sodium 131 L, Potassium 4.5, Chloride 99, Carbon Dioxide 28, Anion Gap 8.5, BUN 16, Creatinine 0.70, Estimated Creat Clear 49, Estimated GFR 107, Est GFR ( Amer) 130, Glucose 76, Calcium 8.0 L, Magnesium 1.8, Total Bilirubin 0.7, AST 35, ALT 26, Alkaline Phosphatase 104, Total Protein 5.0 L, Albumin 2.7 L, Globulin 2.3, Albumin/Globulin Ratio 1.2, Vitamin B12 812 I & O for Last 24 hours: Intake & Output 07/28/24 07/29/24 07/30/24 07/31/24 23:59 23:59 23:59 23:59 Intake Total 420 / 420 Output Total 0 / 0 0 / 0 Balance 0 / 0 420 / 420 Weight 141 lb 2 oz 141 lb 1.675 oz Constitutional Constitutional: no acute distress and average body habitus *Routine HEENT Exam Head: Present normocephalic and atraumatic ENT: Present mucous membranes moist *Routine Neck Exam Neck: Present supple, full ROM and normal carotid upstroke; Absent JVD, carotid bruit or lymphadenopathy *Routine Respiratory Exam Respiratory: Present CTA bilaterally, normal respiratory effort, able to speak in complete sentences and symmetric chest movement *Routine Cardiovascular Exam Cardiovascular: Present RRR, Normal S1 and Normal S2; Absent murmur or gallop *Routine Abdominal Exam Abdominal: Present soft and normoactive bowel sounds; Absent tenderness, distended or organomegaly *Routine Extremities Exam Extremities: Present full ROM, pulses intact and normal capillary refill; Absent cyanosis, clubbing or edema *Routine Skin Exam Skin: Present intact and warm; Absent erythema *Routine Neurological Exam Neurological: Present alert, oriented X3 and CN II-XII intact; Absent sensory deficit or motor deficit Routine Psychiatric Exam Psychiatric: Present normal affect Meds Home Medications and Allergies Home Medications ?Medication ?Instructions ?Recorded ?Confirmed ?Type pravastatin 20 mg tablet 20 mg PO HS 09/29/20 07/30/24 History montelukast 10 mg tablet 10 mg PO PM 05/18/22 07/30/24 History tamsulosin 0.4 mg capsule 0.8 mg PO HS 05/18/22 07/31/24 History empagliflozin 10 mg tablet 10 mg PO DAILY 30 days #30 tabs 05/08/24 07/31/24 Rx (Jardiance) metoprolol succinate 50 mg 50 mg PO DAILY #30 tabs 06/19/24 07/31/24 Rx tablet,extended release 24 hr (Toprol XL) multivitamin (Multiple Vitamins 1 tab PO DAILY 06/19/24 07/30/24 History tablet) pantoprazole 40 mg tablet,delayed 40 mg PO DAILY 06/19/24 07/31/24 History release enzalutamide 40 mg capsule (Xtandi) 160 mg PO DAILY 07/02/24 07/31/24 History walker #1 ea 07/02/24 07/31/24 Rx potassium chloride 20 mEq 40 meq (2 x 20 mEq) PO DAILY #30 07/25/24 07/30/24 Rx tablet,extended release tabs furosemide 40 mg tablet 40 mg PO DAILY 07/30/24 07/30/24 History magnesium oxide 400 mg (241.3 mg 400 mg PO DAILY 07/30/24 07/30/24 History magnesium) tablet risperidone 0.25 mg tablet 0.25 mg PO HS 07/30/24 07/30/24 History amiodarone 200 mg tablet 400 mg PO BID 07/31/24 07/31/24 History apixaban 5 mg tablet (Eliquis) 5 mg PO BID 07/31/24 07/31/24 History spironolactone 25 mg tablet 25 mg PO DAILY 07/31/24 07/31/24 History New Prescriptions to Start Prescriptions: Allergies Allergy/AdvReac Type Severity Reaction Status Date / Time No Known Allergies Allergy Verified 07/02/24 10:07 Assessment and Plan *Assessment and plan (1) Heart failure with improved ejection fraction (HFimpEF): Status: Acute Category: Medical Code(s): I50.32 - Chronic diastolic (congestive) heart failure (2) Coronary artery disease: Status: Acute Qualifiers: Coronary Disease-Associated Artery/Lesion type: [place] artery [place] vs. transplanted heart: [place] heart Associated angina: without angina Qualified Code(s): I25.10 - Atherosclerotic heart disease of [place] coronary artery without angina pectoris Category: Medical Code(s): I25.10 - Atherosclerotic heart disease of [place] coronary artery without angina pectoris (3) Paroxysmal atrial fibrillation: Status: Acute Category: Medical Code(s): I48.0 - Paroxysmal atrial fibrillation (4) Hypertension: Status: Acute Qualifiers: Hypertension type: primary hypertension Qualified Code(s): I10 - Essential (primary) hypertension Category: Medical Code(s): I10 - Essential (primary) hypertension (5) Hyperlipidemia: Status: Acute Qualifiers: Hyperlipidemia type: mixed hyperlipidemia Qualified Code(s): E78.2 - Mixed hyperlipidemia Category: Medical Code(s): E78.5 - Hyperlipidemia, unspecified (6) Atrial fibrillation: Status: Acute Qualifiers: Atrial fibrillation type: unspecified Qualified Code(s): I48.91 - Unspecified atrial fibrillation Category: Medical Code(s): I48.91 - Unspecified atrial fibrillation (7) Prostate cancer: Status: Acute Category: Medical Code(s): C61 - Malignant neoplasm of prostate Plan Plan: 1. Patient was mated to the hospital with failure to thrive at home, confusion and falls. The patient's family states that the patient is unable to take care of himself at home. He will likely need placement following this admission. Will defer this to the hospitalist. 2. The patient has a past medical history of HFrEF with an ejection fraction at 40% in April 2024. Echocardiogram on this admission shows his EF has slightly improved to 45 to 50%. 3. Continue Jardiance, Toprol and Aldactone for his heart failure with improved EF. 4. The patient's lisinopril has been stopped which is most likely from hypotension. Will continue to hold his lisinopril as his blood pressure is marginal at this time. 5. Increase his Lasix to 80 mg p.o. daily for HFimpEF. 6. The patient does have a history of paroxysmal atrial fibrillation. He is currently in sinus rhythm. Status post cardioversion. Continue amiodarone. He should be on 200 mg daily according to his last office note. He is on long-term anticoagulation with Eliquis. 7. His blood pressure is acceptable at this time. 8. His LDL goal is less than 55. His LDL was less than 30 in May 2024. Continue pravastatin. 9. No further recommendations at this time from a cardiac standpoint. Once the patient is medically cleared he can be discharged on the following cardiac medications: Amiodarone 200 mg daily, Eliquis 5 mg p.o. twice daily, aspirin 81 mg daily, Jardiance 10 mg daily, Lasix 80 mg daily, Toprol 50 mg daily, Protonix 40 mg daily, pravastatin 20 mg daily and spironolactone 25 mg daily. 10. The patient will need to follow-up in cardiology clinic in 1 to 2 weeks once he is discharged from the hospital. Thank you for the opportunity to participate in the care of this patient. All recommendations and orders are per Dr. Bettencourt.
--- NOTE | 2024-07-31 13:20 | SW/DCPLANNER ---
Addendum entered by [facility] 08/02/24 14:52: After lengthy discussions between myself, Dr Webb and patient's family the decision was made for patient to return home w/ assistance from family and Hospice services. Per Rose w/ Hospice they will admit patient bry once he returns home between the hours of 5PM and 9PM. Addendum entered by [facility] 08/01/24 11:47: Patient is now able to ambulate 100+ ft and will not qualify for SNF level of care. I have updated [facility] and [facility]. Per patient's family they are not interested in private pay LTC at this time. Patient's family would prefer to return home w/ family assistance, private sitters list and Hospice services. Addendum entered by [facility] 08/01/24 10:36: Liudmila escobedo/ [facility] is unable to accept patient due to bed availability. Addendum entered by [facility] 08/01/24 08:19: Family is agreeable for information to also be faxed to [facility] at this time. Addendum entered by [facility] 08/01/24 08:12: Patient's family has requested that patient information now be faxed to [facility] level of care. I have faxed information this AM and will continue to follow up. Addendum entered by [facility] 07/31/24 15:54: Alix is at bedside to evaluate patient and speak w/ family. Addendum entered by [facility] 07/31/24 14:37: Alix w/ Hospice will be at bedside soon to speak w/ family and evaluate patient. I Original Note: Dr Webb and I spoke w/ patient and family at bedside at length today. Per family patient just discharged from [facility] level of care on Jul 26. PT/OT evaluated patient today and recommended home w/ 14/02 care and home health vs placement. Per family at bedside patient's PCP just sent in Hospice order on patient on 07/27/24. Patient's family have requested a Hospice referral and would like to further discuss their services at this time. Patient information has been faxed to [facility]. I will follow up w/ Alix at Hospice once information is reviewed. Per MD patient may be ready for discharge tomorrow. I will continue to discuss discharge options: home w/ family and home health vs placement vs Hospice.
[2024-07-31] MEDS: FUROSEMIDE 100MG/10ML VIAL 80 MG IV (13:57)
[2024-07-31 16:00] VITALS: BP 120/62; PULSE 78; RESP 16; TEMP 36.9; O2SAT 98
--- NOTE | 2024-07-31 17:13 | EXP.ACUTE.PN ---
Subjective *Date: 07/31/24 *Time: 20:42 Interval history: Patient feeling somewhat better today. Denies any chest pain or shortness of breath. Appears mildly confused. Afebrile. Normal at bedside appears quite overwhelmed. Discussed options including memory care unit, rehab, home with hospice. Case management assisting with discharge plan and consults today including hospice to come to bedside to evaluate. Medical Exam Vital signs and Labs for Last 24 Hours: Vital Signs Temp Pulse Resp BP Pulse Ox O2 Del Method 07/31/24 17:00 Room Air 07/31/24 16:00 98.5 F 78 16 120/62 98 07/31/24 15:00 Room Air 07/31/24 13:00 Room Air 07/31/24 11:00 Room Air 07/31/24 09:00 Room Air 07/31/24 08:00 Room Air 07/31/24 08:00 98.1 F 90 16 110/80 98 07/31/24 06:55 Room Air 07/31/24 05:00 Room Air 07/31/24 04:00 98.1 F 90 16 107/90 L 98 Room Air 07/31/24 03:00 Room Air 07/31/24 01:00 Room Air 07/30/24 23:00 Room Air 07/30/24 21:00 Room Air 07/30/24 20:00 98 Room Air 07/30/24 20:00 97.9 F 93 H 16 117/66 98 Room Air 07/30/24 19:00 Room Air 07/30/24 18:00 98.3 F 82 20 114/57 L 98 Room Air Intake and Output 07/31/24 07/31/24 07/31/24 07:59 15:59 23:59 Intake Total 900 / 900 Output Total 0 / 0 Balance 0 / 900 900 / 900 Intake: Intake, Oral Amount 900 / 900 Output: Output, Urine Amount 0 / 0 Other: Number of Unmeasured Voids 1 Number of Bowel Movements 1 Weight 64.004 kg Patient Weight 07/31/24 23:59 Weight 64.004 kg Laboratory Results - last 24 hr 07/30/24 18:32: Troponin I 0.02, Folate > 20.00 07/31/24 07:25: WBC 5.3 D, RBC 3.33 L, Hgb 10.9 L, Hct 33.0 L, MCV 99.1 H, MCH 32.7 H, MCHC 33.0, RDW 20.9 H, Plt Count 250, MPV 9.5, Neut % (Auto) 72.6, Lymph % (Auto) 10.1, [place] % (Auto) 8.3, Eos % (Auto) 7.8, Baso % (Auto) 0.6, Neut # (Auto) 3.8, Lymph # (Auto) 0.5 L, [place] # (Auto) 0.4, Eos # (Auto) 0.4, Baso # (Auto) 0.0, Sodium 131 L, Potassium 4.5, Chloride 99, Carbon Dioxide 28, Anion Gap 8.5, BUN 16, Creatinine 0.70, Estimated Creat Clear 49, Estimated GFR 107, Est GFR ( Amer) 130, Glucose 76, Calcium 8.0 L, Magnesium 1.8, Total Bilirubin 0.7, AST 35, ALT 26, Alkaline Phosphatase 104, Total Protein 5.0 L, Albumin 2.7 L, Globulin 2.3, Albumin/Globulin Ratio 1.2, Vitamin B12 812 I & O for Labs for Last 24 Hours: Intake & Output 07/28/24 07/29/24 07/30/24 07/31/24 23:59 23:59 23:59 23:59 Intake Total 900 / 900 Output Total 0 / 0 0 / 0 Balance 0 / 0 900 / 900 Weight 64.013 kg 64.004 kg Constitutional: Present no acute distress, average body habitus, chronically ill appearing and cooperative Head: Present atraumatic and normocephalic ENT: Present normal exam Neck: Present normal inspection Respiratory: Present crackles (Fine in the bases, improved from yesterday) and normal respiratory effort; Absent rhonchi or wheezes Cardiac: Present Regular Rate and Tachycardia Comment:: Irregularly irregular GI: Present soft and normal bowel sounds; Absent distention or tenderness Extremities: Present normal inspection, full ROM and edema (3+ to knees) Skin: Absent erythema Comment:: Excoriations/linear lesions on bilateral legs secondary to edema and cracking Neuro: Present Grossly Intact, alert, awake and moves all extremities Assessment and Plan *Assessment and plan (1) Heart failure with improved ejection fraction (HFimpEF): Status: Acute Category: Medical Code(s): I50.32 - Chronic diastolic (congestive) heart failure (2) Declining functional status: Status: Acute Category: Medical Code(s): R53.81 - Other malaise (3) Bilateral edema of lower extremity: Status: Acute Category: Medical Code(s): R60.0 - Localized edema (4) Paroxysmal atrial fibrillation: Status: Acute Category: Medical Code(s): I48.0 - Paroxysmal atrial fibrillation (5) Encephalopathy: Status: Acute Category: Medical Code(s): G93.40 - Encephalopathy, unspecified Plan Bill Lozano is a 83-year-old male with a medical history significant for HFrEF 30% April 2024, paroxysmal A-fib, CAD, BPH, prostate cancer on Xtandi who presents after son became very concerned about patient's ability to take care of himself at home. Per son, patient mentation has gradually declined over the past months to a point where son states patient is often confused, falls at home, leaves appliances on including stove at home and forgets. My interview with the patient revealed intermittent confusion but does have some coherence at times. Son states it has come to a point where he does not feel his dad is able to live by himself at home. He has been brought to the ED many times over the past month. Workup in the ED significant for BNP 1120 but otherwise relatively unremarkable CBC, CMP, UA, CXR. Patient did have significant lower extremity pitting edema 4+ but saturating appropriately on room air. Case discussed with ED provider and decision was made to admit patient for failure to thrive at home, recurrent falls, decline in cognitive function. Discussed case with case management, patient, family at bedside. Will have hospice evaluate today. Continue to work with therapy. Anticipate discharge in the next day or 2. Problems addressed as follows: #Declining functional status #Recurrent falls #Cognitive decline ? Concern for cognitive change is secondary to dementia and recent stays in both rehab facilities in the hospital. Would benefit from further workup as an outpatient for dementia/cognitive impairment ? CT head 07/05/2024 revealed generalized atrophy and chronic small vessel ischemic changes. No focal neurological deficits. ? Folate normal, B12 still pending. TSH normal, free T4 slightly elevated but subclinical. ? PT/OT consulted, working with therapy, walked 35 feet today. After discussion with family, will consult hospice to evaluate for possible resources at discharge -Kidney function at baseline with BUN 16, creatinine 0.7. White count 5.3. Electrolytes normal with potassium 4.5, magnesium 1.8. Repeat CBC, CMP, magnesium ordered for the morning. #HFrEF #Venous insufficiency ? Significant lower extremity pitting edema 4+ on admission. IV Lasix 40 mg given in the ED. BNP 1120. - IV Lasix 80 mg once today. Transition to oral tomorrow - Echo this admission shows slightly improved EF of 45 to 50%. Continue Jardiance, Toprol, Aldactone for heart failure. - Discussed case with cardiology, recommend adjustments above as well as continuing to hold lisinopril. Recommend increasing Lasix to 80 mg p.o. daily. #CAD: Continue aspirin, statin. #BPH: Continue home Flomax. #Prostate cancer: No longer taking Xtandi. Full code DVT prophylaxis: Lovenox 40 mg Cardiac diet
[2024-07-31 20:00] VITALS: BP 104/54; PULSE 78; RESP 16; TEMP 36.6; O2SAT 98
[2024-07-31] MEDS: PANTOPRAZOLE 40MG TABLET 40 MG PO (21:41)
[2024-07-31] MEDS: PRAVASTATIN 20MG TAB 20 MG PO (21:41)
[2024-07-31] MEDS: TAMSULOSIN 0.4MG CAPSULE 0.8 MG PO (21:41)
[2024-07-31] MEDS: risperiDONE 0.25MG TABLET 0.25 MG PO (21:41)
[2024-07-31] MEDS: APIXABAN 5MG TABLET 5 MG PO (21:41)
[2024-08-01] VITALS (7 sets, daily range): BP systolic 70–96; BP diastolic 35–50; PULSE 76–98; RESP 16–18; TEMP 36.8–37.3; O2SAT 96–98; BMI 19.5
[2024-08-01] MEDS: ACETAMINOPHEN 325MG TAB 650 MG PO (05:51)
--- NOTE | 2024-08-01 06:45 | PC.NURSE ---
Pt BP low on rounds. Pt woken and Manual bp taken 85/42. MD made aware. Ordered to give 500ml NS bolus. Carried out. Repeat BP 96/45
[2024-08-01 07:05] LABS: Basophils % 0.9 % (0.1-2.0); Eosinophils # 0.4 K/mm3 (0.0-0.4); Eosinophils % 8.1 % (0.1-12.0); Hematocrit 30.2 % (42.0-52.0); Hemoglobin 10.3 g/dL (14.1-18.0); Lymphocytes # 0.6 K/mm3 (0.7-4.5); Lymphocytes % 13.1 % (10-50); Mean Corpuscular HGB Conc 34.1 g/dL (31.8-35.4); Mean Corpuscular Hemoglobin 33.4 pg (27.0-31.2); Mean Corpuscular Volume 98.1 fl (80-94); Mean Platelet Volume 9.6 fl (7.4-10.4); Monocytes # 0.4 K/mm3 (0.1-1.0); Monocytes % 8.8 % (1.7-9.3); Neutrophils # 3.1 K/mm3 (1.8-7.8); Neutrophils % 68.7 % (37.0-80.0); Platelet Count 220 K/mm3 (142-424); Red Blood Count 3.08 M/mm3 (4.60-6.20); Red Cell Distribution Width 20.3 % (11.5-17.5); White Blood Count 4.6 K/mm3 (4.8-10.8)
[2024-08-01] MEDS: 0.9 % SODIUM CHLORIDE 1000ML 500 ML 999 ML IV (07:10)
[2024-08-01 07:27] LABS: Alanine Aminotransferase 23 U/L (12-78); Albumin Level 2.4 g/dl (3.5-5.0); Albumin/Globulin Ratio 1.1 (1.1-1.8); Alkaline Phosphatase 102 U/L (38-126); Aspartate Amino Transferase 30 U/L (17-59); Bilirubin,Total 0.6 mg/dl (0.2-1.3); Blood Urea Nitrogen 22 mg/dl (9-20); Calcium 7.4 mg/dl (8.4-10.2); Carbon Dioxide 27 mmol/L (22.0-30.0); Chloride 99 mmol/L (98-107); Creatinine Clearance Estimated 47 mL/min (50-200); Estimated Glomerular Filt Rate 92 ml/min (>60); GFR (African American) 111 ML/MIN (>60); Globulin 2.2 g/dL (1.3-3.2); Glucose 76 mg/dl (74-100); Magnesium 1.8 mg/dl (1.6-2.3); Sodium 130 mmol/L (136-145); Total Protein,Serum 4.6 g/dl (6.3-8.2)
--- NOTE | 2024-08-01 07:54 | P.PN_ITS ---
Subjective *Date: 08/01/24 *Time: 18:32 Interval history: Patient active today. Walked with therapy down the [place]. Tolerating p.o. intake. Getting up with minimal assistance to the bathroom. Was restless overnight. Family requesting something to help him sleep. Stable on room air. Sugars remain soft however, looks 70s but patient appears asymptomatic. Medical Exam Vital signs and Labs for Last 24 Hours: Vital Signs Temp Pulse Resp BP Pulse Ox O2 Del Method 08/01/24 06:44 Room Air 08/01/24 06:43 96/45 L 08/01/24 05:42 90 85/42 L 08/01/24 05:35 77/35 L 08/01/24 05:00 Room Air 08/01/24 04:00 98.4 F 80 16 85/43 L 96 Room Air 08/01/24 03:00 Room Air 08/01/24 01:00 Room Air 07/31/24 23:00 Room Air 07/31/24 21:00 Room Air 07/31/24 20:00 Room Air 07/31/24 20:00 97.9 F 78 16 104/54 L 98 Room Air 07/31/24 18:57 Room Air 07/31/24 17:00 Room Air 07/31/24 16:00 98.5 F 78 16 120/62 98 07/31/24 15:00 Room Air 07/31/24 13:00 Room Air 07/31/24 11:00 Room Air 07/31/24 09:00 Room Air 07/31/24 08:00 Room Air 07/31/24 08:00 98.1 F 90 16 110/80 98 Intake and Output 07/31/24 07/31/24 08/01/24 15:59 23:59 07:59 Intake Total 900 / 1380 480 / 1380 Output Total 0 / 0 450 / 450 Balance 900 / 1380 480 / 1380 -450 / -450 Intake: Intake, Oral Amount 900 / 1380 480 / 1380 Output: Output, Urine Amount 0 / 0 450 / 450 Other: Number of Unmeasured Voids 1 0 Number of Bowel Movements 1 Weight 62.142 kg Patient Weight 08/01/24 23:59 Weight 62.142 kg Laboratory Results - last 24 hr 07/31/24 07:25: WBC 5.3 D, RBC 3.33 L, Hgb 10.9 L, Hct 33.0 L, MCV 99.1 H, MCH 32.7 H, MCHC 33.0, RDW 20.9 H, Plt Count 250, MPV 9.5, Neut % (Auto) 72.6, Lymph % (Auto) 10.1, [place] % (Auto) 8.3, Eos % (Auto) 7.8, Baso % (Auto) 0.6, Neut # (Auto) 3.8, Lymph # (Auto) 0.5 L, [place] # (Auto) 0.4, Eos # (Auto) 0.4, Baso # (Auto) 0.0, Sodium 131 L, Potassium 4.5, Chloride 99, Carbon Dioxide 28, Anion Gap 8.5, BUN 16, Creatinine 0.70, Estimated Creat Clear 49, Estimated GFR 107, Est GFR ( Amer) 130, Glucose 76, Calcium 8.0 L, Magnesium 1.8, Total Bilirubin 0.7, AST 35, ALT 26, Alkaline Phosphatase 104, Total Protein 5.0 L, Albumin 2.7 L, Globulin 2.3, Albumin/Globulin Ratio 1.2, Vitamin B12 812 08/01/24 06:10: WBC 4.6 L, RBC 3.08 L, Hgb 10.3 L, Hct 30.2 L, MCV 98.1 H, MCH 33.4 H, MCHC 34.1, RDW 20.3 H, Plt Count 220, MPV 9.6, Neut % (Auto) 68.7, Lymph % (Auto) 13.1, [place] % (Auto) 8.8, Eos % (Auto) 8.1, Baso % (Auto) 0.9, Neut # (Auto) 3.1, Lymph # (Auto) 0.6 L, [place] # (Auto) 0.4, Eos # (Auto) 0.4, Baso # (Auto) 0.0, Sodium 130 L, Potassium 4.0, Chloride 99, Carbon Dioxide 27, Anion Gap 8.0, BUN 22 H D, Creatinine 0.80, Estimated Creat Clear 47, Estimated GFR 92, Est GFR ( Amer) 111, Glucose 76, Calcium 7.4 L, Magnesium 1.8, Total Bilirubin 0.6, AST 30, ALT 23, Alkaline Phosphatase 102, Total Protein 4.6 L, Albumin 2.4 L D, Globulin 2.2, Albumin/Globulin Ratio 1.1 I & O for Labs for Last 24 Hours: Intake & Output 07/29/24 07/30/24 07/31/24 08/01/24 23:59 23:59 23:59 23:59 Intake Total 1380 / 1380 Output Total 0 / 0 0 / 0 450 / 450 Balance 0 / 0 1380 / 1380 -450 / -450 Weight 64.013 kg 64.004 kg 62.142 kg Constitutional: Present no acute distress, average body habitus, chronically ill appearing and cooperative Head: Present atraumatic and normocephalic ENT: Present normal exam Neck: Present normal inspection Respiratory: Present crackles (Fine in the bases, improved from yesterday) and normal respiratory effort; Absent rhonchi or wheezes Cardiac: Present Regular Rate and Tachycardia Comment:: Irregularly irregular GI: Present soft and normal bowel sounds; Absent distention or tenderness Extremities: Present normal inspection, full ROM and edema (3+ to knees) Skin: Absent erythema Comment:: Excoriations/linear lesions on bilateral legs secondary to edema and cracking Neuro: Present Grossly Intact, alert, awake and moves all extremities Assessment and Plan *Assessment and plan (1) Heart failure with improved ejection fraction (HFimpEF): Status: Acute Category: Medical Code(s): I50.32 - Chronic diastolic (congestive) heart failure (2) Declining functional status: Status: Acute Category: Medical Code(s): R53.81 - Other malaise (3) Bilateral edema of lower extremity: Status: Acute Category: Medical Code(s): R60.0 - Localized edema (4) Paroxysmal atrial fibrillation: Status: Acute Category: Medical Code(s): I48.0 - Paroxysmal atrial fibrillation (5) Encephalopathy: Status: Acute Category: Medical Code(s): G93.40 - Encephalopathy, unspecified Plan Bill Lozano is a 83-year-old male with a medical history significant for HFrEF 30% April 2024, paroxysmal A-fib, CAD, BPH, prostate cancer on Xtandi who presents after son became very concerned about patient's ability to take care of himself at home. Per son, patient mentation has gradually declined over the past months to a point where son states patient is often confused, falls at home, leaves appliances on including stove at home and forgets. My interview with the patient revealed intermittent confusion but does have some coherence at times. Son states it has come to a point where he does not feel his dad is able to live by himself at home. He has been brought to the ED many times over the past month. Workup in the ED significant for BNP 1120 but otherwise relatively unremarkable CBC, CMP, UA, CXR. Patient did have significant lower extremity pitting edema 4+ but saturating appropriately on room air. Case discussed with ED provider and decision was made to admit patient for failure to thrive at [place], recurrent falls, decline in cognitive function. Patient's blood pressure soft, adding midodrine today. Will observe for 1 more night to see if improvement in blood pressure helps his unsteadiness. Adjusting meds to help for sleep. Plan to discharge home with home health tomorrow. Problems addressed as follows: #Declining functional status #Recurrent falls #Cognitive decline ? Concern for cognitive change is secondary to dementia and recent stays in both rehab facilities in the hospital. Would benefit from further workup as an outpatient for dementia/cognitive impairment ? CT head 07/05/2024 revealed generalized atrophy and chronic small vessel ischemic changes. No focal neurological deficits. ? Folate normal, B12 still pending. TSH normal, free T4 slightly elevated but subclinical. ? PT/OT consulted, working with therapy, walk the [place] today. Case management assisting with disposition plan of home with home health versus hospice. Family appears stressed and in need of respite care. Discussed patient's physical ability and agree that he would benefit from group home to assist with bathing and daily needs but is ambulatory and independently mobile, likely needs facility with memory care assistance. Ongoing discussion with case management. -Kidney function at baseline with BUN 22, creatinine 0.8. Hemoglobin 10.3. White count 4.6. Lab holiday in the morning. #HFrEF #Venous insufficiency ? Significant lower extremity pitting edema 4+ on admission. IV Lasix yesterday. Holding diuretics today. Edema somewhat better. -Blood pressure soft, initiate midodrine 5 mg 3 times a day. - Echo this admission shows slightly improved EF of 45 to 50%. Continue Jardiance, Toprol, Aldactone for heart failure. -Will resume 80 mg Lasix daily tomorrow #CAD: Continue aspirin, statin. #BPH: Continue home Flomax. #Prostate cancer: No longer taking Xtandi. Full code DVT prophylaxis: Lovenox 40 mg Cardiac diet
[2024-08-01] MEDS: MAGNESIUM SULFATE IN WATER 2 GM/50 ML PIGGYBACK IV (09:42)
[2024-08-01] MEDS: POTASSIUM CHLORIDE 20MEQ TAB 40 MEQ PO (09:43)
[2024-08-01] MEDS: AMIODARONE 200MG TABLET 200 MG PO (09:43)
[2024-08-01] MEDS: APIXABAN 5MG TABLET 5 MG PO ×2 (09:43→21:35)
[2024-08-01] MEDS: FUROSEMIDE 80 MG TABLET PO (09:43)
[2024-08-01] MEDS: ASPIRIN EC 81MG TABLET 81 MG PO (09:43)
[2024-08-01] MEDS: EMPAGLIFLOZIN 10MG TABLET 10 MG PO (09:43)
[2024-08-01] MEDS: SPIRONOLACTONE 25MG TABLET 25 MG PO (09:43)
[2024-08-01] MEDS: MAGNESIUM OXIDE 400MG TABLET 400 MG PO (09:43)
[2024-08-01] MEDS: MIDODRINE HCL 5 MG TABLET PO ×2 (13:25→21:36)
--- NOTE | 2024-08-01 18:05 | PC.NURSE ---
Pt is alert and oriented x2. Bp has been low today MD was made aware and made some adjustments to medications. Pt BP has been better this evening. Pt has been resting in bed most of shift with family at bedside. This evening pt began to try and get out of bed unassisted but was easily redirected. Purewick in place. Bed alarm on. Call light within reach.
[2024-08-01] MEDS: MONTELUKAST SODIUM 10MG TAB 10 MG PO (18:24)
[2024-08-01] MEDS: MELATONIN 5MG TABLET 5 MG PO (21:35)
[2024-08-01] MEDS: TAMSULOSIN 0.4MG CAPSULE 0.8 MG PO (21:36)
[2024-08-01] MEDS: PANTOPRAZOLE 40MG TABLET 40 MG PO (21:36)
[2024-08-01] MEDS: risperiDONE 0.25MG TABLET 0.5 MG PO (21:36)
[2024-08-01] MEDS: PRAVASTATIN 20MG TAB 20 MG PO (21:36)
[2024-08-02] VITALS: BP 97/52
[2024-08-02 04:00] VITALS: BP 75/33; PULSE 83; RESP 16; TEMP 36.8; O2SAT 97; BMI 19.5
[2024-08-02 08:00] VITALS: BP 85/56; PULSE 100; RESP 16; TEMP 36.6; O2SAT 97
--- NOTE | 2024-08-02 08:25 | EXP.DC.SUM ---
General Admission date:: 07/30/24 Discharge date: 08/02/24 HPI HPI HPI: Bill Lozano is a 83-year-old male with a medical history significant for HFrEF 30% April 2024, paroxysmal A-fib, CAD, BPH, prostate cancer on Xtandi who presents after son became very concerned about patient's ability to take care of himself at home. Per son, patient mentation has gradually declined over the past months to a point where son states patient is often confused, falls at home, leaves appliances on including stove at home and forgets. My interview with the patient revealed intermittent confusion but does have some coherence at times. Son states it has come to a point where he does not feel his dad is able to live by himself at home. He has been brought to the ED many times over the past month. Workup in the ED significant for BNP 1120 but otherwise relatively unremarkable CBC, CMP, UA, CXR. Patient did have significant lower extremity pitting edema 4+ but saturating appropriately on room air. Case discussed with ED provider and decision was made to admit patient for failure to thrive at home, recurrent falls, decline in cognitive function. Hospital Course Hospital Course Hospital Course: Bill Lozano is a 83-year-old male with a medical history significant for HFrEF 30% April 2024, paroxysmal A-fib, CAD, BPH, prostate cancer on Xtandi who presents after son became very concerned about patient's ability to take care of himself at home. Per son, patient mentation has gradually declined over the past months to a point where son states patient is often confused, falls at home, leaves appliances on including stove at home and forgets. My interview with the patient revealed intermittent confusion but does have some coherence at times. Son states it has come to a point where he does not feel his dad is able to live by himself at home. He has been brought to the ED many times over the past month. Workup in the ED significant for BNP 1120 but otherwise relatively unremarkable CBC, CMP, UA, CXR. Patient did have significant lower extremity pitting edema 4+ but saturating appropriately on room air. Case discussed with ED provider and decision was made to admit patient for failure to thrive at home, recurrent falls, decline in cognitive function. Patient was diuresed with improvement in swelling. Evaluated by therapy. Given his mobility, discussed rehab versus hospice versus home with home health. Stays with his girlfriend who helps care for him. Was discharged home with hospice after much discussion with family given patient's mobility and functionality. Still completing at least 4 of his 6 ADLs. Initiated on midodrine for soft blood pressures. Tolerating p.o. intake. Stable to discharge. Hospice confirmed that they would meet patient and admit him afternoon he was discharged. Problems addressed as follows: #Declining functional status #Recurrent falls #Cognitive decline ? Concern for cognitive change is secondary to dementia and recent stays in both rehab facilities in the hospital. Would benefit from further workup as an outpatient for dementia/cognitive impairment. CT head 07/05/2024 revealed generalized atrophy and chronic small vessel ischemic changes. No focal neurological deficits. Folate, B12, TSH normal, free T4 slightly elevated but subclinical. PT/OT consulted, working with therapy, walk the [place] today. Case management assisting with disposition plan of home with home health versus hospice. Family appears stressed and in need of respite care. Discussed patient's physical ability and agree that he would benefit from senior living to assist with bathing and daily needs but is ambulatory and independently mobile, likely needs facility with memory care assistance. Ongoing discussion with case management during admission. After much discussion with family, discharged home with hospice. Family continuing to work on long-term placement needs. Kidney function electrolytes stable. Tolerating p.o. intake. Discharged in the care of his significant other who has been caring for him [id number] at home. #HFrEF #Venous insufficiency ? Significant lower extremity pitting edema 4+ on admission. IV Lasix intermittently during admission. Improved and edema. Planning for placement of compression socks when he gets home. Blood pressure soft so Lasix was intermittently held. Initiated on midodrine 5 mg 3 times a day with improvement in blood pressure. Echo this admission shows slightly improved EF of 45 to 50%. Continue Jardiance, Toprol, Aldactone for heart failure. 640 mg daily at discharge. #CAD: Continue aspirin, statin. #BPH: Continue home Flomax. #Prostate cancer: No longer taking Xtandi. Total time spent on discharge 45 minutes in counseling, documentation, chart review, and direct care with patient. Exam Data for Last 24 hours Vital signs and Labs for Last 24 Hours: Temp Pulse Resp BP Pulse Ox O2 Del Method 98.3 F 83 16 75/33 L 97 Room Air 08/02/24 04:00 08/02/24 04:00 08/02/24 04:00 08/02/24 04:00 08/02/24 04:00 08/02/24 07:00 I & O for Last 24 hours: Intake & Output 07/30/24 07/31/24 08/01/24 08/02/24 23:59 23:59 23:59 23:59 Intake Total 1380 / 1380 960 / 1226 266 / 266 Output Total 0 / 0 0 / 0 4150 / 4300 550 / 550 Balance 0 / 0 1380 / 1380 -3190 / -3074 -284 / -284 Weight 64.013 kg 64.004 kg 62.14 kg 62.006 kg Constitutional Constitutional: no acute distress, average body habitus and cooperative *Routine HEENT Exam Head: Present normocephalic Eye: Present EOMI and PERRL ENT: Present mucous membranes moist Comments: Bruise around left eye from previous fall *Routine Neck Exam Neck: Present supple, full ROM and normal carotid upstroke; Absent JVD, carotid bruit or lymphadenopathy *Routine Respiratory Exam Respiratory: Present CTA bilaterally, normal respiratory effort, able to speak in complete sentences and symmetric chest movement; Absent rhonchi, wheezes or crackles *Routine Cardiovascular Exam Cardiovascular: Present RRR, Normal S1 and Normal S2; Absent murmur or gallop *Routine Abdominal Exam Abdominal: Present soft and normoactive bowel sounds; Absent tenderness, distended or organomegaly *Routine Rectal Exam Patient deferred: visual exam *Routine Exam Patient deferred: penile exam *Routine Extremities Exam Extremities: Present edema (2+ to knees BLE), full ROM, pulses intact and normal capillary refill; Absent cyanosis or clubbing *Routine Skin Exam Skin: Present intact and warm; Absent erythema *Routine Neurological Exam Neurological: Present alert and CN II-XII intact; Absent sensory deficit or motor deficit Comments: Oriented to self and place Routine Psychiatric Exam Psychiatric: Present normal affect DS: Diagnosis Discharge Diagnosis (1) Heart failure with improved ejection fraction (HFimpEF): Status: Acute Code(s): I50.32 - Chronic diastolic (congestive) heart failure (2) Declining functional status: Status: Acute Code(s): R53.81 - Other malaise (3) Bilateral edema of lower extremity: Status: Acute Code(s): R60.0 - Localized edema (4) Paroxysmal atrial fibrillation: Status: Acute Code(s): I48.0 - Paroxysmal atrial fibrillation (5) Encephalopathy: Status: Acute Code(s): G93.40 - Encephalopathy, unspecified (6) Severe protein-calorie malnutrition: Status: Acute Code(s): E43 - Unspecified severe protein-calorie malnutrition Meds Home Medications and Allergies Home Medications ?Medication ?Instructions ?Recorded ?Confirmed ?Type pravastatin 20 mg tablet 20 mg PO HS 09/29/20 07/30/24 History montelukast 10 mg tablet 10 mg PO PM 05/18/22 07/30/24 History tamsulosin 0.4 mg capsule 0.8 mg PO HS 05/18/22 07/31/24 History empagliflozin 10 mg tablet 10 mg PO DAILY 30 days #30 tabs 05/08/24 07/31/24 Rx (Jardiance) multivitamin (Multiple Vitamins 1 tab PO DAILY 06/19/24 07/30/24 History tablet) pantoprazole 40 mg tablet,delayed 40 mg PO DAILY 06/19/24 07/31/24 History release walker #1 ea 07/02/24 07/31/24 Rx potassium chloride 20 mEq 40 meq (2 x 20 mEq) PO DAILY #30 07/25/24 07/30/24 Rx tablet,extended release tabs furosemide 40 mg tablet 40 mg PO DAILY 07/30/24 07/30/24 History magnesium oxide 400 mg (241.3 mg 400 mg PO DAILY 07/30/24 07/30/24 History magnesium) tablet apixaban 5 mg tablet (Eliquis) 5 mg PO BID 07/31/24 07/31/24 History spironolactone 25 mg tablet 25 mg PO DAILY 07/31/24 07/31/24 History amiodarone 200 mg tablet 200 mg PO DAILY 30 days #0 tabs 08/02/24 07/31/24 Rx melatonin 5 mg tablet 5 mg PO HS 30 days #30 tabs 08/02/24 Rx metoprolol succinate 25 mg 12.5 mg (1/2 x 25 mg) PO DAILY 30 08/02/24 Rx tablet,extended release 24 hr days #15 tabs midodrine 5 mg tablet 5 mg PO TID 30 days #90 tabs 08/02/24 Rx risperidone 0.5 mg tablet 0.5 mg PO HS #30 tabs 08/02/24 Rx New Prescriptions to Start Prescriptions: Heath Howard metoprolol succinate Heath Webb midodrine Jon,Heath risperidone Heath Webb Allergies Allergy/AdvReac Type Severity Reaction Status Date / Time No Known Allergies Allergy Verified 07/02/24 10:07 Discharge Plan Disposition Patient Disposition: Hospice - Home Condition: Fair Discharge Order Discharge Orders: Discharge Order (Routine); Ordered 08/02/24 Ordered By: Heath Webb Follow up Plan Follow up with: Artur Quintero [Primary Care Provider] - 08/09/24 11:00 am Varun Bettencourt MD [Staff Physician] - 08/14/24 11:00 am Prescriptions/Medication Reconciliation: New midodrine 5 mg Tablet 5 mg PO TID 30 Days Qty: 90 0RF melatonin 5 mg Tablet 5 mg PO HS 30 Days Qty: 30 0RF risperidone 0.5 mg tablet 0.5 mg PO HS Qty: 30 0RF metoprolol succinate 25 mg tablet extended release 24 hr 12.5 mg PO DAILY 30 Days Qty: 15 0RF Continued multivitamin [Multiple Vitamins] Tablet 1 tab PO DAILY pantoprazole 40 mg tablet,delayed release (DR/EC) 40 mg PO DAILY Patient Comments: TAKE 1 TABLET BY MOUTH ONCE DAILY (DME) [place] [facility] [place] .Route Qty: 1 0RF Rx Instructions: As directed pravastatin 20 MG tablet 20 mg PO HS Jardiance 10 mg Tablet 10 mg PO DAILY 30 Days Qty: 30 0RF potassium chloride 20 mEq tablet extended release 40 meq PO DAILY Qty: 30 1RF furosemide 40 mg tablet 40 mg PO DAILY Patient Comments: TAKE 1 TABLET BY MOUTH ONCE DAILY magnesium oxide 400 mg (241.3 mg magnesium) tablet 400 mg PO DAILY Patient Comments: TAKE 1 TABLET BY MOUTH ONCE DAILY spironolactone 25 mg tablet 25 mg PO DAILY Patient Comments: TAKE 1 TABLET BY MOUTH ONCE DAILY Eliquis 5 mg tablet 5 mg PO BID amiodarone 200 mg tablet 200 mg PO DAILY 30 Days Qty: 0 0RF tamsulosin 0.4 mg Capsule 0.8 mg PO HS montelukast 10 mg Tablet 10 mg PO PM Discontinued metoprolol succinate [Toprol XL] 50 mg tablet extended release 24 hr 50 mg PO DAILY Qty: 30 3RF Xtandi 40 mg capsule 160 mg PO DAILY risperidone 0.25 mg tablet 0.25 mg PO HS Patient Comments: TAKE 1 TABLET BY MOUTH ONCE DAILY AT BEDTIME Problem Reconciliation Problems Reviewed?: Yes Patient Discharge Instructions ACTIVITY: Continue current activity DIET: continue same diet Patient Instructions: High-Calorie, High-Protein Diet, NCM High-Calorie High-Protein Diet, WM High Calorie High Protein Diet Recipes, High-Protein Diet Foods List, 5 Tips for Increasing Calories - Diet, Dietary Supplements During Cancer Treatment Print Language: Libyan Providers Primary Care Provider: Artur Quintero Admit Provider: Edilson Vázquez Attending Provider: Edilson Vázquez
[2024-08-02] MEDS: POTASSIUM CHLORIDE 20MEQ TAB 40 MEQ PO (08:37)
[2024-08-02] MEDS: SPIRONOLACTONE 25MG TABLET 25 MG PO (08:37)
[2024-08-02] MEDS: EMPAGLIFLOZIN 10MG TABLET 10 MG PO (08:37)
[2024-08-02] MEDS: AMIODARONE 200MG TABLET 200 MG PO (08:37)
[2024-08-02] MEDS: MIDODRINE HCL 5 MG TABLET PO ×2 (08:37→12:18)
[2024-08-02] MEDS: MAGNESIUM OXIDE 400MG TABLET 400 MG PO (08:37)
[2024-08-02] MEDS: APIXABAN 5MG TABLET 5 MG PO (08:37)
[2024-08-02] MEDS: ASPIRIN EC 81MG TABLET 81 MG PO (08:37)
[2024-08-02] MEDS: ACETAMINOPHEN 325MG TAB 650 MG PO (12:18)
== END 2024-08-02 15:37 | disposition hospice, home (50) ==
LOC: ER 16:57 → 2ND 17:39
PROVIDERS: Admitting Provider Student in an Organized Health Care Education/Training Program; Emergency Provider Emergency Medicine; PCP Family Medicine; Visit Provider Student in an Organized Health Care Education/Training Program
DX: I50.22 Chronic systolic (congestive) heart failure (principal); R60.0 Localized edema; E43 Unspecified severe protein-calorie malnutrition; C61 Malignant neoplasm of prostate; I25.10 Atherosclerotic heart disease of native coronary artery without angina pectoris; I48.0 Paroxysmal atrial fibrillation; R41.81 Age-related cognitive decline; I10 Essential (primary) hypertension; Z79.01 Long term (current) use of anticoagulants; Z79.899 Other long term (current) drug therapy; Z60.2 Problems related to living alone; Z79.82 Long term (current) use of aspirin; Z68.1 Body mass index [BMI] 19.9 or less, adult
CPT/HCPCS: 36415; 71045; 80053; 81001; 82607; 82746; 83735; 83880; 84439; 84443; 84484; 85025; 93308; 97162; 97166; 97530; 97535; 99285; G0378; J1650; J1940; J3475; J7030